=== PATIENT | male | born 1945 | race Hispanic/Latino ===

== ENCOUNTER 2018-04-26 16:09 | Emergency (ER) | payer MEDICARE ==
[~2018-04-26] VITALS: Ht 177.8 cm; Wt 90.3 kg
[~2018-04-26 16:09] MED LIST: LISINOPRIL5 MG PO; [UNRECOGNIZED DRUG - OTHER] PO; tresiba SQ
[2018-04-26] MEDS ORDERED: ASPIRIN 81 MG CHEW TAB PO ONE (17:45)
[2018-04-26 18:02] LABS: BASOPHILS # (AUTO) 0.1 (0.0-0.1); BASOPHILS % 0.8 % (0.0-1.0); EOSINOPHILS # (AUTO) 0.2 (0.0-0.4); EOSINOPHILS % 2.7 % (0.0-6.0); HEMATOCRIT 39.7 % (38.2-49.6); LYMPHOCYTES # (AUTO) 1.8 (1.0-3.2); LYMPHOCYTES % 29.4 % (18.0-39.1); MEAN CORPUSCULAR HEMOGLOBIN 31.4 pg (28-32); MEAN CORPUSCULAR HGB CONC 32.7 g/dL (31-35); MEAN CORPUSCULAR VOLUME 95.9 fL (81-99); MONOCYTES # (AUTO) 0.5 (0.2-0.8); MONOCYTES % 7.4 % (4.4-11.3); NEUTROPHILS # (AUTO) 3.7 (2.1-6.9); NEUTROPHILS % 59.4 % (38.7-80.0); PLATELET COUNT 241 x10e3/uL (140-360); RED BLOOD COUNT 4.14 x10e6/uL (4.3-5.7); RED CELL DISTRIBUTION WIDTH 15.4 % (11.7-14.4)
[2018-04-26 18:14] LABS: INR 1.06
[2018-04-26 18:15] LABS: PARTIAL THROMBOPLASTIN TIME 29.7 seconds (23.8-35.5)
[2018-04-26 18:28] LABS: ALBUMIN 3.8 g/dL (3.5-5.0); ALBUMIN/GLOBULIN RATIO 0.8 (0.8-2.0); ANION GAP 19.6 mmol/L (8-16); CALCIUM 9.2 mg/dL (8.4-10.2); CREATINE KINASE MB 1.5 ng/mL (0-5.0); CREATININE, SERUM 3.34 mg/dL (0.72-1.25); POTASSIUM 5.6 mmol/L (3.5-5.1)
--- NOTE | 2018-04-26 18:59 | Diagnostic Imaging Report ---
Examination: Single AP view of the chest. COMPARISON: AP chest 06/04/2017 INDICATION: Chest pain IMPRESSION: 1. Lines and Tubes: Stable left upper chest multilead cardiac device 2. Lungs are grossly clear. No consolidation or effusion. 3. Stable enlargement of the cardiac silhouette. Pulmonary vasculature is normal. 4. No acute bony abnormalities. Partially visualized fusion hardware in the lower cervical spine. Signed by: Dr. Srinivas Denney M.D. on 04/26/2018 6:55 PM
[2018-04-26 21:58] LABS: CLARITY,URINE CLEAR (CLEAR); COLOR,URINE YELLOW (YELLOW); LEUKOCYTE ESTERASE ,URINE NEGATIVE (NEGATIVE); NITRITE,URINE NEGATIVE (NEGATIVE); PROTEIN,URINE DIPSTICK 3+ (NEGATIVE)
[2018-04-26 21:59] LABS: BILIRUBIN,URINE NEGATIVE (NEGATIVE); KETONES,URINE TRACE (NEGATIVE); URINE UROBILINOGEN 1 mg/dL (0.2 - 1)
[2018-04-26 22:27] LABS: EPITHELIAL CELLS,URINE MODERATE /LPF; HYALINE CASTS >15 (0-1)
[2018-04-26 22:28] LABS: RBC,URINE 0-5 /HPF (0-5)
[2018-04-26 22:29] LABS: TRANSITIONAL EPI CELLS,URINE MODERATE
[2018-04-26] MEDS ORDERED: SOD POLYSTYRENE SULFONATE SUSP 15 GM/60 ML BTL PO ONE (23:00)
[2018-04-26] MEDS ORDERED: ONDANSETRON HCL INJ 2 MG/ML VIAL IV PRN (23:15)
[2018-04-26] MEDS ORDERED: DEXTROSE 50% SYRINGE 50 ML IV PRN (23:15)
[2018-04-26] MEDS ORDERED: MORPHINE SULFATE 2 MG/ML SYR IV PRN (23:15)
[2018-04-26] MEDS ORDERED: SODIUM CHLORIDE FLUSH 10 ML SYR INJ PRN (23:15)
[2018-04-26] MEDS ORDERED: LORAZEPAM1 MG PO (23:24)
[2018-04-26] MEDS ORDERED: FOSRENOL1000 MG PO (23:24)
[2018-04-26] MEDS ORDERED: SIMVASTATIN20 MG PO (23:24)
[2018-04-26] MEDS ORDERED: PRANDIN2 MG PO (23:24)
[2018-04-26] MEDS: FAMOTIDINE 20 MG/2 ML VIAL IV SCH (23:44)
[2018-04-27 01:24] LABS: CREATINE KINASE MB 1.4 ng/mL (0-5.0)
[2018-04-27 05:52] LABS: CHOL/HDL RATIO 4.6 (3.9-4.7)
[2018-04-27 06:16] LABS: CREATINE KINASE MB 1.3 ng/mL (0-5.0)
[2018-04-27] MEDS ORDERED: INSULIN REGULAR, HUMAN 100 UNIT/1 ML 3ML VIAL SQ SCH (07:30)
[2018-04-27 07:41] LABS: ANION GAP 18.1 mmol/L (8-16); CALCIUM 8.8 mg/dL (8.4-10.2); CREATININE, SERUM 3.62 mg/dL (0.72-1.25); POTASSIUM 5.1 mmol/L (3.5-5.1)
[2018-04-27] MEDS: FAMOTIDINE 20 MG/2 ML VIAL IV SCH (08:31)
[2018-04-27] MEDS ORDERED: ASPIRIN81 MG PO (08:32)
[2018-04-27] MEDS ORDERED: SIMVASTATIN40 MG PO (08:32)
[2018-04-27] MEDS ORDERED: PEPCID20 MG PO (08:32)
[2018-04-27] MEDS ORDERED: METOPROLOL TART25 MG PO (08:32)
--- NOTE | 2018-04-27 08:45 | Discharge Summary ---
PRINCIPAL DIAGNOSES 1. Atypical chest pain. 2. Diabetes mellitus, type 2. 3. History of coronary artery disease. 4. End-stage renal disease. 5. Hyperkalemia. SECONDARY DIAGNOSIS: End-stage renal disease, on hemodialysis. CHIEF COMPLAINT: Left-sided chest pain. HISTORY OF PRESENT ILLNESS: This is a 72-year-old man with left-sided chest pain. Refer to the H and P for further details. HOSPITAL COURSE: The patient was found to have left-sided chest pain. Symptoms quickly resolved. Cardiac enzymes were negative. He does have a history of coronary artery disease and diabetes. Will obtain hemoglobin A1c. LDL is not at goal. Will titrate his statin medication up. I have also added aspirin and beta jose. Continue his BOB inhibitor. The patient is to follow up with parts data writer over the next week for possible stress testing. In the meantime, will treat him medically. Optimize his medical treatment. DISCHARGE MEDICATIONS: Per electronic medical record. FOLLOWUP 1. Primary care doctor in 1 week. 2. Electrical Logging Operator in 3-5 days. 3. Nephrology as directed. CONDITION ON DISCHARGE: Stable and improving. DISCHARGE LOCATION: Home. SARINA DANIELS MD Job#: [id number] [place]
[2018-04-27] MEDS ORDERED: SIMVASTATIN 20 MG TAB PO SCH (09:00)
[2018-04-27] MEDS ORDERED: ASPIRIN 81 MG ENTERIC COATED PO SCH (09:00)
[2018-04-27] MEDS ORDERED: NON-FORMULARY MEDICATION (Lisinopril 10 MG) PO SCH (09:00)
--- NOTE | 2018-04-27 09:04 | History and Physical ---
PRIMARY CARE PHYSICIAN: Dr. Abhi Zhang PROFESSOR OF MUSIC: Dr. Webster CHIEF COMPLAINT: Left-sided chest pain. HISTORY OF PRESENT ILLNESS: [id number] man with a history of end-stage renal disease, who received dialysis yesterday. During dialysis, patient developed some chest discomfort on the left side, sent home after completing dialysis, about 3 kg of fluid removed. Now, patient came into hospital due to left-sided chest discomfort. Cardiac enzymes negative. Symptoms have resolved. He denies any shortness of breath or dizziness. PAST MEDICAL HISTORY: Left leg cellulitis; acute kidney injury; end-stage renal disease, started on dialysis; diabetes mellitus type 2, hemoglobin A1c 8.3 in June 2017; diabetic nephropathy; hypertension; hyponatremia; adjustment disorder with mixed mood; ESBL E. coli and streptococcal infection of the left foot wound; right bundle-branch block; anemia requiring blood transfusion; coronary artery disease; stroke; myocardial infarction, status post coronary artery bypass grafting in 2017; congestive heart failure; hyperlipidemia. PAST SURGICAL HISTORY: Coronary artery bypass grafting, left arm HD access. ALLERGIES: PER ELECTRONIC MEDICAL RECORD. FAMILY HISTORY: Hypertension. SOCIAL HISTORY: Patient is single. He has grown children. Previously drank about 3 beers a day. Remote history of smoking cigarette. MEDICATIONS: Per electronic medical record. REVIEW OF SYSTEMS: Denies any dizziness, chest pain, shortness of breath, fever, chills, sweats, nausea, vomiting, diarrhea. PHYSICAL EXAMINATION: VITAL SIGNS: Have been reviewed. GENERAL APPEARANCE: Tired-appearing man resting in bed. HEENT: Anicteric. Pupils respond to light. No oral lesions. CARDIOVASCULAR: Normal S1 and S2. LUNGS: Moderate breath sounds. ABDOMEN: Soft, nontender, nondistended. EXTREMITIES: He has left arm bruit. SKIN: Dry. PSYCHIATRIC: Normal affect. NEUROLOGICAL: Alert and oriented x3. Moving all extremities. MUSCULOSKELETAL: No chest wall tenderness. LABS: Reviewed. MEDICATIONS: Reviewed. ASSESSMENT: 1. Left-sided chest pain. 2. Diabetes mellitus type 2. 3. Coronary artery disease with history of bypass. 4. End-stage renal disease, on hemodialysis. 5. Normocytic anemia, mild. 6. Hyperkalemia. 7. Overweight state. PLAN: 1. Cardiac enzymes negative x3. 2. LDL is 111, triglyceride 211. 3. The patient's symptoms may have been related to anxiety issues. 4. The patient's symptoms may have been related to fluid removal during dialysis. 5. Patient will need to follow up with his manager agency outpatient. 6. Will continue his BOB inhibitor. Will add aspirin 81 mg daily. Will continue statin. Will add low-dose beta jose. 7. Will also discharge him with Pepcid. Job#: [id number]
[2018-04-27] MEDS ORDERED: REPAGLINIDE 1 MG TAB PO SCH (11:30)
[2018-04-27] MEDS ORDERED: REPAGLINIDE 2 MG PO SCH (11:30)
[2018-04-28] MEDS ORDERED: LISINOPRIL 10 MG TAB PO SCH (09:00)
[2018-04-28] MEDS ORDERED: SIMVASTATIN 20 MG TAB PO SCH (21:00)
== END 2018-04-27 09:33 | disposition home or self-care (01) ==
LOC: ER 16:09 → UNDOADMIN 23:14 → ERHOLD 23:14 → ER 04-27 09:33
DX: R07.89 Other chest pain (principal); E87.5 Hyperkalemia; I12.0 Hypertensive chronic kidney disease with stage 5 chronic kidney disease or end stage renal disease; E11.22 Type 2 diabetes mellitus with diabetic chronic kidney disease; N18.6 End stage renal disease; Z99.2 Dependence on renal dialysis; E78.00 Pure hypercholesterolemia, unspecified; Z95.1 Presence of aortocoronary bypass graft; Z95.810 Presence of automatic (implantable) cardiac defibrillator
CPT/HCPCS: 36415; 71045; 80048; 80053; 80061; 81001; 82550; 82553; 82948; 83880; 84484; 85025; 85610; 85730; 93005; 99284

== ENCOUNTER 2018-08-22 11:50 | Emergency (ER) | payer MEDICARE ==
[~2018-08-22] VITALS: Ht 177.8 cm; Wt 90.3 kg
[~2018-08-22 11:50] MED LIST changes: +ASPIRIN81 MG PO; +FOSRENOL1000 MG PO; +LORAZEPAM1 MG PO; +METOPROLOL TART25 MG PO; +PEPCID20 MG PO; +PRANDIN2 MG PO; +SIMVASTATIN20 MG PO; +SIMVASTATIN40 MG PO
--- OUTSIDE RECORDS SUMMARY | 2018-08-22 11:53 | XMS REPORT | Clinical Summary ---
Author Author MARIANNE [facility] Organization [facility] Address Unknown Phone Unavailable Care Team Providers Care Heavy Forging Machine Operator Name Role Phone Abhi Zhang MD PCP Allergies No Known Allergies Medications End Date Status Medication Sig Dispensed Refills Start Date Active lisinopril Take 1 tablet 30 tablet 0 (PRINIVIL,ZESTRIL) 10 MG (10 mg total) 6 tablet by mouth every evening. Active metoprolol (LOPRESSOR) Take 1 tablet 60 tablet 0 100 MG tablet (100 mg 6 total) by mouth 2 (two) times daily. Active repaglinide (PRANDIN) 2 Take 2 mg by 0 MG tablet mouth 3 (three) times daily before meals. Active simvastatin (ZOCOR) 20 MG Take 20 mg by 0 tablet mouth nightly. Active liraglutide 0.6 mg/0.1 mL Inject 40 mg 0 (18 mg/3 mL) PnIj subcutaneousl y. Active insulin degludec (TRESIBA Inject 50 0 FLEXTOUCH U-200) 200 Units unit/mL (3 mL) InPn subcutaneousl y. 07/18/2018 Discontinued bismuth subsalicylate Take 30 mLs 360 mL 0 (PEPTO BISMOL) 262 mg/15 by mouth 6 mL suspension every 4 (four) hours as needed for Indigestion. 07/18/2018 Discontinued aspirin 81 MG EC tablet Take 1 tablet 30 tablet 0 (81 mg total) 6 by mouth daily. 07/18/2018 Discontinued insulin detemir (LEVEMIR) Inject 20 20 mL 0 100 unit/mL injection Units 6 subcutaneousl y 2 (two) times daily. 07/18/2018 Discontinued pantoprazole (PROTONIX) Take 1 tablet 30 tablet 0 40 MG tablet (40 mg total) 6 by mouth daily. 07/18/2018 Discontinued senna-docusate (SENOKOT Take 1 tablet 60 tablet 1 S) 8.6-50 mg per tablet by mouth 2 6 (two) times daily. 07/18/2018 Discontinued atorvastatin (LIPITOR) 80 Take 1 tablet 30 tablet 0 MG tablet (80 mg total) 6 by mouth nightly. 07/18/2018 Discontinued hydrALAZINE (APRESOLINE) Take 1 tablet 90 tablet 0 25 MG tablet (25 mg total) 6 by mouth every 8 (eight) hours. Active Problems Problem Noted Date Benign hypertension with chronic kidney disease, stage III 05/10/2016 Acute kidney injury 05/10/2016 Chronic kidney disease, stage 3 05/10/2016 Diabetes mellitus type 2, uncontrolled, with complications 05/10/2016 Pacemaker 05/05/2016 Acute ischemic stroke 05/04/2016 S/P CABG x 3 12/01/2015 CAD (coronary artery disease) 11/30/2015 Encounters Care Team Description Date Type Specialty Cristy Mcintyre RN Coronary artery disease involving [place] coronary artery of [place] heart with other form of angina pectoris (HCC) (Primary Dx); Acute ischemic stroke (HCC); Benign hypertension with chronic kidney disease, stage III (HCC); Diabetes mellitus type 2, uncontrolled, with complications (HCC); Acute kidney injury (HCC); Chronic kidney disease, stage 3 (HCC); S/P CABG x 3; Pacemaker 07/20/2018 Orders Only Transplant [facility] Ny MD Yao, June, MD ESRD (end stage renal disease) (HCC) (Primary Dx) 07/18/[address] [facility] 04/23/[address] [facility] Appointment 04/18/[address] [facility] Appointment 04/18/[address] [facility] 04/18/[address] [facility] 04/17/2018 Abstract Transplant after 08/21/2017 Social History Date Tobacco Use Types Packs/Day Years Used Quit: 07/18/2008 Former Smoker Smokeless Tobacco: Former Quit: 11/29/1995 User Alcohol Use Drinks/Week oz/Week Comments Yes 21 Cans of 12.6 beer Alcohol Habits Answer Date Recorded How often do you have a drink containing alcohol? 2-4 times a month 07/18/2018 How many drinks containing alcohol do you have on 1 or 2 07/18/2018 a typical day when you are drinking? How often do you have six or more drinks on one Not asked occasion? Sex Assigned at Date Recorded Not on file Industry Job Start Date Occupation Not on file Not on file Not on file Travel End Travel History Travel Start No recent travel history available. Last Filed Vital Signs Time Taken Vital Sign Reading 07/18/2018 2:07 PM PUBLIC SAFETY DIRECTOR Blood Pressure 154/55 07/18/2018 2:07 PM PUBLIC SAFETY DIRECTOR Pulse 82 07/18/2018 2:07 PM PUBLIC SAFETY DIRECTOR Temperature 36.7 C (98 F) 07/18/2018 2:07 PM PUBLIC SAFETY DIRECTOR Respiratory Rate 20 - Oxygen Saturation - - Inhaled Oxygen - Concentration 07/18/2018 2:07 PM PUBLIC SAFETY DIRECTOR Weight 92.5 kg (203 lb 14.4 oz) 07/18/2018 2:07 PM PUBLIC SAFETY DIRECTOR Height 177.8 cm (5' 10") 07/18/2018 2:07 PM PUBLIC SAFETY DIRECTOR Body Mass Index 29.26 Plan of Treatment Not on file Results Not on fileafter 08/21/2017 Insurance Payer Benefit Subscriber ID Type Phone Address Plan / Group AETNA - MEDICARE MGD CARE AETNA xxxxxxxx [facility] [phone] [address] [place] [address] [facility] Advance Directives For more information, please contact: [facility] [address] [place] [address] Date Inactivated Comments Code Status Date Activated 05/19/2016 3:19 PM Full Code 05/11/2016 3:20 PM This code status was determined by: Patient 05/11/2016 3:20 PM Full Code 05/04/2016 7:10 PM This code status was determined by: Patient 12/11/2015 5:03 PM Full Code 12/01/2015 3:20 PM This code status was determined by: Patient 12/01/2015 3:20 PM Full Code 11/30/2015 4:43 PM This code status was determined by: Patient 11/30/2015 4:43 PM Full Code 11/30/2015 9:09 AM This code status was determined by: Patient
[2018-08-22 12:15] LABS: BASOPHILS # (AUTO) 0.1 (0.0-0.1); BASOPHILS % 0.9 % (0.0-1.0); EOSINOPHILS # (AUTO) 0.2 (0.0-0.4); EOSINOPHILS % 2.4 % (0.0-6.0); HEMATOCRIT 34.9 % (38.2-49.6); HEMOGLOBIN 11.3 g/dL (14.0-18.0); LYMPHOCYTES # (AUTO) 2.3 (1.0-3.2); LYMPHOCYTES % 29.3 % (18.0-39.1); MEAN CORPUSCULAR HEMOGLOBIN 31.1 pg (28-32); MEAN CORPUSCULAR HGB CONC 32.4 g/dL (31-35); MEAN CORPUSCULAR VOLUME 96.1 fL (81-99); MONOCYTES # (AUTO) 0.6 (0.2-0.8); MONOCYTES % 7.8 % (4.4-11.3); NEUTROPHILS # (AUTO) 4.6 (2.1-6.9); NEUTROPHILS % 59.2 % (38.7-80.0); PLATELET COUNT 190 x10e3/uL (140-360); RED BLOOD COUNT 3.63 x10e6/uL (4.3-5.7); RED CELL DISTRIBUTION WIDTH 14.2 % (11.7-14.4)
[2018-08-22 12:33] LABS: ALBUMIN 3.7 g/dL (3.5-5.0); ALBUMIN/GLOBULIN RATIO 0.8 (0.8-2.0); ANION GAP 19.1 mmol/L (8-16); CALCIUM 8.9 mg/dL (8.4-10.2); CREATININE, SERUM 5.16 mg/dL (0.72-1.25); MAGNESIUM 2.4 MG/DL (1.3-2.1); PHOSPHORUS 5.3 MG/DL (2.3-4.7); POTASSIUM 5.1 mmol/L (3.5-5.1)
--- NOTE | 2018-08-22 12:56 | Diagnostic Imaging Report ---
Frontal and lateral views of the chest. HISTORY: Shortness of breath COMPARISON: Chest radiograph April 26, 2018 DISCUSSION: Overlying monitoring leads and artifacts. Unchanged appearance of the dual-lead implanted cardiac device. Lungs: No evidence of a consolidative pneumonia or pulmonary alveolar edema. Pleura: No pleural effusion or pneumothorax. Heart and mediastinum: The cardiac silhouette appears unremarkable. Postsurgical changes. Bones: Multiple median sternotomy wires. IMPRESSION: 1. No acute radiographic abnormality. 2. No significant interval change. Signed by: Dr. Cheko Krishnamurthy D.O., M.M.M. on 08/22/2018 12:53 PM
--- NOTE | 2018-08-22 12:59 | Diagnostic Imaging Report ---
RADIOGRAPH(S) OF THE ABDOMEN AND PELVIS, 2 view(s) HISTORY: Shortness of breath COMPARISON: None available. FINDINGS: Overlying monitoring leads. Some of the osseous structures are partially obscured by stool and overlying bowel gas. Moderate fecal material in the region of the sacrum. No specific evidence of obstruction or ileus. No definite urinary tract calcification. Multilevel degenerative changes, most notably severe at L3-4. IMPRESSION: Nonobstructive bowel gas pattern. Signed by: Dr. Cheko Krishnamurthy D.O., M.M.M. on 08/22/2018 12:56 PM
[2018-08-22] MEDS ORDERED: ZOFRAN4 MG SL (13:17)
[2018-08-22] MEDS ORDERED: PEPCID20 MG PO (13:17)
== END 2018-08-22 14:07 | disposition home or self-care (01) ==
LOC: ER 11:50
DX: R06.00 Dyspnea, unspecified (principal); R11.2 Nausea with vomiting, unspecified; E11.65 Type 2 diabetes mellitus with hyperglycemia; N18.9 Chronic kidney disease, unspecified; E86.0 Dehydration
CPT/HCPCS: 36415; 71046; 74018; 80053; 83735; 83880; 84100; 84484; 85025; 93005; 99284

== ENCOUNTER 2020-01-29 12:16 | Emergency (ER) | payer MEDICARE ==
[~2020-01-29] VITALS: Ht 177.8 cm; Wt 99.8 kg
[~2020-01-29 12:16] MED LIST changes: +ZOFRAN4 MG SL
--- NOTE | 2020-01-29 13:15 | Emergency Department Note ---
History of Present Illnes History of Present Illness Chief Complaint: Abdominal Complaints History of Present Illness This is a 74 year old male with diarrhea x 2 months. Historian: Patient Arrival Mode: Car Arborist Required: No Onset (how long ago): month(s) (2) Quality: watery Severity: moderate Onset quality: gradual Duration (how long): month(s) (2) Timing of current episode: intermittent Progression: unchanged Chronicity: chronic Relieving factors: none, other (has not tried any meds for diarrhea) Exacerbating factors: none Treatments prior to arrival: none Past Medical/Family History Physician Review I have reviewed the patient's past medical and family history. Any updates have been documented here. Past Medical History Recent Fever: No Clinical Suspicion of Infectio: No New/Unexplained Change in Ment: No Past Medical History: Hypertension, Diabetes Other Medical History: HIGH CHOLESTEROL Past Surgical History: None Other Surgery: LEFT LOWER ARM DIALYSIS FISTULA Social History Smoking Cessation: Never Smoker Counseling Performed: No Alcohol Use: None Any Illegal Drug Use: No TB Exposure/Symptoms: No Physically hurt or threatened: No Family History Family history of heart diseas: No Other Last Tetanus: UTD Any Pre-Existing Lines (PICC,: No Review of Systems Review of Systems Constitutional: no symptoms EENTM: no symptoms Cardiovascular: no symptoms Respiratory: no symptoms Gastrointestinal: diarrhea (no blood, no melena) Genitourinary: no symptoms Musculoskeletal: no symptoms Neurological: no symptoms Psychological: no symptoms Endocrine: no symptoms Hematological/Lymphatic: no symptoms Review of other systems All other systems reviewed and negative. Physical Exam Related Data Allergies: Coded Allergies: No Known Allergies (Unverified , 06/04/17) Triage Vital Signs Vital Signs Date Time Temp Pulse Resp B/P (MAP) Pulse Ox O2 Delivery O2 Flow Rate FiO2 01/29/20 12:48 98.0 69 16 159/71 98 Physical Exam CONSTITUTIONAL Constitutional: well-developed, well-nourished HENT HENT: normocephalic, atraumatic, oropharynx clear/moist, nose normal HENT L/R: left ext ear normal, right ext ear normal EYES Eyes: PERRL, conjunctivae normal NECK Neck: ROM normal PULMONARY Pulmonary: effort normal, breath sounds normal CARDIOVASCULAR Cardiovascular: regular rhythm, heart sounds normal, capillary refill normal, normal rate GASTROINTESTINAL Abdominal: soft, nontender, bowel sounds normal GENITOURINARY Genitourinary: exam deferred SKIN Skin: warm, dry MUSCULOSKELETAL Musculoskeletal: ROM normal NEUROLOGICAL Neurological: alert, oriented x 3, no gross motor or sensory deficits PSYCHOLOGICAL Psychological: mood/affect normal, judgement normal Critical Care Time Subsequent provider I assumed direction of critical care for this patient from another provider of my specialty. Assessment & Plan Assessment & Plan Final Impression: (1) Diarrhea Assessment & Plan dc home f/u with pcp and GI Dr Corcoran otc Imodium Bentyl for cramps Depart Disposition: HOME, SELF-CARE Last Vital Signs Date Time Temp Pulse Resp B/P (MAP) Pulse Ox O2 Delivery O2 Flow Rate FiO2 01/29/20 12:48 98.0 69 16 159/71 98 Home Meds Active Scripts Famotidine (PEPCID) 20 Mg Tablet, 20 MG PO BID, #30 TAB Prov:JORY BRAND MD 08/22/18 Ondansetron Hcl* (ZOFRAN*) 4 Mg Tablet, 4 MG SL Q6H PRN for NAUSEA, #30 MG 0 Refills Prov:JORY BRAND MD 08/22/18 Metoprolol Tartrate (METOPROLOL TARTRATE) 25 Mg Tablet, 25 MG PO Q12H for 30 Days, TAB Prov:SARINA DANIELS MD 04/27/18 Simvastatin (SIMVASTATIN) 40 Mg Tablet, 40 MG PO 2100, #30 TAB Prov:SARINA DANIELS MD 04/27/18 Aspirin (ASPIRIN) 81 Mg Tab.chew, 81 MG PO DAILY for 30 Days Prov:SARINA DANIELS MD 04/27/18 Famotidine (PEPCID) 20 Mg Tablet, 20 MG PO BID, #60 TAB Prov:SARINA DANIELS MD 04/27/18 Reported Medications Lanthanum Carbonate (FOSRENOL) 1,000 Mg Tab.chew, 1000 MG PO AC for 0 Days 04/26/18 Lorazepam (LORAZEPAM) 1 Mg Tablet, 1 MG PO DAILY for ANXIETY, #30 04/26/18 Repaglinide (PRANDIN) 2 Mg Tablet, 2 MG PO AC, #90 04/26/18 [tresiba] No Conflict Check, 20 UNITS SQ BID 06/05/17 Lisinopril (LISINOPRIL) 5 Mg Tablet, 10 MG PO DAILY 06/05/17 DANN WASHINGTON MD January 29, 2020 13:15
--- OUTSIDE RECORDS SUMMARY | 2020-01-30 09:03 | XMS REPORT | Clinical Summary ---
Author Author MARIANNE [facility] Organization [facility] Address Unknown Phone Unavailable Care Team Providers Care Tourist Agent Name Role Phone Abhi Zhang MD PCP Allergies No Known Allergies Medications End Date Status Medication Sig Dispensed Refills Start Date Active lisinopril Take 1 tablet 30 tablet 0 (PRINIVIL,ZESTRIL) 10 MG (10 mg total) 6 tablet by mouth every evening. Active metoprolol (LOPRESSOR) Take 1 tablet 60 tablet 0 0 100 MG tablet (100 mg 6 [...] Units unit/mL (3 mL) InPn subcutaneousl y. Active Problems Problem Noted Date Benign hypertension with chronic kidney disease, stag e III 05/10/2016 Acute kidney injury 05/10/2016 Chronic kidney disease, stage 3 05/10/2016 Diabetes mellitus type 2, uncontrolled, with complica tions 05/10/2016 Pacemaker 05/05/2016 Acute ischemic stroke 05/04/2016 S/P CABG x 3 12/01/2015 CAD (coronary artery disease) 11/30/2015 Social History Date Tobacco Use Types Packs/Day Years Used Quit: 07/18/2008 Former Smoker Smokeless Tobacco: Former Quit: 11/29/1995 User Alcohol Use Drinks/Week oz/Week Comments Yes 21 Cans of 12.6 beer Alcohol Habits Answer Date Recorded How often do you have a drink containing alcohol? 2-4 time s a month 07/18/2018 How many drinks containing [...] travel history available. Last Filed Vital Signs Not on file Plan of Treatment Health Maintenance Due Date Last Done Comments HEMOGLOBIN A1C 08/04/2016 05/04/2016, 016 Results Not on fileafter 01/28/2019 Insurance Payer Benefit Subscriber ID Type Phone Address Plan / Group AETNA - MEDICARE MGD CARE AETNA xxxxxxxx [facility] [address] [place] [address] [place] [phone] Advance Directives For more information, please contact: [facility] [address] [place] [address] Date Inactivated Comments Code Status [...]
--- OUTSIDE RECORDS SUMMARY | 2020-01-30 09:04 | XMS REPORT ---
Author Author Fito Egan Organization [employer] Address Unknown Phone Unavailable Care Team Providers Care Drafter Electronic Name Role Phone Sidra Egan Unavailable Allergies, Adverse Reactions, Alerts Substance Reaction Event Type N.K.D.A. Info Not Available Non Drug Allergy Problems Problem Type Condition Code Onset Dates Condition Statu s Assessment Patient's noncompliance with other medic al treatment and regimen Z91.19 Active Assessment Patient's noncompliance with dietary regimen Z91.11 Active Assessment Diabetic peripheral neuropathy E11.42 Active Assessment Combined hyperlipidemia E78.2 Acti ve Problem Erectile dysfunction N52.9 Active Assessment Erectile dysfunction N52.9 Active Problem CAD (coronary artery disease) I25.10 Active Assessment Hypogonadism in male E29.1 Active Problem Hyperlipidemia E78.5 Active Problem Anemia in chronic kidney disease D63.1 Active Problem Generalized osteoarthritis M15.9 A ctive Problem Diabetic peripheral neuropathy E11.42 Active Problem Combined hyperlipidemia E78.2 Acti ve Assessment Chronic kidney disease, stage 3 (moderate) N18.3 Active Assessment Anemia in chronic kidney disease D63.1 Active Problem Patient's noncompliance with dietary regimen Z91.11 Active Assessment Generalized osteoarthritis M15.9 A ctive Problem Hypogonadism in male E29.1 Active Problem Chronic kidney disease, stage 3 (moderate) N18.3 Active Problem Kidney failure N19 Active Problem CVA (cerebral infarction) I63.9 Ac tive Assessment CVA (cerebral infarction) I63.9 Ac tive Assessment Kidney failure N19 Active Assessment Benign essential hypertension I10 Active Assessment CAD (coronary artery disease) I25.10 Active Problem Benign essential hypertension I10 Active Problem Diabetes mellitus out of control E11.65 Active Assessment Diabetes mellitus out of control E11.65 Active Medications Medication Code System Code Instructions Start Date End Date Status Dosage Tresiba 200 u/ml [facility] 57162746286 200 u/ml Subcutaneous QD February 09, 2019 Active 44 units Novolin R [facility] [id number] human recombinan t 100 units/mL subcutaneously 2 TIMES A DAY /a.c. Aug 13, 2018 Active 10-15 units repaglinide [facility] 82541563015 2 mg orally 3 times a day (before me als) Inactive 1 tab(s) BD Ultra-Fine Pen Needle Angie 67hn5yd NDC 0 - SQ 3 TIMES A DAY Active - Victoza [facility] 12696468950 18 mg/3 mL subcutaneously once a day Active 1.2 mg Vital Signs Date/Time: Aug 13, 2018 BMI 30.13 Index Weight 210 lbs Height 70 in Blood Pressure Diastolic 80 mm Hg Blood Pressure Systolic 130 mm Hg Results Name Result Date Reference Range Unit Abnormali ty Flag Finger stick glucose ----Blood Sugar BS [id number] Summary Purpose [employer] Submission
--- OUTSIDE RECORDS SUMMARY | 2020-01-30 09:04 | XMS REPORT ---
Author Author Fito Egan Organization [employer] Address Unknown Phone Unavailable Care Team Providers Care Valve Grinder Name Role Phone Sidra Egan Unavailable Allergies No Known Allergies Problems Problem Type Condition Code Onset Dates Condition Statu s Problem CAD (coronary artery disease) I25.10 Active Problem Generalized osteoarthritis M15.9 A ctive Problem Hyperlipidemia E78.5 Active Problem Diabetes mellitus out of control E11.65 Active Problem Erectile dysfunction N52.9 Active Problem Kidney failure N19 Active Problem CVA (cerebral infarction) I63.9 Ac tive Problem Combined hyperlipidemia E78.2 Acti ve Problem Chronic kidney disease, stage 3 (moderate) N18.3 Active Problem Anemia in chronic kidney disease D63.1 Active Problem Hypogonadism in male E29.1 Active Problem Benign essential hypertension I10 Active Medications No Known Medications Results No Known Results Summary Purpose [employer] Submission
--- OUTSIDE RECORDS SUMMARY | 2020-01-30 09:04 | XMS REPORT ---
Author Author Fito Egan Organization [employer] Address Unknown Phone Unavailable Care Team Providers Care Vmware Consultant Name Role Phone Sidra Egan Unavailable Allergies No Known Allergies Problems Problem Type Condition Code Onset Dates Condition Statu s Problem Anemia in chronic kidney disease D63.1 Active Problem Hyperlipidemia E78.5 Active Problem Chronic kidney disease, stage 3 (moderate) N18.3 Active Problem Kidney failure N19 Active Problem CVA (cerebral infarction) I63.9 Ac tive Problem Combined hyperlipidemia E78.2 Acti ve Problem CAD (coronary artery disease) I25.10 Active Problem Benign essential hypertension I10 Active Problem Hypogonadism in male E29.1 Active Problem Diabetes mellitus out of control E11.65 Active Assessment Diabetes mellitus out of control E11.65 Active Problem Erectile dysfunction N52.9 Active Problem Generalized osteoarthritis M15.9 A ctive Medications No Known Medications Results No Known Results Summary Purpose [employer] Submission
--- OUTSIDE RECORDS SUMMARY | 2020-01-30 09:04 | XMS REPORT ---
Author Author Fito Egan Organization [employer] Address Unknown Phone Unavailable Care Team Providers Care Aircraft Mechanic Armament Name Role Phone Sidra Egan Unavailable Allergies [...]
--- OUTSIDE RECORDS SUMMARY | 2020-01-30 09:04 | XMS REPORT ---
Author Author Fito Egan Organization eClinicalWorks Address Unknown Phone Unavailable Care Team Providers Care Elevator Repairer Name Role Phone Sidra Egan Unavailable Allergies, Adverse Reactions, Alerts Substance Reaction Event Type N.K.D.A. Info Not Available Non Drug Allergy Problems Problem Type Condition Code Onset Dates Condition Statu s Assessment Combined hyperlipidemia E78.2 Acti ve Assessment Erectile dysfunction N52.9 Active Assessment Hypogonadism in male E29.1 Active Assessment Generalized osteoarthritis M15.9 A ctive Assessment Anemia in chronic kidney disease D63.1 Active Problem Hyperlipidemia E78.5 Active Assessment CAD (coronary artery disease) I25.10 Active Problem Chronic kidney disease, stage 3 (moderate) N18.3 Active Assessment CVA (cerebral infarction) I63.9 Ac tive Problem Benign essential hypertension I10 Active Problem CVA (cerebral infarction) I63.9 Ac tive Problem Hypogonadism in male E29.1 Active Problem Type 2 diabetes mellitus with diabetic polyneuropathy E11.42 Active Problem Chronic kidney disease, stage 5 N18.5 Active Assessment Diabetes mellitus with peripheral vascular disease E11 .51 Active Assessment Benign essential hypertension I10 Active Problem Diabetes mellitus with peripheral vascular disease E11 .51 Active Assessment Chronic kidney disease, stage 5 N18.5 Active Problem Combined hyperlipidemia E78.2 Acti ve Problem Kidney failure N19 Active Problem Diabetic peripheral neuropathy E11.42 Active Problem Patient's noncompliance with dietary regimen Z91.11 Active Problem Anemia in chronic kidney disease D63.1 Active Assessment Type 2 diabetes mellitus with diabetic polyneuropathy E11.42 Active Assessment Diabetes mellitus out of control E11.65 Active Problem Erectile dysfunction N52.9 Active Problem CAD (coronary artery disease) I25.10 Active Problem Generalized osteoarthritis M15.9 A ctive Problem Diabetes mellitus out of control E11.65 Active Medications Medication Code System Code Instructions Start Date End Date Status Dosage Victoza NDC 26779375521 18 mg/3 mL subcutaneously once a day Active 1.8 mg Victoza NDC 82947331536 18 mg/3 mL subcutaneously once a day Active 1.2 mg repaglinide [facility] 76989371027 2 mg orally 3 times a day (before meals) Active 1 tab(s) BD Ultra-Fine Pen Needle Angie [id number] [facility] 0 - SQ 3 TIMES A DAY Active - Novolin R [facility] 80399647186 human recombinan t 100 units/mL subcutaneously 2 TIMES A DAY /a.c. Active 10-15 units Tresiba 200 u/ml [facility] 06242559452 200 u/ml Subcutaneous QD Active 50 units Vital Signs Date/Time: Jun 13, 2019 BMI 29.84 Index Weight 208 lbs Height 70 in Blood Pressure Diastolic 82 mm Hg Blood Pressure Systolic 172 mm Hg Results Name Result Date Reference Range Unit Abnormali ty Flag Finger stick glucose ----Blood Sugar BS 350 [id number] Summary Purpose eClinicalWorks Submission
--- OUTSIDE RECORDS SUMMARY | 2020-01-30 09:04 | XMS REPORT ---
Author Author Fito Egan Organization [employer] Address Unknown Phone Unavailable Care Team Providers Care Director Of Event Sales Name Role Phone Sidra Egan Unavailable Allergies No Known Allergies Problems Problem Type Condition Code Onset Dates Condition Statu s Problem Benign essential hypertension I10 Active Problem CVA (cerebral infarction) I63.9 Ac tive Problem Hypogonadism in male E29.1 Active Problem Type 2 diabetes mellitus with diabetic polyneuropathy E11.42 Active Problem Chronic kidney disease, stage 5 N18.5 Active Problem Diabetes mellitus with peripheral vascular disease E11 .51 Active Problem Combined hyperlipidemia E78.2 Acti ve Problem Kidney failure N19 Active Problem Diabetic peripheral neuropathy E11.42 Active Problem Patient's noncompliance with dietary regimen Z91.11 Active Problem Anemia in chronic kidney disease D63.1 Active Problem Erectile dysfunction N52.9 Active Problem CAD (coronary artery disease) I25.10 Active Problem Generalized osteoarthritis M15.9 A ctive Problem Hyperlipidemia E78.5 Active Problem Diabetes mellitus out of control E11.65 Active Problem Chronic kidney disease, stage 3 (moderate) N18.3 Active Medications Medication Code System Code Instructions Start Date End Date Status Dosage One Touch Verio Gold Test Strips NDC 0 - check blood sugars 2 TIMES A DAY Jul 19, 2019 January 15, 2020 Active as directed BD Insulin Syringe 0.3cc 31g 6mm NDC 0 31G 4mm subcutaneously 2 TIMES A DAY Jul 19, 2019 January 15, 2020 Active - Results No Known Results Summary Purpose eClinicalWorks Submission
--- OUTSIDE RECORDS SUMMARY | 2020-01-30 09:04 | XMS REPORT ---
Author Author Fito Thompson [facility] eClinicalWorks Address Unknown Phone Unavailable Care Team Providers Care Core Baker Name Role Phone Denise Thompson Unavailable Allergies, Adverse Reactions, Alerts Substance Reaction Event Type N.K.D.A. Info Not Available Non Drug Allergy Problems Problem Type Condition Code Onset Dates Condition Statu s Assessment Patient's noncompliance with other medic al treatment and regimen Z91.19 Active Assessment Patient's noncompliance with dietary regimen Z91.11 Active Assessment Diabetic peripheral neuropathy E11.42 Active Problem Erectile dysfunction N52.9 Active Assessment Combined hyperlipidemia E78.2 Acti ve Problem CAD (coronary artery disease) I25.10 Active Assessment Erectile dysfunction N52.9 Active Problem Hyperlipidemia E78.5 Active Problem Chronic kidney disease, stage 3 (moderate) N18.3 Active Problem Anemia in chronic kidney disease D63.1 Active Problem Diabetic peripheral neuropathy E11.42 Active Problem Combined hyperlipidemia E78.2 Acti ve Assessment Anemia in chronic kidney disease D63.1 Active Assessment Generalized osteoarthritis M15.9 A ctive Problem Patient's noncompliance with dietary regimen Z91.11 Active Assessment Hypogonadism in male E29.1 Active Problem Hypogonadism in male E29.1 Active Problem Benign essential hypertension I10 Active Problem Kidney failure N19 Active Problem CVA (cerebral infarction) I63.9 Ac tive Assessment CAD (coronary artery disease) I25.10 Active Assessment CVA (cerebral infarction) I63.9 Ac tive Assessment Chronic kidney disease, stage 3 (moderate) N18.3 Active Assessment Benign essential hypertension I10 Active Problem Generalized osteoarthritis M15.9 A ctive Problem Diabetes mellitus out of control E11.65 Active Assessment Kidney failure N19 Active Assessment Diabetes mellitus out of control E11.65 Active Medications Medication Code System Code Instructions Start Date End Date Status Dosage BD Ultra-Fine Pen Needle Angie [id number] NDC 0 - SQ 3 TIMES A DAY Active - Victoza NDC 77318755319 18 mg/3 mL subcutaneously on ce a day x 1week May 11, 2018 Jun 10, 2018 Active 0.60 mg Lantus Solostar Pen [facility] 42281779028 100 units/ml subcutan eously qd March 05, 2018 Inactive 44 units repaglinide [facility] 68590150372 2 mg orally 3 times a day (before meals) Active 1 tab(s) Trulicity Pen [facility] 44072091314 1.5 mg/0.5 mL subcutaneously onc e a week May 11, 2018 Inactive 1.5 mg Tresiba 200 u/ml [facility] 33186301982 200 u/ml Subcutaneous QD 2018 Active 40 units Bydureon BCise [facility] 00716621829 2 mg/0.85 mL subcutaneousl y once a week March 05, 2018 Jul 03, 2018 Inactive 2 mg Victoza [facility] 40904092278 18 mg/3 mL subcutaneously once a da y May 11, 2018 Nov 07, 2018 Active 1.2 mg Trulicity Pen [facility] 12601517019 0.75 mg/0.5 mL subcutaneously on ce a week May 11, 2018 Inactive 0.75 mg Vital Signs Date/Time: May 11, 2018 BMI 29.55 Index Weight 206 lbs Height 70 in Blood Pressure Diastolic 76 mm Hg Blood Pressure Systolic 142 mm Hg Results Name Result Date Reference Range Unit Abnormali ty Flag Finger stick glucose ----Blood Sugar BS 549 [id number] HgA1C ----Value 11.6% [id number] Summary Purpose eClinicalWorks Submission
--- OUTSIDE RECORDS SUMMARY | 2020-01-30 09:04 | XMS REPORT ---
Author Author Fito Egan Organization eClinicalWorks Address Unknown Phone Unavailable Care Team Providers Care Seo Manager Name Role Phone Sidra Egan Unavailable Allergies No Known Allergies Problems Problem Type Condition Code Onset Dates Condition Statu s Problem Hyperlipidemia E78.5 Active Problem Anemia in chronic kidney disease D63.1 Active Problem Generalized osteoarthritis M15.9 A ctive Problem Combined hyperlipidemia E78.2 Acti ve Problem Kidney failure N19 Active Problem Diabetic peripheral neuropathy E11.42 Active Problem Benign essential hypertension I10 Active Problem Chronic kidney disease, stage 3 (moderate) N18.3 Active Problem CVA (cerebral infarction) I63.9 Ac tive Problem Hypogonadism in male E29.1 Active Assessment Diabetes mellitus out of control E11.65 Active Problem Diabetes mellitus out of control E11.65 Active Problem Erectile dysfunction N52.9 Active Problem CAD (coronary artery disease) I25.10 Active Medications Medication Code System Code Instructions Start Date End Date Status Dosage Tresiba 200 u/ml [facility] 10809749657 200 u/ml Subcutaneous QD March 05, 2018 Inactive 44 units Lantus Solostar Pen [facility] 80190945761 100 units/ml subcutan eously qd March 05, 2018 Active 44 units Trulicity Pen [facility] 31146007112 1.5 mg/0.5 mL subcutaneousl y once a week February 28, 2018 March 05, 2018 Inactive 1.5 mg Bydureon BCise ND 78935551526 2 mg/0.85 mL subcutaneousl y once a week March 05, 2018 Jul 03, 2018 Active 2 mg Results No Known Results Summary Purpose eClinicalWorks Submission
--- OUTSIDE RECORDS SUMMARY | 2020-01-30 09:04 | XMS REPORT ---
Author Author Fito Egan Organization eClinicalWorks Address Unknown Phone Unavailable Care Team Providers Care Capacitor Tester Name Role Phone Sidra Egan Unavailable Allergies [...] Problem Benign essential hypertension I10 Active Medications Medication Code System Code Instructions Start Date End Date Status Dosage BD Ultra-Fine Pen Needle Angie 85bh0lr NDC 0 - SQ 3 TIMES A DAY Oct 11, 2017 Active - Results No Known Results Summary Purpose eClinicalWorks Submission
--- OUTSIDE RECORDS SUMMARY | 2020-01-30 09:04 | XMS REPORT ---
Author Author Fito Thompson [employer]Clinical[employer] Address Unknown Phone Unavailable Care Team Providers Care Nurse Reviewer Name Role Phone Denise Thompson Unavailable Allergies, [...] E29.1 Active Problem Hyperlipidemia E78.5 Active Problem Chronic [...] Instructions Start Date End Date Status Dosage Novolin R [facility] 15964194233 human recombinan t 100 units/mL subcutaneously 2 TIMES A DAY /a.c. Active 10-15 units Tresiba 200 u/ml ND 03983881296 200 u/ml Subcutaneous QD Jun 04, 2019 Active 44-50 units Tresiba 200 u/ml ND 10648389462 200 u/ml Active INJECT 44 UNITS SUB-Q ONCE A DAY Victoza [facility] 77844530649 18 mg/3 mL subcutaneously once a day December 06, 2018 Inactive 1.2 mg BD Ultra-Fine Pen Needle Angie [id number] NDC 0 - SQ 3 TIMES A DAY Active - Vital Signs Date/Time: December 06, 2018 BMI 30.13 Index Weight 210 lbs Height 70 in Blood Pressure Diastolic 78 mm Hg Blood Pressure Systolic 172 mm Hg Results No Known Results Summary Purpose eClinicalWorks Submission
--- OUTSIDE RECORDS SUMMARY | 2020-01-30 09:04 | XMS REPORT ---
Author Author Fito Egan Organization eClinicalWorks Address Unknown Phone Unavailable Care Team Providers Care Customer Service Engineer Name Role Phone Sidra Egan Unavailable Allergies [...]
--- OUTSIDE RECORDS SUMMARY | 2020-01-30 09:04 | XMS REPORT ---
Author Author Fito Egan Organization eClinicalWorks Address Unknown Phone Unavailable Care Team Providers Care Computer Network And Systems Engineer Name Role Phone Sidra Egan Unavailable Allergies, [...] Date End Date Status Dosage Novolin R [facility] 90726705198 human recombinant 100 units/mL subcuta neously bid Active 15 units One Touch Verio Gold Test Strips NDC 0 - check blood sugars 2 TIMES A DAY Jul 19, 2019 Apr 11, 2020 Active as directed sucralfate NDC 24626854303 1 g orally 4 henry es a day (before meals and at bedtime) Oct 14, 2019 Active 1 tab(s) Plavix NDC 05743973954 300 mg orally once Oct 14, 2019 Acti ve 1 tab(s) Tresiba 200 u/ml NDC 77584650838 200 u/ml Subcutaneous QD Active 50 units BD Ultra-Fine Pen Needle Angie 58jq5nh NDC 0 - SQ 3 TIMES A DAY Active - pantoprazole NDC 87927332228 40 mg orally once a day Oct 14, 2019 Active 1 tab(s) repaglinide NDC 78532155663 2 mg orally 3 times a day (before me als) Inactive 1 tab(s) Victoza NDC 65359485939 18 mg/3 mL subcutaneously once a day Active 1.2 mg glipiZIDE extended release NDC 87631607523 10 mg orally once a day Oct 14, 2019 Oct 14, 2019 Inactive 1 tab(s) carvedilol NDC 16776848374 12.5 mg orally 2 times a day Oct 14, 2019 Active 1 tab(s) Atorvastatin Calcium ND 40124836035 40 mg orally once a day F 2019Apr 11, 2020 Active 1 tab(s) BD Ultra-Fine Pen Needle Angie 37jo2ut NDC 0 - Active USE SUBCUTANEOUSLY 3 VECES [place] BD Insulin Syringe 0.3cc 31g 6mm NDC 0 31G 4mm subcutaneously 2 TIMES A DAY Jul 19, 2019 Apr 11, 2020 Active - Novolin R NDC 93442426837 human recombinan t 100 units/mL subcutaneously 2 TIMES A DAY Oct 14, 2019 Active 15 units Victoza NDC 18379261215 18 mg/3 mL subcutaneously once a day Oct 14, 2019 Inactive 1.8 mg sevelamer hydrochloride NDC 89686921627 800 mg orally 3 t imes a day Oct 14, 2019 December 13, 2019 Active 2 tab(s) Vital Signs Date/Time: Oct 14, 2019 BMI 31.13 Index Weight 217 lbs Height 70 in Blood Pressure Diastolic 67 mm Hg Blood Pressure Systolic 154 mm Hg Results No Known Results Summary Purpose eClinicalWorks Submission
--- OUTSIDE RECORDS SUMMARY | 2020-01-30 09:04 | XMS REPORT ---
Author Author Fito Egan Organization eClinicalWorks Address Unknown Phone Unavailable Care Team Providers Care Electrical Intern Name Role Phone Sidra Egan Unavailable Allergies No Known Allergies Problems Problem Type Condition Code Onset Dates Condition Statu s Problem CAD (coronary artery disease) I25.10 Active Problem Generalized osteoarthritis M15.9 A ctive Problem Hyperlipidemia E78.5 Active Problem Kidney failure N19 Active Problem CVA (cerebral infarction) I63.9 Ac tive Problem Combined hyperlipidemia E78.2 Acti ve Problem Chronic kidney disease, stage 3 (moderate) N18.3 Active Problem Anemia in chronic kidney disease D63.1 Active Problem Hypogonadism in male E29.1 Active Problem Benign essential hypertension I10 Active Assessment Diabetes mellitus out of control E11.65 Active Problem Diabetes mellitus out of control E11.65 Active Problem Erectile dysfunction N52.9 Active Medications Medication Code System Code Instructions Start Date End Date Status Dosage Tresiba 200 u/ml [facility] 61581440810 200 u/ml Subcutaneous QD May Active 44 units Humalog KwikPen [facility] 89251628932 200 units/mL subcutaneously bid Active 20 units Results No Known Results Summary Purpose eClinicalWorks Submission
--- OUTSIDE RECORDS SUMMARY | 2020-01-30 09:04 | XMS REPORT ---
Author Author Fito Egan Organization eClinicalWorks Address Unknown Phone Unavailable Care Team Providers Care Atmospheric Chemist Name Role Phone Sidra Egan Unavailable Allergies [...] in chronic kidney disease D63.1 Active Assessment Diabetes mellitus out of control E11.65 Active Problem Erectile dysfunction N52.9 Active Problem CAD (coronary artery disease) I25.10 Active Problem Generalized osteoarthritis M15.9 A ctive Problem Hyperlipidemia E78.5 Active Problem Diabetes mellitus out of control E11.65 Active Problem Chronic kidney disease, stage 3 (moderate) N18.3 Active Medications Medication Code System Code Instructions Start Date End Date Status Dosage Plavix ND 87242966211 300 mg orally once Oct 14, 2019 Acti ve 1 tab(s) One Touch Verio Gold Test Strips ND 0 - check blood sugars 2 TIMES A DAY Jul 19, 2019 Apr 11, 2020 Active as directed Novolin R ND 74918923825 human recombinan t 100 units/mL subcutaneously 2 TIMES A DAY December 12, 2019 Active 15 units sucralfate ND 97412730016 1 g orally 4 henry es a day (before meals and at bedtime) Oct 14, 2019 Active 1 tab(s) Victoza ND 36544205739 18 mg/3 mL subcutaneously once a day Active 1.2 mg sevelamer hydrochloride ND 84133364523 800 mg orally 3 t imes a day Oct 14, 2019 December 13, 2019 Active 2 tab(s) BD Insulin Syringe 0.3cc 31g 6mm NDC 0 31G 4mm subcutaneously 2 TIMES A DAY Jul 19, 2019 Apr 11, 2020 Active - Atorvastatin Calcium NDC 66315379730 40 mg orally once a day F 2019Apr 11, 2020 Active 1 tab(s) carvedilol NDC 21460891558 12.5 mg orally 2 times a day Oct 14, 2019 Active 1 tab(s) pantoprazole ND 95796140139 40 mg orally once a day Oct 14, 2019 Active 1 tab(s) Novolin R ND 48534125739 human recombinant 100 units/mL subcuta neously bid Active 15 units Tresiba 200 u/ml [facility] 71906845409 200 u/ml Subcutaneous QD Active 50 units BD Ultra-Fine Pen Needle Angie 34ti7yq NDC 0 - Active USE SUBCUTANEOUSLY 3 VECES AL [place] BD Ultra-Fine Pen Needle Angie 25px7lp NDC 0 - SQ 3 TIMES A DAY Active - Results No Known Results Summary Purpose eClinicalWorks Submission
--- OUTSIDE RECORDS SUMMARY | 2020-01-30 09:04 | XMS REPORT ---
Author Author Fito Egan Organization eClinicalWorks Address Unknown Phone Unavailable Care Team Providers Care Belt Weaver Name Role Phone Sidra Egan Unavailable Allergies [...] Problem Generalized osteoarthritis M15.9 A ctive Medications Medication Code System Code Instructions Start Date End Date Status Dosage Lantus [facility] 96902365410 100 units/mL subcutaneously daily QHS Active 20 units Basaglar KwikPen 3 ml [facility] 2451-3121-29 100U/ml 20 units QHS Apr 11, 2017 Inactive as directed Results No Known Results Summary Purpose eClinicalWorks Submission
--- OUTSIDE RECORDS SUMMARY | 2020-01-30 09:04 | XMS REPORT ---
Author Author Fito Egan Organization eClinicalWorks Address Unknown Phone Unavailable Care Team Providers Care Slitting And Shipping Supervisor Name Role Phone Sidra Egan Unavailable Allergies, Adverse Reactions, Alerts Substance Reaction Event Type N.K.D.A. Info Not Available Non Drug Allergy Problems Problem Type Condition Code Onset Dates Condition Statu s Problem Anemia in chronic kidney disease D63.1 Active Problem Hyperlipidemia E78.5 Active Problem Chronic kidney disease, stage 3 (moderate) N18.3 Active Problem Kidney failure N19 Active Assessment Hypogonadism in male E29.1 Active Problem CVA (cerebral infarction) I63.9 Ac tive Assessment Erectile dysfunction N52.9 Active Assessment Combined hyperlipidemia E78.2 Acti ve Problem Combined hyperlipidemia E78.2 Acti ve Problem CAD (coronary artery disease) I25.10 Active Problem Benign essential hypertension I10 Active Problem Hypogonadism in male E29.1 Active Problem Diabetes mellitus out of control E11.65 Active Assessment Chronic kidney disease, stage 3 (moderate) N18.3 Active Assessment Benign essential hypertension I10 Active Assessment Generalized osteoarthritis M15.9 A ctive Assessment Anemia in chronic kidney disease D63.1 Active Assessment Kidney failure N19 Active Assessment Diabetes mellitus out of control E11.65 Active Assessment CAD (coronary artery disease) I25.10 Active Problem Erectile dysfunction N52.9 Active Assessment CVA (cerebral infarction) I63.9 Ac tive Problem Generalized osteoarthritis M15.9 A ctive Medications Medication Code System Code Instructions Start Date End [place] D[place] [address] 25 mg orally 2 times a day Ac tive 1 tab(s) Victoza ND 692947 18 mg/3 mL subcutaneously once a day Active 1.2 mg Glimepiride-[place]oglitaz[place] Hydrochloride [place] 199699 4 mg-30 mg orally once a day Inactive 1 tab(s) Humalog KwikPen ND 858612 200 units/mL subcutaneously bid Active 20 [place] [address] 5 mg orally once a day Active 1 tab(s) Aspir 81 NDC 036175 81 mg orally once a day Active 1 tab(s) furosemide NDC 41733 40 mg orally once a day Activ e 1 tab(s) Atorvastatin Calcium NDC 765713 40 mg orally once a day (at bedtime ) Active 1 tab(s) Tresiba 200 u/ml NDC 0 200 u/ml Subcutaneous QD Active 44 units Vital Signs Date/Time: January 03, 2017 BMI 32.14 Index Weight 224 lbs Height 70 in Blood Pressure Diastolic 70 mm Hg Blood Pressure Systolic 120 mm Hg Results No Known Results Summary Purpose eClinicalWorks Submission
--- OUTSIDE RECORDS SUMMARY | 2020-01-30 09:04 | XMS REPORT ---
Author Author Fito Egan Organization eClinicalWorks Address Unknown Phone Unavailable Care Team Providers Care Palliative Senior Np Name Role Phone Sidra Egan Unavailable Allergies No Known Allergies Problems Problem Type Condition Code Onset Dates Condition Statu s Problem Hyperlipidemia E78.5 Active Problem Chronic kidney disease, stage 3 (moderate) N18.3 Active Problem Anemia in chronic kidney disease D63.1 Active Problem Diabetic peripheral neuropathy E11.42 Active Problem Combined hyperlipidemia E78.2 Acti ve Problem Patient's noncompliance with dietary regimen Z91.11 Active Problem Hypogonadism in male E29.1 Active Problem Benign essential hypertension I10 Active Problem Kidney failure N19 Active Problem CVA (cerebral infarction) I63.9 Ac tive Problem Generalized osteoarthritis M15.9 A ctive Problem Diabetes mellitus out of control E11.65 Active Problem Erectile dysfunction N52.9 Active Problem CAD (coronary artery disease) I25.10 Active Medications No Known Medications Results No Known Results Summary Purpose eClinicalWorks Submission
--- OUTSIDE RECORDS SUMMARY | 2020-01-30 09:04 | XMS REPORT ---
Author Author Fito Egan Organization eClinicalWorks Address Unknown Phone Unavailable Care Team Providers Care Optometrist Owner Name Role Phone Sidra Egan Unavailable Allergies [...] Status Dosage BD Ultra-Fine Pen Needle Angie [id number] NDC 0 - SQ 3 TIMES A DAY Oct 27, 2019 Active - Novolin R NDC 81309104600 human recombinan t 100 units/mL subcutaneously 2 TIMES A DAY /a.c. Active 10-15 units Results No Known Results Summary Purpose eClinicalWorks Submission
--- OUTSIDE RECORDS SUMMARY | 2020-01-30 09:04 | XMS REPORT ---
Author Author Fito Egan Organization eClinicalWorks Address Unknown Phone Unavailable Care Team Providers Care Guide Foreign Tour Name Role Phone Sidra Egan Unavailable Allergies [...] Instructions Start Date End Date Status Dosage Humalog KwikPen [facility] 42540548696 100 units/ml subcutaneous ly 2 TIMES A DAY AC February 01, 2018 Active 30 unit NovoLog [facility] 43411019560 100 units/ml subcutaneously 2 TIMES A DAY AC Inactive 30 unit Results No Known Results Summary Purpose eClinicalWorks Submission
--- OUTSIDE RECORDS SUMMARY | 2020-01-30 09:04 | XMS REPORT ---
Author Author Fito Egan Organization eClinicalWorks Address Unknown Phone Unavailable Care Team Providers Care Drafter Electronic Name Role Phone Sidra Egan Unavailable Allergies No Known Allergies Problems Problem Type Condition Code Onset Dates Condition Statu s Problem Anemia in chronic kidney disease D63.1 Active Problem Hyperlipidemia E78.5 Active Problem Chronic kidney disease, stage 3 (moderate) N18.3 Active Problem Erectile dysfunction N52.9 Active Problem Generalized osteoarthritis M15.9 A ctive Problem Kidney failure N19 Active Problem CVA (cerebral infarction) I63.9 Ac tive Problem Combined hyperlipidemia E78.2 Acti ve Problem CAD (coronary artery disease) I25.10 Active Problem Benign essential hypertension I10 Active Problem Hypogonadism in male E29.1 Active Problem Diabetes mellitus out of control E11.65 Active Medications Medication Code System Code Instructions Start Date End Date Status Dosage Lantus [facility] 72369180882 100 units/mL subcutaneously daily QHS May 12, 2017 Inactive 20 units Tresiba 200 u/ml [facility] 8276-5447-11 200 u/ml Subcutaneous QD May 12, 2017 Active 44 units Results No Known Results Summary Purpose eClinicalWorks Submission
--- OUTSIDE RECORDS SUMMARY | 2020-01-30 09:04 | XMS REPORT ---
Author Author Fito Egan Organization e[employer] Address Unknown Phone Unavailable Care Team Providers Care Regional Safety Manager Name Role Phone Sidra Egan Unavailable Allergies, Adverse Reactions, Alerts Substance Reaction Event Type N.K.D.A. Info Not Available Non Drug Allergy Problems Problem Type Condition Code Onset Dates Condition Statu s Problem Erectile dysfunction N52.9 Active Assessment Diabetic peripheral neuropathy E11.42 Active Problem CAD (coronary artery disease) I25.10 Active Assessment Combined hyperlipidemia E78.2 Acti ve Problem Hyperlipidemia E78.5 Active Problem Anemia in chronic kidney disease D63.1 Active Problem Generalized osteoarthritis M15.9 A ctive Problem Combined hyperlipidemia E78.2 Acti ve Problem Kidney failure N19 Active Assessment Generalized osteoarthritis M15.9 A ctive Assessment Hypogonadism in male E29.1 Active Problem Diabetic peripheral neuropathy E11.42 Active Assessment Erectile dysfunction N52.9 Active Problem Benign essential hypertension I10 Active Problem Chronic kidney disease, stage 3 (moderate) N18.3 Active Problem CVA (cerebral infarction) I63.9 Ac tive Problem Hypogonadism in male E29.1 Active Assessment Benign essential hypertension I10 Active Assessment CAD (coronary artery disease) I25.10 Active Assessment Anemia in chronic kidney disease D63.1 Active Assessment Chronic kidney disease, stage 3 (moderate) N18.3 Active Assessment Diabetes mellitus out of control E11.65 Active Problem Diabetes mellitus out of control E11.65 Active Assessment CVA (cerebral infarction) I63.9 Ac tive Assessment Kidney failure N19 Active Medications Medication Code System Code Instructions Start Date End Date Status Dosage Trulicity Pen [facility] 85784532848 0.75 mg/0.5 mL subcutaneous ly once a week February 28, 2018 Active 0.75 mg BD Ultra-Fine Pen Needle Angie [id number] NDC 0 - SQ 3 TIMES A DAY Oct 11, 2017 Active - Humalog KwikPen [facility] 65114081185 100 units/ml subcutaneous ly 2 TIMES A DAY AC February 01, 2018 Active 30 unit Trulicity Pen ND 83549326824 1.5 mg/0.5 mL subcutaneousl y once a week February 28, 2018 Jun 28, 2018 Active 1.5 mg repaglinide [facility] 03075503881 2 mg orally 3 times a day (b efore meals) February 13, 2018 Active 1 tab(s) Tresiba 200 u/ml [facility] 81036579826 200 u/ml Subcutaneous QD Active 44 units Vital Signs Date/Time: February 28, 2018 BMI 29.27 Index Weight 204 lbs Height 70 in Blood Pressure Diastolic 70 mm Hg Blood Pressure Systolic 140 mm Hg Results No Known Results Summary Purpose eClinicalWorks Submission
--- OUTSIDE RECORDS SUMMARY | 2020-01-30 09:04 | XMS REPORT ---
Author Author Fito Fox [facility] eClinicalWorks Address Unknown Phone Unavailable Care Team Providers Care Rubber Turner Name Role Phone Elizabeth Fox Unavailable Allergies No Known Allergies Problems Problem [...]
--- OUTSIDE RECORDS SUMMARY | 2020-01-30 09:04 | XMS REPORT ---
Author Author Fito Thompson [facility] eClinicalWorks Address Unknown Phone Unavailable Care Team Providers Care Rim Roller Operator Name Role Phone Denise Thompson Unavailable Allergies, Adverse Reactions, Alerts Substance Reaction Event Type N.K.D.A. Info Not Available Non Drug Allergy Problems Problem Type Condition Code Onset Dates Condition Statu s Problem CAD (coronary artery disease) I25.10 Active Problem Generalized osteoarthritis M15.9 A ctive Problem Hyperlipidemia E78.5 Active Problem Kidney failure N19 Active Assessment [...] Problem Benign essential hypertension I10 Active Assessment Chronic kidney disease, stage 3 (moderate) N18.3 Active Assessment Benign essential hypertension I10 Active Assessment Generalized osteoarthritis M15.9 A ctive Assessment Anemia in chronic kidney disease D63.1 Active Assessment Kidney failure N19 Active Assessment Diabetes mellitus out of control E11.65 Active Assessment CAD (coronary artery disease) I25.10 Active Problem Diabetes mellitus out of control E11.65 Active Assessment CVA (cerebral infarction) I63.9 Ac tive Problem Erectile dysfunction N52.9 Active Medications Medication Code System Code Instructions Start Date End Date Status Dosage carvedilol [facility] 33345389095 25 mg orally 2 times a day Inactive 1 tab(s) lisinopril [facility] 01090142638 5 mg orally once a day In active 1 tab(s) Atorvastatin Calcium ND 89792066949 40 mg orally once a day (at bedtime) Inactive 1 tab(s) Victoza ND 39976624220 18 mg/3 mL subcutaneously once a day Inactive 1.2 mg Tresiba 200 u/ml [facility] 15959388946 200 u/ml Subcutaneous QD May 0 2016 Active 44 units Humalog KwikPen [facility] 65705631487 200 units/mL subcutaneously bid Active 20 units Fish Oil [facility] 51875996951 1000 mg orally 3 times a day Inactive 1 cap(s) Aspir 81 [facility] 58255399736 81 mg orally once a day Dolly ctive 1 tab(s) furosemide [facility] 26107298795 40 mg orally once a day I nactive 1 tab(s) Vital Signs Date/Time: Sep 29, 2017 BMI 29.27 Index Weight 204 lbs Height 70 in Blood Pressure Diastolic 60 mm Hg Blood Pressure Systolic 110 mm Hg Results No Known Results Summary Purpose eClinicalWorks Submission
--- OUTSIDE RECORDS SUMMARY | 2020-01-30 09:04 | XMS REPORT ---
Author Author Fito Egan Organization [employer]ClinicalWorks Address Unknown Phone Unavailable Care Team Providers Care Traffic Engineering Technician Name Role Phone Sidra Egan Unavailable Allergies [...] Instructions Start Date End Date Status Dosage repaglinide [facility] 44685671353 2 mg orally 3 times a day (b efore meals) February 13, 2018 Active 1 tab(s) Results No Known Results Summary Purpose eClinicalWorks Submission
--- OUTSIDE RECORDS SUMMARY | 2020-01-30 09:04 | XMS REPORT ---
Author Author Fito Thompson [facility] eClinicalWorks Address Unknown Phone Unavailable Care Team Providers Care Cloth Feeder Name Role Phone Denise Thompson Unavailable Allergies, [...] Date End Date Status Dosage Humalog KwikPen [facility] 68941089789 200 units/mL subcutaneously bid Inactive 20 units NovoLog ND 78446436207 100 units/ml subcutaneously 2 TIMES A DAY AC Active 30 unit BD Ultra-Fine Pen Needle Angie [id number] ND 0 - SQ 3 TIMES A DAY Oct 11, 2017 Active - Tresiba 200 u/ml ND 86028017391 200 u/ml Subcutaneous QD Active 44 units Vital Signs Date/Time: November 29, 2017 BMI 29.27 Index Weight 204 lbs Height 70 in Blood Pressure Diastolic 80 mm Hg Blood Pressure Systolic 130 mm Hg Results No Known Results Summary Purpose eClinicalWorks Submission
--- OUTSIDE RECORDS SUMMARY | 2020-01-30 09:04 | XMS REPORT | Continuity of Care Document ---
Author Author [employer], DILLAN Bautista [employer] Address Unknown Phone Unavailable Care Team Providers Care Multilith Operator Name Role Phone [facility] [employer] Unavailable Un available Problems Problem Status Onset Date Classification Date Reported Comments Source Anemia in chronic kidney disease Active Problem 11/2019 eCW: Landry Egan Hyperlipidemia Active Problem 12/13/2019 eCW: Landry Egan Chronic kidney disease, stage 3 (moderate) Active Problem 12/13/2019 eCW: Landry Egan Kidney failure Active Problem 12/13/2019 eCW: Landry Egan CVA (cerebral infarction) Acti ve Problem 11/2019 eCW: Landry Egan Combined hyperlipidemia Active Problem 12/13/2019 eCW: Landry Egan CAD (coronary artery disease) Active Problem 11/2019 eCW: Landry Egan Benign essential hypertension Active Problem 11/2019 eCW: Landry Egan Hypogonadism in male Active Problem 12/13/2019 eCW: Landry Egan Diabetes mellitus out of control Active Diagnosis 0 12/13/2019 eCW: Landry Egan Erectile dysfunction Active Problem 12/13/2019 eCW: Landry Egan Generalized osteoarthritis Act richard Problem 11/2019 eCW: Landry Egan Diabetic peripheral neuropathy Active Problem 11/2019 eCW: Landry Egan Patient's noncompliance with other medic al treatment and regimen Active Diag nosis 01/15/2019 eCW: Landry Egan Patient's noncompliance with dietary regimen Active Problem 12/13/2019 eCW: Landry Egan Type 2 diabetes mellitus with diabetic polyneuropathy Active Problem 12/13/2019 eCW: Landry Egan Chronic kidney disease, stage 5 Active Problem 11/2019 eCW: Landry Egan Diabetes mellitus with peripheral vascular disease Active Problem 12/13/2019 eCW: Landry Egan Medications Medication Details Route Status Patient Instructions Ordering Provider Order Date Source Novolin R 15 units subcutaneously Active human recombinant 100 units/mL subcutaneously 2 TIMES A DAY 12/12/2019 eCW: Landry Egan BD Ultra-Fine Pen Needle Angie [id number] - SQ Active - SQ 3 TIMES A DAY 10/27/2019 eCW: Landry Egan sucralfate 1 tab(s) orally Active 1 g orally 4 times a da y (before meals and at bedtime) 10/14/2019 eCW: Landry Egan Plavix 1 tab(s) orally Active 300 mg orally once 10/14/2019 eCW: Landry Egan pantoprazole 1 tab(s) orally Active 40 mg orally once a day 10/14/2019 eCW: Landry Egan glipiZIDE extended release 1 t ab(s) orally Inactive 10 mg orally once a day 10/14/2019 eCW: Landry Egan carvedilol 1 tab(s) orally Active 12.5 mg orally 2 times a day 10/14/2019 eCW: Landry Egan Atorvastatin Calcium 1 tab(s) orally Active 40 mg orally once a day 10/14/2019 eCW: Landry Egan Novolin R 15 units subcutaneously Active human recombinant 100 units/mL subcutaneously 2 TIMES A DAY 10/14/2019 eCW: Landry Egan Victoza 1.8 mg subcutaneously Active 18 mg/3 mL subcutaneous ly once a day 10/14/2019 eCW: Landry Egan sevelamer hydrochloride 2 tab( s) orally Active 800 mg orally 3 times a day 10/14/2019 eCW: Landry Egan One Touch Verio Gold Test Strips as directed check blood sugars Active - check blood sugars 2 TIMES A DAY 07/19/2019 eCW: Landry Egan BD Insulin Syringe 0.3cc 31g 6mm - subcutaneously Active 31G 4mm subcutaneously 2 TIMES A DAY 07/19/2019 eCW: Landry Egan Tresiba 200 u/ml 50 units Subcutaneous Active 200 u/ml Subcutaneous QD Jignesh 07/19/2019 eCW: Landry Egan Tresiba 200 u/ml 44-50 units Subcutaneous Active 200 u/ml Subcutaneous QD [facility] 06/04/2019 eCW: Landry Egan Tresiba 200 u/ml 44 units Subcutaneous Active 200 u/ml Subcutaneous QD Jignesh 02/09/2019 eCW: Landry Egan Victoza 1.2 mg subcutaneously Active 18 mg/3 mL subcutaneous ly once a day 12/06/2018 eCW: Landry Egan Tresiba 200 u/ml 40 units Subcutaneous Active 200 u/ml Subcutaneous QD 11/07/2018 eCW: Landry Egan Novolin R 10-15 units subcutaneously Active human recombinant 100 units/mL subcutaneously 2 TIMES A DAY /a.c. 08/13/2018 eCW: Landry Egan Victoza 0.60 mg subcutaneously Active 18 mg/3 mL subcutaneous ly once a day x 1week 05/11/2018 eCW: Landry Egan Trulicity Pen 1.5 mg subcutaneously Active 1.5 mg/0.5 mL subcutaneously once a week 05/11/2018 eCW: Landry Egan Trulicity Pen 0.75 mg subcutaneously Active 0.75 mg/0.5 mL subcutaneously once a week 05/11/2018 eCW: Landry Egan Tresiba 200 u/ml 44 units Subcutaneous Active 200 u/ml Subcutaneous QD 03/05/2018 eCW: Landry Chaviratus Solostar Pen 44 units subcutaneously Active 100 units/ml subcutaneously qd 03/05/2018 eCW: Landry Clayton BCise 2 mg subcutaneously Active 2 mg/0.85 mL subcutaneously once a week 03/05/2018 eCW: Landry Egan Trulicity Pen 1.5 mg subcutaneously Active 1.5 mg/0.5 mL subcutaneously once a week 02/28/2018 eCW: Landry Egan Trulicity Pen 0.75 mg subcutaneously Active 0.75 mg/0.5 mL subcutaneously once a week Jignesh 02/28/2018 eCW: Landry Egan repaglinide 1 tab(s) orally Active 2 mg orally 3 times a d ay (before meals) 02/13/2018 eCW: Landry Egan Humalog KwikPen 30 unit subcutaneously Active 100 units/ml subcutaneously 2 TIMES A DAY AC Jignesh 02/01/2018 eCW: Landry Egan BD Ultra-Fine Pen Needle Angie [id number] - SQ Active - SQ 3 TIMES A DAY 10/11/2017 eCW: Landry Egan Lantus 20 units subcutaneously Active 100 units/mL subcutaneo usly daily QHS Jignesh 05/12/2017 eCW: Landry Egan Tresiba 200 u/ml 44 units Subcutaneous Active 200 u/ml Subcutaneous QD 05/12/2017 eCW: Landry Egan Tresiba 200 u/ml 44 units Subcutaneous Active 200 u/ml Subcutaneous QD [facility]05/12/2017 eCW: Landry Purcellaglar KwikPen 3 ml as direc shikha 20 units Active 100U/ml 20 units QHS Jignesh 04/11/2017 eCW: Landry Egan Fish Oil 1 cap(s) orally Active 1000 mg orally 3 times a day [facility]04/11/2017 eCW: Landry Purcellaglar KwikPen 3 ml as direc shikha 20 units Active 100U/ml 20 units QHS [facility]04/11/2017 eCW: Landry Egan Victoza 1.2 mg subcutaneously Active 18 mg/3 mL subcutaneous ly once a day 10/03/2016 eCW: Landry Egan Tresiba 200 u/ml as directed Subcutaneous Active 200 u/ml Subcutaneous QD 10/03/2016 eCW: Landry Egan Glimepiride-Pioglitazone Hydrochloride 1 tab(s) orally Active 4 mg-30 mg orally once a day 10/03/2016 eCW: Landry Egan Levemir FlexTouch 30 units subcutaneously Active 100 units/mL subcutaneously bid Dominique 08/24/2016 eCW: Landry Egan Toujeo 30 units Subcutaneous No Longer Active U300 Subcutan eous BID Dominique 08/22/2016 eCW: Landry Egan Atorvastatin Calcium 1 tab(s) orally Active 40 mg orally once a day (at bedtime) Dominique 08/22/2016 eCW: Landry Egan Humalog KwikPen 5 to 10 unitsz subcutaneously Active 2oo units per cc subcutaneously 2 times a day (before meals) Jignesh 07/25/2016 eCW: Landry Egan carvedilol 1 tab(s) orally Active 25 mg orally 2 times a day Jignesh eCW: Landry Egan Victoza 1.2 mg subcutaneously Active 18 mg/3 mL subcutaneous ly once a day Jignesh eCW: Landry Egan Glimepiride-Pioglitazone Hydrochloride 1 tab(s) orally Active 4 mg-30 mg orally once a day Jignesh eCW: Landry Egan Humalog KwikPen 20 units subcutaneously Active 200 units/mL subcutaneously bid Jignesh eCW: Landry Egan lisinopril 1 tab(s) orally Active 5 mg orally once a day Jignesh eC W: Landry Egan Aspir 81 1 tab(s) orally Active 81 mg orally once a day Jignesh eC W: Landry Egan furosemide 1 tab(s) orally Active 40 mg orally once a day Jignesh eC W: Landry Egan Atorvastatin Calcium 1 tab(s) orally Active 40 mg orally once a day (at bedtime) Jignesh eCW: Landry Egan Tresiba 200 u/ml 44 units Subcutaneous Active 200 u/ml Subcutaneous QD Jignesh eCW: Landry Egan Lantus 20 units subcutaneously Active 100 units/mL subcutaneo usly daily QHS Phongsy eCW: Landry Egan Humalog KwikPen 20 units subcutaneously Active 200 units/mL subcutaneously bid Phongsy eCW: Landry Egan carvedilol 1 tab(s) orally Active 25 mg orally 2 times a day Phongsy eCW : Landry Egan lisinopril 1 tab(s) orally Active 5 mg orally once a day Phongsy eCW : Landry Egan furosemide 1 tab(s) orally Active 40 mg orally once a day Phongsy eCW : Landry Egan Victoza 1.2 mg subcutaneously Active 18 mg/3 mL subcutaneous ly once a day Jignesh eCW: Landry Egan Tresiba 200 u/ml 50 units Subcutaneous Active 200 u/ml Subcutaneous QD Jignesh eCW: Landry Egan Atorvastatin Calcium 1 tab(s) orally Active 40 mg orally once a day (at bedtime) Phongsy eCW: Landry Egan Aspir 81 1 tab(s) orally Active 81 mg orally once a day Phongsy eCW : Landry Egan Fish Oil 1 cap(s) orally Active 1000 mg orally 3 times a day Phongsy eCW : Landry Egan NovoLog 30 unit subcutaneously Active 100 units/ml subcutaneo usly 2 TIMES A DAY AC Phongsy eCW: Landry Egan Lantus Solostar Pen 30 units subcutaneously No Longer Active 100 units/mL subcutaneously BID Dominique eCW: Landry Egan glipizide 1 tab(s) orally No Longer Active 10 mg orally bid Jignesh eC W: Landry Egan BD Ultra-Fine Pen Needle Angie [id number] USE SUBCUTANEOUSLY 3 VECES AL HADLEY NA Active - Jignesh eCW: Landry Egan repaglinide 1 tab(s) orally Active 2 mg orally 3 times a d ay (before meals) Jignesh eCW: Landry Egan Levemir FlexTouch 30 units subcutaneously No Longer Active 100 units/mL subcutaneously bid Jignesh eCW: Landry Egan Novolin R 10-15 units subcutaneously Active human recombinant 100 units/mL subcutaneously 2 TIMES A DAY /a.c. Jignesh eC W: Landry Egan Novolin R 15 units subcutaneously Active human recombinant 100 units/mL subcutaneously bid Jignesh eCW: Landry Egan Allergies, Adverse Reactions, Alerts Substance Category Reaction Severity Reaction type Status Date Reported Comments Source N.K.D.A. Adverse Reaction Info Not Available Adverse Reaction 10/14/2019 eCW: Landry ÁlvarezJignesh Immunizations No Data Provided for This Section Results No Data Provided for This Section Pathology Reports No Data Provided for This Section Diagnostic Reports No Data Provided for This Section Consultation Notes No Data Provided for This Section Discharge Summaries No Data Provided for This Section History and Physicals No Data Provided for This Section Vital Signs Vital Sign Value Date Comments Source Weight 217 10/14/2019 eCW: Landry Egan Height 70 0 10/14/2019 eCW: Landry Jignesh Diastolic (mm Hg) 67 10/14/2019 eCW: Landry ÁlvarezJignesh Systolic (mm Hg) 154 10/14/2019 eCW: Landry Egan Weight 208 06/13/2019 eCW: Landry Egan Height 70 1 eCW: Landry Egan Diastolic (mm Hg) 82 06/13/2019 eCW: Landry ÁlvarezJignesh Systolic (mm Hg) 172 06/13/2019 eCW: Landry Egan Weight 210 12/06/2018 eCW: Landry Egan Height 70 0 12/06/2018 eCW: Landry Jignesh Diastolic (mm Hg) 78 12/06/2018 eCW: Landry Egan Systolic (mm Hg) 172 12/06/2018 eCW: Landry ÁlvarezJignesh Weight 210 08/13/2018 eCW: Landry Abernathyta Height 70 1 10/14/2017 eCW: Landry ÁlvarezJignesh Diastolic (mm Hg) 80 08/13/2018 eCW: Landry ÁlvarezJignesh Systolic (mm Hg) 130 08/13/2018 eCW: Landry ÁlvarezJignesh Weight 206 05/11/2018 eCW: Landry Egan Height 70 0 05/11/2018 eCW: Landry Abernathyta Diastolic (mm Hg) 76 05/11/2018 eCW: Landry ÁlvarezJignesh Systolic (mm Hg) 142 05/11/2018 eCW: Landry ÁlvarezJignesh Weight 204 02/28/2018 eCW: Landry Egan Height 70 0 02/28/2018 eCW: Landry Jignesh Diastolic (mm Hg) 70 02/28/2018 eCW: Landry ÁlvarezJignesh Systolic (mm Hg) 140 02/28/2018 eCW: Landry Egan Weight 204 11/29/2017 eCW: Landry Egan Height 70 0 11/29/2017 eCW: Landry Jignesh Diastolic (mm Hg) 80 11/29/2017 eCW: Landry Jignesh Systolic (mm Hg) 130 11/29/2017 eCW: Landry Egan Weight 204 09/29/2017 eCW: Landry Egan Height 70 0 09/29/2017 eCW: Landry Abernathyta Diastolic (mm Hg) 60 09/29/2017 eCW: Landry ÁlvarezJignesh Systolic (mm Hg) 110 09/29/2017 eCW: Landry ÁlvarezJignesh Weight 219 04/11/2017 eCW: Landry Egan Height 70 0 04/11/2017 eCW: Landry ÁlvarezJignesh Diastolic (mm Hg) 80 04/11/2017 eCW: Landry ÁlvarezJignesh Systolic (mm Hg) 125 04/11/2017 eCW: Landry ÁlvarezJignesh Weight 224 01/03/2017 eCW: Landry Abernathyta Height 70 0 01/03/2017 eCW: Landry ÁlvarezJignesh Diastolic (mm Hg) 70 01/03/2017 eCW: Landry ÁlvarezJignesh Systolic (mm Hg) 120 01/03/2017 eCW: Landry ÁlvarezJignesh Weight 228 10/03/2016 eCW: Landry Egan Height 70 0 10/03/2016 eCW: Landry Egan Diastolic (mm Hg) 76 10/03/2016 eCW: Landry Jignesh Systolic (mm Hg) 126 10/03/2016 eCW: Landry Egan Weight 221 08/22/2016 eCW: Landry Egan Height 70 1 10/23/2015 eCW: Landry Jignesh Diastolic (mm Hg) 70 08/22/2016 eCW: Landry Jignesh Systolic (mm Hg) 124 08/22/2016 eCW: Landry Egan Weight 217 07/25/2016 eCW: Landry Egan Height 70 1 09/24/2015 eCW: Landry Jignesh Diastolic (mm Hg) 66 07/25/2016 eCW: Landry Jignesh Systolic (mm Hg) 150 07/25/2016 eCW: Landry Egan Encounters Location Location Details Encounter Type Encounter Number Reason For Visit Attending Provider ADM Date DC Date Status Source Landry Egan MD DM Cons [id number] 07/25/2016 07/25/2016 eCW: Landry Walker MD Cons [id number] 07/25/2016 07/25/2016 eCW: Landry Walker MD Cons [id number] 07/25/2016 07/25/2016 eCW: Landry Walker MD Cons [id number] 07/25/2016 07/25/2016 eCW: Landry Walker MD CGMs Disc [id number] 08/01/20 16 08/01/2016 eCW: Landry Walker MD CGMs Disc [id number] 08/01/20 16 08/01/2016 eCW: Landry Walker MD CGMs Disc [id number] 08/01/20 16 08/01/2016 eCW: Landry Walker MD [facility] Results [id number] 08/22/20 16 08/22/2016 eCW: Landry Walker MD [facility]MS Results [id number] 08/22/20 16 08/22/2016 eCW: Landry Walker MD x dm [id number] 10/03/2016 10/03/2016 eCW: Landry Egan Procedures No Data Provided for This Section Assessment and Plan No Data Provided for This Section Plan of Care No Data Provided for This Section Social History Social History Date Source Social History ElementQualifiersDate Rep orted Language: . Pashto Oct 03, 2016 Marital Status: single. Oct 03, 2016 Caffeine: yes. frequency:, 1 c/day Oct 03, 2016 Exercise: no. Oct 03, 2016 Smoking/Tobacco Use: no. Patient is a: Never Smoker Oct 03, 2016 Alcohol: socially. 6 beers per day Oct 03, 2016 Occupation: unemployed. Retired Oct 03, 2016 10/03/2016 eCW: Landry Egan Family History No Data Provided for This Section Advance Directives No Data Provided for This Section Functional Status No Data Provided for This Section
--- OUTSIDE RECORDS SUMMARY | 2020-01-30 09:04 | XMS REPORT ---
Author Author Fito Thompson [facility] [employer] Address Unknown Phone Unavailable Care Team Providers Care Sql Programmer Analyst Name Role Phone Denise Thompson Unavailable Allergies, [...] Date End Date Status Dosage Humalog KwikPen [facility] 56269813098 200 units/mL subcutaneously bid Active 20 units carvedilol [facility] 29739834581 25 mg orally 2 times a day Active 1 tab(s) Lantus [facility] 43170759489 100 units/mL subcutaneously daily QHS Active 20 units lisinopril [facility] 70992151557 5 mg orally once a day Ac tive 1 tab(s) furosemide [facility] 42867281731 40 mg orally once a day A ctive 1 tab(s) Fish Oil [facility] 81788763825 1000 mg orally 3 times a day Apr 11, 2017 Active 1 cap(s) Basaglar KwikPen 3 ml [facility] 92518375061 100U/ml 20 units QHS Apr Active as directed Victoza [facility] 62333185313 18 mg/3 mL subcutaneously once a day Active 1.2 mg Tresiba 200 u/ml [facility] 55360926078 200 u/ml Subcutaneous QD Active 44 units Atorvastatin Calcium [facility] 74547711743 40 mg orally once a day (at bedtime) Active 1 tab(s) Aspir 81 [facility] 18241454015 81 mg orally once a day Act richard 1 tab(s) Vital Signs Date/Time: Apr 11, 2017 BMI 31.42 Index Weight 219 lbs Height 70 in Blood Pressure Diastolic 80 mm Hg Blood Pressure Systolic 125 mm Hg Results No Known Results Summary Purpose e[employer]Works Submission
--- OUTSIDE RECORDS SUMMARY | 2020-01-30 09:04 | XMS REPORT ---
Author Author Fito Egan Organization [employer] Address Unknown Phone Unavailable Care Team Providers Care District Representative Name Role Phone Sidra Egan Unavailable Allergies [...] mellitus out of control E11.65 Active Assessment Hyperlipidemia E78.5 Active Assessment Diabetes mellitus out of control E11.65 Active Problem Erectile dysfunction N52.9 Active Problem Generalized osteoarthritis M15.9 A ctive Medications No Known Medications Results No Known Results Summary Purpose [employer] Submission
--- OUTSIDE RECORDS SUMMARY | 2020-01-30 09:04 | XMS REPORT ---
Author Author Fito Egan Organization [employer] Address Unknown Phone Unavailable Care Team Providers Care Channeling Machine Runner Name Role Phone Sidra Egan Unavailable Allergies [...]
--- OUTSIDE RECORDS SUMMARY | 2020-01-30 09:04 | XMS REPORT ---
Author Author Fito Egan Organization [employer] Address Unknown Phone Unavailable Care Team Providers Care Manufacturing Quality Inspector Name Role Phone Sidra Egan Unavailable Allergies [...]
--- OUTSIDE RECORDS SUMMARY | 2020-01-30 09:04 | XMS REPORT ---
Author Author Fito Egan Organization [employer] Address Unknown Phone Unavailable Care Team Providers Care Bessemer Converter Operator Name Role Phone Sidra Egan Unavailable Allergies [...]
--- OUTSIDE RECORDS SUMMARY | 2020-01-30 09:05 | XMS REPORT ---
Author Author Fito Egan Organization [employer] Address Unknown Phone Unavailable Care Team Providers Care Surveillance Specialist Name Role Phone Sidra Egan Unavailable Allergies No Known Allergies Problems Problem Type Condition Code Onset Dates Condition Statu s Problem Generalized osteoarthritis M15.9 A ctive Problem Chronic kidney disease, stage 3 (moderate) N18.3 Active Problem Anemia in chronic kidney disease D63.1 Active Problem Erectile dysfunction N52.9 Active Problem CVA (cerebral infarction) I63.9 Ac tive Problem Hypogonadism in male E29.1 Active Problem Kidney failure N19 Active Problem Benign essential hypertension I10 Active Problem Hyperlipidemia E78.5 Active Problem Diabetes mellitus out of control E11.65 Active Problem CAD (coronary artery disease) I25.10 Active Medications No Known Medications Results No Known Results Summary Purpose eClinicalWorks Submission
--- OUTSIDE RECORDS SUMMARY | 2020-01-30 09:05 | XMS REPORT ---
Author Author Fito Egan Organization [employer] Address Unknown Phone Unavailable Care Team Providers Care Java Swing Developer Name Role Phone Sidra Egan CP Unavailable Allergies, Adverse Reactions, Alerts Substance Reaction Event Type N.K.D.A. Info Not Available Non Drug Allergy Encounters Encounter Location Date x dm Landry Egan MD Oct 03, 2016 DM Cons Landry Egan MD Jul 25, 2016 CGMs Disc Landry Egan MD Aug 01, 2016 CG[facility] Results Landry Egan MD Aug 22, 2016 Problems Problem Type Condition ICD-9 Code Onset Dates Condition Statu s Problem Generalized osteoarthritis M15.9 A ctive Problem Chronic kidney disease, stage 3 (moderate) N18.3 Active Problem Anemia in chronic kidney disease D63.1 Active Problem CVA (cerebral infarction) I63.9 Ac tive Assessment Hypogonadism in male E29.1 Active Problem Hypogonadism in male E29.1 Active Assessment Erectile dysfunction N52.9 Active Problem Kidney failure N19 Active Problem Benign essential hypertension I10 Active Problem Hyperlipidemia E78.5 Active Problem Diabetes mellitus out of control E11.65 Active Problem CAD (coronary artery disease) I25.10 Active Assessment Chronic kidney disease, stage 3 (moderate) N18.3 Active Assessment Hyperlipidemia E78.5 Active Assessment Generalized osteoarthritis M15.9 A ctive Assessment Anemia in chronic kidney disease D63.1 Active Assessment CVA (cerebral infarction) I63.9 Ac tive Assessment Kidney failure N19 Active Assessment Benign essential hypertension I10 Active Assessment Diabetes mellitus out of control E11.65 Active Assessment CAD (coronary artery disease) I25.10 Active Problem Erectile dysfunction N52.9 Active Medications Medication Code System Code Instructions Start Date End Date Status Dosage Humalog KwikPen MULTUM 599544 200 units/mL subcutaneously TID QAC Active 10 units lisinopril MULTUM 50531 5 mg orally once a day Active 1 tab(s) furosemide MULTUM 92119 40 mg orally once a day Activ e 1 tab(s) carvedilol MULTUM 74691 25 mg orally 2 times a day Ac tive 1 tab(s) Victoza MULTUM 535658 18 mg/3 mL subcutaneously once a day Oct 03, 2016 Active 1.2 mg Tresiba 200 u/ml Unknown 0 200 u/ml Subcutaneous QD Oct 03, 2016 Active as directed Aspir 81 MULTUM 577061 81 mg orally once a day Active 1 tab(s) Glimepiride-Pioglitazone Hydrochloride MULTUM 644599 4 mg-30 mg orally once a day Oct 03, 2016 Active 1 tab(s) Atorvastatin Calcium MULTUM 503755 40 mg orally once a day (at b edtime) Active 1 tab(s) Levemir FlexTouch MULTUM 41261 100 units/mL subcutaneously bid Inactive 30 units Social History Social History Element Qualifiers Date Reported Language: . Nauruan Oct 03, 2016 Marital Status: single. Oct 03, 2016 Caffeine: yes. frequency:, 1 c/day Oct 03, 2016 Exercise: no. Oct 03, 2016 Smoking/Tobacco Use: no. Patient is a: Never Smoker Oct 03, 2016 Alcohol: socially. 6 beers per day Oct 03, 2016 Occupation: unemployed. Retired Oct 03, 2016 Vital Signs Date/Time: Oct 03, 2016 Weight 228 lbs Height 70 in Blood Pressure Diastolic 76 mm Hg Blood Pressure Systolic 126 mm Hg Results Finger stick glucose Summary Purpose eClinicalWorks Submission
--- OUTSIDE RECORDS SUMMARY | 2020-01-30 09:05 | XMS REPORT ---
Author Author Fito Egan Organization [employer] Address Unknown Phone Unavailable Care Team Providers Care Business Project Analyst Name Role Phone Sidra Egan CP Unavailable Encounters Encounter Location Date DM Cons Landry Egan MD Jul 25, 2016 CGMs Disc Landry Egan MD Aug 01, 2016 Problems Problem Type Condition ICD-9 Code Onset Dates Condition Statu s Problem Erectile dysfunction N52.9 Active Assessment Diabetes mellitus out of control E11.65 Active Problem CAD (coronary artery disease) I25.10 Active Problem Benign essential hypertension I10 Active Problem Diabetes mellitus out of control E11.65 Active Problem Anemia in chronic kidney disease D63.1 Active Problem Generalized osteoarthritis M15.9 A ctive Problem Hyperlipidemia E78.5 Active Problem Chronic kidney disease, stage 3 (moderate) N18.3 Active Social History Social History Element Qualifiers Date Reported Language: . Irish Jul 25, 2016 Marital Status: single. Jul 25, 2016 Caffeine: yes. frequency:, 1 c/day Jul 25, 2016 Exercise: no. Jul 25, 2016 Smoking/Tobacco Use: no. Patient is a: Never Smoker Jul 25, 2016 Alcohol: socially. 6 beers per day Jul 25, 2016 Occupation: unemployed. Retired Jul 25, 2016 Summary Purpose eClinicalWorks Submission
--- OUTSIDE RECORDS SUMMARY | 2020-01-30 09:05 | XMS REPORT ---
Author Author Fito Egan Organization [employer] Address Unknown Phone Unavailable Care Team Providers Care Drug Discovery Informatics Specialist Name Role Phone Sidra Egan CP Unavailable Allergies, Adverse Reactions, Alerts Substance Reaction Event Type N.K.D.A. Info Not Available Non Drug Allergy Encounters Encounter Location Date DM Cons Landry Egan MD Jul 25, 2016 Problems Problem Type Condition ICD-9 Code Onset Dates Condition Statu s Assessment CAD (coronary artery disease) I25.10 Active Problem Erectile dysfunction N52.9 Active Assessment Diabetes [...] disease, stage 3 (moderate) N18.3 Active Assessment Erectile dysfunction N52.9 Active Assessment Hyperlipidemia E78.5 Active Assessment Generalized osteoarthritis M15.9 A ctive Assessment Benign essential hypertension I10 Active Medications Medication Code System Code Instructions Start Date End Date Status Dosage furosemide MULTUM 24911 40 mg orally once a day Activ e 1 tab(s) Lantus Solostar Pen MULTUM 347234 100 units/mL subcutaneously daily Active 40 units carvedilol MULTUM 22667 25 mg orally 2 times a day Ac tive 1 tab(s) Aspir 81 MULTUM 417513 81 mg orally once a day Active 1 tab(s) Humalog KwikPen MULTUM 854367 2oo units per cc subcutaneously 2 times a day (before meals) Jul 25, 2016 Active 5 to 10 unitsz glipizide MULTUM 01291 10 mg orally bid Inactive 1 ta b(s) lisinopril MULTUM 06436 5 mg orally once a day Active 1 tab(s) Social History Social History Element Qualifiers Date Reported Language: . Bangladeshi Jul 25, 2016 Marital Status: single. Jul 25, 2016 Caffeine: yes. frequency:, 1 c/day Jul 25, 2016 Exercise: no. Jul 25, 2016 Smoking/Tobacco Use: no. Patient is a: Never Smoker Jul 25, 2016 Alcohol: socially. 6 beers per day Jul 25, 2016 Occupation: unemployed. Retired Jul 25, 2016 Vital Signs Date/Time: Jul 25, 2016 Weight 217 lbs Height 70 in Blood Pressure Diastolic 66 mm Hg Blood Pressure Systolic 150 mm Hg Results Finger stick glucose HgA1C Summary Purpose eClinicalWorks Submission
--- OUTSIDE RECORDS SUMMARY | 2020-01-30 09:05 | XMS REPORT ---
Author Author Fito Fox [facility] e[employer] Address Unknown Phone Unavailable Care Team Providers Care Mechanical Drawing Teacher Name Role Phone Elizabeth Fox CP Unavailable Allergies, Adverse Reactions, Alerts Substance Reaction Event Type N.K.D.A. Info Not Available Non Drug Allergy Encounters Encounter Location Date DM Cons Landry Egan MD Jul 25, 2016 CGMs Disc Landry Egan MD Aug 01, 2016 CGMS Results Landry Egan MD Aug 22, 2016 Problems Problem Type Condition ICD-9 Code Onset Dates Condition Statu s Assessment Diabetes mellitus out of control E11.65 Active Problem Generalized osteoarthritis M15.9 A ctive Problem Erectile dysfunction N52.9 Active Problem Diabetes mellitus out of control E11.65 Active Problem CAD (coronary artery disease) I25.10 Active Problem Hypogonadism in male E29.1 Active Problem Chronic kidney disease, stage 3 (moderate) N18.3 Active Problem Anemia in chronic kidney disease D63.1 Active Problem Benign essential hypertension I10 Active Problem Hyperlipidemia E78.5 Active Assessment Hypogonadism in male E29.1 Active Assessment Erectile dysfunction N52.9 Active Assessment Chronic kidney disease, stage 3 (moderate) N18.3 Active Assessment Hyperlipidemia E78.5 Active Assessment Generalized osteoarthritis M15.9 A ctive Assessment Benign essential hypertension I10 Active Assessment Anemia in chronic kidney disease D63.1 Active Assessment CAD (coronary artery disease) I25.10 Active Medications Medication Code System Code Instructions Start Date End Date Status Dosage carvedilol MULTUM 55248 25 mg orally 2 times a day Ac tive 1 tab(s) Toujeo Unknown 0 U300 Subcutaneous BID Aug 22, 2016 Inact richard 30 units Levemir FlexTouch MULTUM 24623 100 units/mL subcutaneously bid Aug 24, 2016 Active 30 units lisinopril MULTUM 56425 5 mg orally once a day Active 1 tab(s) furosemide MULTUM 98310 40 mg orally once a day Activ e 1 tab(s) Humalog KwikPen MULTUM 596572 200 units/mL subcutaneously TID QAC Active 20 units Lantus Solostar Pen MULTUM 005154 100 units/mL subcutaneously BID Inactive 30 units Aspir 81 MULTUM 393555 81 mg orally once a day Active 1 tab(s) Atorvastatin Calcium MULTUM 956166 40 mg orally once a day (at bedtime) Aug 22, 2016 Active 1 tab(s) Social History Social History Element Qualifiers Date Reported Language: . Australian Aug 22, 2016 Marital Status: single. Aug 22, 2016 Caffeine: yes. frequency:, 1 c/day Aug 22, 2016 Exercise: no. Aug 22, 2016 Smoking/Tobacco Use: no. Patient is a: Never Smoker Aug 22, 2016 Alcohol: socially. 6 beers per day Aug 22, 2016 Occupation: unemployed. Retired Aug 22, 2016 Vital Signs Date/Time: Aug 22, 2016 Weight 221 lbs Height 70 in Blood Pressure Diastolic 70 mm Hg Blood Pressure Systolic 124 mm Hg Summary Purpose eClinicalWorks Submission
--- OUTSIDE RECORDS SUMMARY | 2020-01-30 09:05 | XMS REPORT ---
Author Author Fito Egan Organization [employer] Address Unknown Phone Unavailable Care Team Providers Care Vacuum Cleaner Assembler Name Role Phone Sidra Egan Unavailable Allergies [...] End Date Status Dosage Tresiba 200 u/ml [facility] [id number] 200 u/ml Subcutaneous QD Jul 19, 2019 January 15, 2020 Active 50 units Results No Known Results Summary Purpose eClinicalWorks Submission
--- OUTSIDE RECORDS SUMMARY | 2020-01-30 09:06 | XMS REPORT ---
Author Author [facility] t Organization [facility] t Address [address] [place] [address] Phone Unavailable Care Team Providers Care Supervisor Cytogenetic Laboratory Name Role Phone MD Issac DUBON MD PCP Da BRAND Attphys Unavailable Bishnu WEAVER Attphys Unavailable BRIAN DANIELS Attkarishma Unavailable BRIAN DANIELS Admkarishma Unavailable Payers Payer Name Policy Type Policy Number Effective Date Expiration Date S shiela [employer]et[employer] Medicare Replacement [id number] 2015 00:00:00 [facility] Aetna Medicare Replacement [id number] 2015 00:00:00 [facility] Advance Directives Directive Decision Effective Date Termination Date Comments Sour ce Yes N/A [facility] Problems Condition Name Condition Details Condition Category Status Onset Date Resolution Date Last Treatment Date Treating Clinician Comments Source Chest pain Chest pain Problem Active C [facility] End-stage renal disease ESRD (end stage renal disease) Problem Active [facility] Hyperkalemia Hyperkalemia Problem Active [facility] Diarrhea Problem [facility] Anemia in chronic kidney disease Anemia in chronic kidney disease Active Problem 12/13/2019 eCW: Landry Egan Problem Active 2019-12-13 02:00:13 eCW: Landry Egan Hyperlipidemia Hype rlipidemia Active Problem 12/13/2019 eCW: Landry Egan Problem Active 2019-12-13 02:00:13 eCW: Landry Egan Chronic kidney disease, stage 3 (moderate) Chronic kidney disease, stage 3 (moderate) Active Problem 12/13/2019 eCW: Landry Egan Problem Active 2019-12-13 02:00:13 eCW: Landry Egan Kidney failure Kidn ey failure Active Problem 12/13/2019 eCW: Landry Egan Problem Active 2019-12-13 02:00:13 eCW: Landry Egan CVA (cerebral infarction) CVA (cerebral infarction) Active Problem 12/13/2019 eCW: Landry Egan Problem Active 2 02:00:13 eCW: Landry Egan Combined hyperlipidemia Comb ined hyperlipidemia Active Problem 12/13/2019 eCW: Landry Egan Problem Active 2019-12-13 02: 00:13 eCW: Landry Egan CAD (coronary artery disease) CAD (coronary artery disease) Active Problem 12/13/2019 eCW: Landry Egan Problem Active 2019-12-13 02:00:13 eCW: Landry Egan Benign essential hypertension Benign essential hypertension Active Problem 12/13/2019 eCW: Landry Egan Problem Active 2019-12-13 02:00:13 eCW: Landry Egan Hypogonadism in male Hypo gonadism in male Active Problem 12/13/2019 eCW: Landry Egan Problem Active 2019-12-13 02:00:13 eCW: Landry Egan Diabetes mellitus out of control Diabetes mellitus out of control Active Diagnosis 12/13/2019 eCW: Landry Egan Diagnosis Active 2019-12-13 02:00:13 eCW: Landry Egan Erectile dysfunction Erec tile dysfunction Active Problem 12/13/2019 eCW: Landry Egan Problem Active 2019-12-13 02:00:13 eCW: Landry Egan Generalized osteoarthritis Gen eralized osteoarthritis Active Problem 12/13/2019 eCW: Landry Egan Problem Active 2019-12-13 02:00:13 eCW: Landry Egan Diabetic peripheral neuropathy Diabetic peripheral neuropathy Active Problem 12/13/2019 eCW: Landry Egan Problem Active 2019-12-13 02:00:13 eCW: Landry Egan Patient's noncompliance with other medical treatment a nd regimen Patient's noncompliance with other medical treatment and regimen Active Diagnosis 01/15/2019 eCW: Landry Egan Diagnosis Active 2019-01-15 02:10:56 eCW: Landry Egan Patient's noncompliance with dietary regimen Patient's noncompliance with dietary regimen Active Problem 12/13/2019 eCW: Landry Egan Problem Active 2019-12-13 02:00:13 eCW: Landry Egan Chronic kidney disease, stage 5 Chronic kidney disease, stage 5 Active Problem 12/13/2019 eCW: Landry Egan Problem Active 2019-12-13 02:00:13 eCW: Landry Egan Diabetes mellitus with peripheral vascular disease Diabetes mellitus with peripheral vascular disease Active Problem 12/13/2019 eCW: Landry Egan Problem Active 2019-12-13 02:00:13 eCW: Landry Egan Allergies, Adverse Reactions, Alerts Allergy Name Allergy Type Status Severity Reaction(s) Onset Date Inacti ve Date Treating Clinician Comments Source N.K.Puneet.A. N.K.D.A. Active Info Not Available 2019-10-14 00:00:00 [facility] No Known Allergies DA Active U 2017-07-27 00:00:00 [facility] Social History Social Habit Start Date Stop Date Quantity Comments Source Language: 2016-10-03 00:00:00 2016-10-03 00:00:00 [facility] Sex Assigned At 1945 00:00:00 1945 00:00:00 Male [facility] Medications Ordered Medication Name Filled Medication Name Start Date Stop Da te Current Medication? Ordering Clinician Indication Dosage Frequency Signature (SIG) Comments Components Source Baltazar 2019-12-13 02:00:13 Yes Sidra Egan 1.2 mg eCW: Landry Egan Tresiba 200 u/ml 2019-12-13 02:00:13 Yes Sidra Egan 50 units eCW: Landry Egan BD Ultra-Fine Pen Needle Angie [id number] 2019-12-13 02:00:13 Yes Sidra Egan USE SUBCUTANEOUSLY 3 VECES AL HADLEY eCW: Landry Egan Novolin R 2019-12-13 02:00:13 Yes Sidra Egan 15 units eCW: Landry Egan Novolin R 2019-12-12 00:00:00 Yes Sidra Egan 15 units eCW: Landry ÁlvarezJignesh repaglinide 2019-11-19 02:03:58 Yes Sidra Egan 1 tab(s) eCW: Landry Egan BD Ultra-Fine Pen Needle Angie [id number] 2019-10-27 00:00:00 Yes Sidra Egan - eCW: Landry ÁlvarezJignesh sucralfate 2019-10-14 00:00:00 Yes Sidra Egan 1 tab(s) eCW: Landry ÁlvarezJignesh Plavix 2019-10-14 00:00:00 Yes Sidra Egan 1 tab(s) eCW: Landry ÁlvarezJignesh pantoprazole 2019-10-14 00:00:00 Yes Sidra Egan 1 tab(s) eCW: Landry ÁlvarezJignesh glipiZIDE extended release 2019-10-14 00:00:00 Yes Sidra Egan 1 tab(s) eCW: Landry Abernathy ta carvedilol 2019-10-14 00:00:00 Yes Sidra Egan 1 tab(s) eCW: Landry ÁlvarezJignesh Atorvastatin Calcium 2019-10-14 00:00:00 Yes Sidra Egan 1 tab(s) eCW: Landry ÁlvarezJignesh Novolin R 2019-10-14 00:00:00 Yes Sidra Egan 15 units eCW: Landry ÁlvarezJignesh Victoza 2019-10-14 00:00:00 Yes Sidra Egan 1.8 mg eCW: Landry Jignesh sevelamer hydrochloride 2019-10-14 00:00:00 Yes Sidra Whitehead 2 tab(s) eCW: Landry Egan Novolin R 2019-07-24 03:01:27 Yes Sidra Gilmorerobbie Egan 10-15 units eCW: Landry Egan One Touch Verio Gold Test Strips 2019-07-19 00:00:00 Yes Sidra Merrick Egan as directed eCW: Anam Egan BD Insulin Syringe 0.3cc 31g 6mm 2019-07-19 00:00:00 Yes Sidra Merrick Egan - eCW: Landry Egan Tresiba 200 u/ml 2019-07-19 00:00:00 Yes Sidra Merrick Egan 50 units eCW: Landry Egan Tresiba 200 u/ml 2019-06-04 00:00:00 Yes Denise Phongsy 44-50 units eCW: Landry Egan Tresiba 200 u/ml 2019-02-09 00:00:00 Yes Sidra Merrickrobbie Egan 44 units eCW: Landry Ledesma 2018-12-06 00:00:00 Yes Denise Phongsy 1. 2 mg eCW: Landry Egan Tresiba 200 u/ml 2018-11-07 00:00:00 Yes Denise Phongsy 40 units eCW: Landry Egan Famotidine (Pepcid) 20 Mg TABLET Famotidine (Pepcid) 20 Mg T ABLET 2018-08-22 12:17:00 Yes 20 [facility] Ondansetron Hcl (Zofran*) 4 Mg TABLET Ondansetron Hcl (Zofra n*) 4 Mg TABLET 2018-08-22 12:17:00 Yes 4 [facility] Novolin R 2018-08-13 00:00:00 Yes Sidra Merrick Egan 10-15 units eCW: Landry Egan Victoza 2018-05-11 00:00:00 Yes Denise Phongsy 0. 60 mg eCW: Landry Egan Trulicity Pen 2018-05-11 00:00:00 Yes Denise Phongsy 1.5 mg eCW: Landry Egan Trulicity Pen 2018-05-11 00:00:00 Yes Denise Phongsy 0.75 mg eCW: Landry Egan Aspirin Aspirin 2018-04-27 08:32:00 Yes 81 [facility] Famotidine (Pepcid) 20 Mg TABLET Famotidine (Pepcid) 20 Mg T ABLET 2018-04-27 08:32:00 Yes 20 [facility] Metoprolol Tartrate Metoprolol Tartrate 2018-04-27 08:32:00 Yes 25 [facility] Simvastatin Simvastatin 2018-04-27 08:32:00 Yes 40 [facility] Tresiba 200 u/ml 2018-03-05 00:00:00 Yes Sidra Egan 44 units eCW: Landry Chaviratus Solostar Pen 2018-03-05 00:00:00 Yes Dneise Phongsy 44 units eCW: Landry Jigneshgilma Martinoreon BCise 2018-03-05 00:00:00 Yes Denise Phongsy 2 mg eCW: Landry Egan Trulicity Pen 2018-02-28 00:00:00 Yes Sidra Egan 1.5 mg eCW: Landry Egan Trulicity Pen 2018-02-28 00:00:00 Yes Sidra Egan 0.75 mg eCW: Landry Egan Humalog KwikPen 2018-02-23 02:09:57 Yes Denise Phongsy 20 units eCW: Landry Egan NovoLog 2018-02-23 02:09:57 Yes Denise Phongsy 30 unit eCW: Landry Egan repaglinide 2018-02-13 00:00:00 Yes Sidra Egan 1 tab(s) eCW: Landry Egan Humalog KwikPen 2018-02-01 00:00:00 Yes Sidra Egan 30 unit eCW: Landry Egan carvedilol 2017-11-24 02:03:17 Yes Denise Phongsy 1 tab(s) eCW: Landry Egan lisinopril 2017-11-24 02:03:17 Yes Denise Phongsy 1 tab(s) eCW: Landry Egan furosemide 2017-11-24 02:03:17 Yes Denise Phongsy 1 tab(s) eCW: Landry Egan Atorvastatin Calcium 2017-11-24 02:03:17 Yes Denise Phongsy 1 tab(s) eCW: Landry Egan Aspir 81 2017-11-24 02:03:17 Yes Denise Phongsy 1 tab(s) eCW: Landry Egan Fish Oil 2017-11-24 02:03:17 Yes Denise Phongsy 1 cap(s) eCW: Landry ÁlvarezJignesh BD Ultra-Fine Pen Needle Angie [id number] 2017-10-11 00:00:00 Yes Sidra Egan - eCW: Landry ÁlvarezJignesh Lantus 2017-06-17 02:08:12 Yes Denise Phongsy 20 units eCW: Landry ÁlvarezJigneshgilma Chaviratus 2017-05-12 00:00:00 Yes Sidra Egan 20 units eCW: Landry ÁlvarezJignesh Tresiba 200 u/ml 2017-05-12 00:00:00 Yes Sidra Egan 44 units eCW: Landry ÁlvarezJignesh Tresiba 200 u/ml 2017-05-12 00:00:00 Yes Denise Phongsy 44 units eCW: Landry ÁlvarezJignesh Basaglar KwikPen 3 ml 2017-04-11 00:00:00 Yes Sidra Egan as directed eCW: Landry ÁlvarezJignesh Fish Oil 2017-04-11 00:00:00 Yes Denise Phongsy 1 cap(s) eCW: Landry Egan Basaglar KwikPen 3 ml 2017-04-11 00:00:00 Yes Denise Colten ngsy as directed eCW: Landry Egan carvedilol 2017-02-22 02:13:28 Yes Sidra Egan 1 tab(s) eCW: Landry Egan Victoza 2017-02-22 02:13:28 Yes Sidra Egan 1.2 mg eCW: Landry Egan Glimepiride-Pioglitazone Hydrochloride 2017-02-22 02:13:28 Yes Sidra Egan 1 tab(s) eCW: Landry Egan Humalog KwikPen 2017-02-22 02:13:28 Yes Sidra Egan 20 units eCW: Landry Egan lisinopril 2017-02-22 02:13:28 Yes Sidra Egan 1 tab(s) eCW: Landry Egan Aspir 81 2017-02-22 02:13:28 Yes Sidra Egan 1 tab(s) eCW: Landry Egan furosemide 2017-02-22 02:13:28 Yes Sidra Egan 1 tab(s) eCW: Landry Egan Atorvastatin Calcium 2017-02-22 02:13:28 Yes Sidra Egan 1 tab(s) eCW: Landry Egan Tresiba 200 u/ml 2017-02-22 02:13:28 Yes Sidra Egan 44 units eCW: Landry Egan Levemir FlexTouch 2016-10-22 03:29:51 No Sidra Boles a 30 units eCW: Landry Egan Victoza 2016-10-03 00:00:00 Yes Sidra Egan 1.2 mg eCW: Landry Egan Tresiba 200 u/ml 2016-10-03 00:00:00 Yes Sidra garcia as directed eCW: Landry Egan Glimepiride-Pioglitazone Hydrochloride 2016-10-03 00:00:00 Yes Sidra Egan 1 tab(s) eCW: Landry Egan Kassie Solostar Pen 2016-09-10 03:32:08 No Elizabeth Fox 30 units eCW: Landry Egan Levemir FlexTouch 2016-08-24 00:00:00 Yes Elizabeth Fox 30 units eCW: Landry Egan Toujeo 2016-08-22 00:00:00 No Elizabeth Fox 30 unit s eCW: Landry Egan Atorvastatin Calcium 2016-08-22 00:00:00 Yes Elizabeth Fox 1 tab(s) eCW: Landry Egan glipizide 2016-08-10 03:34:32 No Sidra Egan 1 tab(s) eCW: Landry Egan Bonnie KwikPen 2016-07-25 00:00:00 Yes Sidra Tierney eta 5 to 10 unitsz eCW: Landry Jignesh Lanthanum Carbonate (Fosrenol) 1,000 Mg TAB.CHEW Lanth mick Carbonate (Fosrenol) 1,000 Mg TAB.CHEW Yes 1000 [facility] Lisinopril Lisinopril Yes 10 [facility] Lorazepam Lorazepam Yes 1 [facility] Repaglinide (Prandin) 2 Mg TABLET Repaglinide (Prandin) 2 Mg TABLET Yes 2 [facility] Tresiba Tresiba Yes 20 [facility] Simvastatin Simvastatin 2018-04-27 00:00:00 No 20 [facility] Altozastatin Altozastatin 2018-04-26 00:00:00 No 40 [facility] Vital Signs Vital Name Observation Time Observation Value Comments Source Weight 2020-01-29 12:48:00 220 [lb_av] [facility] BMI (Body Mass Index) 2020-01-29 12:48:00 31.6 kg/m2 [facility] Weight 2019-10-14 15:30:00 eCW: Anam Abernathyta Height 2019-10-14 15:30:00 eCW: Anam Abernathyta Diastolic (mm Hg) 2019-10-14 15:30:00 eCW : Landry Egan Systolic (mm Hg) 2019-10-14 15:30:00 eCW: Landry Egan Weight 2019-06-13 16:30:00 eCW: Anam skinner Jignesh Height 2019-06-13 16:30:00 eCW: Anam Abernathyta Diastolic (mm Hg) 2019-06-13 16:30:00 eCW : Landry Abernathyta Systolic (mm Hg) 2019-06-13 16:30:00 eCW: Landry Egan Weight 2018-12-06 21:15:00 eCW: Anam Álvarezvaleta Height 2018-12-06 21:15:00 eCW: Anam Abernathyta Diastolic (mm Hg) 2018-12-06 21:15:00 eCW : Landry Egan Systolic (mm Hg) 2018-12-06 21:15:00 eCW: Landry Egan Weight 2018-08-13 16:15:00 eCW: Anam Abernathyta Height 2018-08-13 16:15:00 eCW: Anam Abernathyta Diastolic (mm Hg) 2018-08-13 16:15:00 eCW : Landry Egan Systolic (mm Hg) 2018-08-13 16:15:00 eCW: Landry Egan Weight 2018-05-11 18:00:00 eCW: Anambishnu Abernathyta Height 2018-05-11 18:00:00 eCW: Anam Abernathyta Diastolic (mm Hg) 2018-05-11 18:00:00 eCW : Landry Abernathyta Systolic (mm Hg) 2018-05-11 18:00:00 eCW: Landry Egan Weight 2018-02-28 15:30:00 eCW: Anam skinner Jignesh Height 2018-02-28 15:30:00 eCW: Anam Abernathyta Diastolic (mm Hg) 2018-02-28 15:30:00 eCW : Landry Egan Systolic (mm Hg) 2018-02-28 15:30:00 eCW: Landry Egan Weight 2017-11-29 15:30:00 eCW: Anambishnu Egan Height 2017-11-29 15:30:00 eCW: Anam Abernathyta Diastolic (mm Hg) 2017-11-29 15:30:00 eCW : Landry ÁlvarezJignesh Systolic (mm Hg) 2017-11-29 15:30:00 eCW: Landry Egan Weight 2017-09-29 14:30:00 eCW: Anam skinner Jignesh Height 2017-09-29 14:30:00 eCW: Anam Abernathyta Diastolic (mm Hg) 2017-09-29 14:30:00 eCW : Landry ÁlvarezJignesh Systolic (mm Hg) 2017-09-29 14:30:00 eCW: Landry Egan Weight 2017-04-11 16:30:00 eCW: Anam Álvarezvaleta Height 2017-04-11 16:30:00 eCW: Anam Álvarezvaleta Diastolic (mm Hg) 2017-04-11 16:30:00 eCW : Landry ÁlvarezJignesh Systolic (mm Hg) 2017-04-11 16:30:00 eCW: Landry Egan Weight 2017-01-03 16:15:00 eCW: Anam Egan Height 2017-01-03 16:15:00 eCW: Anam Abernathyta Diastolic (mm Hg) 2017-01-03 16:15:00 eCW : Landry Egan Systolic (mm Hg) 2017-01-03 16:15:00 eCW: Landry Egan Weight 2016-10-03 19:30:00 eCW: Anam Abernathyta Height 2016-10-03 19:30:00 eCW: Anam Abernathyta Diastolic (mm Hg) 2016-10-03 19:30:00 eCW : Landry Abernathyta Systolic (mm Hg) 2016-10-03 19:30:00 eCW: Landry Egan Weight 2016-08-22 19:00:00 eCW: Anam Egan Height 2016-08-22 19:00:00 eCW: Anam Abernathyta Diastolic (mm Hg) 2016-08-22 19:00:00 eCW : Landry Egan Systolic (mm Hg) 2016-08-22 19:00:00 eCW: Landry Egan Weight 2016-07-25 20:15:00 eCW: Anam Egan Height 2016-07-25 20:15:00 eCW: Anam Abernathyta Diastolic (mm Hg) 2016-07-25 20:15:00 eCW : Landry Egan Systolic (mm Hg) 2016-07-25 20:15:00 eCW: Landry Egan Procedures This patient has no known procedures. Plan of Care Planned Activity Planned Date Details Comments Source Goal Patient referral [code = 9254901 ] [facility] Goal Patient referral [code = 0941569 ] [facility] Encounters Start Date/Time End Date/Time Encounter Type Admission Type Attendi [facility] Facility Care Department Encounter ID Source 2020-01-29 12:16:00 2020-01-29 13:18:00 Departed Emergency Room [facility] [id number] [facility] 2019-12-12 14:22:00 2019-12-12 14:22:00 Outpatient Landry Egan M.D., P.A. [facility]ry [facility]gan [facility]. [id number] [facility] 2019-10-14 10:30:00 2019-10-14 10:30:00 Outpatient Landry gEan M.D., P.A. Landry [facility]gan [facility] [id number] [facility] 2019-07-19 15:57:00 2019-07-19 15:57:00 Outpatient Landry Egan M.D., P.A. Landry Egan M.[facility]. [id number] [facility] 2019-07-19 10:47:00 2019-07-19 10:47:00 Outpatient Landry Egan M.D., P.A. Landry Egan M.D[facility]. [id number] [facility] 2019-06-13 10:30:00 2019-06-13 10:30:00 Outpatient Landry Egan M.D., P.A. Landry Egan M.D[facility] P.A. [id number] [facility] 2019-04-30 14:24:00 2019-04-30 14:24:00 Outpatient Landry Egan M.D., P.A. Landry Egan M.D., P.A. [id number] [facility] 2018-12-06 16:15:00 2018-12-06 16:15:00 Outpatient Landry Egan M.D., P.A. Landry Egan M.D[facility].A. [id number] [facility] 2018-09-14 15:41:00 2018-09-14 15:41:00 Outpatient Landry Egan M.D., P.A. Landry Egan M.D., P.A. [id number] [facility] 2018-08-22 11:50:00 2018-08-22 14:07:00 Departed Emergency Room 1 JORY BRAND [facility] [id number] [facility] 2018-08-13 10:15:00 2018-08-13 10:15:00 Outpatient Landry Egan M.D., P.A. Landry Egan M.D., P.A. [id number] [facility] 2018-05-11 13:00:00 2018-05-11 13:00:00 Outpatient Landry Egan M.D., P.A. Landry Egan M.D., P.A. [id number] [facility] 2018-05-09 11:04:00 2018-05-09 11:04:00 Outpatient Landry Egan M.D., P.A. Landry Egan M.D., P.A. [id number] [facility] 2018-04-26 16:09:00 2018-04-27 09:33:00 Departed Emergency Room 1 [facility] [id number] [facility] 2018-03-05 14:41:00 2018-03-05 14:41:00 Outpatient Landry Egan M.D., P.A. Landry Egan M.D., P.A. [id number] [facility] 2018-02-28 10:30:00 2018-02-28 10:30:00 Outpatient Landry Egan M.D., P.A. Landry Egan M.D., P.A. [id number] [facility] 2018-02-13 17:00:00 2018-02-13 17:00:00 Outpatient Landry Egan M.D., P.A. Landry Egan M.D., P.A. [id number] [facility] 2018-02-08 10:08:00 2018-02-08 10:08:00 Outpatient Landry Egan M.D., P.A. Landry Egan M.D[facility] P.A. [id number] [facility] 2018-02-01 10:36:00 2018-02-01 10:36:00 Outpatient Landry Egan M.D., P.A. Landry Egan M.D., P.A. [id number] [facility] 2017-12-29 09:58:00 2017-12-29 09:58:00 Outpatient Landry Egan M.D., P.A. Landry Egan M.D., P.A. [id number] [facility] 2017-11-29 10:30:00 2017-11-29 10:30:00 Outpatient Landry Egan M.D., P.A. Landry Egan M.D., P.A. [id number] [facility] 2017-11-22 11:06:00 2017-11-22 11:06:00 Outpatient Landry Egan M.D., P.A. Landry Egan M.D., P.A. [id number] [facility] 2017-10-26 16:57:00 2017-10-26 16:57:00 Outpatient Landry Egan M.D., P.A. Landry Egan M.D., P.A. [id number] [facility] 2017-10-11 14:44:00 2017-10-11 14:44:00 Outpatient Landry Egan M.D., P.A. Landry Egan M.D., P.A. [id number] [facility] 2017-09-30 07:34:00 2017-09-30 07:34:00 Outpatient Landry Egan M.D., P.A. Landry Egan M.D., P.A. [id number] [facility] 2017-09-29 11:37:00 2017-09-29 11:37:00 Outpatient Landry Egan M.D., P.A. Landry Egan M.D., P.A. [id number] [facility] 2017-09-29 09:30:00 2017-09-29 09:30:00 Outpatient Landry Egan M.D., P.A. Landry Egan M.D., P.A. [id number] [facility] 2017-05-12 09:43:00 2017-05-12 09:43:00 Outpatient Landry Egan M.D., P.A. Landry Egan M.D., P.A. [id number] [facility] 2017-05-11 10:56:00 2017-05-11 10:56:00 Outpatient Landry Egan M.D., P.A. Landry Egan M.D., P.A. [id number] [facility] 2017-04-11 11:30:00 2017-04-11 11:30:00 Outpatient Landry Egan M.D., P.A. Landry Egan M.D., P.A. [id number] [facility] 2017-04-04 14:21:00 2017-04-04 14:21:00 Outpatient Landry Egan M.D., P.A. Landry Egan M.D., P.A. [id number] [facility] 2017-02-20 11:17:00 2017-02-20 11:17:00 Outpatient Landry Egan M.D., P.A. Landry Egan M.D., P.A. [id number] [facility] 2017-02-17 11:30:00 2017-02-17 11:30:00 Outpatient Landry Egan M.D., P.A. Landry Egan M.D., P.A. [id number] [facility] 2017-01-03 11:15:00 2017-01-03 11:15:00 Outpatient Landry Egan M.D., P.A. Landry Egan M.D., P.A. [id number] [facility] 2016-11-23 12:56:00 2016-11-23 12:56:00 Outpatient Landry Egan M.D., P.A. Landry Egan M.D., P.A. [id number] [facility] 2016-10-03 19:30:00 2016-10-03 19:30:00 x dm Landry Eldridge MD [id number] eCW: Landry Egan 2016-10-03 13:30:00 2016-10-03 13:30:00 Outpatient Landry Egan MD, Jose MD [id number] [facility] 2016-08-22 19:00:00 2016-08-22 19:00:00 CGMS Results Landry Eldridge MD [id number] eCW: Landry shin 2016-08-22 19:00:00 2016-08-22 19:00:00 CGMS Results Landry Eldridge MD [id number] eCW: Landry shin 2016-08-22 13:00:00 2016-08-22 13:00:00 Outpatient Landry Egan MD, Jose MD [id number] [facility] 2016-08-01 21:00:00 2016-08-01 21:00:00 CGMs Disc Landry Whittington MD [id number] eCW: Landry Egan 2016-08-01 21:00:00 2016-08-01 21:00:00 CGMs Disc Landry Whittington MD [id number] eCW: Landry Egan 2016-08-01 21:00:00 2016-08-01 21:00:00 CGMs Disc Landry Whittington MD [id number] eCW: Landry Egan 2016-08-01 15:00:00 2016-08-01 15:00:00 Outpatient Landry Egan MD, Jose MD [id number] [facility] 2016-07-25 20:15:00 2016-07-25 20:15:00 DM Cons MARIELA ÁlvarezLandry dillard MD [id number] eCW: Landry Egan 2016-07-25 20:15:00 2016-07-25 20:15:00 DM Cons MARIELA Landry Egan MD [id number] eCW: Landry Egan 2016-07-25 20:15:00 2016-07-25 20:15:00 DM Cons MARIELA Landry Egan MD [id number] eCW: Landry Egan 2016-07-25 20:15:00 2016-07-25 20:15:00 DM Cons MARIELA Landry Egan MD [id number] eCW: Landry Egan 2016-07-25 14:15:00 2016-07-25 14:15:00 Outpatient Landry Egan MD, Jose MD [id number] [facility] Results Test Description Test Time Test Comments Results Result Comments Source GLUBED 2020-01-10 11:57:00 Test Item GLUBED (test code = GLUBED) 338 mg/dL 74-106 H Performed by certified telephone plant power operator at [facility] [id number] 07:53:00* Test Item Value Reference Range Interpretation Comments GLUBED (test code = GLUBED) 219 mg/dL 74-106 H Performed by certified telephone plant power operator at [facility] BASIC METABOLIC [id number] 05:41:00* Test Item Value Reference Range Interpretation Comments SODIUM (test code = NA) 135 mmol/L 136-145 L POTASSIUM (test code = K) 4.1 mmol/L 3.5-5.1 N CHLORIDE (test code = CL) 96.0 mmol/L 98-107 L CARBON DIOXIDE (test code = CO2) 30.0 mmol/L 21-32 N ANION GAP (test code = GAP) 13.1 10-20 N GLUCOSE (test code = GLU) 331 mg/dL 74-106 H BLOOD UREA NITROGEN (test code = BUN) 42 mg/dL 7-18 H GLOMERULAR FILTRATION RATE (test code = GFR) 17 mL/min >=60 Estimated GFR by using Modified MDRD formula.Chronic kidney disease is defined as either kidney damageor GFR <60 mL/min/1.73 m2 for >3 months. CREATININE (test code = CREAT) 3.60 mg/dL 0.7-1.3 H BUN/CREATININE RATIO (test code = BUN/CREA) 11.7 10-20 N CALCIUM (test code = CA) 8.4 mg/dL 8.5-10.1 L BASIC METABOLIC [id number] 05:37:00* Test Item Value Reference Range Interpretation Comments SODIUM (test code = NA) 135 mmol/L 136-145 L POTASSIUM (test code = K) 4.1 mmol/L 3.5-5.1 N CHLORIDE (test code = CL) 96.0 mmol/L 98-107 L CARBON DIOXIDE (test code = CO2) mmol/L 21-32 ANION GAP (test code = GAP) 10-20 GLUCOSE (test code = GLU) mg/dL 74-106 BLOOD UREA NITROGEN (test code = BUN) mg/dL 7-18 GLOMERULAR FILTRATION RATE (test code = GFR) mL/min >=60 CREATININE (test code = CREAT) mg/dL 0.7-1.3 BUN/CREATININE RATIO (test code = BUN/CREA) 10-20 CALCIUM (test code = CA) mg/dL 8.5-10.1 CBC W/AUTO [id number] 05:29:00* Test Item Value Reference Range Interpretation Comments WHITE BLOOD CELL (test code = WBC) 6.6 K/mm3 4.5-12.5 N RED BLOOD CELL (test code = RBC) 3.90 mill/mm3 4.0-5.8 L HEMOGLOBIN (test code = HGB) 11.6 gram/dL 13.0-17.5 L HEMATOCRIT (test code = HCT) 35.5 % 42.0-52.0 L MEAN CELL VOLUME (test code = MCV) 91.0 fL 80-98 N MEAN CELL HGB (test code = MCH) 29.7 picogram 27.0-33.0 N MEAN CELL HGB CONCETRATION (test code = MCHC) 32.7 gram/dL 33.0-36. 0 L RED CELL DISTRIBUTION WIDTH (test code = RDW) 15.3 % 11.6-16. 2 N RED CELL DISTRIBUTION WIDTH SD (test code = RDW-SD) 51.1 fL 37 .0-51.0 H PLATELET COUNT (test code = PLT) 153 K/mm3 150-450 N MEAN PLATELET VOLUME (test code = MPV) 11.8 fL 6.7-11.0 H NEUTROPHIL % (test code = NT%) 58.2 % 39.0-69.0 N IMMATURE GRANULOCYTE % (test code = IG%) 0.3 % 0.0-5.0 N LYMPHOCYTE % (test code = LY%) 28.5 % 25.0-55.0 N MONOCYTE % (test code = MO%) 9.1 % 0.0-10.0 N EOSINOPHIL % (test code = EO%) 3.3 % 0.0-5.0 N BASOPHIL % (test code = BA%) 0.6 % 0.0-1.0 N NUCLEATED RBC % (test code = NRBC%) 0.0 % 0-0 N NEUTROPHIL # (test code = NT#) 3.84 K/mm3 1.8-7.7 N IMMATURE GRANULOCYTE # (test code = IG#) 0.02 x10 3/uL 0-0.03 N LYMPHOCYTE # (test code = LY#) 1.88 K/mm3 1.0-5.0 N MONOCYTE # (test code = MO#) 0.60 K/mm3 0-0.8 N EOSINOPHIL # (test code = EO#) 0.22 K/mm3 0.0-0.5 N BASOPHIL # (test code = BA#) 0.04 K/mm3 0.0-0.2 N NUCLEATED RBC # (test code = NRBC#) 0.00 K/mm3 0.0-0.1 N MANUAL DIFF REQUIRED (test code = MDIFF) NO [id number] 00:39:00* Test Item Value Reference Range Interpretation Comments GLUBED (test code = GLUBED) 287 mg/dL 74-106 H Performed by certified telephone plant power operator at [facility] AG HEPAT B [id number] 18:22:00* Test Item Value Reference Range Interpretation Comments AG HEPAT B SURF (test code = HBSAG) Nonreactive Index Nonreactive BASIC METABOLIC [id number] 15:43:00* Test Item Value Reference Range Interpretation Comments SODIUM (test code = NA) 136 mmol/L 136-145 N POTASSIUM (test code = K) 4.7 mmol/L 3.5-5.1 N CHLORIDE (test code = CL) 97.0 mmol/L 98-107 L CARBON DIOXIDE (test code = CO2) 32.0 mmol/L 21-32 N ANION GAP (test code = GAP) 11.7 10-20 N GLUCOSE (test code = GLU) 119 mg/dL 74-106 H BLOOD UREA NITROGEN (test code = BUN) 21 mg/dL 7-18 H GLOMERULAR FILTRATION RATE (test code = GFR) 27 mL/min >=60 Estimated GFR by using Modified MDRD formula.Chronic kidney disease is defined as either kidney damageor GFR <60 mL/min/1.73 m2 for >3 months. CREATININE (test code = CREAT) 2.40 mg/dL 0.7-1.3 H BUN/CREATININE RATIO (test code = BUN/CREA) 8.8 10-20 L CALCIUM (test code = CA) 8.5 mg/dL 8.5-10.1 N HEPATIC FUNCTION [id number] 15:43:00* Test Item Value Reference Range Interpretation Comments TOTAL PROTEIN (test code = PROT) 8.2 gram/dL 6.4-8.2 N ALBUMIN (test code = ALB) 3.4 g/dL 3.4-5.0 N GLOBULIN (test code = GLOB) 4.8 gram/dL 2.7-4.2 H ALBUMIN/GLOBULIN RATIO (test code = A/G) 0.7 0.75-1.50 L BILIRUBIN TOTAL (test code = BILT) 0.40 mg/dL 0.0-1.0 N BILIRUBIN DIRECT (test code = BILD) 0.09 mg/dL 0.0-0.20 N SGOT/AST (test code = AST) 23 IUnit/L 15-37 N SGPT/ALT (test code = ALT) 27 IUnit/L 12-78 N ALKALINE PHOSPHATASE TOTAL (test code = ALKP) 96 IUnit/L 45-117 N Note change in reference range due to change in reagent. BASIC METABOLIC [id number] 15:36:00* Test Item Value Reference Range Interpretation Comments SODIUM (test code = NA) 136 mmol/L 136-145 N POTASSIUM (test code = K) 4.7 mmol/L 3.5-5.1 N CHLORIDE (test code = CL) 97.0 mmol/L 98-107 L CARBON DIOXIDE (test code = CO2) mmol/L 21-32 ANION GAP (test code = GAP) 10-20 GLUCOSE (test code = GLU) mg/dL 74-106 BLOOD UREA NITROGEN (test code = BUN) mg/dL 7-18 GLOMERULAR FILTRATION RATE (test code = GFR) mL/min >=60 CREATININE (test code = CREAT) mg/dL 0.7-1.3 BUN/CREATININE RATIO (test code = BUN/CREA) 10-20 CALCIUM (test code = CA) mg/dL 8.5-10.1 HEPATIC FUNCTION [id number] 15:36:00* Test Item Value Reference Range Interpretation Comments TOTAL PROTEIN (test code = PROT) gram/dL 6.4-8.2 ALBUMIN (test code = ALB) g/dL 3.4-5.0 GLOBULIN (test code = GLOB) gram/dL 2.7-4.2 ALBUMIN/GLOBULIN RATIO (test code = A/G) 0.75-1.50 BILIRUBIN TOTAL (test code = BILT) mg/dL 0.0-1.0 BILIRUBIN DIRECT (test code = BILD) mg/dL 0.0-0.20 SGOT/AST (test code = AST) IUnit/L 15-37 SGPT/ALT (test code = ALT) IUnit/L 12-78 ALKALINE PHOSPHATASE TOTAL (test code = ALKP) IUnit/L 45-117 CBC W/O [id number] 15:32:00* Test Item Value Reference Range Interpretation Comments WHITE BLOOD CELL (test code = WBC) 5.6 K/mm3 4.5-12.5 N RED BLOOD CELL (test code = RBC) 4.12 mill/mm3 4.0-5.8 N HEMOGLOBIN (test code = HGB) 12.1 gram/dL 13.0-17.5 L HEMATOCRIT (test code = HCT) 37.4 % 42.0-52.0 L MEAN CELL VOLUME (test code = MCV) 90.8 fL 80-98 N MEAN CELL HGB (test code = MCH) 29.4 picogram 27.0-33.0 N MEAN CELL HGB CONCETRATION (test code = MCHC) 32.4 gram/dL 33.0-36. 0 L RED CELL DISTRIBUTION WIDTH (test code = RDW) 15.1 % 11.6-16. 2 N PLATELET COUNT (test code = PLT) 161 K/mm3 150-450 N MEAN PLATELET VOLUME (test code = MPV) 11.4 fL 6.7-11.0 H - CT ABD PELVIS [id number] 14:43:00 Name: DILLAN LITTLE [facility] : 1945 Age/S: 74 / M [address] [facility] Unit #: [id number] Loc: [place] [address] Phys: Tiera Wilder MD Acct: [id number] Dis Date: Status: REG ER PHONE #: [phone] Exam Date: 01/09/2020 1407 FAX #: [phone] Reason: abd pain, diarrhea EXAMS: CPT CODE: [id number] CT ABD PELVIS W/CONT [id number] REASON FOR EXAM: abd pain, diarrhea EXAM ORDER DATE: 01/09/2020 1:39 PM Ordering M.D.: Tiera Wilder MD PROCEDURE: - CT ABD PELVIS W/CONT contrast-enhanced axial CT images were acquired through the abdomen/pelvis at 5 mm intervals. Sagittal and coronal reformatted images were generated. Automated exposure control was utilized for this reduction. Phases of contrast: venous and delayed COMPARISON: Abdominal ultrasound November 22, 2015 FINDINGS: Visualized thorax: There is dependent subsegmental atelectasis in the right lower lobe. Lungs are otherwise clear. Extensive coronary atherosclerosis is present. 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 Remainder of the GI tract is gr ossly within normal limits Abdominal vascular structures: Severe a therosclerotic calcifications are present in the abdominal aorta and iliac arteries. Additional atherosclerotic calcifications are scattered through out the mesenteric arteries Peritoneum and retroperitoneum: No free fluid or free air. No omental or mesenteric masses. No abnormal lymph nodes. PAGE 1 Signed Report (CONTINUED) Name: DILLAN LITTLE [facility] : 1945 Age/S: 74 / M [address] [facility] Unit #: [id number] Loc: [place] [address] Phys: Tiera Wilder MD Acct: [id number] Dis Date: Status: REG ER PHONE #: [phone] Exam Date: 01/09/2020 1402 FAX #: [phone] Reason: abd pain, diarrhea EXAMS: CPT CODE: [id number] ABD PELVIS W/CONT 90126 <Continued > Musculoskeletal structures and abdominal wall: Degenerative changes are present throughout the spine and are also seen in the bilateral hips . Postsurgical changes of sternotomy IMPRESSION: No acut e intra-abdominal process. Colonic diverticulosis without diverticulitis . Cholelithiasis without CT findings to suggest cholecystitis. Location: [facility] Electronically Signed by Shon Jo MD on at 1443 Reported and signed by: Shon Jo MD CC: Tiera Wilder MD; Darrel Dubon MD Technologist:Claudia DavisRT(R),CT CTDI: DLP: Trnscb Date/Time: 01/09/2020 (1443) t.[email or web address] Orig Print D/T: S: 01/09/2020 (7216) PAGE 2 Signed Report AB HEPATITIS B [id number] 10:25:00* Test Item Value Reference Range Interpretation Comments AB HEPATITIS B SURFACE (test code = HBSAB) QUANT NOT SUFFICIENT () Quantity was not sufficient for analysis. Non Reactive: Inconsistent with immunity, less than 10 mIU/mL Reactive: Consistent with immunity, greater than 9.9 mIU/mLNotified [place]. 09/27/2019-BaylessPerformed At: [facility] [address] [id number] Ayala MD Ph:[phone] REDRAW PER [facility] NOT ENOUGHV.LAB.ASS 09/27/19 [id number] 16:01:00 RUN DATE: 10/02/19 [facility] PAGE 1 RUN TIME: 1601 Specimen Inqui ry RUN USER: INTERFACE PATIENT: ANABELDILLAN ACCT #: [id number] LOC: GenetMALINI U #: [id number] AGE/SX: 74/M ROOM: [facility] RE09/24/19REG DR: Brian Daniels MD : [birth year] BED: A DIS: 10/01/19 STATUS: DIS IN TLOC: SPEC #: [id number] RECD: 10/01/19 STATUS: SOUT REQ #: [id number] NAYAN: 09/30/19- SUBM DR: Huey Corcoran MD ENTERED: 10/01/19 SP TYPE: STOMACH OTHR DR: Darrel Dubon MD, David S MD Khan, Salman A MDORDERED: GROSS COPIES TO: Darrel Dubon MD [address] [place] [address] Huey Corcoran MD [address], [address] [place] [address] Bao Kumar MD [address] [place] [address] Des Cornell MD [address] [facility], [address] [place] [address] PROCEDURES: GROSS (10/02/19-102 5) TISSUES: 1. ANTRAL BIOPSY - H-PYLORI 2. 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 NEGATIVE FOR HELICOBACTER PYLORI BY GIEMSA STAIN NEGATIVE FOR MALIGNANCY CONTINUED ON NEXT PAGE RUN DATE: 10/02/19 [place] [facility] PAGE 2 RUN TIME: 1601 Specimen Inqui ry RUN USER: INTERFACE SPEC #: [id number] PATIENT: VIVEK LITTLE #[id number] (Continued) FINAL DIAGNOSIS (Continued) Esophagus, biopsy: MILD CHRONIC INFLAMMATION AND FOCAL INTESTINAL METAPLASIA, MIXED SQUAMOUS ESOPHAGEAL AND GASTRIC TYPE MUCOSA NEGATIVE FOR DYSPLASIA AND MALIGNANCY [facility]/ D 28 7308, [address] MACROSCOPIC Specimen (1) is received in formalin, la beled with the patient's name, identified as "antrum", and consists of light t an biopsy tissue measuring 0.3 cm in aggregate, submitted as (1). Speci men (2) is received in formalin, labeled with the patient's name, identified a s "esophagus", and consists of castillo biopsy tissue measuring 0.25 cm in aggrega te, submitted as (2). GROSS PERFORMED AT [facility] [address] [facility] [address] ( [phone] MICROSCOPIC All of the stains, including any control s performed, stain appropriately. MICROSCOPIC PERFORMED AT [facility] [address] [facility], [place] [address] [phone] PERFORMING SITE Diagnosis performed at: [facility] [address] [place] [address] CONTINUED ON NEXT PAGE RUN DATE: [facility] RUN TIME: 1601 Specimen Inquiry RUN U SER: INTERFACE ------- -----SPEC #: [id number] PATIENT: DILLAN LITTLE #[id number] (Continued) Signed SIGNATURE ON FILE Gabriella Perez MD 10/02/19 1601 END OF REPORT HEPATITIS B CORE ANTIBODY,[id number] 05:09:00* Test Item Value Reference Range Interpretation Comments HEPATITIS B CORE ANTIBODY,TOT (test code = HBCAB) Negative Nega tive Performed At: [address] [id number] Narinder Ayala MD Ph:[phone] PATIENT NOT IN ROOMAB HEPATITIS B [id number] 05:09:00* Test Item Value Reference Range Interpretation Comments AB HEPATITIS B SURFACE (test code = HBSAB) Reactive () Non Reactive: Inconsistent with immunity, less than 10 mIU/mL Reactive: Consistent with immunity, greater than 9.9 mIU/mLPerformed At: [facility] [address] [place], [place] [id number] Kyle L MD Ph:[phone] PATIENT NOT IN [id number] 17:05:00* Test Item Value Reference Range Interpretation Comments GLUBED (test code = GLUBED) 220 mg/dL 74-106 H Performed by certified telephone plant power operator at [facility] CBC W/AUTO [id number] 07:55:00* Test Item Value Reference Range Interpretation Comments WHITE BLOOD CELL (test code = WBC) 7.1 K/mm3 4.5-12.5 N RED BLOOD CELL (test code = RBC) 3.04 mill/mm3 4.0-5.8 L HEMOGLOBIN (test code = HGB) 9.4 gram/dL 13.0-17.5 L HEMATOCRIT (test code = HCT) 28.7 % 42.0-52.0 L MEAN CELL VOLUME (test code = MCV) 94.4 fL 80-98 N MEAN CELL HGB (test code = MCH) 30.9 picogram 27.0-33.0 N MEAN CELL HGB CONCETRATION (test code = MCHC) 32.8 gram/dL 33.0-36. 0 L RED CELL DISTRIBUTION WIDTH (test code = RDW) 15.9 % 11.6-16. 2 N RED CELL DISTRIBUTION WIDTH SD (test code = RDW-SD) 54.2 fL 37 .0-51.0 H PLATELET COUNT (test code = PLT) 217 K/mm3 150-450 N MEAN PLATELET VOLUME (test code = MPV) 10.9 fL 6.7-11.0 N NEUTROPHIL % (test code = NT%) 63.8 % 39.0-69.0 N IMMATURE GRANULOCYTE % (test code = IG%) 0.4 % 0.0-5.0 N LYMPHOCYTE % (test code = LY%) 25.9 % 25.0-55.0 N MONOCYTE % (test code = MO%) 6.5 % 0.0-10.0 N EOSINOPHIL % (test code = EO%) 2.4 % 0.0-5.0 N BASOPHIL % (test code = BA%) 1.0 % 0.0-1.0 N NUCLEATED RBC % (test code = NRBC%) 0.0 % 0-0 N NEUTROPHIL # (test code = NT#) 4.50 K/mm3 1.8-7.7 N IMMATURE GRANULOCYTE # (test code = IG#) 0.03 x10 3/uL 0-0.03 N LYMPHOCYTE # (test code = LY#) 1.83 K/mm3 1.0-5.0 N MONOCYTE # (test code = MO#) 0.46 K/mm3 0-0.8 N EOSINOPHIL # (test code = EO#) 0.17 K/mm3 0.0-0.5 N BASOPHIL # (test code = BA#) 0.07 K/mm3 0.0-0.2 N NUCLEATED RBC # (test code = NRBC#) 0.00 K/mm3 0.0-0.1 N MANUAL DIFF REQUIRED (test code = MDIFF) NO BASIC METABOLIC [id number] 07:52:00* Test Item Value Reference Range Interpretation Comments SODIUM (test code = NA) 137 mmol/L 136-145 N POTASSIUM (test code = K) 4.9 mmol/L 3.5-5.1 N CHLORIDE (test code = CL) 103.0 mmol/L 98-107 N CARBON DIOXIDE (test code = CO2) 26.0 mmol/L 21-32 N ANION GAP (test code = GAP) 12.9 10-20 N GLUCOSE (test code = GLU) 269 mg/dL 74-106 H BLOOD UREA NITROGEN (test code = BUN) 66 mg/dL 7-18 H GLOMERULAR FILTRATION RATE (test code = GFR) 12 mL/min >=60 Estimated GFR by using Modified MDRD formula.Chronic kidney disease is defined as either kidney damageor GFR <60 mL/min/1.73 m2 for >3 months. CREATININE (test code = CREAT) 4.80 mg/dL 0.7-1.3 H BUN/CREATININE RATIO (test code = BUN/CREA) 13.8 10-20 N CALCIUM (test code = CA) 8.1 mg/dL 8.5-10.1 L BASIC METABOLIC [id number] 07:48:00* Test Item Value Reference Range Interpretation Comments SODIUM (test code = NA) 137 mmol/L 136-145 N POTASSIUM (test code = K) 4.9 mmol/L 3.5-5.1 N CHLORIDE (test code = CL) 103.0 mmol/L 98-107 N CARBON DIOXIDE (test code = CO2) mmol/L 21-32 ANION GAP (test code = GAP) 10-20 GLUCOSE (test code = GLU) mg/dL 74-106 BLOOD UREA NITROGEN (test code = BUN) mg/dL 7-18 GLOMERULAR FILTRATION RATE (test code = GFR) mL/min >=60 CREATININE (test code = CREAT) mg/dL 0.7-1.3 BUN/CREATININE RATIO (test code = BUN/CREA) 10-20 CALCIUM (test code = CA) mg/dL 8.5-10.1 [id number] 20:34:00* Test Item Value Reference Range Interpretation Comments GLUBED (test code = GLUBED) 215 mg/dL 74-106 H Performed by certified telephone plant power operator at [facility] [id number] 13:00:00* Test Item Value Reference Range Interpretation Comments GLUBED (test code = GLUBED) 180 mg/dL 74-106 H Performed by certified telephone plant power operator at [facility] PROTHROMBIN [id number] 08:06:00* Test Item Value Reference Range Interpretation Comments PROTHROMBIN TIME PATIENT (test code = PTP) 12.6 seconds 9.0-14.0 N INTERNATIONAL NORMAL RATIO (test code = INR) 1.1 0.8-1.2 N The therapeutic range for oral anticoagulant therapy formost indications is an international normalized ratio (INR)of between 2.0 and 3.0. The recommended therapeutic INRrange for various clinical situations is listed below: Clinical Situation INR range Pulmonary e mbolism treatment (2.0-3.0)Venous thrombosis treatmentVenous thrombosis prophylaxis (high risk surgery)Prevention of systemic embolism from: Acute myocardial infarction Valvular heart disease Atrial fibrillation Mechanical prosthetic heart valves (2.5-3.5) IS PATIENT ON ANTICOAGULANTS? NBASIC METABOLIC [id number] 07:33:00* Test Item Value Reference Range Interpretation Comments SODIUM (test code = NA) 135 mmol/L 136-145 L POTASSIUM (test code = K) 4.4 mmol/L 3.5-5.1 N CHLORIDE (test code = CL) 100.0 mmol/L 98-107 N CARBON DIOXIDE (test code = CO2) 26.0 mmol/L 21-32 N ANION GAP (test code = GAP) 13.4 10-20 N GLUCOSE (test code = GLU) 302 mg/dL 74-106 H BLOOD UREA NITROGEN (test code = BUN) 50 mg/dL 7-18 H GLOMERULAR FILTRATION RATE (test code = GFR) 13 mL/min >=60 Estimated GFR by using Modified MDRD formula.Chronic kidney disease is defined as either kidney damageor GFR <60 mL/min/1.73 m2 for >3 months. CREATININE (test code = CREAT) 4.40 mg/dL 0.7-1.3 H BUN/CREATININE RATIO (test code = BUN/CREA) 11.4 10-20 N CALCIUM (test code = CA) 8.0 mg/dL 8.5-10.1 L BASIC METABOLIC [id number] 07:09:00* Test Item Value Reference Range Interpretation Comments SODIUM (test code = NA) 135 mmol/L 136-145 L POTASSIUM (test code = K) 4.4 mmol/L 3.5-5.1 N CHLORIDE (test code = CL) 100.0 mmol/L 98-107 N CARBON DIOXIDE (test code = CO2) mmol/L 21-32 ANION GAP (test code = GAP) 10-20 GLUCOSE (test code = GLU) mg/dL 74-106 BLOOD UREA NITROGEN (test code = BUN) mg/dL 7-18 GLOMERULAR FILTRATION RATE (test code = GFR) mL/min >=60 CREATININE (test code = CREAT) mg/dL 0.7-1.3 BUN/CREATININE RATIO (test code = BUN/CREA) 10-20 CALCIUM (test code = CA) mg/dL 8.5-10.1 CBC W/AUTO [id number] 06:50:00* Test Item Value Reference Range Interpretation Comments WHITE BLOOD CELL (test code = WBC) 6.8 K/mm3 4.5-12.5 N RED BLOOD CELL (test code = RBC) 3.27 mill/mm3 4.0-5.8 L HEMOGLOBIN (test code = HGB) 9.8 gram/dL 13.0-17.5 L HEMATOCRIT (test code = HCT) 30.6 % 42.0-52.0 L MEAN CELL VOLUME (test code = MCV) 93.6 fL 80-98 N MEAN CELL HGB (test code = MCH) 30.0 picogram 27.0-33.0 N MEAN CELL HGB CONCETRATION (test code = MCHC) 32.0 gram/dL 33.0-36. 0 L RED CELL DISTRIBUTION WIDTH (test code = RDW) 16.2 % 11.6-16. 2 N RED CELL DISTRIBUTION WIDTH SD (test code = RDW-SD) 53.9 fL 37 .0-51.0 H PLATELET COUNT (test code = PLT) 221 K/mm3 150-450 N MEAN PLATELET VOLUME (test code = MPV) 10.6 fL 6.7-11.0 N NEUTROPHIL % (test code = NT%) 58.7 % 39.0-69.0 N IMMATURE GRANULOCYTE % (test code = IG%) 0.4 % 0.0-5.0 N LYMPHOCYTE % (test code = LY%) 27.9 % 25.0-55.0 N MONOCYTE % (test code = MO%) 7.9 % 0.0-10.0 N EOSINOPHIL % (test code = EO%) 4.1 % 0.0-5.0 N BASOPHIL % (test code = BA%) 1.0 % 0.0-1.0 N NUCLEATED RBC % (test code = NRBC%) 0.0 % 0-0 N NEUTROPHIL # (test code = NT#) 3.98 K/mm3 1.8-7.7 N IMMATURE GRANULOCYTE # (test code = IG#) 0.03 x10 3/uL 0-0.03 N LYMPHOCYTE # (test code = LY#) 1.90 K/mm3 1.0-5.0 N MONOCYTE # (test code = MO#) 0.54 K/mm3 0-0.8 N EOSINOPHIL # (test code = EO#) 0.28 K/mm3 0.0-0.5 N BASOPHIL # (test code = BA#) 0.07 K/mm3 0.0-0.2 N NUCLEATED RBC # (test code = NRBC#) 0.00 K/mm3 0.0-0.1 N MANUAL DIFF REQUIRED (test code = MDIFF) NO [id number] 05:44:00* Test Item Value Reference Range Interpretation Comments GLUBED (test code = GLUBED) 305 mg/dL 74-106 H Performed by certified telephone plant power operator at [facility] [id number] 21:45:00* Test Item Value Reference Range Interpretation Comments GLUBED (test code = GLUBED) 307 mg/dL 74-106 H Performed by certified telephone plant power operator at [facility] [id number] 17:42:00* Test Item Value Reference Range Interpretation Comments GLUBED (test code = GLUBED) 200 mg/dL 74-106 H Performed by certified telephone plant power operator at [facility] [id number] 12:15:00* Test Item Value Reference Range Interpretation Comments GLUBED (test code = GLUBED) 314 mg/dL 74-106 H Performed by certified telephone plant power operator at [facility] [id number] 09:55:00* Test Item Value Reference Range Interpretation Comments GLUBED (test code = GLUBED) 396 mg/dL 74-106 H Performed by certified telephone plant power operator at [facility] [id number] 06:14:00* Test Item Value Reference Range Interpretation Comments GLUBED (test code = GLUBED) 184 mg/dL 74-106 H Performed by certified telephone plant power operator at [facility] BASIC METABOLIC [id number] 21:53:00* Test Item Value Reference Range Interpretation Comments SODIUM (test code = NA) 135 mmol/L 136-145 L POTASSIUM (test code = K) 4.1 mmol/L 3.5-5.1 N CHLORIDE (test code = CL) 100.0 mmol/L 98-107 N CARBON DIOXIDE (test code = CO2) 28.0 mmol/L 21-32 N ANION GAP (test code = GAP) 11.1 10-20 N GLUCOSE (test code = GLU) 353 mg/dL 74-106 H BLOOD UREA NITROGEN (test code = BUN) 28 mg/dL 7-18 H GLOMERULAR FILTRATION RATE (test code = GFR) 20 mL/min >=60 Estimated GFR by using Modified MDRD formula.Chronic kidney disease is defined as either kidney damageor GFR <60 mL/min/1.73 m2 for >3 months. CREATININE (test code = CREAT) 3.10 mg/dL 0.7-1.3 H BUN/CREATININE RATIO (test code = BUN/CREA) 9.0 10-20 L CALCIUM (test code = CA) 7.9 mg/dL 8.5-10.1 L BASIC METABOLIC [id number] 21:44:00* Test Item Value Reference Range Interpretation Comments SODIUM (test code = NA) 135 mmol/L 136-145 L POTASSIUM (test code = K) 4.1 mmol/L 3.5-5.1 N CHLORIDE (test code = CL) 100.0 mmol/L 98-107 N CARBON DIOXIDE (test code = CO2) mmol/L 21-32 ANION GAP (test code = GAP) 10-20 GLUCOSE (test code = GLU) mg/dL 74-106 BLOOD UREA NITROGEN (test code = BUN) mg/dL 7-18 GLOMERULAR FILTRATION RATE (test code = GFR) mL/min >=60 CREATININE (test code = CREAT) mg/dL 0.7-1.3 BUN/CREATININE RATIO (test code = BUN/CREA) 10-20 CALCIUM (test code = CA) 7.9 mg/dL 8.5-10.1 L [id number] 21:07:00* Test Item Value Reference Range Interpretation Comments GLUBED (test code = GLUBED) 354 mg/dL 74-106 H Performed by certified telephone plant power operator at [facility] [id number] 16:44:00* Test Item Value Reference Range Interpretation Comments GLUBED (test code = GLUBED) 279 mg/dL 74-106 H Performed by certified telephone plant power operator at [facility] BASIC METABOLIC [id number] 11:48:00* Test Item Value Reference Range Interpretation Comments SODIUM (test code = NA) 135 mmol/L 136-145 L POTASSIUM (test code = K) 4.2 mmol/L 3.5-5.1 N CHLORIDE (test code = CL) 102.0 mmol/L 98-107 N CARBON DIOXIDE (test code = CO2) 24.0 mmol/L 21-32 N ANION GAP (test code = GAP) 13.2 10-20 N GLUCOSE (test code = GLU) 260 mg/dL 74-106 H BLOOD UREA NITROGEN (test code = BUN) 53 mg/dL 7-18 H GLOMERULAR FILTRATION RATE (test code = GFR) 13 mL/min >=60 Estimated GFR by using Modified MDRD formula.Chronic kidney disease is defined as either kidney damageor GFR <60 mL/min/1.73 m2 for >3 months. CREATININE (test code = CREAT) 4.60 mg/dL 0.7-1.3 H BUN/CREATININE RATIO (test code = BUN/CREA) 11.5 10-20 N CALCIUM (test code = CA) 8.1 mg/dL 8.5-10.1 L BASIC METABOLIC [id number] 11:41:00* Test Item Value Reference Range Interpretation Comments SODIUM (test code = NA) 135 mmol/L 136-145 L POTASSIUM (test code = K) 4.2 mmol/L 3.5-5.1 N CHLORIDE (test code = CL) 102.0 mmol/L 98-107 N CARBON DIOXIDE (test code = CO2) mmol/L 21-32 ANION GAP (test code = GAP) 10-20 GLUCOSE (test code = GLU) mg/dL 74-106 BLOOD UREA NITROGEN (test code = BUN) mg/dL 7-18 GLOMERULAR FILTRATION RATE (test code = GFR) mL/min >=60 CREATININE (test code = CREAT) mg/dL 0.7-1.3 BUN/CREATININE RATIO (test code = BUN/CREA) 10-20 CALCIUM (test code = CA) mg/dL 8.5-10.1 CBC W/O [id number] 11:28:00* Test Item Value Reference Range Interpretation Comments WHITE BLOOD CELL (test code = WBC) 6.4 K/mm3 4.5-12.5 N RED BLOOD CELL (test code = RBC) 3.02 mill/mm3 4.0-5.8 L HEMOGLOBIN (test code = HGB) 9.1 gram/dL 13.0-17.5 L HEMATOCRIT (test code = HCT) 28.9 % 42.0-52.0 L MEAN CELL VOLUME (test code = MCV) 95.7 fL 80-98 N MEAN CELL HGB (test code = MCH) 30.1 picogram 27.0-33.0 N MEAN CELL HGB CONCETRATION (test code = MCHC) 31.5 gram/dL 33.0-36. 0 L RED CELL DISTRIBUTION WIDTH (test code = RDW) 16.2 % 11.6-16. 2 N PLATELET COUNT (test code = PLT) 207 K/mm3 150-450 N MEAN PLATELET VOLUME (test code = MPV) 10.8 fL 6.7-11.0 N [id number] 06:02:00* Test Item Value Reference Range Interpretation Comments GLUBED (test code = GLUBED) 221 mg/dL 74-106 H Performed by certified telephone plant power operator at [facility] [id number] 20:38:00* Test Item Value Reference Range Interpretation Comments GLUBED (test code = GLUBED) 289 mg/dL 74-106 H Performed by certified telephone plant power operator at [facility] [id number] 19:20:00* Test Item Value Reference Range Interpretation Comments GLUBED (test code = GLUBED) 301 mg/dL 74-106 H Performed by certified telephone plant power operator at [facility] [id number] 19:20:00* Test Item Value Reference Range Interpretation Comments GLUBED (test code = GLUBED) 300 mg/dL 74-106 H Performed by certified telephone plant power operator at [facility] BASIC METABOLIC [id number] 08:39:00* Test Item Value Reference Range Interpretation Comments SODIUM (test code = NA) 138 mmol/L 136-145 N POTASSIUM (test code = K) 4.0 mmol/L 3.5-5.1 N CHLORIDE (test code = CL) 103.0 mmol/L 98-107 N CARBON DIOXIDE (test code = CO2) 28.0 mmol/L 21-32 N ANION GAP (test code = GAP) 11.0 10-20 N GLUCOSE (test code = GLU) 206 mg/dL 74-106 H BLOOD UREA NITROGEN (test code = BUN) 36 mg/dL 7-18 H GLOMERULAR FILTRATION RATE (test code = GFR) 18 mL/min >=60 Estimated GFR by using Modified MDRD formula.Chronic kidney disease is defined as either kidney damageor GFR <60 mL/min/1.73 m2 for >3 months. CREATININE (test code = CREAT) 3.40 mg/dL 0.7-1.3 H BUN/CREATININE RATIO (test code = BUN/CREA) 10.6 10-20 N CALCIUM (test code = CA) 7.9 mg/dL 8.5-10.1 L CBC W/AUTO [id number] 08:08:00* Test Item Value Reference Range Interpretation Comments WHITE BLOOD CELL (test code = WBC) 6.1 K/mm3 4.5-12.5 N RED BLOOD CELL (test code = RBC) 3.24 mill/mm3 4.0-5.8 L HEMOGLOBIN (test code = HGB) 9.9 gram/dL 13.0-17.5 L RESULT VERIFIED BY REPEAT ANALYSIS HEMATOCRIT (test code = HCT) 29.7 % 42.0-52.0 L MEAN CELL VOLUME (test code = MCV) 91.7 fL 80-98 N MEAN CELL HGB (test code = MCH) 30.6 picogram 27.0-33.0 N MEAN CELL HGB CONCETRATION (test code = MCHC) 33.3 gram/dL 33.0-36. 0 N RED CELL DISTRIBUTION WIDTH (test code = RDW) 16.6 % 11.6-16. 2 H RED CELL DISTRIBUTION WIDTH SD (test code = RDW-SD) 54.4 fL 37 .0-51.0 H PLATELET COUNT (test code = PLT) 200 K/mm3 150-450 N MEAN PLATELET VOLUME (test code = MPV) 10.5 fL 6.7-11.0 N NEUTROPHIL % (test code = NT%) 56.6 % 39.0-69.0 N IMMATURE GRANULOCYTE % (test code = IG%) 0.8 % 0.0-5.0 N LYMPHOCYTE % (test code = LY%) 28.8 % 25.0-55.0 N MONOCYTE % (test code = MO%) 10.1 % 0.0-10.0 H EOSINOPHIL % (test code = EO%) 2.6 % 0.0-5.0 N BASOPHIL % (test code = BA%) 1.1 % 0.0-1.0 H NUCLEATED RBC % (test code = NRBC%) 0.0 % 0-0 N NEUTROPHIL # (test code = NT#) 3.45 K/mm3 1.8-7.7 N IMMATURE GRANULOCYTE # (test code = IG#) 0.05 x10 3/uL 0-0.03 H LYMPHOCYTE # (test code = LY#) 1.76 K/mm3 1.0-5.0 N MONOCYTE # (test code = MO#) 0.62 K/mm3 0-0.8 N EOSINOPHIL # (test code = EO#) 0.16 K/mm3 0.0-0.5 N BASOPHIL # (test code = BA#) 0.07 K/mm3 0.0-0.2 N NUCLEATED RBC # (test code = NRBC#) 0.00 K/mm3 0.0-0.1 N MANUAL DIFF REQUIRED (test code = MDIFF) NO [id number] 06:24:00* Test Item Value Reference Range Interpretation Comments GLUBED (test code = GLUBED) 201 mg/dL 74-106 H Performed by certified telephone plant power operator at [facility] [id number] 21:43:00* Test Item Value Reference Range Interpretation Comments GLUBED (test code = GLUBED) 344 mg/dL 74-106 H Performed by certified telephone plant power operator at [facility] [id number] 17:41:00* Test Item Value Reference Range Interpretation Comments GLUBED (test code = GLUBED) 215 mg/dL 74-106 H Performed by certified telephone plant power operator at [facility] AG HEPAT B [id number] 12:02:00* Test Item Value Reference Range Interpretation Comments AG HEPAT B SURF (test code = HBSAG) Nonreactive Index Nonreactive [id number] 06:35:00* Test Item Value Reference Range Interpretation Comments GLUBED (test code = GLUBED) 174 mg/dL 74-106 H Performed by certified telephone plant power operator at [facility] COMPREHENSIVE METABOLIC [id number] 05:10:00* Test Item Value Reference Range Interpretation Comments SODIUM (test code = NA) 138 mmol/L 136-145 N POTASSIUM (test code = K) 4.0 mmol/L 3.5-5.1 N CHLORIDE (test code = CL) 103.0 mmol/L 98-107 N CARBON DIOXIDE (test code = CO2) 28.0 mmol/L 21-32 N ANION GAP (test code = GAP) 11.0 10-20 N GLUCOSE (test code = GLU) 194 mg/dL 74-106 H BLOOD UREA NITROGEN (test code = BUN) 48 mg/dL 7-18 H GLOMERULAR FILTRATION RATE (test code = GFR) 15 mL/min >=60 Estimated GFR by using Modified MDRD formula.Chronic kidney disease is defined as either kidney damageor GFR <60 mL/min/1.73 m2 for >3 months. CREATININE (test code = CREAT) 3.90 mg/dL 0.7-1.3 H BUN/CREATININE RATIO (test code = BUN/CREA) 12.3 10-20 N TOTAL PROTEIN (test code = PROT) 6.6 gram/dL 6.4-8.2 N ALBUMIN (test code = ALB) 2.8 g/dL 3.4-5.0 L GLOBULIN (test code = GLOB) 3.8 gram/dL 2.7-4.2 N ALBUMIN/GLOBULIN RATIO (test code = A/G) 0.7 0.75-1.50 L CALCIUM (test code = CA) 8.0 mg/dL 8.5-10.1 L BILIRUBIN TOTAL (test code = BILT) 0.30 mg/dL 0.0-1.0 N SGOT/AST (test code = AST) 24 IUnit/L 15-37 N SGPT/ALT (test code = ALT) 18 IUnit/L 12-78 N ALKALINE PHOSPHATASE TOTAL (test code = ALKP) 58 IUnit/L 45-117 N Note change in reference range due to change in reagent. COMPREHENSIVE METABOLIC [id number] 05:03:00* Test Item Value Reference Range Interpretation Comments SODIUM (test code = NA) 138 mmol/L 136-145 N POTASSIUM (test code = K) 4.0 mmol/L 3.5-5.1 N CHLORIDE (test code = CL) 103.0 mmol/L 98-107 N CARBON DIOXIDE (test code = CO2) mmol/L 21-32 ANION GAP (test code = GAP) 10-20 GLUCOSE (test code = GLU) mg/dL 74-106 BLOOD UREA NITROGEN (test code = BUN) mg/dL 7-18 GLOMERULAR FILTRATION RATE (test code = GFR) mL/min >=60 CREATININE (test code = CREAT) mg/dL 0.7-1.3 BUN/CREATININE RATIO (test code = BUN/CREA) 10-20 TOTAL PROTEIN (test code = PROT) gram/dL 6.4-8.2 ALBUMIN (test code = ALB) g/dL 3.4-5.0 GLOBULIN (test code = GLOB) gram/dL 2.7-4.2 ALBUMIN/GLOBULIN RATIO (test code = A/G) 0.75-1.50 CALCIUM (test code = CA) mg/dL 8.5-10.1 BILIRUBIN TOTAL (test code = BILT) mg/dL 0.0-1.0 SGOT/AST (test code = AST) IUnit/L 15-37 SGPT/ALT (test code = ALT) IUnit/L 12-78 ALKALINE PHOSPHATASE TOTAL (test code = ALKP) IUnit/L 45-117 CBC W/AUTO [id number] 04:15:00* Test Item Value Reference Range Interpretation Comments WHITE BLOOD CELL (test code = WBC) 6.9 K/mm3 4.5-12.5 N RED BLOOD CELL (test code = RBC) 2.53 mill/mm3 4.0-5.8 L HEMOGLOBIN (test code = HGB) 7.6 gram/dL 13.0-17.5 L HEMATOCRIT (test code = HCT) 24.4 % 42.0-52.0 L MEAN CELL VOLUME (test code = MCV) 96.4 fL 80-98 N MEAN CELL HGB (test code = MCH) 30.0 picogram 27.0-33.0 N MEAN CELL HGB CONCETRATION (test code = MCHC) 31.1 gram/dL 33.0-36. 0 L RED CELL DISTRIBUTION WIDTH (test code = RDW) 16.2 % 11.6-16. 2 N RED CELL DISTRIBUTION WIDTH SD (test code = RDW-SD) 56.5 fL 37 .0-51.0 H PLATELET COUNT (test code = PLT) 178 K/mm3 150-450 N MEAN PLATELET VOLUME (test code = MPV) 10.7 fL 6.7-11.0 N NEUTROPHIL % (test code = NT%) 54.3 % 39.0-69.0 N IMMATURE GRANULOCYTE % (test code = IG%) 1.0 % 0.0-5.0 N LYMPHOCYTE % (test code = LY%) 32.9 % 25.0-55.0 N MONOCYTE % (test code = MO%) 8.0 % 0.0-10.0 N EOSINOPHIL % (test code = EO%) 2.9 % 0.0-5.0 N BASOPHIL % (test code = BA%) 0.9 % 0.0-1.0 N NUCLEATED RBC % (test code = NRBC%) 0.0 % 0-0 N NEUTROPHIL # (test code = NT#) 3.72 K/mm3 1.8-7.7 N IMMATURE GRANULOCYTE # (test code = IG#) 0.07 x10 3/uL 0-0.03 H LYMPHOCYTE # (test code = LY#) 2.26 K/mm3 1.0-5.0 N MONOCYTE # (test code = MO#) 0.55 K/mm3 0-0.8 N EOSINOPHIL # (test code = EO#) 0.20 K/mm3 0.0-0.5 N BASOPHIL # (test code = BA#) 0.06 K/mm3 0.0-0.2 N NUCLEATED RBC # (test code = NRBC#) 0.00 K/mm3 0.0-0.1 N [id number] 21:14:00* Test Item Value Reference Range Interpretation Comments GLUBED (test code = GLUBED) 391 mg/dL 74-106 H Performed by certified telephone plant power operator at [facility] [id number] 16:23:00* Test Item Value Reference Range Interpretation Comments GLUBED (test code = GLUBED) 248 mg/dL 74-106 H Performed by certified telephone plant power operator at [facility] [id number] 16:23:00* Test Item Value Reference Range Interpretation Comments GLUBED (test code = GLUBED) 184 mg/dL 74-106 H Performed by certified telephone plant power operator at [facility] [id number] 06:36:00* Test Item Value Reference Range Interpretation Comments GLUBED (test code = GLUBED) 128 mg/dL 74-106 H Performed by certified telephone plant power operator at [facility] HGB [id number] 06:26:00* Test Item Value Reference Range Interpretation Comments HEMOGLOBIN (test code = HGB) 8.5 gram/dL 13.0-17.5 L HEMATOCRIT (test code = HCT) 25.8 % 42.0-52.0 L [id number] 02:22:00* Test Item Value Reference Range Interpretation Comments TROPONIN-I (test code = TROPI) 18.400 ng/mL 0-0.045 HH COMMENTS TO PAINTER PLATE: COLLECT 3 HOURS AFTER PREVIOUS SAMPLEHGB [id number] 01:36:00* Test Item Value Reference Range Interpretation Comments HEMOGLOBIN (test code = HGB) 8.0 gram/dL 13.0-17.5 L HEMATOCRIT (test code = HCT) 24.3 % 42.0-52.0 L [id number] 23:11:00* Test Item Value Reference Range Interpretation Comments TROPONIN-I (test code = TROPI) 19.200 ng/mL 0-0.045 HH 09/24/19 1856COMMENTS TO PAINTER PLATE: COLLECT 3 HOURS AFTER PREVIOUS [id number] 21:30:00* Test Item Value Reference Range Interpretation Comments GLUBED (test code = GLUBED) 132 mg/dL 74-106 H Performed by certified telephone plant power operator at [facility] [id number] 16:38:00* Test Item Value Reference Range Interpretation Comments GLYCOSYLATED HEMOGLOBIN (HA1C) (test code = GLYHGB) 7.5 % HbA1 SUGGESTED DIAGNOSIS: HbA1C (%) Diabetic >6.4Prediabetes 5.7 - 6.4Normal <5.7 ESTIMATED AVERAGE GLUCOSE (test code = EAG) 169 MG/DL LIPID PROFILE (CORONARY RISK)2019-09-24 16:38:00* Test Item Value Reference Range Interpretation Comments TRIGLYCERIDES (test code = TRIG) 250 mg/dL 20-150 H CHOLESTEROL (test code = CHOL) 156 mg/dL 0-200 N CHOLESTEROL/HDL RATIO (test code = CHOLHDL) 4.0 RATIO 0-4.9 N RISK ASSOCIATED WITH CHOL/HDL RATIOS: Risk Male Female1/2 AVERAGE 3.43 3.27AVERAGE 4.97 4.442X AVERAGE 9.55 7.053X AVERAGE 23.39 11.04 REFERENCE VALUE IS RELATED TO RISK LEVELS ASRECOMMENDED BY THE ZAHEER. HEART, LUNG, AND BLOOD INST. HDL CHOLESTEROL (test code = HDL) 36 mg/dL 40-60 L LIPOPROTEIN LDL (test code = LDL) 73 mg/dL 100-129 L Reference Interval: mg/dL mmol/L Optimal <100 <2.6Near/above optimal 100-129 2.6- 3.3Borderline High 130-159 3.4-4.1High 160-189 4.1-4.9Very High >=190 >=4.9========= This LDL result is a direct measurement.========= B-TYPE NATRIURETIC [id number] 14:17:00* Test Item Value Reference Range Interpretation Comments B-TYPE NATRIURETIC PEPTIDE (test code = BNP) 432.64 pgram/mL 0-100 H [id number] 13:30:00* Test Item Value Reference Range Interpretation Comments GLUBED (test code = GLUBED) 167 mg/dL 74-106 H Performed by certified telephone plant power operator at [facility] BASIC METABOLIC [id number] 13:15:00* Test Item Value Reference Range Interpretation Comments SODIUM (test code = NA) 133 mmol/L 136-145 L POTASSIUM (test code = K) 3.7 mmol/L 3.5-5.1 N CHLORIDE (test code = CL) 99.0 mmol/L 98-107 N CARBON DIOXIDE (test code = CO2) 24.0 mmol/L 21-32 N ANION GAP (test code = GAP) 13.7 10-20 N GLUCOSE (test code = GLU) 170 mg/dL 74-106 H BLOOD UREA NITROGEN (test code = BUN) 30 mg/dL 7-18 H GLOMERULAR FILTRATION RATE (test code = GFR) 30 mL/min >=60 Estimated GFR by using Modified MDRD formula.Chronic kidney disease is defined as either kidney damageor GFR <60 mL/min/1.73 m2 for >3 months. CREATININE (test code = CREAT) 2.20 mg/dL 0.7-1.3 H BUN/CREATININE RATIO (test code = BUN/CREA) 13.6 10-20 N CALCIUM (test code = CA) 8.6 mg/dL 8.5-10.1 N [id number] 13:15:00* Test Item Value Reference Range Interpretation Comments TROPONIN-I (test code = TROPI) 14.600 ng/mL 0-0.045 HH Results called to DR LOPEZ by [email or web address] 09/24/19 1315Critical results verified and read back by Nurse? Y BASIC METABOLIC [id number] 12:52:00* Test Item Value Reference Range Interpretation Comments SODIUM (test code = NA) 133 mmol/L 136-145 L POTASSIUM (test code = K) 3.7 mmol/L 3.5-5.1 N CHLORIDE (test code = CL) 99.0 mmol/L 98-107 N CARBON DIOXIDE (test code = CO2) mmol/L 21-32 ANION GAP (test code = GAP) 10-20 GLUCOSE (test code = GLU) mg/dL 74-106 BLOOD UREA NITROGEN (test code = BUN) mg/dL 7-18 GLOMERULAR FILTRATION RATE (test code = GFR) mL/min >=60 CREATININE (test code = CREAT) mg/dL 0.7-1.3 BUN/CREATININE RATIO (test code = BUN/CREA) 10-20 CALCIUM (test code = CA) mg/dL 8.5-10.1 [id number] 12:52:00* Test Item Value Reference Range Interpretation Comments TROPONIN-I (test code = TROPI) ng/mL 0-0.045 PROTHROMBIN [id number] 12:28:00* Test Item Value Reference Range Interpretation Comments PROTHROMBIN TIME PATIENT (test code = PTP) 11.7 seconds 9.0-14.0 N INTERNATIONAL NORMAL RATIO (test code = INR) 1.0 0.8-1.2 N The therapeutic range for oral anticoagulant therapy formost indications is an international normalized ratio (INR)of between 2.0 and 3.0. The recommended therapeutic INRrange for various clinical situations is listed below: Clinical Situation INR range Pulmonary e mbolism treatment (2.0-3.0)Venous thrombosis treatmentVenous thrombosis prophylaxis (high risk surgery)Prevention of systemic embolism from: Acute myocardial infarction Valvular heart disease Atrial fibrillation Mechanical prosthetic heart valves (2.5-3.5) IS PATIENT ON ANTICOAGULANTS? NTHROMBOPLASTIN TIME [id number] 12:28:00* Test Item Value Reference Range Interpretation Comments THROMBOPLASTIN TIME PARTIAL (test code = PTT) 30.6 seconds 25.0-36. 5 N IS PATIENT ON ANTICOAGULANTS? NCBC W/O [id number] 12:18:00* Test Item Value Reference Range Interpretation Comments WHITE BLOOD CELL (test code = WBC) 7.4 K/mm3 4.5-12.5 N RED BLOOD CELL (test code = RBC) 2.25 mill/mm3 4.0-5.8 L HEMOGLOBIN (test code = HGB) 6.9 gram/dL 13.0-17.5 L HEMATOCRIT (test code = HCT) 21.5 % 42.0-52.0 LL Results called to by FLORENTINO 09/24/19 1218Critical results verified and read back by Nurse? Y MEAN CELL VOLUME (test code = MCV) 95.6 fL 80-98 N MEAN CELL HGB (test code = MCH) 30.7 picogram 27.0-33.0 N MEAN CELL HGB CONCETRATION (test code = MCHC) 32.1 gram/dL 33.0-36. 0 L RED CELL DISTRIBUTION WIDTH (test code = RDW) 15.9 % 11.6-16. 2 N PLATELET COUNT (test code = PLT) 200 K/mm3 150-450 N MEAN PLATELET VOLUME (test code = MPV) 10.8 fL 6.7-11.0 N [id number] 12:16:00* Test Item Value Reference Range Interpretation Comments MAGNESIUM (test code = MAG) 2.0 mg/dL 1.8-2.4 N - XR CHEST 1 [id number] 12:12:00 FAX: Darrel Richardson MD [phone] Lucas: B St: REG FAX: Errol Lopez MD Name: DILLAN LITTLE [facility] : 1945 Age/S: 74/M [address] [facility] Unit #: [id number] Loc: [place] [address] Phys: Errol Lopez MD Acct: [id number] Dis Date: Status: REG ER PHONE #: [phone] Exam Date: 09/24/2019 1155 FAX #: [phone] Reason: CHEST PAIN EXAMS: CPT CODE: [id number] XR CHEST 1 V 28070 HISTORY: Chest pain. COMPARISON: November 24, 2015. Location: [facility]. No acute infiltrates, effusion or congestion is noted. Right costophrenic angle is not included slightly limiting evaluation. Left ICD is unchanged. Cardiomegaly. IMPRESSION: No acute infiltrates, effusion or congestion. at 1212 Reported and signed by: Ugo Jorge M.D. CC: Darrel Dubon MD; Errol Lopez MD Technologist: Hawa Becerril(R); Vania Hinkle RT(R) Trnscrd Date/Time/By: 09/24/2019 (1212) : By: [email or web address] Orig Print D/T: S: 09/24/2019 (6964) PAGE 1 Signed Report GLUBED 2019-09-17 15:01:00* Test Item Value Reference Range Interpretation Comments GLUBED (test code = GLUBED) 137 mg/dL 74-106 H Performed by certified telephone plant power operator at [facility] AG HEPAT B [id number] 08:59:00* Test Item Value Reference Range Interpretation Comments AG HEPAT B SURF (test code = HBSAG) Nonreactive Index Nonreactive BASIC METABOLIC [id number] 08:35:00* Test Item Value Reference Range Interpretation Comments SODIUM (test code = NA) 135 mmol/L 136-145 L POTASSIUM (test code = K) 5.2 mmol/L 3.5-5.1 H CHLORIDE (test code = CL) 102.0 mmol/L 98-107 N CARBON DIOXIDE (test code = CO2) 23.0 mmol/L 21-32 N ANION GAP (test code = GAP) 15.2 10-20 N GLUCOSE (test code = GLU) 145 mg/dL 74-106 H BLOOD UREA NITROGEN (test code = BUN) 63 mg/dL 7-18 H GLOMERULAR FILTRATION RATE (test code = GFR) 11 mL/min >=60 Estimated GFR by using Modified MDRD formula.Chronic kidney disease is defined as either kidney damageor GFR <60 mL/min/1.73 m2 for >3 months. CREATININE (test code = CREAT) 5.10 mg/dL 0.7-1.3 H BUN/CREATININE RATIO (test code = BUN/CREA) 12.4 10-20 N CALCIUM (test code = CA) 8.2 mg/dL 8.5-10.1 L BASIC METABOLIC [id number] 08:33:00* Test Item Value Reference Range Interpretation Comments SODIUM (test code = NA) 135 mmol/L 136-145 L POTASSIUM (test code = K) 5.2 mmol/L 3.5-5.1 H CHLORIDE (test code = CL) 102.0 mmol/L 98-107 N CARBON DIOXIDE (test code = CO2) mmol/L 21-32 ANION GAP (test code = GAP) 10-20 GLUCOSE (test code = GLU) mg/dL 74-106 BLOOD UREA NITROGEN (test code = BUN) mg/dL 7-18 GLOMERULAR FILTRATION RATE (test code = GFR) mL/min >=60 CREATININE (test code = CREAT) mg/dL 0.7-1.3 BUN/CREATININE RATIO (test code = BUN/CREA) 10-20 CALCIUM (test code = CA) mg/dL 8.5-10.1 CBC W/AUTO [id number] 08:23:00* Test Item Value Reference Range Interpretation Comments WHITE BLOOD CELL (test code = WBC) 8.8 K/mm3 4.5-12.5 N RED BLOOD CELL (test code = RBC) 3.47 mill/mm3 4.0-5.8 L HEMOGLOBIN (test code = HGB) 10.7 gram/dL 13.0-17.5 L HEMATOCRIT (test code = HCT) 34.2 % 42.0-52.0 L MEAN CELL VOLUME (test code = MCV) 98.6 fL 80-98 H MEAN CELL HGB (test code = MCH) 30.8 picogram 27.0-33.0 N MEAN CELL HGB CONCETRATION (test code = MCHC) 31.3 gram/dL 33.0-36. 0 L RED CELL DISTRIBUTION WIDTH (test code = RDW) 16.3 % 11.6-16. 2 H RED CELL DISTRIBUTION WIDTH SD (test code = RDW-SD) 56.2 fL 37 .0-51.0 H PLATELET COUNT (test code = PLT) 210 K/mm3 150-450 N MEAN PLATELET VOLUME (test code = MPV) 10.6 fL 6.7-11.0 N NEUTROPHIL % (test code = NT%) 68.5 % 39.0-69.0 N IMMATURE GRANULOCYTE % (test code = IG%) 0.5 % 0.0-5.0 N LYMPHOCYTE % (test code = LY%) 21.5 % 25.0-55.0 L MONOCYTE % (test code = MO%) 6.7 % 0.0-10.0 N EOSINOPHIL % (test code = EO%) 2.2 % 0.0-5.0 N BASOPHIL % (test code = BA%) 0.6 % 0.0-1.0 N NUCLEATED RBC % (test code = NRBC%) 0.0 % 0-0 N NEUTROPHIL # (test code = NT#) 6.03 K/mm3 1.8-7.7 N IMMATURE GRANULOCYTE # (test code = IG#) 0.04 x10 3/uL 0-0.03 H LYMPHOCYTE # (test code = LY#) 1.89 K/mm3 1.0-5.0 N MONOCYTE # (test code = MO#) 0.59 K/mm3 0-0.8 N EOSINOPHIL # (test code = EO#) 0.19 K/mm3 0.0-0.5 N BASOPHIL # (test code = BA#) 0.05 K/mm3 0.0-0.2 N NUCLEATED RBC # (test code = NRBC#) 0.00 K/mm3 0.0-0.1 N MANUAL DIFF REQUIRED (test code = MDIFF) NO [id number] 05:57:00* Test Item Value Reference Range Interpretation Comments GLUBED (test code = GLUBED) 161 mg/dL 74-106 H Performed by certified telephone plant power operator at [facility] [id number] 20:40:00* Test Item Value Reference Range Interpretation Comments GLUBED (test code = GLUBED) 100 mg/dL 74-106 N Performed by certified telephone plant power operator at [facility] [id number] 16:25:00* Test Item Value Reference Range Interpretation Comments GLUBED (test code = GLUBED) 196 mg/dL 74-106 H Performed by certified telephone plant power operator at [facility] [id number] 07:05:00* Test Item Value Reference Range Interpretation Comments GLUBED (test code = GLUBED) 125 mg/dL 74-106 H Performed by certified telephone plant power operator at [facility] BASIC METABOLIC [id number] 13:05:00* Test Item Value Reference Range Interpretation Comments SODIUM (test code = NA) 137 mmol/L 136-145 N POTASSIUM (test code = K) 4.4 mmol/L 3.5-5.1 N CHLORIDE (test code = CL) 101.0 mmol/L 98-107 N CARBON DIOXIDE (test code = CO2) 27.0 mmol/L 21-32 N ANION GAP (test code = GAP) 13.4 10-20 N GLUCOSE (test code = GLU) 301 mg/dL 74-106 H BLOOD UREA NITROGEN (test code = BUN) 31 mg/dL 7-18 H GLOMERULAR FILTRATION RATE (test code = GFR) 16 mL/min >=60 Estimated GFR by using Modified MDRD formula.Chronic kidney disease is defined as either kidney damageor GFR <60 mL/min/1.73 m2 for >3 months. CREATININE (test code = CREAT) 3.80 mg/dL 0.7-1.3 H BUN/CREATININE RATIO (test code = BUN/CREA) 8.2 10-20 L CALCIUM (test code = CA) 8.0 mg/dL 8.5-10.1 L LIPID PROFILE (CORONARY RISK)2019-09-13 13:05:00* Test Item Value Reference Range Interpretation Comments TRIGLYCERIDES (test code = TRIG) 310 mg/dL 20-150 H CHOLESTEROL (test code = CHOL) 139 mg/dL 0-200 N CHOLESTEROL/HDL RATIO (test code = CHOLHDL) 2.0 RATIO 0-4.9 N RISK ASSOCIATED WITH CHOL/HDL RATIOS: Risk Male Female1/2 AVERAGE 3.43 3.27AVERAGE 4.97 4.442X AVERAGE 9.55 7.053X AVERAGE 23.39 11.04 REFERENCE VALUE IS RELATED TO RISK LEVELS ASRECOMMENDED BY THE ZAHEER. HEART, LUNG, AND BLOOD INST. HDL CHOLESTEROL (test code = HDL) 47 mg/dL 40-60 N LIPOPROTEIN LDL (test code = LDL) 72 mg/dL 100-129 L Reference Interval: mg/dL mmol/L Optimal <100 <2.6Near/above optimal 100-129 2.6- 3.3Borderline High 130-159 3.4-4.1High 160-189 4.1-4.9Very High >=190 >=4.9========= This LDL result is a direct measurement.========= BASIC METABOLIC [id number] 12:59:00* Test Item Value Reference Range Interpretation Comments SODIUM (test code = NA) 137 mmol/L 136-145 N POTASSIUM (test code = K) 4.4 mmol/L 3.5-5.1 N CHLORIDE (test code = CL) 101.0 mmol/L 98-107 N CARBON DIOXIDE (test code = CO2) mmol/L 21-32 ANION GAP (test code = GAP) 10-20 GLUCOSE (test code = GLU) mg/dL 74-106 BLOOD UREA NITROGEN (test code = BUN) mg/dL 7-18 GLOMERULAR FILTRATION RATE (test code = GFR) mL/min >=60 CREATININE (test code = CREAT) mg/dL 0.7-1.3 BUN/CREATININE RATIO (test code = BUN/CREA) 10-20 CALCIUM (test code = CA) mg/dL 8.5-10.1 LIPID PROFILE (CORONARY RISK)2019-09-13 12:59:00* Test Item Value Reference Range Interpretation Comments TRIGLYCERIDES (test code = TRIG) mg/dL 20-150 CHOLESTEROL (test code = CHOL) mg/dL 0-200 CHOLESTEROL/HDL RATIO (test code = CHOLHDL) RATIO 0-4.9 HDL CHOLESTEROL (test code = HDL) mg/dL 40-60 LIPOPROTEIN LDL (test code = LDL) mg/dL 100-129 PROTHROMBIN [id number] 12:45:00* Test Item Value Reference Range Interpretation Comments PROTHROMBIN TIME PATIENT (test code = PTP) 12.1 seconds 9.0-14.0 N INTERNATIONAL NORMAL RATIO (test code = INR) 1.0 0.8-1.2 N The therapeutic range for oral anticoagulant therapy formost indications is an international normalized ratio (INR)of between 2.0 and 3.0. The recommended therapeutic INRrange for various clinical situations is listed below: Clinical Situation INR range Pulmonary e mbolism treatment (2.0-3.0)Venous thrombosis treatmentVenous thrombosis prophylaxis (high risk surgery)Prevention of systemic embolism from: Acute myocardial infarction Valvular heart disease Atrial fibrillation Mechanical prosthetic heart valves (2.5-3.5) THROMBOPLASTIN TIME [id number] 12:45:00* Test Item Value Reference Range Interpretation Comments THROMBOPLASTIN TIME PARTIAL (test code = PTT) 30.9 seconds 25.0-36. 5 N CBC W/AUTO [id number] 12:32:00* Test Item Value Reference Range Interpretation Comments WHITE BLOOD CELL (test code = WBC) 6.4 K/mm3 4.5-12.5 N RED BLOOD CELL (test code = RBC) 3.42 mill/mm3 4.0-5.8 L HEMOGLOBIN (test code = HGB) 10.6 gram/dL 13.0-17.5 L HEMATOCRIT (test code = HCT) 33.0 % 42.0-52.0 L MEAN CELL VOLUME (test code = MCV) 96.5 fL 80-98 N MEAN CELL HGB (test code = MCH) 31.0 picogram 27.0-33.0 N MEAN CELL HGB CONCETRATION (test code = MCHC) 32.1 gram/dL 33.0-36. 0 L RED CELL DISTRIBUTION WIDTH (test code = RDW) 15.5 % 11.6-16. 2 N RED CELL DISTRIBUTION WIDTH SD (test code = RDW-SD) 54.1 fL 37 .0-51.0 H PLATELET COUNT (test code = PLT) 214 K/mm3 150-450 N MEAN PLATELET VOLUME (test code = MPV) 11.3 fL 6.7-11.0 H NEUTROPHIL % (test code = NT%) 59.9 % 39.0-69.0 N IMMATURE GRANULOCYTE % (test code = IG%) 0.3 % 0.0-5.0 N LYMPHOCYTE % (test code = LY%) 28.3 % 25.0-55.0 N MONOCYTE % (test code = MO%) 8.4 % 0.0-10.0 N EOSINOPHIL % (test code = EO%) 2.3 % 0.0-5.0 N BASOPHIL % (test code = BA%) 0.8 % 0.0-1.0 N NUCLEATED RBC % (test code = NRBC%) 0.0 % 0-0 N NEUTROPHIL # (test code = NT#) 3.83 K/mm3 1.8-7.7 N IMMATURE GRANULOCYTE # (test code = IG#) 0.02 x10 3/uL 0-0.03 N LYMPHOCYTE # (test code = LY#) 1.81 K/mm3 1.0-5.0 N MONOCYTE # (test code = MO#) 0.54 K/mm3 0-0.8 N EOSINOPHIL # (test code = EO#) 0.15 K/mm3 0.0-0.5 N BASOPHIL # (test code = BA#) 0.05 K/mm3 0.0-0.2 N NUCLEATED RBC # (test code = NRBC#) 0.00 K/mm3 0.0-0.1 N MANUAL DIFF REQUIRED (test code = MDIFF) NO ABDOMEN-1VIEW (KUB)2018-08-22 12:53:00 [place] [address] Patient Name: DILLAN LITTLE MR #: [id number] : 1945 Age/Sex: 72/M Req #: [id number] Adm Physician: Ordered by: OJRY BRAND MD Report #: [id number] Location: ER Room/Bed: Procedure: [id number] DX/ABDOMEN-1VIEW (KUB) Exam Date: 08/22/18 Exam Time : 1220 REPORT STATUS: Signed RAD IOGRAPH(S) OF THE ABDOMEN AND PELVIS, 2 view(s) HISTORY: Shortness of breath COMPARISON: None available. FINDINGS: Overlying monitoring l amalia. Some of the osseous structures are partially obscured by stool and overl matt bowel gas. Moderate fecal material in the region of the sacrum. No specific evidence of obstruction or ileus. No definite urinary tract calcif ication. Multilevel degenerative changes, most notably severe at L3-4. IMPRESSION: Nonobstructive bowel gas pattern. Signed by: Liban BellOLuis, M.M.M. on 08/22/2018 12:56 PM Dictated By: CHEKO PEREZ DO Elect ronically Signed By: CHEKO PEREZ DO on 08/22/18 1253 Transcribed By: MEAGHAN on 08/22/18 1256 COPY TO: JORY BRAND MD CHEST 2 VIEWS 2018-08-22 12:47:00 [place] [address] Patient Name: DILLAN LITTLE MR #: [id number] : 1945 Age/Sex: 72/M Req #: [id number] Adm Physician: Ordered by: JORY BRAND MD Report #: [id number] Location: ER Room/Bed: Procedure: [id number] DX/CHEST 2 VIEWS Exam Date: 08/22/18 Exam Time: 1220 REPORT STATUS: Signed Frontal a nd lateral views of the chest. HISTORY: Shortness of breath COMPARISON: Chest radiograph April 26, 2018 DISCUSSION: Overlying monitoring l amalia and artifacts. 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 Lungs: No evidence of a consolidative pneumonia or pulmonary alve olar edema. Pleura: No pleural effusion or pneumothorax. Heart and mediastinum: The cardiac silhouette appears unremarkable. Postsurgical ch anges. Bones: Multiple median sternotomy wires. IMPRESSION: 1. No acute radiographic abnormality. 2. No significant interval change. Signed by: Dr. Cheko Perez D.O., M.M.M. on 08/22/2018 12:53 PM Dicta shikha By: CHEKO PEREZ DO 125 3 Transcribed By: MEAGHAN on 08/22/18 1253 COPY TO: JORY BRAND CHEST SINGLE (NOT PORTABLE)2018-04-26 18:55:00 [place] [address] Patient Name: DILLAN LITTLE MR #: [id number] : 1945 Age/Sex: 72/M Req #: [id number] Adm Physician: Ordered by: CARMINA WEAVER MD Report #: [id number] Location: ER Room/Bed: Procedure: [id number] DX/CHEST SINGLE (NOT PORTABLE ) Exam Date: Exam Time: REPORT STATUS: Maylin d Examination: Single AP view of the chest. COMPARISON: AP chest 06/04/20 INDICATION: Chest pain IMPRESSION: 1. Lines and Tubes: S table left upper chest multilead cardiac device 2. Lungs are grossly clear. No consolidation or effusion. 3. Stable enlargement of the cardiac silhouette . Pulmonary vasculature is normal. 4. No acute bony abnormalities. Partia lly visualized fusion hardware in the lower cervical spine. Signed by: Dr Luis Fitzpatrick M.D. 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 H eart rate, rhythm and oxygen saturation were monitored and real-time [facility] nurse under my direct supervision. Blood press ure was monitored in 5 minute increments. 1% lidocaine was used for local ane sthesia. Total sedation time: 30 minutes Radiation Dose:60.6 cGycm2 (Dose A albaro Product) Fluoroscopy time:0.4 minutes Estimate blood loss: 10 mL Bloo d administered: None Complications: None Implants/Grafts: 16 Greenlandic 23 cm cu ffed tunneled dialysis catheter Specimen: None Procedure: Informed c onsent was obtained and the patient positioned supine in the fluoroscopy suite . A timeout was performed, followed by preliminary ultrasound of the right int ernal jugular vein (see findings below). The right neck and chest were prepped and draped in standard fashion. Using real-time ultrasound guidance a 21 gauge vascular needle was used to access the right internal jugular vein. An image was stored in the electronic medical record. A wire was advanced across the right atrium under fluoroscopy and the needle exchanged for a peel-away sh eath. A skin incision was made inferior to the clavicle and the catheter tu nneled to the access site. The catheter was then deployed through the peel-pravin y sheath and positioned with the tip at the atriocaval junction/right atrium. At the end of the procedure the catheter was flushed, packed with heparin solution, secured to the skin and a sterile dressing applied. The patient rodger erated the procedure well and without immediate complication. Findings: P atent right internal jugular vein as demonstrated by normal ultrasound ziggy sibility. Impression: Successful placement of a tunneled right internal j ugular vein dialysis catheter using ultrasound and fluoroscopic guidance under moderate sedation. This report was generated with voice-recognition technology. Errors in director part can occur. Please interpret accordingly an d contact a radiologist if there are any questions regarding the report. Signed by: Dr. Jania Barton M.D. on 06/22/2017 7:03 AM Dictated By: MARIANNA BARTON MD 1124 T ranscribed By: MEAGHAN on 06/27/174 COPY TO: BRIAN DANIELS MD IR CONSULT [place] [address] Patient Name: DILLAN LITTLE MR #: [id number] : 1945 Age/Sex: 71/M Req #: [id number] Adm Physician: BRIAN DANIELS MD Ordered by: ANTWAN MENSAH, DES MENSAH Report #: [id number] Location: [facility] Room/Bed: [facility] Procedure: [id number] DX/I R CONSULT Exam Date: Exam Time: REPORT STATU S: Signed Tunneled Dialysis Catheter Placement June 20, 2017 Pre-Proc edure Diagnosis: End-Stage Renal Disease Post-procedure Diagnosis:End-Stage Re nal Disease Safety And Skill Based Pay Manager: Beverly Barton Talent Program Manager: None Sedation: Moderate sedation was provided with intravenous fentanyl and Versed. Heart rate, rhyth m and oxygen saturation were monitored and real-time by a dedicated interventi onal radiology nurse under my direct supervision. Blood pressure was monitore d in 5 minute increments. 1% lidocaine was used for local anesthesia. Total s edation time: 30 minutes Radiation Dose:60.6 cGycm2 (Dose Area Product) F luoroscopy time:0.4 minutes Estimate blood loss: 10 mL Blood administered: None Complications: None Implants/Grafts: 16 Greenlandic 23 cm cuffed tunneled di alysis catheter Specimen: None Procedure: Informed consent was obtai linden and the patient positioned supine in the fluoroscopy suite. A timeout was performed, followed by preliminary ultrasound of the right internal jugular ve in (see findings below). The right neck and chest were prepped and draped in s tandard fashion. Using real-time ultrasound guidance a 21 gauge vascular n eedle was used to access the right internal jugular vein. An image was stored in the electronic medical record. A wire was advanced across the right atrium under fluoroscopy and the needle exchanged for a peel-away sheath. A skin incision was made inferior to the clavicle and the catheter tunneled to the access site. The catheter was then deployed through the peel-away sheath and p ositioned with the tip at the atriocaval junction/right atrium. At the end of the procedure the catheter was flushed, packed with heparin solution, secur ed to the skin and a sterile dressing applied. The patient tolerated the proce dure well and without immediate complication. Findings: Patent right inte rnal jugular vein as demonstrated by normal ultrasound compressibility. I mpression: Successful placement of a tunneled right internal jugular vein dial ysis catheter using ultrasound and fluoroscopic guidance under moderate sedati on. This report was generated with voice-recognition technology. Erro rs in director part can occur. Please interpret accordingly and contact a radi ologist if there are any questions regarding the report. Signed by: Dr. Sidra Barton M.D. on 06/22/2017 7:03 AM Dictated By: JANIA BARTON MD 112 Transcribed By: Issac CANALES on 06/27/171123 COPY TO: DES CORNELL CT FOOT LEFT WO [place] [address] Patient Name: DILLAN LITTLE MR #: [id number] : 1 10/28/1944 Age/Sex: 71/M Req #: [id number] Adm Physician: BRIAN DANIELS MD Ordered by: EMMIE MONREAL LIZZY Report #: [id number] Locatio n: MED/SURG3 Room/Bed: 298 Procedure: [id number] CT/ CT FOOT LEFT WO Exam Date: 06/20/17 Exam Time: 1140 REPORT STATUS: Signed CT scan of the LEFT FOOT, WITHOUT injected contr ast. TECHNIQUE: Standard departmental protocols were used. Sagittal a nd coronal reformatted images were obtained. DLP: 125.84 mgy-cm HISTO RY: Pain COMPARISON: None. FINDINGS: No evidence of acute fracture or dislocation. Erosive changes of the head of the fourth metatarsal (series 5 00, image 35), and possibly head of the fifth metatarsal. No overt signs of pe riosteal reaction. Soft tissue defect is seen in the lateral aspect of the zina ntar forefoot. Significant soft tissue edema of the left foot, especially the forefoot area. IMPRESSION: Findings, suspicious for osteomyelitis of the head of the fourth and fifth metatarsals. If clinically indicated, MRI can be obtained for more accurate evaluation/confirmation. Signed by: Dr. Amilcar Joshi MD on 06/20/2017 12:58 PM Dictated By: AMILCAR JOSHI MD E lectronically Signed By: AMILCAR JOSHI MD on 06/20/17 1258 Transcribed By: JENNIFER MAY on 06/20/17 1258 COPY TO: EMMIE MONREAL DPM IR CONSULT [place] [address] Patient Name: DILLAN LITTLE MR #: [id number] : 1 10/28/1944 Age/Sex: 71/M Req #: [id number] Adm Physician: BRIAN DANIELS MD Ordered by: ANTWAN MENSAH, DES MENSAH Report #: [id number] Location : MED/SURG3 Room/Bed: [facility] Procedure: [id number] DX/I R CONSULT Exam Date: Exam Time: REPORT STATU S: Signed PROCEDURE: NON-TUNNELLED CVC CATH PLACMNT COMPARISON: Chest r adiograph 06/04/2017. INDICATIONS: End-stage renal disease Safety And Skill Based Pay Manager: Luis Felipe Duarte M.D. Total fluoroscopy time: 0.7 minutes Air Kerma: 19.2 mGy Cont rast used: Zero Blood products administered: None Specimens: None Implants /grafts: 13 Greenlandic 15 cm triple-lumen high flow central venous catheter COM PLICATIONS: No immediate MEDICATIONS: Lidocaine 1% for local anesthesia Aiyana tion: None BLOOD LOSS: Minimal Condition at completion of procedure: Stable Disposition: Return to [facility] PROCEDURE: Informed consent was obtained and documented in the medical record after discussion of risks and benefits. The patient was placed in the supine position on the fluoroscopi c table. Limited sonographic evaluation confirmed patency of the right int ernal jugular vein, evidenced by compressibility. The right neck was then pre pped and draped in the standard sterile fashion. 1% lidocaine was infiltrated into the skin and subcutaneous tissues for local anesthesia. Then, under con tinuous sonographic guidance, an 18 gauge singlewall needle was advanced into the right internal jugular vein. A permanent sonographic image was stored in the medical record. A 0.035 inch J-wire was then advanced centrally into the inferior vena cava under fluoroscopic guidance. The needle was removed ov er the wire and the tract was dilated. Then, a 15 cm, 13 Greenlandic triple lumen central venous catheter was advanced over the wire to full depth. The wire was removed and the catheter tip was positioned at the low superior vena cav a. Each lumen was tested and showed adequate bidirectional flow. The ca theter was flushed with sterile saline and secured to the skin with monofilam ent nylon suture. A sterile dressing was applied. CONCLUSION: Suc cessful placement of a 13 Greenlandic, 15 cm triple-lumen high flow central venous catheter (Trialysis catheter) by a right internal jugular approach under son ographic and fluoroscopic guidance. Dictated by: Bao Duarte M.D. on 017 at 13:31 Electronically approved by: Bao Duarte M.D. on 06/14/2017 at 13:31 Dictated By: BAO DUARTE MD 30 Transcribed By: IVETT on 06/14/171330 COPY TO: DES CORNLEL NON-TUNNELLED CVC CATH PLACMNT [place] [address] Patient Name: DILLAN LITTLE MR #: [id number] : 1945 Age/Sex: 71/M Req #: [id number] Adm Physician: BRIAN DANIELS MD Ordered by: ANTWAN MENSAH, DES MENSAH Report #: [id number] Location : MED/SURG3 Room/Bed: [facility] Procedure: [id number] IR/N ON-TUNNELLED CVC CATH PLACMNT Exam Date: 06/14/17 Ex am Time: 1245 REPORT STATUS: Signed PROCEDURE: NON-TUNNELLED CVC CATH PLACMNT COMPARISON: Chest radiograph 06/04/2017. INDICATIONS: End-stage re nal disease Safety And Skill Based Pay Manager: Bao Duarte M.D. Total fluoroscopy time: 0.7 pablo yas Air Kerma: 19.2 mGy Contrast used: Zero Blood products administered: N one Specimens: None Implants/grafts: 13 Greenlandic 15 cm triple-lumen high flow central venous catheter COMPLICATIONS: No immediate MEDICATIONS: Lidocain e 1% for local anesthesia Sedation: None BLOOD LOSS: Minimal Condition at completion of procedure: Stable Disposition: Return to [facility] PROC EDURE: Informed consent was obtained and documented in the medical record after discussion of risks and benefits. The patient was placed in the cruz pine position on the fluoroscopic table. Limited sonographic evaluation confi rmed patency of the right internal jugular vein, evidenced by compressibility . The right neck was then prepped and draped in the standard sterile fashion. 1% lidocaine was infiltrated into the skin and subcutaneous tissues for local anesthesia. Then, under continuous sonographic guidance, an 18 gauge sin glewall needle was advanced into the right internal jugular vein. A permanent sonographic image was stored in the medical record. A 0.035 inch J-wire w as then advanced centrally into the inferior vena cava under fluoroscopic audie dance. The needle was removed over the wire and the tract was dilated. Then, a 15 cm, 13 Greenlandic triple lumen central venous catheter was advanced over the wire to full depth. The wire was removed and the catheter tip was positioned at the low superior vena cava. Each lumen was tested and showed adequa te bidirectional flow. The catheter was flushed with sterile saline and secur ed to the skin with monofilament nylon suture. A sterile dressing was applied . CONCLUSION: Successful placement of a 13 Greenlandic, 15 cm triple-l umen high flow central venous catheter (Trialysis catheter) by a right epidemiology internship al jugular approach under sonographic and fluoroscopic guidance. Dictated by: Bao Duarte M.D. on 06/14/2017 at 13:31 Electronically approved by: Bao Duarte M.D. on 06/14/2017 at 13:31 Dictated By: BAO GRAF MD 1331 Transcribed By: IVETT on 06/14/17 1331 COPY TO: DES CORNELL FLUORO GUIDANCE [address]/REM [place] [address] Patient Name: DILLAN LITTLE MR #: [id number] : 1945 Age/Sex: 71/M Req #: [id number] Adm Physician: BRIAN DANIELS MD Ordered by: DES CORNELL MD, MD Report #: [id number] Location: MED/SURG3 Room/Bed: [facility] Procedure: [id number] DX/F LUORO GUIDANCE MI[address] PL/REM Exam Date: 06/14/17 Ex am Time: 1245 REPORT STATUS: Signed PROCEDURE: NON-TUNNELLED CVC CATH PLACMNT COMPARISON: Chest radiograph 06/04/2017. INDICATIONS: End-stage re nal disease Safety And Skill Based Pay Manager: Bao Duarte M.D. Total fluoroscopy time: 0.7 pablo yas Air Kerma: 19.2 mGy Contrast used: Zero Blood products administered: N one Specimens: None Implants/grafts: 13 Greenlandic 15 cm triple-lumen high flow central venous catheter COMPLICATIONS: No immediate MEDICATIONS: Lidocain e 1% for local anesthesia Sedation: None BLOOD LOSS: Minimal Condition at completion of procedure: Stable Disposition: Return to [facility] PROC EDURE: Informed consent was obtained and documented in the medical record after discussion of risks and benefits. The patient was placed in the cruz pine position on the fluoroscopic table. Limited sonographic evaluation confi rmed patency of the right internal jugular vein, evidenced by compressibility . The right neck was then prepped and draped in the standard sterile fashion. 1% lidocaine was infiltrated into the skin and subcutaneous tissues for local anesthesia. Then, under continuous sonographic guidance, an 18 gauge sin glewall needle was advanced into the right internal jugular vein. A permanent sonographic image was stored in the medical record. A 0.035 inch J-wire w as then advanced centrally into the inferior vena cava under fluoroscopic audie dance. The needle was removed over the wire and the tract was dilated. Then, a 15 cm, 13 Greenlandic triple lumen central venous catheter was advanced over the wire to full depth. The wire was removed and the catheter tip was positioned at the low superior vena cava. Each lumen was tested and showed adequa te bidirectional flow. The catheter was flushed with sterile saline and secur ed to the skin with monofilament nylon suture. A sterile dressing was applied . CONCLUSION: Successful placement of a 13 Greenlandic, 15 cm triple-l umen high flow central venous catheter (Trialysis catheter) by a right epidemiology internship al jugular approach under sonographic and fluoroscopic guidance. Dictated by: Bao Duarte M.D. on 06/14/2017 at 13:31 Electronically approved by: Bao Duarte M.D. on 06/14/2017 at 13:31 Dictated By: BAO GRAF MD 1331 Transcribed By: IVETT on 06/14/17 1331 COPY TO: DES CORNELL GUIDANCE FOR VASCULAR ACCES [place] [address] Patient Name: DILLAN LITTLE MR #: [id number] : 1945 Age/Sex: 71/M Req #: [id number] Adm Physician: BRIAN DANIELS MD Ordered by: ANTWAN MENSAH, DES MENSAH Report #: [id number] Location: MED/SURG3 Room/Bed: [facility] Procedure: [id number] US/U S GUIDANCE FOR VASCULAR ACCES Exam Date: 06/14/17 Ex am Time: 1200 REPORT STATUS: Signed PROCEDURE: ULTRASOUND GUIDANCE FO R VASCULAR ACCESS COMPARISON: None. INDICATIONS: Trialysis Yodit ter Placement FINDINGS: Right internal jugular vein is noted to be paten t. Ultrasound guidance was utilized for access for temporary hemodialysis line placement. CONCLUSION: Patent right internal jugular vein. Succes sful ultrasound guidance for temporary hemodialysis line placement. Di ctated by: Bao Duarte M.D. on 06/14/2017 at 13:31 Electronically approv ed by: Bao Duarte M.D. on 06/14/2017 at 13:31 Dictated By: LUIS FELIPE DUARTE MD 1331 Trans cribed By: IVETT on 06/14/17 1331 COPY TO: DES CORNELL US RENAL RETROPERITONEAL COMP [place] [address] Patient Name: DILLAN LITTLE MR #: [id number] : 1945 Age/Sex: 71/M Req #: [id number] Adm Physician: BRIAN DANIELS MD Ordered by: BRIAN DANIELS MD Report #: [id number] Location: [facility] Room/Bed: [facility] Procedure: [id number] US/US R ENAL RETROPERITONEAL COMP Exam Date: Exam Time: REPORT STATUS: Signed PROCEDURE: US RETROPERITONEAL ( KIDNEY ). NAHEED RISON: None. INDICATIONS: CELLULITIS LEFT LEG TECHNIQUE: Amin-scale and color sonographic images of the bilateral kidneys and bladder where obtained in transverse and longitudinal planes. FINDINGS: RIGHT KIDNEY: 10.9 cm, cortex 1.4 cm Cysts: None Solid masses: None Stones: None Hydr onephrosis: None Echogenicity: Increased LEFT KIDNEY: 13.7 cm, cortex 1. 4 cm Cysts: None Solid masses: None Stones: None Hydronephrosis: None Echogenicity: Increased Bladder: Unremarkable Prostate: Mildly enlarged, measuring 5.4 x 2.6 x 3.9 cm. CONCLUSION: 1. Increased renal parench ymal echogenicity, suggesting renal parenchymal dysfunction. 2. Mild pr ostatomegaly. 3. No hydronephrosis, stones, or solid renal mass. Di ctated by: Nito López M.D. on 06/05/2017 at 16:45 Electronically sha roved by: Nito López M.D. on 06/05/2017 at 16:45 Dictated By: NITO LÓPEZ MD 44 COPY TO: BRIAN DANIELS MD CHEST SINGLE (PORTABLE) [place] [address] Patient Name: DILLAN LITTLE MR #: [id number] : 1945 Age/Sex: 71/M Req #: [id number] Adm Physician: Ordered by: RUTHY LOGAN MD Report #: [id number] Location: ER Room/Bed: Procedure: [id number] DX/CHEST SINGLE (PORTABLE) E xam Date: 06/04/17 Exam Time: 0 REPORT STATU S: Signed Examination: Single AP view of the chest. COMPARISON: None. INDICATION: Leg swelling and pain, shortness of breath IMPRESSION: 1. Lines and Tubes: None 2. Lungs are well-inflated No consolidation or effusion. 3. Enlarged cardiac silhouette Central pulmonary venous congestio n, and minimal perihilar interstitial edema, likely reflecting mildly compensa shikha CHF. 4. No acute bony abnormalities. Signed by: Dr. Srinivas goetz M.D. on 06/04/2017 6:43 PM Dictated By: SRINIVAS FITZPATRICK MD Electronical ly Signed By: SRINIVAS FITZPATRICK MD on 06/04/171842 Transcribed By: MEAGHAN on 1842 COPY TO: RUTHY LOGAN MD
== END 2020-01-29 13:18 | disposition home or self-care (01) ==
LOC: ER 12:16
DX: R19.7 Diarrhea, unspecified (principal); I10 Essential (primary) hypertension; E11.9 Type 2 diabetes mellitus without complications
CPT/HCPCS: 99282

== ENCOUNTER 2020-06-06 18:07 | Inpatient (IN) | payer MEDICARE ==
[~2020-06-06] VITALS: Ht 177.8 cm; Wt 96.6 kg
[2020-06-06] MEDS ORDERED: MORPHINE SULFATE INJ 4 MG/ML INJ 1ML IV STA (18:15)
[2020-06-06] MEDS ORDERED: SODIUM CHLORIDE 0.9% 1000ML 1,000 ML IV STA (18:15)
[2020-06-06] MEDS ORDERED: ONDANSETRON HCL INJ 2MG/ML 2ML 2 MG/ML VIAL IV STA (18:15)
[2020-06-06] MEDS ORDERED: ASPIRIN 81 MG CHEW TAB PO ONE ×2 (18:15→19:45)
--- NOTE | 2020-06-06 18:21 | Emergency Department Note ---
History of Present Illnes History of Present Illness Chief Complaint: Chest Pain History of Present Illness This is a 74 year old male with onset of substernal CP radiates to the L neck prior to arrival. Prior h/o of MS. patient poor historian. Seen at bedside in mild distress Arrival Mode: Car Onset (how long ago): day(s) Location: substernal Quality: sharp Radiation: Reports neck Severity: moderate Onset quality: gradual Duration (how long): day(s) Timing of current episode: constant Progression: worsening Chronicity: new Context: Reports recent illness Relieving factors: none Exacerbating factors: none Associated symptoms: Reports denies other symptoms Treatments prior to arrival: none Past Medical/Family History Physician Review I have reviewed the patient's past medical and family history. Any updates have been documented here. Past Medical History Recent Fever: No Clinical Suspicion of Infectio: No New/Unexplained Change in Ment: No Past Medical History: Hypertension, Diabetes, MS Other Medical History: HIGH CHOLESTEROL Past Surgical History: None Other Surgery: LEFT LOWER ARM DIALYSIS FISTULA Social History Smoking Cessation: Never Smoker Alcohol Use: None Any Illegal Drug Use: No Other Last Tetanus: UTD Review of Systems Review of Systems Constitutional: Reports no symptoms EENTM: Reports no symptoms Cardiovascular: Reports chest pain Respiratory: Reports no symptoms Gastrointestinal: Reports no symptoms Genitourinary: Reports no symptoms Musculoskeletal: Reports no symptoms Integumentary: Reports no symptoms Neurological: Reports no symptoms Psychological: Reports no symptoms Endocrine: Reports no symptoms Hematological/Lymphatic: Reports no symptoms Physical Exam Related Data Allergies: Coded Allergies: No Known Allergies (Unverified , 06/04/17) Triage Vital Signs Vital Signs Date Time Temp Pulse Resp B/P (MAP) Pulse Ox O2 Delivery O2 Flow Rate FiO2 06/06/20 18:18 99.3 88 18 100 Room Air Vital signs reviewed: Yes Physical Exam CONSTITUTIONAL Constitutional: Present obese HENT HENT: Present normocephalic, Present atraumatic, Present oropharynx clear/moist, Present nose normal HENT L/R: Present left ext ear normal, Present right ext ear normal EYES Eyes: Reports PERRL, Reports conjunctivae normal NECK Neck: Present ROM normal PULMONARY Pulmonary: Present effort normal, Present breath sounds normal CARDIOVASCULAR Cardiovascular: Present regular rhythm, Present heart sounds normal, Present capillary refill normal, Present normal rate GASTROINTESTINAL Abdominal: Present soft, Present nontender, Present bowel sounds normal GENITOURINARY Genitourinary: Present exam deferred SKIN Skin: Present warm, Present dry MUSCULOSKELETAL Musculoskeletal: Present ROM normal NEUROLOGICAL Neurological: Present alert, Present oriented x 3, Present no gross motor or sensory deficits PSYCHOLOGICAL Psychological: Present mood/affect normal, Present judgement normal Results Laboratory Lab results reviewed: Yes Laboratory comments Laboratory Tests Test 06/06/20 21:15 06/06/20 18:41 White Blood Count 6.93 x10e3/uL (4.8-10.8) Red Blood Count 2.88 x10e6/uL (4.3-5.7) Hemoglobin 9.4 g/dL (14.0-18.0) Hematocrit 29.5 % (38.2-49.6) Mean Corpuscular Volume 102.4 fL (81-99) Mean Corpuscular Hemoglobin 32.6 pg (28-32) Mean Corpuscular Hemoglobin Concent 31.9 g/dL (31-35) Red Cell Distribution Width 14.9 % (11.7-14.4) Platelet Count 184 x10e3/uL (140-360) Neutrophils (%) (Auto) 83.8 % (38.7-80.0) Lymphocytes (%) (Auto) 11.3 % (18.0-39.1) Monocytes (%) (Auto) 3.8 % (4.4-11.3) Eosinophils (%) (Auto) 0.0 % (0.0-6.0) Basophils (%) (Auto) 0.7 % (0.0-1.0) Neutrophils # (Auto) 5.8 (2.1-6.9) Lymphocytes # (Auto) 0.8 (1.0-3.2) Monocytes # (Auto) 0.3 (0.2-0.8) Eosinophils # (Auto) 0.0 (0.0-0.4) Basophils # (Auto) 0.1 (0.0-0.1) Absolute Immature Granulocyte (auto 0.03 x10e3/uL (0-0.1) Sodium Level 136 mmol/L (136-145) Potassium Level 4.0 mmol/L (3.5-5.1) Chloride Level 93 mmol/L (98-107) Carbon Dioxide Level 30 mmol/L (22-29) Anion Gap 17.0 mmol/L (8-16) Blood Urea Nitrogen 20 mg/dL (7-26) Creatinine 3.56 mg/dL (0.72-1.25) Estimat Glomerular Filtration Rate 17 ML/MIN (60-) BUN/Creatinine Ratio 6 (6-25) Glucose Level 216 mg/dL (74-118) Calcium Level 8.8 mg/dL (8.4-10.2) Total Bilirubin 0.4 mg/dL (0.2-1.2) Aspartate Amino Transf (AST/SGOT) 17 IU/L (5-34) Alanine Aminotransferase (ALT/SGPT) 18 IU/L (0-55) Alkaline Phosphatase 75 IU/L (40-150) Creatine Kinase 69 IU/L (30-200) Creatine Kinase MB 1.00 ng/mL (0-5.0) Troponin I 0.201 ng/mL (0-0.300) Total Protein 8.0 g/dL (6.5-8.1) Albumin 4.2 g/dL (3.5-5.0) Globulin 3.8 g/dL (2.3-3.5) Albumin/Globulin Ratio 1.1 (0.8-2.0) Lipase 31 U/L (8-78) Imaging Imaging results reviewed: Yes Impressions [place] [id number] Patient Name: DILLAN LITTLE MR #: [id number] : 1945 Age/Sex: 74/M Req #: [id number] Adm Physician: Ordered by: DANNA ANDERS DO Report #: [id number] Location: ER Room/Bed: Procedure: [id number] DX/CHEST SINGLE (PORTABLE) Exam Date: 06/06/20 Exam Time: 182 REPORT STATUS: Signed EXAMINATION: CHEST SINGLE (PORTABLE) INDICATION: Chest pain. COMPARISON: Chest radiograph 08-22-2018. FINDINGS: TUBES and LINES: Left sided pacemaker with leads in unchanged position. LUNGS: Lungs are well inflated. Mild patchy left basilar opacity, likely atelectasis. There is no evidence of lobar pneumonia or pulmonary edema. PLEURA: No pleural effusion or pneumothorax. HEART AND MEDIASTINUM: The cardiomediastinal silhouette is mildly enlarged. There are atherosclerotic calcifications within the aorta. Status post CABG. BONES AND SOFT TISSUES: No acute osseous abnormality. Partially seen cervical spine fixation hardware. Status post median sternotomy. UPPER ABDOMEN: No free air under the diaphragm. IMPRESSION: No acute thoracic abnormality. Signed by: Dr. Orin Keenan MD on 06/06/2020 6:47 PM Dictated By: ORIN KEENAN MD 48 Transcribed By: MEAGHAN on 06/06/201846 COPY TO: DANNA ANDERS DO~ Procedures 12 Lead ECG Interpretation ECG Interpretation : ECG: ECG 1 Laboratory Administrative Director: Interpreted by ED physician Date: Jun 06, 2020 Time: 18:18 Prior ECG tracings: reviewed Rhythm: sinus rhythm Conduction: 1st degree ST segments normal: No ST segment flattening: V1-V6 T wave inversion: V1-V6 Clinical Impression: abnormal ECG Clinical Decision Tools HEART Score HEART Score: HEART Score Response (Comments) Value History Highly suspicious 2 EKG Normal 0 Age > or equal to 65 2 Risk factors 1 or 2 risk factors 1 Troponin < or = to normal limit Total 5 Assessment & Plan Medical Decision Making MDM diff dx : acs, pna, ptx, PE, aortic dissection Assessment & Plan Final Impression: (1) Chest pain (2) ESRD (end stage renal disease) Depart Disposition: ADMITTED Home Meds Active Scripts Famotidine (PEPCID) 20 Mg Tablet, 20 MG PO BID, #30 TAB Prov:JORY BRAND MD 08/22/18 Ondansetron Hcl* (ZOFRAN*) 4 Mg Tablet, 4 MG SL Q6H PRN for NAUSEA, #30 MG 0 Refills Prov:JORY BRAND MD 08/22/18 Metoprolol Tartrate (METOPROLOL TARTRATE) 25 Mg Tablet, 25 MG PO Q12H for 30 Days, TAB Prov:SARINA DANIELS MD 04/27/18 Simvastatin (SIMVASTATIN) 40 Mg Tablet, 40 MG PO 2100, #30 TAB Prov:SARINA DANIELS MD 04/27/18 Aspirin (ASPIRIN) 81 Mg Tab.chew, 81 MG PO DAILY for 30 Days Prov:SARINA DANIELS MD 04/27/18 Famotidine (PEPCID) 20 Mg Tablet, 20 MG PO BID, #60 TAB Prov:SARINA DANIELS MD 04/27/18 Reported Medications Trazodone Hcl (TRAZODONE HCL) 100 Mg Tablet, 100 MG PO DAILY 06/06/20 Insulin Regular, Human (NOVOLIN R) 100 Unit/1 Ml Vial 06/06/20 Carvedilol (CARVEDILOL) 12.5 Mg Tablet, 12.5 MG PO BID, #60 TAB 06/06/20 Sevelamer Hcl (RENAGEL) 800 Mg Tablet, 800 MG PO TID, TAB 06/06/20 Atorvastatin Calcium (ATORVASTATIN CALCIUM) 20 Mg Tablet, 40 MG PO HS, #30 TAB 06/06/20 Lanthanum Carbonate (FOSRENOL) 1,000 Mg Tab.chew, 1000 MG PO AC for 0 Days 04/26/18 Lorazepam (LORAZEPAM) 1 Mg Tablet, 1 MG PO DAILY for ANXIETY, #30 04/26/18 Repaglinide (PRANDIN) 2 Mg Tablet, 2 MG PO AC, #90 04/26/18 [tresiba] No Conflict Check, 20 UNITS SQ BID 06/05/17 Lisinopril (LISINOPRIL) 5 Mg Tablet, 20 MG PO DAILY 06/05/17 DANNA ANDERS DO Jun 06, 2020 18:21
[2020-06-06] MEDS ORDERED: NOVOLIN R100 UNIT/1 (18:24)
[2020-06-06] MEDS ORDERED: RENAGEL800 MG PO (18:24)
[2020-06-06] MEDS ORDERED: ATORVASTATIN CA20 MG PO (18:24)
[2020-06-06] MEDS ORDERED: CARVEDILOL12.5 MG PO (18:24)
[2020-06-06 18:51] LABS: BASOPHILS # (AUTO) 0.1 (0.0-0.1); BASOPHILS % 0.7 % (0.0-1.0); HEMATOCRIT 29.5 % (38.2-49.6); HEMOGLOBIN 9.4 g/dL (14.0-18.0); LYMPHOCYTES # (AUTO) 0.8 (1.0-3.2); LYMPHOCYTES % 11.3 % (18.0-39.1); MEAN CORPUSCULAR HEMOGLOBIN 32.6 pg (28-32); MEAN CORPUSCULAR HGB CONC 31.9 g/dL (31-35); MEAN CORPUSCULAR VOLUME 102.4 fL (81-99); MONOCYTES # (AUTO) 0.3 (0.2-0.8); MONOCYTES % 3.8 % (4.4-11.3); NEUTROPHILS # (AUTO) 5.8 (2.1-6.9); NEUTROPHILS % 83.8 % (38.7-80.0); PLATELET COUNT 184 x10e3/uL (140-360); RED BLOOD COUNT 2.88 x10e6/uL (4.3-5.7); RED CELL DISTRIBUTION WIDTH 14.9 % (11.7-14.4)
--- NOTE | 2020-06-06 18:51 | Diagnostic Imaging Report ---
EXAMINATION: CHEST SINGLE (PORTABLE) INDICATION: Chest pain. COMPARISON: Chest radiograph 08-22-2018. FINDINGS: TUBES and LINES: Left sided pacemaker with leads in unchanged position. LUNGS: Lungs are well inflated. Mild patchy left basilar opacity, likely atelectasis. There is no evidence of lobar pneumonia or pulmonary edema. PLEURA: No pleural effusion or pneumothorax. HEART AND MEDIASTINUM: The cardiomediastinal silhouette is mildly enlarged. There are atherosclerotic calcifications within the aorta. Status post CABG. BONES AND SOFT TISSUES: No acute osseous abnormality. Partially seen cervical spine fixation hardware. Status post median sternotomy. UPPER ABDOMEN: No free air under the diaphragm. IMPRESSION: No acute thoracic abnormality. Signed by: Dr. Kris Tidwell MD on 06/06/2020 6:47 PM
[2020-06-06 19:06] LABS: ALBUMIN 4.2 g/dL (3.5-5.0); ALBUMIN/GLOBULIN RATIO 1.1 (0.8-2.0); CALCIUM 8.8 mg/dL (8.4-10.2); CREATININE, SERUM 3.56 mg/dL (0.72-1.25)
[2020-06-06] MEDS ORDERED: ONDANSETRON HCL INJ 2MG/ML 2ML 2 MG/ML VIAL IV PRN (19:45)
[2020-06-06] MEDS ORDERED: MORPHINE SULFATE 2 MG/ML SYR 1ML IV PRN (19:45)
[2020-06-06] MEDS ORDERED: TRAZODONE HCL100 MG PO (21:50)
--- NOTE | 2020-06-06 21:55 | NUR ---
Patient seen and evaluated H&P DICTATED
[2020-06-06] MEDS ORDERED: ACETAMINOPHEN 325 MG TAB PO STA (22:21)
[2020-06-06] MEDS ORDERED: ACETAMINOPHEN 325 MG TAB ONE (22:30)
--- NOTE | 2020-06-06 23:31 | History and Physical ---
CHIEF COMPLAINT: Chest pain. HISTORY OF PRESENT ILLNESS: Mr. Fito Melchor is a pleasant 74-year-old gentleman, who is presently in the emergency room department and presented to the hospital complaining of chest pain. The patient is not a good historian while he was in the emergency department. He denied to give a very accurate history, other than I got it from the ER, which was that of chest pain, but clearly told me that he is not short of breath. Has had some chills. No fever. No nausea, no abdominal pain. No vomiting. No diarrhea. The patient is known to have a history of multiple medical problems including hypertension, diabetes mellitus, and end-stage renal disease. At the time of arrival to the hospital, vital signs disclosed blood pressure 134/56, respirations 23, pulse 87, and temperature 99.2. Chest x-ray was done with no evidence of acute thoracic abnormalities. I spoke with Dr. Morel, the emergency room physician, who apprised me about the patient's condition. REVIEW OF SYSTEMS: CONSTITUTIONAL: Reports no symptoms. CARDIOVASCULAR: Reports chest pain. RESPIRATORY: No cough, hemoptysis, or shortness of breath. GI: No nausea, no vomiting, no diarrhea, no hematemesis, no melena. GENITOURINARY: No dysuria, hematuria, or frequency. MUSCULOSKELETAL: Reports no symptoms. NEURO: No focal weakness. ENDOCRINE SYSTEM: No symptoms. HEMATOLOGIC/LYMPHATIC: No bleeding. PAST SURGICAL HISTORY: Left lower . PAST MEDICAL HISTORY: As mentioned, hypertension, diabetes mellitus, and hyperlipidemia. PHYSICAL EXAMINATION: GENERAL: As mentioned, the patient is alert and oriented to person, time, and place. The patient did not appear to be in distress. VITAL SIGNS: As noted above. HEENT: Head is normocephalic and atraumatic. NECK: Supple. No JVD. Thyroid was not enlarged. LUNGS: Clear to auscultation. HEART: Regular rate and rhythm. No murmurs or gallops. ABDOMEN: Soft and nontender. EXTREMITIES: No edema. NEURO: Nonfocal. LABORATORY DATA: CBC disclosed, hemoglobin 9.4, white blood cell count 6.93, and platelet count 184,000. Chem profile revealed; sodium 136, potassium 4.0, chloride 93, CO2 of 30, BUN 20, creatinine 3.56. Lipase 31. EKG, sinus rhythm, first-degree AV block. No ST-segment abnormalities. ASSESSMENT: 1. Chest pain, etiology undetermined, rule out acute coronary syndrome. 2. Hypertension, controlled. 3. Diabetes mellitus type 2. 4. History of hyperlipidemia. 5. Previous pacemaker insertion. PLAN OF CARE: The patient is being admitted to the hospital. Reconcile medications, list of medications noted. According to the records, the patient has been on the following medications. Famotidine, aspirin, atorvastatin, carvedilol 12.5 mg p.o. b.i.d. on insulin, Fosrenol, lisinopril, lorazepam, metoprolol tartrate, and Renagel. We will consult patient's sql dba. We will consult Cardiology for further evaluation. MD TALA Trejo/CLEVE /[id number]
[2020-06-06 23:59] VITALS: BP 113/48
[2020-06-07] VITALS (10 sets, daily range): BP systolic 96–145; BP diastolic 47–61
[2020-06-07] MEDS ORDERED: SODIUM CHLORIDE 0.9% 50ML 50 ML ONE (00:10)
[2020-06-07] MEDS: PIPER-TAZ 3.375 GM 50 ML IV SCH ×2 (00:11)
[2020-06-07] MEDS ORDERED: SODIUM CHLORIDE 0.9% 500ML 500 ML IV STA (00:36)
[2020-06-07] MEDS ORDERED: GENTAMICIN 120MG/NS 100ML 100 ML IV STA (00:36)
[2020-06-07] MEDS ORDERED: VANCOMYCIN 1GM/NS 250 ML 250 ML IV ONE (00:45)
--- NOTE | 2020-06-07 01:20 | NUR ---
patient arrived to the floor at 0030 from ER, pt unable to self transfer, aox3, lethargic, assisted one to bed, syriac is primary language, using vest busheler able to get medical hx, patient febrile 103.1, tylenol given in ER prior to transport, remains febrile, pt hypotensive, MD BOUDREAUX CONTACTED VIA TELEPHONE, ORDER CONSULT WITH MD SEGUNDO, MD SEGUNDO CONTACTED BY MD BOUDREAUX PLACED ON THREE-WAY CALL, BOTH DOCTOR UPDATED ON PATIENT STATUS, BLOOD CULTURES ORDERD x2, LACTIC ACID, BMP, CARDIAC ENZYMES GENTAMYCIN ORDER BY MD SEGUNDO, NS500 BOLUS FOR HYPOTENSION, ALL ORDERS CARRIED OUT, PATIENT TOLERATED ALL ACTIVITY AND LAB WORK WELL, RESULTS PENDING
--- NOTE | 2020-06-07 01:39 | NUR ---
MD SEGUNDO CONSULTED ON PATIENT AT BEDSIDE, NEW VERBAL ORDERS GIVEN
--- NOTE | 2020-06-07 01:56 | NUR ---
PULMONARY / CRITICAL CARE CONSULT Fever 103.7, hypotension 70's/ Sepsis protocol. BP is already better No obvious source on exam/labs. Follow COVID assay. Follow cultures. Consider flu assay if negative. CXR with NO pneumonia. Abx given/escalated. Abx may need to be redosed after next HD. D/w nursing. Patient is not wet, so can take more fluid if needed. Follow clinically Thank you Dr Zhang and Dr Rothman.\ Ill follow today, Dr Kumar likely to follow tomorrow
[2020-06-07 02:00] LABS: ANION GAP 14.8 mmol/L (8-16); CALCIUM 8.6 mg/dL (8.4-10.2); CREATININE, SERUM 4.16 mg/dL (0.72-1.25); POTASSIUM 3.8 mmol/L (3.5-5.1)
[2020-06-07] MEDS ORDERED: ONDANSETRON HCL INJ 2MG/ML 2ML 2 MG/ML VIAL IV PRN (02:00)
[2020-06-07 02:06] LABS: CREATINE KINASE MB 3.2 ng/mL (0-5.0)
--- NOTE | 2020-06-07 02:37 | Consultation ---
DATE OF CONSULTATION: 06/07/2020 Pulmonary Critical Care Medicine Consult REASON FOR REFERRAL: Sepsis. PRIMARY CARE DOCTOR: Abhi Zhang MD HOSPITAL DOCTOR: Landry Redmond MD HISTORY OF PRESENT ILLNESS: Mr. Melchor is a pleasant 74-year-old gentleman with sepsis. The patient presented to emergency room on June 06, 2020. At that time, he had substernal chest pain radiating to the left neck. The patient had onset for a few days. Instead nonspecific headaches and possible other referred oral/neck/chest discomfort, but no abdominal discomfort. No constipation, no diarrhea. The patient has been having dialysis without difficulty recently. When he came to the emergency room, he was seen with 100% oxygen saturation on room air. White blood count is 6.9. The patient, otherwise, with unremarkable labs including LFTs. Albumin was 4.2 and lipase was 31. Chest x-ray with clear lungs. He is admitted. The patient, at this time, monitoring while in the hospital. The patient had temperature in the first hospital day up to 103.7. The patient's blood pressure did fall, hypotensive, I believe to 70s, although, I do not see any documentation yet. I am consulted at this time. PAST MEDICAL HISTORY: Hypertension, diabetes, hyperlipidemia, and end-stage renal disease. MEDICATIONS: Medication list reviewed per the chart record. ALLERGIES: NO KNOWN DRUG ALLERGIES. SOCIAL HISTORY: The patient formally drank 24 per day, but quit when he was about 42 years old. The patient used to smoke from age 22 to 42, one-half pack per day, but since quit. No drugs. The patient lives alone and is independent. FAMILY HISTORY: Noncontributory. REVIEW OF SYSTEMS: GENERAL: No weight change. OPHTHALMOLOGIC: No double vision. ENT: He denies any significant worsening in pain to any of his teeth. ENDOCRINE: No thyroid disease. PULMONARY: No asthma. CARDIAC: No heart attack. GI: No blood in stool. : No blood in urine. DERMATOLOGIC: No rash. NEUROLOGIC: No seizures. PSYCHIATRIC: No depression. LABORATORY DATA: 20 BUN, 3.6 creatinine. 30 bicarbonate. 6.9 white count, 30 hematocrit, and 184 platelets. IMPRESSION AND PLAN: 1. Sepsis. 2. Hypotension, rule out shock. 3. End-stage renal disease. 4. Hypertension. 5. Hyperlipidemia. 6. Diabetes. 7. Mild anemia. 8. History of left arm AV fistula. 9. Mildly decreased dentition including one broken tooth, although probably not focal. Antibiotics have been augmented. Fluid ordered. We will consider more fluid as he was recently dry on x-ray and can handle more fluid if needed. DVT prophylaxis. We will follow very closely. Serial exams and blood cultures. We will follow up closely. Urine culture if he is able to produce. Dr. Kumar will follow on June 08, 2020. Thank you very much, Dr. Rothman and Dr. Zhang. Please call for questions. MD SHANNAN Babcock/CLEVE /[id number]
--- NOTE | 2020-06-07 02:52 | NUR ---
LACTIC ACID 2.4
[2020-06-07] MEDS ORDERED: GENTAMICIN SULFATE 40 MG/ML 2 ML VIAL ONE (03:02)
[2020-06-07] MEDS ORDERED: GENTAMICIN 80MG/NS 100 ML 100 ML IV ONE (03:03)
[2020-06-07 07:12] LABS: BASOPHILS % 0.2 % (0.0-1.0); HEMATOCRIT 29.4 % (38.2-49.6); HEMOGLOBIN 9.1 g/dL (14.0-18.0); LYMPHOCYTES # (AUTO) 0.8 (1.0-3.2); LYMPHOCYTES % 9.3 % (18.0-39.1); MEAN CORPUSCULAR HEMOGLOBIN 31.7 pg (28-32); MEAN CORPUSCULAR VOLUME 102.4 fL (81-99); MONOCYTES # (AUTO) 0.4 (0.2-0.8); NEUTROPHILS # (AUTO) 7.3 (2.1-6.9); NEUTROPHILS % 85.1 % (38.7-80.0); PLATELET COUNT 186 x10e3/uL (140-360); RED BLOOD COUNT 2.87 x10e6/uL (4.3-5.7); RED CELL DISTRIBUTION WIDTH 15.2 % (11.7-14.4)
[2020-06-07 07:34] LABS: CREATINE KINASE MB 5.3 ng/mL (0-5.0)
[2020-06-07 07:52] LABS: ALBUMIN 4.2 g/dL (3.5-5.0); ALBUMIN/GLOBULIN RATIO 1.2 (0.8-2.0); ANION GAP 19.1 mmol/L (8-16); CALCIUM 8.9 mg/dL (8.4-10.2); CREATININE, SERUM 4.78 mg/dL (0.72-1.25); POTASSIUM 4.1 mmol/L (3.5-5.1)
[2020-06-07] MEDS ORDERED: CLOPIDOGREL BISULFATE 75 MG TAB PO ONE (08:00)
[2020-06-07] MEDS: PIPERACILLIN/TAZO 2.25 GM 50 ML IV SCH ×2 (08:20→20:40)
[2020-06-07] MEDS: ASPIRIN 81 MG CHEW TAB PO SCH (08:20)
[2020-06-07] MEDS: HEPARIN SOD (PORCINE) 5,000 UNIT/ML VIAL SC SCH ×2 (08:22→20:41)
[2020-06-07] MEDS: ACETAMINOPHEN 325 MG TAB PO PRN ×2 (08:24→16:55)
[2020-06-07 15:53] LABS: CREATINE KINASE MB 4.1 ng/mL (0-5.0)
--- NOTE | 2020-06-07 16:33 | NUR ---
DR Cari Melendez called @ 7072 Troponin 2.92
--- OUTSIDE RECORDS SUMMARY | 2020-06-07 16:44 | XMS REPORT | Clinical Summary ---
Author Author MARIANNE [facility] Organization [facility] Address Unknown Phone Unavailable Care Team Providers Care Account Contact Associate Name Role Phone Abhi Zhang MD PCP [...] Health Maintenance Due Date Last Done Comments COLON CANCER SCREENING 1945 ANNUAL FOBT DIABETIC EYE EXAM 1957 DIABETIC FOOT EXAM 1957 URINE MICROALBUMIN 1957 PNEUMOCOCCAL 65+ 2012 HIGH/HIGHEST RISK (1 of 2 - PCV13) MEDICARE ANNUAL WELLNESS 09/12/2016 (YEAR 2 or FIRST YEAR if no IPPE) HEMOGLOBIN A1C 11/04/2016 05/04/2016, 016 INFLUENZA VACCINE (#1) 2020 Results Not on fileafter 06/06/2019 Insurance Payer Benefit Subscriber ID Type Phone Address Plan / Group [employer] - MEDICARE MGD CARE AETNA xxxxxxxx [facility] [address] [place] [id number] [phone] Advance Directives For more information, please contact: [facility] [address] [place] [address] Date Inactivated Comments Code Status [...]
--- OUTSIDE RECORDS SUMMARY | 2020-06-07 16:44 | XMS REPORT | Continuity of Care Document ---
Author Author [facility] t Organization [facility] Address [address] [place] [address] Phone Unavailable Care Team Providers Care Air Bag Buffer Name Role Phone MD Issac DUBON MD PCP DANNA ANDERS Attphys Unavailable CATHIE, Da JORY Attphys Unavailable OWENBessie GREEN Attphys Unavailable BRIAN DANIELS Attphys Unavailable BRIAN DANIELS Admphys Unavailable Payers Payer Name Policy Type Policy Number Effective Date Expiration Date S shiela [employer] Medicare Replacement NA 2015 00:00:00 [facility] Problems Condition Name Condition Details Condition Category Status Onset Date Resolution Date Last Treatment Date Treating Clinician Comments Source Benign hypertension with chronic kidney disease, stage III Benign hypertension with chronic kidney disease, stage III Disease Active 2016-05-10 00:00:00 [facility] Acute kidney injury Acute kidney injury Disease Active 2016-05-10 00:00 :00 [facility] r Chronic kidney disease, stage 3 Chronic kidney disease, stage 3 Dis ease Active 2016-05-10 00:00:00 [facility] Diabetes mellitus type 2, uncontrolled, with complicat ions Diabetes mellitus type 2, uncontrolled, with complications Disease Active 2016-05-10 00:00: 00 [facility] r Pacemaker Pacemaker Disease Active 2016-05-05 00:00:00 [facility] Acute ischemic stroke Acute ischemic stroke Disease Active 201 02-17-24 00:00:00 [facility] S/P CABG x 3 S/P CABG x 3 Disease Active 2015-12-01 00:00:00 [facility] CAD (coronary artery disease) CAD (coronary artery disease) Disease Active 2015-11-30 00:00:00 [facility] Chest pain Chest pain Problem Active [facility] End-stage renal disease ESRD (end stage renal disease) Problem Active [facility] Hyperkalemia Hyperkalemia Problem Active [facility] Diarrhea Problem Active [facility] Anemia in chronic kidney disease Anemia in chronic kidney disease Active Problem 06/03/2020 eCW: Landry Egan Problem Active 2020-06-03 02:00:58 [facility] Hyperlipidemia Hype rlipidemia Active Problem 12/13/2019 eCW: Landry Egan Problem Active 2019-12-13 02:00:13 [facility] Chronic kidney disease, stage 3 (moderate) Chronic kidney disease, stage 3 (moderate) Active Problem 06/03/2020 eCW: Landry Egan Problem Active 2020-06-03 02:00:58 [facility] Kidney failure Kidn ey failure Active Problem 12/13/2019 eCW: Landry Egan Problem Active 2019-12-13 02:00:13 Bella Melendez CVA (cerebral infarction) CVA (cerebral infarction) Active Diagnosis 06/03/2020 eCW: Landry Egan Diagnosis Active 2020-06-03 02:00:58 [facility] Al Combined hyperlipidemia Comb ined hyperlipidemia Active Diagnosis 06/03/2020 eCW: Landry Egan Diagnosis Active 2020-06-03 02:00:58 Bella Melendez CAD (coronary artery disease) CAD (coronary artery disease) Active Problem 06/03/2020 eCW: Landry Egan Problem Active 2020-06-03 02:00:58 [facility] Al Benign essential hypertension Benign essential hypertension Active Problem 06/03/2020 eCW: Landry Egan Problem Active 2020-06-03 02:00:58 Bella Melendez Hypogonadism in male Hypo gonadism in male Active Diagnosis 06/03/2020 eCW: Landry Egan Diagnosis Active 2020-06-03 0 2:00:58 [facility] Al Diabetes mellitus out of control Diabetes mellitus out of control Active Problem 06/03/2020 eCW: Landry Egan Problem Active 2020-06-03 02:00:58 Bella Melendez Erectile dysfunction Erec tile dysfunction Active Diagnosis 06/03/2020 eCW: Landry Egan Diagnosis Active 2020-06-03 0 2:00:58 Bella Melendez Generalized osteoarthritis Gen eralized osteoarthritis Active Diagnosis 06/03/2020 eCW: Landry Egan Diagnosis Active 2020-06-03 02:00:58 Bella Melendez Patient's noncompliance with other medical treatment a nd regimen Patient's noncompliance with other medical treatment and regimen Active Diagnosis 01/15/2019 eCW: Landry Egan Diagnosis Active 2019-01-15 02:10:56 Bella Melendez Patient's noncompliance with dietary regimen Patient's noncompliance with dietary regimen Active Problem 06/03/2020 eCW: Landry Egan Problem Active 2020-06-03 02:00:58 Bella Melendez Type 2 diabetes mellitus with diabetic polyneuropathy Type 2 diabetes mellitus with diabetic polyneuropathy Active Problem 06/03/2020 eCW: Landry Egan Problem Active 2020-06-03 02:00:58 Bella Melendez Chronic kidney disease, stage 5 Chronic kidney disease, stage 5 Active Problem 06/03/2020 eCW: Landry Egan Problem Active 2020-06-03 02:00:58 Bella Melendez Diabetes mellitus with peripheral vascular disease Diabetes mellitus with peripheral vascular disease Active Problem 06/03/2020 eCW: Landry Egan Problem Active 2020-06-03 02:00:58 Bella Melendez Allergies, Adverse Reactions, Alerts Allergy Name Allergy Type Status Severity Reaction(s) Onset Date Inacti ve Date Treating Clinician Comments Source N.K.D.A. N.K.D.A. Active Info Not Available 2020-04-13 00:00:00 [facility] No Known Allergies DA Active U 2017-07-27 00:00:00 [facility] Social History Social Habit Start Date Stop Date Quantity Comments Source History SDOH Alcohol Binge [facility] Sex Assigned At [facility] History SDOH Alcohol Frequency 2018-07-18 00:00:00 2018-07-18 00:00:0 0 3 [facility] History SDOH Alcohol Std Drinks 2018-07-18 00:00:00 2018-07-18 00:00: 00 1 [facility] Language: 2016-10-03 00:00:00 2016-10-03 00:00:00 [facility] History of tobacco use 2008-07-18 00:00:00 Current smoker [facility] Smoking Status Start Date Stop Date Source Former smoker 2018-09-26 00:00:00 2018-09-26 00:00:00 [facility] Medications Ordered Medication Name Filled Medication Name Start Date Stop Da te Current Medication? Ordering Clinician Indication Dosage Frequency Signature (SIG) Comments Components Source Victoza 2020-06-03 02:00:58 Yes Sidra Egan 1.2 mg [facility] Tresiba 200 u/ml 2020-06-03 02:00:58 Yes Sidra Egan 50 units [facility] BD Ultra-Fine Pen Needle Angie [id number] 2020-06-03 02:00:58 Yes Sidra Egan USE SUBCUTANEOUSLY 3 VECES AL [place] [facility] Novolin R 2020-06-03 02:00:58 Yes Sidra Egan 15 units [facility] Novolin R 2020-06-03 02:00:58 Yes Sidra Egan 25 units [facility] BD Insulin Syringe 0.3cc 31g 6mm 2020-06-03 02:00:58 Yes Sidra Egan - [facility] Plavix 2020-06-03 02:00:58 Yes Sidra Egan 1 tab(s) [facility] carvedilol 2020-06-03 02:00:58 Yes Sidra Egan 1 tab(s) [facility] One Touch Verio Gold Test Strips 2020-06-03 02:00:58 Yes Sidra Egan as directed [facility] One Touch Delica Plus Lancet 2020-06-03 02:00:58 Yes Sidra Egan - [facility] Atorvastatin Calcium 2020-06-03 02:00:58 Yes Sidra Egan 1 tab(s) [facility] Novolin R 2020-02-12 02:07:45 Yes Sidra Egan 15 units [facility] One Touch Delica Plus Lancet 2020-01-13 00:00:00 Yes Sidra Egan - [facility] Novolin R 2019-12-12 00:00:00 Yes Sidra Egan 15 units [facility] repaglinide 2019-11-19 02:03:58 Yes Sidra Egan 1 tab(s) [facility] BD Ultra-Fine Pen Needle Angie [id number] 2019-10-27 00:00:00 Yes Sidra Egan [facility] sucralfate 2019-10-14 00:00:00 Yes Sidra Egan 1 tab(s) [facility] Plavix 2019-10-14 00:00:00 Yes Sidra Egan 1 tab(s) [facility] pantoprazole 2019-10-14 00:00:00 Yes Sidra Egan 1 tab(s) [facility] glipiZIDE extended release 2019-10-14 00:00:00 Yes Sidra Egan 1 tab(s) [facility] carvedilol 2019-10-14 00:00:00 Yes Sidra Egan 1 tab(s) [facility] Atorvastatin Calcium 2019-10-14 00:00:00 Yes Sidra Egan 1 tab(s) [facility] Novolin R 2019-10-14 00:00:00 Yes Sidra Egan 15 units [facility] Victoza 2019-10-14 00:00:00 Yes Sidra Egan 1.8 mg [facility] sevelamer hydrochloride 2019-10-14 00:00:00 Yes Sidra Whitehead 2 tab(s) [facility] One Touch Verio Gold Test Strips 2019-07-19 00:00:00 Yes Sidra Egan as directed [facility] BD Insulin Syringe 0.3cc 31g 6mm 2019-07-19 00:00:00 Yes Sidra Egan [facility] Tresiba 200 u/ml 2019-07-19 00:00:00 Yes Sidra Egan 50 units [facility] Tresiba 200 u/ml 2019-06-04 00:00:00 Yes Denise Phongsy 44-50 units [facility] Tresiba 200 u/ml 2019-02-09 00:00:00 Yes Sidra Egan 44 units [facility] Victoza 2018-12-06 00:00:00 Yes Denise Phongsy 1. [address] [facility] Tresiba 200 u/ml 2018-11-07 00:00:00 Yes Denise Phongsy [address] [facility] Famotidine (Pepcid) 20 Mg TABLET Famotidine (Pepcid) 20 Mg T ABLET 2018-08-22 12:17:00 Yes 20 Twice A Day [facility] Ondansetron Hcl (Zofran*) 4 Mg TABLET Ondansetron Hcl (Zofra n*) 4 Mg TABLET 2018-08-22 12:17:00 Yes 4 Every 6 Hours as n eeded for Nausea [facility] Novolin R 2018-08-13 00:00:00 Yes Sidra Egan 10-[address] [facility] repaglinide (PRANDIN) 2 MG tablet 2018-07-18 14:22:58 Yes 2mg Take 2 mg by mouth 3 (three) times daily before meals. [facility] simvastatin (ZOCOR) 20 MG tablet 2018-07-18 14:22:58 Yes 20mg QD Take 20 mg by mouth nightly. [facility] liraglutide 0.6 mg/0.1 mL (18 mg/3 mL) PnIj 2018-07-18 14:22:58 Yes 40mg Inject 40 mg subcutaneously. [facility] insulin degludec (TRESIBA FLEXTOUCH U-200) 200 unit/mL (3 mL ) InPn 2018-07-18 14:22:58 Yes 50U Inject 50 Units subcutaneousl y. [facility] Victoza 2018-05-11 00:00:00 Yes Denise Phongsy 0. [address] [facility] Trulicity Pen 2018-05-11 00:00:00 Yes Denise Phongsy 1.[address] [facility] Trulicity Pen 2018-05-11 00:00:00 Yes Denise Phongsy 0.[address] [facility] Aspirin Aspirin 2018-04-27 08:32:00 Yes 81 Daily [facility] Famotidine (Pepcid) 20 Mg TABLET Famotidine (Pepcid) 20 Mg T ABLET 2018-04-27 08:32:00 Yes 20 Twice A Day [facility] Metoprolol Tartrate Metoprolol Tartrate 2018-04-27 08:32:00 Yes 25 Every 12 Hours [facility] Simvastatin Simvastatin 2018-04-27 08:32:00 Yes 40 T grady At 9:00PM [facility] Tresiba 200 u/ml 2018-03-05 00:00:00 Yes Sidra Abernathyta 44 units [facility] [place] Lantus Solostar Pen 2018-03-05 00:00:00 Yes Denise Phongsy 44 units [facility] Bydureon BCise 2018-03-05 00:00:00 Yes Denise Phongsy 2 mg [facility] Trulicity Pen 2018-02-28 00:00:00 Yes Sidra Álvarezvaleta 1.5 mg [facility] Trulicity Pen 2018-02-28 00:00:00 Yes Sidra Álvarezvaleta 0.75 mg [facility] Humalog KwikPen 2018-02-23 02:09:57 Yes Denise Phongsy 20 units [facility] NovoLog 2018-02-23 02:09:57 Yes Denise Phongsy 30 unit [facility] [place] repaglinide 2018-02-13 00:00:00 Yes Sidra Merrick Abernathyta 1 tab(s) [facility] [place] Humalog KwikPen 2018-02-01 00:00:00 Yes Sidra Abernathyta 30 unit [facility] carvedilol 2017-11-24 02:03:17 Yes Denise Phongsy 1 tab(s) [facility] lisinopril 2017-11-24 02:03:17 Yes Denise Phongsy 1 tab(s) [facility] furosemide 2017-11-24 02:03:17 Yes Denise Phongsy 1 tab(s) [facility] Atorvastatin Calcium 2017-11-24 02:03:17 Yes Denise Phongsy 1 tab(s) [facility] Aspir 81 2017-11-24 02:03:17 Yes Denise Phongsy 1 tab(s) [facility] Fish Oil 2017-11-24 02:03:17 Yes Denise Phongsy 1 cap(s) [facility] BD Ultra-Fine Pen Needle Angie [id number] 2017-10-11 00:00:00 Yes Sidra Egan [facility] Lantus 2017-06-17 02:08:12 Yes Denise Phongsy 20 units [facility] Lantus 2017-05-12 00:00:00 Yes Sidra Egan 20 units [facility] Tresiba 200 u/ml 2017-05-12 00:00:00 Yes Sidra Egan 44 units [facility] Tresiba 200 u/ml 2017-05-12 00:00:00 Yes Denise Phongsy 44 units [facility] Basaglar KwikPen 3 ml 2017-04-11 00:00:00 Yes Sidra Egan as directed [facility] Fish Oil 2017-04-11 00:00:00 Yes Denise Phongsy 1 cap(s) [facility] Basaglar KwikPen 3 ml 2017-04-11 00:00:00 Yes Densie Colten ngsy as directed [facility] carvedilol 2017-02-22 02:13:28 Yes Sidra Egan 1 tab(s) [facility] Victoza 2017-02-22 02:13:28 Yes Sidra Egan 1.2 mg [facility] Glimepiride-Pioglitazone Hydrochloride 2017-02-22 02:13:28 Yes Sidra Egan 1 tab(s) [facility] Humalog KwikPen 2017-02-22 02:13:28 Yes Sidra Egan 20 units [facility] lisinopril 2017-02-22 02:13:28 Yes Sidra Egan 1 tab(s) [facility] Aspir 81 2017-02-22 02:13:28 Yes Sidra Egan 1 tab(s) [facility] furosemide 2017-02-22 02:13:28 Yes Sidra Egan 1 tab(s) [facility] Atorvastatin Calcium 2017-02-22 02:13:28 Yes Sidra Egan 1 tab(s) [facility] Tresiba 200 u/ml 2017-02-22 02:13:28 Yes Sidra Egan 44 units [facility] Levemir FlexTouch 2016-10-22 03:29:51 No Sidra Boles a 30 units [facility] Victoza 2016-10-03 00:00:00 Yes Sidra Egan 1.2 mg [facility] Tresiba 200 u/ml 2016-10-03 00:00:00 Yes Sidra cra as directed [facility] Glimepiride-Pioglitazone Hydrochloride 2016-10-03 00:00:00 Yes Sidra Egan 1 tab(s) [facility] Lantus Solostar Pen 2016-09-10 03:32:08 No Elizabeth Dominique 30 units [facility] Levemir FlexTouch 2016-08-24 00:00:00 Yes Elizabeth Odminique 30 units [facility] Toujeo 2016-08-22 00:00:00 No Elizabeth Fox 30 unit s [facility] Atorvastatin Calcium 2016-08-22 00:00:00 Yes Elizabeth Fox 1 tab(s) [facility] glipizide 2016-08-10 03:34:32 No Sidra Egan 1 tab(s) [facility] Humalog KwikPen 2016-07-25 00:00:00 Yes Sidra Tierney eta [address] [facility] lisinopril (PRINIVIL,ZESTRIL) 10 MG tablet 2016-05-18 00:00:00 Yes 10mg QD Take 1 tablet (10 mg total) by mouth every evening. [facility] metoprolol (LOPRESSOR) 100 MG tablet 2016-05-18 00:00:00 Ye s 100mg Q.5D Take 1 tablet (100 mg total) by mouth 2 (two) times daily. [facility] Lanthanum Carbonate (Fosrenol) 1,000 Mg TAB.CHEW Lanth mick Carbonate (Fosrenol) 1,000 Mg TAB.CHEW Yes 1000 Before Meals [facility] Lisinopril Lisinopril Yes 10 Daily [facility] Lorazepam Lorazepam Yes 1 Daily for Anxiety [facility] Repaglinide (Prandin) 2 Mg TABLET Repaglinide (Prandin) 2 Mg TABLET Yes 2 Before Meals [facility] Tresiba Tresiba Yes 20 Twice A Day [facility] Simvastatin Simvastatin 2018-04-27 00:00:00 No 20 D aily [facility] Altozastatin Altozastatin 2018-04-26 00:00:00 No 40 Daily [facility] Vital Signs Vital Name Observation Time Observation Value Comments Source Weight 2020-04-13 16:15:00 [facility] Height 2020-04-13 16:15:00 [facility] 2020-01-29 12:48:00 220 [lb_av] [facility] BMI (Body Mass Index) 2020-01-29 12:48:00 31.6 kg/m2 [facility] Weight 2020-01-13 16:00:00 [facility] [place] Height 2020-01-13 16:00:00 [facility] [place] Weight 2019-10-14 15:30:00 [facility] [place] Height 2019-10-14 15:30:00 [facility] Diastolic (mm Hg) 2019-10-14 15:30:00 [facility] Systolic (mm Hg) 2019-10-14 15:30:00 Raji rial Al Weight 2019-06-13 16:30:00 [facility] Height 2019-06-13 16:30:00 [facility] Diastolic (mm Hg) 2019-06-13 16:30:00 [facility] [place] Systolic (mm Hg) 2019-06-13 16:30:00 [facility] [place] Weight 2018-12-06 21:15:00 [facility] Height 2018-12-06 21:15:00 [facility] Diastolic (mm Hg) 2018-12-06 21:15:00 [facility] Systolic (mm Hg) 2018-12-06 21:15:00 Raij rial Al Weight 2018-08-13 16:15:00 [facility] Height 2018-08-13 16:15:00 [facility] [place] Diastolic (mm Hg) 2018-08-13 16:15:00 [facility] [place] Systolic (mm Hg) 2018-08-13 16:15:00 Raji rial Al Weight 2018-05-11 18:00:00 [facility] Height 2018-05-11 18:00:00 [facility] Diastolic (mm Hg) 2018-05-11 18:00:00 [facility] Systolic (mm Hg) 2018-05-11 18:00:00 Raji rial Al Weight 2018-02-28 15:30:00 [facility] Height 2018-02-28 15:30:00 [facility] Diastolic (mm Hg) 2018-02-28 15:30:00 [facility] [place] Systolic (mm Hg) 2018-02-28 15:30:00 Raji rial Al Weight 2017-11-29 15:30:00 [facility] Height 2017-11-29 15:30:00 [facility] Diastolic (mm Hg) 2017-11-29 15:30:00 [facility] [place] Systolic (mm Hg) 2017-11-29 15:30:00 Raji rial Al Weight 2017-09-29 14:30:00 [facility] Height 2017-09-29 14:30:00 [facility] Diastolic (mm Hg) 2017-09-29 14:30:00 [facility] Systolic (mm Hg) 2017-09-29 14:30:00 [facility] [place] Weight 2017-04-11 16:30:00 [facility] Height 2017-04-11 16:30:00 [facility] Diastolic (mm Hg) 2017-04-11 16:30:00 [facility] Systolic (mm Hg) 2017-04-11 16:30:00 [facility] [place] Weight 2017-01-03 16:15:00 [facility] Height 2017-01-03 16:15:00 [facility] Diastolic (mm Hg) 2017-01-03 16:15:00 [facility] [place] Systolic (mm Hg) 2017-01-03 16:15:00 Raji rial Al Weight 2016-10-03 19:30:00 [facility] Height 2016-10-03 19:30:00 [facility] Diastolic (mm Hg) 2016-10-03 19:30:00 [facility] Systolic (mm Hg) 2016-10-03 19:30:00 [facility] [place] Weight 2016-08-22 19:00:00 [facility] Height 2016-08-22 19:00:00 [facility] Diastolic (mm Hg) 2016-08-22 19:00:00 [facility] Systolic (mm Hg) 2016-08-22 19:00:00 Raji rial Al Weight 2016-07-25 20:15:00 [facility] Height 2016-07-25 20:15:00 [facility] Diastolic (mm Hg) 2016-07-25 20:15:00 [facility] [place] Systolic (mm Hg) 2016-07-25 20:15:00 [facility] [place] Procedures This patient has no known procedures. Plan of Care Planned Activity Planned Date Details Comments Source Future Scheduled Test 2020-05-12 00:00:00 INFLUENZA VACCINE (#1) [code = INFLUENZA VACCINE (#1)] [facility] Future Scheduled Test 2016-11-04 00:00:00 Hemoglobin A1c jordan surement (procedure) [code = 70004296] [facility] Future Scheduled Test 2016-09-12 00:00:00 MEDICARE ANNUAL WE LLNESS (YEAR 2 or FIRST YEAR if no IPPE) [code = MEDICARE ANNUAL WELLNESS (YEAR 2 or FIRST YEAR if no IPPE)] [facility] Future Scheduled Test 2012 00:00:00 PNEUMOCOCCAL 65+ H IGH/HIGHEST RISK (1 of 2 - PCV13) [code = PNEUMOCOCCAL 65+ HIGH/HIGHEST RISK (1 of 2 - PCV13)] [facility] Future Scheduled Test 1957 00:00:00 DIABETIC EYE EXAM [code = DIABETIC EYE EXAM] [facility] Future Scheduled Test 1957 00:00:00 Diabetic foot exam ination (regime/therapy) [code = 163746166] [facility] Future Scheduled Test 1957 00:00:00 Urine screening fo r protein (procedure) [code = 850691335] [facility] Future Scheduled Test 1947 00:00:00 Screening for iban gnant neoplasm of colon (procedure) [code = 934830206] [facility] Medication 2020-07-11 00:00:00 BD Ultra-Fine Pen Ne edle Angie 15tv5ty [code = UNK] [facility] Medication 2020-07-11 00:00:00 One Touch Verio Gold Test Strips [ code = UNK] [facility] Medication 2020-07-11 00:00:00 Atorvastatin Calcium [code = 50195 785172] [facility] Encounters Start Date/Time End Date/Time Encounter Type Admission Type [facility] Care Department Encounter ID Source 2020-04-13 11:15:00 2020-04-13 11:15:00 Outpatient [facility]ry Egan [facility]. [facility] [id number] [employer] [employer] 2020-01-29 12:16:00 2020-01-29 13:18:00 Departed Emergency Room [facility] [id number] [facility] 2020-01-13 11:00:00 2020-01-13 11:00:00 Outpatient Landry Egan M.D., P.A. Landry Egan M.D[facility] P.[facility]. [id number] [employer] [employer] 2019-12-12 14:22:00 2019-12-12 14:22:00 Outpatient Landry Egan M.D., P.A. Landry Egan M.D[facility] P.[facility]. [id number] [employer] [employer] 2019-10-14 10:30:00 2019-10-14 10:30:00 Outpatient Landry Egan M.D., P.A. Landry Egan M.D., P.A. [id number] [employer] [employer] 2019-07-19 15:57:00 2019-07-19 15:57:00 Outpatient Landry Egan M.D., P.A. Landry Egan M.D[facility] P.A. [id number] [employer] 2019-07-19 10:47:00 2019-07-19 10:47:00 Outpatient Landry Egan M.D., P.A. Landry Egan M.D[facility] P.A. [id number] [employer] 2019-06-13 10:30:00 2019-06-13 10:30:00 Outpatient Landry Egan M.D., P.A. Landry Egan M.D[facility] P.A. [id number] [employer] 2019-04-30 14:24:00 2019-04-30 14:24:00 Outpatient Landry Egan M.D., P.A. Landry Egan M.D., P.A. [id number] [employer] 2018-12-06 16:15:00 2018-12-06 16:15:00 Outpatient Landry Egan M.D., P.A. Landry Egan M.D., P.A. [id number] [employer] 2018-09-14 15:41:00 2018-09-14 15:41:00 Outpatient Landry Egan M.D., P.A. Landry Egan M.D., P.A. [id number] [employer] [employer] 2018-08-22 11:50:00 2018-08-22 14:07:00 Departed Emergency Room 1 [facility] [id number] [facility] 2018-08-13 10:15:00 2018-08-13 10:15:00 Outpatient Landry Egan M.D., P.A. [facility] M.D[facility]. [id number] [facility] [employer] 2018-05-11 13:00:00 2018-05-11 13:00:00 Outpatient Landry Egan M.D., P.A. Landry Egan M.D., P.A. [id number] [employer] 2018-05-09 11:04:00 2018-05-09 11:04:00 Outpatient Landry Egan M.D., P.A. Landry Egan M.D., P.A. [id number] [facility]in [employer] 2018-04-26 16:09:00 2018-04-27 09:33:00 Departed Emergency Room 1 [facility] [id number] [facility] 2018-03-05 14:41:00 2018-03-05 14:41:00 Outpatient Landry Egan M.D., P.A. Landry Egan M.D., P.A. [id number] [employer] [employer] 2018-02-28 10:30:00 2018-02-28 10:30:00 Outpatient Landry Egan M.D., P.A. Landry Egan M.D., P.A. [id number] [employer] 2018-02-13 17:00:00 2018-02-13 17:00:00 Outpatient Landry Egan M.D., P.A. Landry Egan M.D., P.A. [id number] [employer] 2018-02-08 10:08:00 2018-02-08 10:08:00 Outpatient Landry Egan M.D., P.A. Landry Egan M.D., P.A. [id number] [employer] 2018-02-01 10:36:00 2018-02-01 10:36:00 Outpatient Landry Egan M.D., P.A. Landry Egan M.D., P.A. [id number] [employer] 2017-12-29 09:58:00 2017-12-29 09:58:00 Outpatient Landry Egan M.D., P.A. Landry Egan M.D., P.A. [id number] [employer] 2017-11-29 10:30:00 2017-11-29 10:30:00 Outpatient Landry Egan M.D., P.A. Landry Egan M.D., P.A. [id number] [employer] 2017-11-22 11:06:00 2017-11-22 11:06:00 Outpatient Landry Egan M.D., P.A. Landry Egan M.D., P.A. [id number] [employer] 2017-10-26 16:57:00 2017-10-26 16:57:00 Outpatient Landry Egan M.D., P.A. Landry Egan M.D., P.A. [id number] [employer] 2017-10-11 14:44:00 2017-10-11 14:44:00 Outpatient Landry Egan M.D., P.A. Landry Egan M.D., P.A. [id number] [employer] 2017-09-30 07:34:00 2017-09-30 07:34:00 Outpatient Landry Egan M.D., P.A. Landry Egan M.D., P.A. [id number] [employer] 2017-09-29 11:37:00 2017-09-29 11:37:00 Outpatient Landry Egan M.D., P.A. Landry Egan M.D., P.A. [id number] [employer] 2017-09-29 09:30:00 2017-09-29 09:30:00 Outpatient Landry Egan M.D., P.A. Landry Egan M.D., P.A. [id number] [employer] 2017-05-12 09:43:00 2017-05-12 09:43:00 Outpatient Landry Egan M.D., P.A. Landry Egan M.D., P.A. [id number] [employer] 2017-05-11 10:56:00 2017-05-11 10:56:00 Outpatient Landry Egan M.D., P.A. Landry Egan M.D., P.A. [id number] [employer] [employer] 2017-04-11 11:30:00 2017-04-11 11:30:00 Outpatient Landry Egan M.D., P.A. Landry Egan M.D., P.A. [id number] [facility] 2017-04-04 14:21:00 2017-04-04 14:21:00 Outpatient Landry Egan M.D., P.A. Landry Egan M.D., P.A. [id number] [facility] 2017-02-20 11:17:00 2017-02-20 11:17:00 Outpatient Landry Egan M.D., P.A. Landry Egan M.D., P.A. [id number] [facility] 2017-02-17 11:30:00 2017-02-17 11:30:00 Outpatient Landry Egan M.D., P.A. Landry Egan M.D., P.A. [id number] [facility] 2017-01-03 11:15:00 2017-01-03 11:15:00 Outpatient Landry Egan M.D., P.A. Landry Egan M.D., P.A. [id number] [facility] 2016-11-23 12:56:00 2016-11-23 12:56:00 Outpatient Landry Egan M.D., P.A. Landry Egan M.D., P.A. [id number] [facility] 2016-10-03 13:30:00 2016-10-03 13:30:00 Outpatient Landry Egan MD, Jose MD [id number] [employer] 2016-08-22 13:00:00 2016-08-22 13:00:00 Outpatient Landry Egan MD, Jose MD [id number] [facility] 2016-08-01 15:00:00 2016-08-01 15:00:00 Outpatient Landry Egan MD, Jose MD [id number] [facility] 2016-07-25 14:15:00 2016-07-25 14:15:00 Outpatient JigneshLandry dillard MD, Jose MD [id number] [facility]Works Results Test Description Test Time Test Comments Results Result Comments Source CHEST SINGLE (PORTABLE) 2020-06-06 18:45:00 [place] [address] Patient Name: DILLAN MELCHOR MR #: [id number] : 1945 Age/Sex: 74/M Req #: [id number] Adm Physician: Ordered by: DANNA ANDERS DO Report #: [id number] Location: ER Room/Bed: Procedure: [id number] DX/CHEST SINGLE (PORTABLE) Exam Date: 06/06/20 Exam Time: 1824 REPORT STATUS: Signed EXAMINATION: CHEST SINGLE (PORTABLE) INDICATION: Chest pain. COMPARISON: Chest radiograph 08-22-2018. FINDINGS: TUBES and LINES: Left sided pacemaker with leads in unchanged position. LUNGS: Lungs are well inflated. Mild patchy left basilar opacity, likely atelectasis. There is no evidence of lobar pneumonia or pulmonary edema. PLEURA: No pleural effusion or pneumothorax. HEART AND MEDIASTINUM: The cardiomediastinal silhouette is mildly enlarged. There are atherosclerotic calcifications within the aorta. Status post CABG. BONES AND SOFT TISSUES: No acute osseous abnormality. Partially seen cervical spine fixation hardware. Status post median sternotomy. UPPER ABDOMEN: No free air under the diaphragm. IMPRESSION: No acute thoracic abnormality. Signed by: Dr. Orin Keenan MD on 06/06/2020 6:47 PM Dictated By: ORIN KEENAN MD 46 Transcribed By: MEAGHAN on 06/06/201846 COPY TO: DANNA ANDERS DO GLUBED 2020-01-10 11:57:00 Test Item GLUBED (test code = GLUBED) 338 mg/dL 74-106 H Performed by certified molding line operator at [facility] [id number] 07:53:00* Test Item Value Reference Range Interpretation Comments GLUBED (test code = GLUBED) 219 mg/dL 74-106 H Performed by certified molding line operator at [facility] BASIC METABOLIC [id number] 05:41:00* Test Item Value Reference Range Interpretation [...] CA) 8.4 mg/dL 8.5-10.1 L BASIC METABOLIC [id number] 05:37:00* Test Item Value Reference Range Interpretation [...] code = CA) mg/dL 8.5-10.1 CBC W/AUTO [id number] 05:29:00* Test Item Value Reference Range Interpretation [...] DIFF REQUIRED (test code = MDIFF) NO [id number] 00:39:00* Test Item Value Reference Range Interpretation Comments GLUBED (test code = GLUBED) 287 mg/dL 74-106 H Performed by certified molding line operator at [facility] AG HEPAT B [id number] 18:22:00* Test Item Value Reference Range Interpretation Comments AG HEPAT B SURF (test code = HBSAG) Nonreactive Index Nonreactive BASIC METABOLIC [id number] 15:43:00* Test Item Value Reference Range Interpretation [...] CA) 8.5 mg/dL 8.5-10.1 N HEPATIC FUNCTION [id number] 15:43:00* Test Item Value Reference Range Interpretation [...] due to change in reagent. BASIC METABOLIC [id number] 15:36:00* Test Item Value Reference Range Interpretation [...] code = CA) mg/dL 8.5-10.1 HEPATIC FUNCTION [id number] 15:36:00* Test Item Value Reference Range Interpretation [...] code = ALKP) IUnit/L 45-117 CBC W/O [id number] 15:32:00* Test Item Value Reference Range Interpretation [...] fL 6.7-11.0 H - CT ABD PELVIS [id number] 14:43:00 Name: DILLAN MELCHOR [facility] : 1945 Age/S: 74 / M [address] [facility] Unit #: [id number] Loc: [place] [address] Phys: Tiera Wilder MD Acct: [id number] Dis Date: Status: REG ER PHONE #: [phone] Exam Date: 01/09/2020 5604 FAX #: [phone] Reason: abd pain, diarrhea EXAMS: CPT CODE: [id number] CT ABD PELVIS W/CONT 74818 REASON FOR EXAM: abd pain, diarrhea EXAM ORDER DATE: 01/09/2020 1:39 PM Ordering MChucky: Tiera Wilder MD PROCEDURE: - CT ABD [...] PAGE 1 Signed Report (CONTINUED) Name: DILLAN MELCHOR [facility] : 1945 Age/S: 74 / M [address] [facility] Unit #: [id number] Loc: [place] [address] Phys: Tiera Wilder MD Acct: [id number] Dis Date: Status: REG ER PHONE #: [phone] Exam Date: 01/09/2020 1402 FAX #: [phone] Reason: abd pain, diarrhea EXAMS: CPT CODE: [id number] ABD PELVIS W/CONT 58212 <Continued > Musculoskeletal structures and abdominal wall: Degenerative changes are present throughout the spine and are also seen in the bilateral hips . Postsurgical changes of sternotomy IMPRESSION: No acut e intra-abdominal process. Colonic diverticulosis without diverticulitis . Cholelithiasis without CT findings to suggest cholecystitis. Location: [facility] Electronically Signed by Shon Jo MD on at 1443 Reported and signed by: Shon Jo MD CC: Tiera Wilder MD; Abhi Dubon MD Technologist:Claudia Davis,RT(R),CT CTDI: DLP: Trnscb Date/Time: 01/09/2020 (1443) t.SDR.RR31 Orig Print D/T: S: 01/09/2020 1444) PAGE 2 Signed Report AB HEPATITIS B [id number] 10:25:00* Test Item Value Reference Range Interpretation Comments AB HEPATITIS B SURFACE (test code = HBSAB) QUANT NOT SUFFICIENT () Quantity was not sufficient for analysis. Non Reactive: Inconsistent with immunity, less than 10 mIU/mL Reactive: Consistent with immunity, greater than 9.9 mIU/mLNotified Devora Ragsdale. 09/27/2019-BaylessPerformed At: [facility] [address] [id number] Narinder Ayala MD Ph:[phone] REDRAW PER [facility] NOT [facility].LAB.ASS 09/27/19 [id number] 16:01:00 RUN DATE: 10/02/19 [facility] PAGE 1 RUN TIME: 1601 Specimen Inqui ry RUN USER: INTERFACE PATIENT: DILLAN MELCHOR ACCT #: [id number] LOC: [place] U #: [id number] AGE/SX: 74/M ROOM: 2040 RE09/24/19REG DR: Brian Daniels MD : [birth year] BED: A DIS: 10/01/19 STATUS: DIS IN TLOC: SPEC #: [id number] RECD: 10/01/19 STATUS: JENNIFER WHITMAN #: [id number] NAYAN: 09/30/19- SUBM DR: Huey Corcoran MD ENTERED: 10/01/19 SP TYPE: STOMACH OTHR DR: Abhi Dubon MD, David S MD Khan, Salman A MDORDERED: GROSS COPIES TO: Abhi Dubon MD [address] [facility] [address] [place] [address] Huey Corcoran MD [address], [address] [place] [address] Bao Kumar MD [address] [place], [place] [address] Des Cornell MD [address] [facility], [address] [place] [address] PROCEDURES: GROSS (10/02/19-102 5) TISSUES: 1. ANTRAL BIOPSY - H-PYLORI 2. 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 GROSS PERFORMED AT [facility] [address] [place] [id number] ( [phone] MICROSCOPIC All of the stains, including any control s performed, stain appropriately. MICROSCOPIC PERFORMED AT [facility] [address] [facility], [place] [address] ([phone] PERFORMING SITE Diagnosis performed at: [facility] [address] [place] [address] CONTINUED ON NEXT PAGE RUN DATE: 10/02 [place] - Lab PAGE 3 RUN TIME: 160 Specimen Inquiry RUN U SER: INTERFACE ------- -----SPEC #: [id number] PATIENT: DILLAN MELCHOR #[id number] (Continued) Signed SIGNATURE ON FILE Gabriella Perez MD 10/02/19 160 END OF REPORT HEPATITIS B CORE ANTIBODY,[id number] 05:09:00* Test Item Value Reference Range Interpretation Comments HEPATITIS B CORE ANTIBODY,TOT (test code = HBCAB) Negative Nega tive Performed At: [facility] [address] [id number] Ayala MD Ph:[phone] PATIENT NOT IN ROOMAB HEPATITIS B [id number] 05:09:00* Test Item Value Reference Range Interpretation Comments AB HEPATITIS B SURFACE (test code = HBSAB) Reactive () Non Reactive: Inconsistent with immunity, less than 10 mIU/mL Reactive: Consistent with immunity, greater than 9.9 mIU/mLPerformed At: [facility] [address] [id number] Ayala MD Ph:[phone] PATIENT NOT IN [id number] 17:05:00* Test Item Value Reference Range Interpretation Comments GLUBED (test code = GLUBED) 220 mg/dL 74-106 H Performed by certified molding line operator at [facility] CBC W/AUTO [id number] 07:55:00* Test Item Value Reference Range Interpretation [...] (test code = MDIFF) NO BASIC METABOLIC [id number] 07:52:00* Test Item Value Reference Range Interpretation [...] CA) 8.1 mg/dL 8.5-10.1 L BASIC METABOLIC [id number] 07:48:00* Test Item Value Reference Range Interpretation [...] CALCIUM (test code = CA) mg/dL 8.5-10.1 [id number] 20:34:00* Test Item Value Reference Range Interpretation Comments GLUBED (test code = GLUBED) 215 mg/dL 74-106 H Performed by certified molding line operator at [facility] [id number] 13:00:00* Test Item Value Reference Range Interpretation Comments GLUBED (test code = GLUBED) 180 mg/dL 74-106 H Performed by certified molding line operator at [facility] PROTHROMBIN [id number] 08:06:00* Test Item Value Reference Range Interpretation [...] (2.5-3.5) IS PATIENT ON ANTICOAGULANTS? NBASIC METABOLIC [id number] 07:33:00* Test Item Value Reference Range Interpretation [...] CA) 8.0 mg/dL 8.5-10.1 L BASIC METABOLIC [id number] 07:09:00* Test Item Value Reference Range Interpretation [...] code = CA) mg/dL 8.5-10.1 CBC W/AUTO [id number] 06:50:00* Test Item Value Reference Range Interpretation [...] DIFF REQUIRED (test code = MDIFF) NO [id number] 05:44:00* Test Item Value Reference Range Interpretation Comments GLUBED (test code = GLUBED) 305 mg/dL 74-106 H Performed by certified molding line operator at [facility] [id number] 21:45:00* Test Item Value Reference Range Interpretation Comments GLUBED (test code = GLUBED) 307 mg/dL 74-106 H Performed by certified molding line operator at [facility] [id number] 17:42:00* Test Item Value Reference Range Interpretation Comments GLUBED (test code = GLUBED) 200 mg/dL 74-106 H Performed by certified molding line operator at [facility] [id number] 12:15:00* Test Item Value Reference Range Interpretation Comments GLUBED (test code = GLUBED) 314 mg/dL 74-106 H Performed by certified molding line operator at [facility] [id number] 09:55:00* Test Item Value Reference Range Interpretation Comments GLUBED (test code = GLUBED) 396 mg/dL 74-106 H Performed by certified molding line operator at [facility] [id number] 06:14:00* Test Item Value Reference Range Interpretation Comments GLUBED (test code = GLUBED) 184 mg/dL 74-106 H Performed by certified molding line operator at [facility] BASIC METABOLIC [id number] 21:53:00* Test Item Value Reference Range Interpretation [...] CA) 7.9 mg/dL 8.5-10.1 L BASIC METABOLIC [id number] 21:44:00* Test Item Value Reference Range Interpretation [...] code = CA) 7.9 mg/dL 8.5-10.1 L [id number] 21:07:00* Test Item Value Reference Range Interpretation Comments GLUBED (test code = GLUBED) 354 mg/dL 74-106 H Performed by certified molding line operator at [facility] [id number] 16:44:00* Test Item Value Reference Range Interpretation Comments GLUBED (test code = GLUBED) 279 mg/dL 74-106 H Performed by certified molding line operator at [facility] BASIC METABOLIC [id number] 11:48:00* Test Item Value Reference Range Interpretation [...] CA) 8.1 mg/dL 8.5-10.1 L BASIC METABOLIC [id number] 11:41:00* Test Item Value Reference Range Interpretation [...] code = CA) mg/dL 8.5-10.1 CBC W/O [id number] 11:28:00* Test Item Value Reference Range Interpretation [...] code = MPV) 10.8 fL 6.7-11.0 N [id number] 06:02:00* Test Item Value Reference Range Interpretation Comments GLUBED (test code = GLUBED) 221 mg/dL 74-106 H Performed by certified molding line operator at [facility] [id number] 20:38:00* Test Item Value Reference Range Interpretation Comments GLUBED (test code = GLUBED) 289 mg/dL 74-106 H Performed by certified molding line operator at [facility] [id number] 19:20:00* Test Item Value Reference Range Interpretation Comments GLUBED (test code = GLUBED) 301 mg/dL 74-106 H Performed by certified molding line operator at [facility] [id number] 19:20:00* Test Item Value Reference Range Interpretation Comments GLUBED (test code = GLUBED) 300 mg/dL 74-106 H Performed by certified molding line operator at [facility] BASIC METABOLIC [id number] 08:39:00* Test Item Value Reference Range Interpretation [...] CA) 7.9 mg/dL 8.5-10.1 L CBC W/AUTO [id number] 08:08:00* Test Item Value Reference Range Interpretation [...] DIFF REQUIRED (test code = MDIFF) NO [id number] 06:24:00* Test Item Value Reference Range Interpretation Comments GLUBED (test code = GLUBED) 201 mg/dL 74-106 H Performed by certified molding line operator at [facility] [id number] 21:43:00* Test Item Value Reference Range Interpretation Comments GLUBED (test code = GLUBED) 344 mg/dL 74-106 H Performed by certified molding line operator at [facility] [id number] 17:41:00* Test Item Value Reference Range Interpretation Comments GLUBED (test code = GLUBED) 215 mg/dL 74-106 H Performed by certified molding line operator at [facility] AG HEPAT B [id number] 12:02:00* Test Item Value Reference Range Interpretation Comments AG HEPAT B SURF (test code = HBSAG) Nonreactive Index Nonreactive [id number] 06:35:00* Test Item Value Reference Range Interpretation Comments GLUBED (test code = GLUBED) 174 mg/dL 74-106 H Performed by certified molding line operator at [facility] COMPREHENSIVE METABOLIC [id number] 05:10:00* Test Item Value Reference Range Interpretation [...] due to change in reagent. COMPREHENSIVE METABOLIC [id number] 05:03:00* Test Item Value Reference Range Interpretation [...] code = ALKP) IUnit/L 45-117 CBC W/AUTO [id number] 04:15:00* Test Item Value Reference Range Interpretation [...] code = NRBC#) 0.00 K/mm3 0.0-0.1 N [id number] 21:14:00* Test Item Value Reference Range Interpretation Comments GLUBED (test code = GLUBED) 391 mg/dL 74-106 H Performed by certified molding line operator at [facility] [id number] 16:23:00* Test Item Value Reference Range Interpretation Comments GLUBED (test code = GLUBED) 248 mg/dL 74-106 H Performed by certified molding line operator at [facility] [id number] 16:23:00* Test Item Value Reference Range Interpretation Comments GLUBED (test code = GLUBED) 184 mg/dL 74-106 H Performed by certified molding line operator at [facility] [id number] 06:36:00* Test Item Value Reference Range Interpretation Comments GLUBED (test code = GLUBED) 128 mg/dL 74-106 H Performed by certified molding line operator at [facility] HGB [id number] 06:26:00* Test Item Value Reference Range Interpretation Comments HEMOGLOBIN (test code = HGB) 8.5 gram/dL 13.0-17.5 L HEMATOCRIT (test code = HCT) 25.8 % 42.0-52.0 L [id number] 02:22:00* Test Item Value Reference Range Interpretation Comments TROPONIN-I (test code = TROPI) 18.400 ng/mL 0-0.045 COMMENTS TO SECURITY INSTALLATION SALES TECHNICIAN: COLLECT 3 HOURS AFTER PREVIOUS SAMPLEHGB [id number] 01:36:00* Test Item Value Reference Range Interpretation Comments HEMOGLOBIN (test code = HGB) 8.0 gram/dL 13.0-17.5 L HEMATOCRIT (test code = HCT) 24.3 % 42.0-52.0 L [id number] 23:11:00* Test Item Value Reference Range Interpretation Comments TROPONIN-I (test code = TROPI) 19.200 ng/mL 0-0.045 09/24/19 1856COMMENTS TO SECURITY INSTALLATION SALES TECHNICIAN: COLLECT 3 HOURS AFTER PREVIOUS [id number] 21:30:00* Test Item Value Reference Range Interpretation Comments GLUBED (test code = GLUBED) 132 mg/dL 74-106 H Performed by certified molding line operator at [facility] [id number] 16:38:00* Test Item Value Reference Range Interpretation [...] result is a direct measurement.========= B-TYPE NATRIURETIC [id number] 14:17:00* Test Item Value Reference Range Interpretation Comments B-TYPE NATRIURETIC PEPTIDE (test code = BNP) 432.64 pgram/mL 0-100 H [id number] 13:30:00* Test Item Value Reference Range Interpretation Comments GLUBED (test code = GLUBED) 167 mg/dL 74-106 H Performed by certified molding line operator at [facility] BASIC METABOLIC [id number] 13:15:00* Test Item Value Reference Range Interpretation [...] code = CA) 8.6 mg/dL 8.5-10.1 N [id number] 13:15:00* Test Item Value Reference Range Interpretation Comments TROPONIN-I (test code = TROPI) 14.600 ng/mL 0-0.[address] LOPEZ by [facility]. 09/24/19 1315Critical results verified and read back by Nurse? Y BASIC METABOLIC [id number] 12:52:00* Test Item Value Reference Range Interpretation [...] CALCIUM (test code = CA) mg/dL 8.5-10.1 [id number] 12:52:00* Test Item Value Reference Range Interpretation Comments TROPONIN-I (test code = TROPI) ng/mL 0-0.045 PROTHROMBIN [id number] 12:28:00* Test Item Value Reference Range Interpretation [...] (2.5-3.5) IS PATIENT ON ANTICOAGULANTS? NTHROMBOPLASTIN TIME [id number] 12:28:00* Test Item Value Reference Range Interpretation Comments THROMBOPLASTIN TIME PARTIAL (test code = PTT) 30.6 seconds 25.0-36. 5 N IS PATIENT ON ANTICOAGULANTS? NCBC W/O [id number] 12:18:00* Test Item Value Reference Range Interpretation Comments WHITE BLOOD CELL (test code = WBC) 7.4 K/mm3 4.5-12.5 N RED BLOOD CELL (test code = RBC) 2.25 mill/mm3 4.0-5.8 L HEMOGLOBIN (test code = HGB) 6.9 gram/dL 13.0-17.5 L HEMATOCRIT (test code = HCT) 21.5 % 42.0-52.0 Results called to by FLORENTINO 09/24/19 1218Critical [...] code = MPV) 10.8 fL 6.7-11.0 N [id number] 12:16:00* Test Item Value Reference Range Interpretation Comments MAGNESIUM (test code = MAG) 2.0 mg/dL 1.8-2.4 N - XR CHEST 1 [id number] 12:12:00 FAX: Abhi Richardson MD [phone] [place]: St: [facility] FAX: Errol Lopez MD Name: DILLAN MELCHOR [facility] : 1945 Age/S: 74/M [address] [facility] Unit #: [id number] Loc: [place] [address] Phys: Errol Lopez MD Acct: [id number] Dis Date: Status: REG ER PHONE #: [phone] Exam Date: 09/24/2019 1155 FAX #: [phone] Reason: CHEST PAIN EXAMS: CPT CODE: [id number] XR CHEST 1 V 92489 HISTORY: Chest pain. COMPARISON: November 24, 2015. Location: [facility]. No acute infiltrates, effusion or congestion is noted. Right costophrenic angle is not included slightly limiting evaluation. Left ICD is unchanged. Cardiomegaly. IMPRESSION: No acute infiltrates, effusion or congestion. at 1212 Reported and signed by: Ugo Jorge M.D. CC: Abhi Dubon MD; Errol Lopez MD Technologist: Hawa Becerril(R); Vania Griffines RT(R) Trnscrd Date/Time/By: 09/24/2019 (9501) : By: [email or web address] Orig Print D/T: S: 09/24/2019 (4999) PAGE 1 Signed Report GLUBED 2019-09-17 15:01:00* Test Item Value Reference Range Interpretation Comments GLUBED (test code = GLUBED) 137 mg/dL 74-106 H Performed by certified molding line operator at [facility] AG HEPAT B [id number] 08:59:00* Test Item Value Reference Range Interpretation Comments AG HEPAT B SURF (test code = HBSAG) Nonreactive Index Nonreactive BASIC METABOLIC [id number] 08:35:00* Test Item Value Reference Range Interpretation [...] CA) 8.2 mg/dL 8.5-10.1 L BASIC METABOLIC [id number] 08:33:00* Test Item Value Reference Range Interpretation [...] code = CA) mg/dL 8.5-10.1 CBC W/AUTO [id number] 08:23:00* Test Item Value Reference Range Interpretation [...] DIFF REQUIRED (test code = MDIFF) NO [id number] 05:57:00* Test Item Value Reference Range Interpretation Comments GLUBED (test code = GLUBED) 161 mg/dL 74-106 H Performed by certified molding line operator at [facility] [id number] 20:40:00* Test Item Value Reference Range Interpretation Comments GLUBED (test code = GLUBED) 100 mg/dL 74-106 N Performed by certified molding line operator at [facility] [id number] 16:25:00* Test Item Value Reference Range Interpretation Comments GLUBED (test code = GLUBED) 196 mg/dL 74-106 H Performed by certified molding line operator at [facility] [id number] 07:05:00* Test Item Value Reference Range Interpretation Comments GLUBED (test code = GLUBED) 125 mg/dL 74-106 H Performed by certified molding line operator at [facility] BASIC METABOLIC [id number] 13:05:00* Test Item Value Reference Range Interpretation [...] result is a direct measurement.========= BASIC METABOLIC [id number] 12:59:00* Test Item Value Reference Range Interpretation [...] (test code = LDL) mg/dL 100-129 PROTHROMBIN [id number] 12:45:00* Test Item Value Reference Range Interpretation [...] Mechanical prosthetic heart valves (2.5-3.5) THROMBOPLASTIN TIME [id number] 12:45:00* Test Item Value Reference Range Interpretation Comments THROMBOPLASTIN TIME PARTIAL (test code = PTT) 30.9 seconds 25.0-36. 5 N CBC W/AUTO [id number] 12:32:00* Test Item Value Reference Range Interpretation [...] DIFF REQUIRED (test code = MDIFF) NO B-Type Natriuretic [id number] 12:54:00* Test Item Value Reference Range Interpretation Comments B-Type Natriuretic Peptide (test code = 36556-2) 73.1 0-100 [facility]-1VIEW (KUB)2018-08-22 12:53:00 [place] [address] Patient Name: DILLAN MELCHOR MR #: [id number] : 1945 Age/Sex: 72/M Req #: [id number] Adm Physician: Ordered by: JORY BRAND MD Report #: [id number] Location: ER Room/Bed: Procedure: [id number] DX/ABDOMEN-1VIEW (KUB) Exam Date: 08/22/18 Exam Time [...] IMPRESSION: Nonobstructive bowel gas pattern. Signed by: Dr. Cheko goetz D.O., M.M.M. on 08/22/2018 12:56 PM Dictated By: CHEKO PEREZ DO [facility] Signed By: CHEKO PEREZ DO on 08/22/18 125 Transcribed By: MEAGHAN on 08/22/181255 COPY TO: JORY BRAND MD Troponin [id number] 12:49:00* Test Item Value Reference Range Interpretation Comments Troponin I (test code = LWF1362) 0.015 0-0.300 [facility] 2 JYOZN0205-47-95 12:47:00 [facility] [address] [place] [address] Patient Name: DILLAN MELCHOR MR #: [id number] : 1945 Age/Sex: 72/M Req #: [id number] Adm Physician: Ordered by: JORY BRAND MD Report #: [id number] Location: ER Room/Bed: Procedure: [id number] DX/CHEST 2 VIEWS Exam Date: 08/22/18 Exam [...] on 08/22/18 1253 COPY TO: JORY BRAND Sodium Gnxkp9557-79-38 12:39:00* Test Item Value Reference Range Interpretation Comments Sodium Level (test code = 2951-2) 133 136-145 L [facility] Rtrkv5002-87-36 12:39:00* Test Item Value Reference Range Interpretation Comments Potassium Level (test code = 2823-3) 5.1 3.5-5.1 [facility] HospitalChloride Kfbxz8683-00-59 12:39:00* Test Item Value Reference Range Interpretation Comments Chloride Level (test code = 2075-0) 93 98-107 L [facility] HospitalCarbon Dioxide Fpnus4103-41-14 12:39:00* Test Item Value Reference Range Interpretation Comments Carbon Dioxide Level (test code = 2028-9) 26 22-29 [facility] HospitalAnion Trb9551-18-27 12:39:00* Test Item Value Reference Range Interpretation Comments Anion Gap (test code = 79738-7) 19.1 8-16 H [facility] HospitalBlood Urea Afyeuuug0642-27-61 12:39:00* Test Item Value Reference Range Interpretation Comments Blood Urea Nitrogen (test code = 3094-0) 48 7-26 H [facility] HospitalCreatinine2018-12-12 12:39:00* Test Item Value Reference Range Interpretation Comments Creatinine (test code = 2160-0) 5.16 0.72-1.25 H [facility] HospitalBUN/Creatinine Ayefa3450-71-40 12:39:00* Test Item Value Reference Range Interpretation Comments BUN/Creatinine Ratio (test code = 3097-3) 9 6-25 [facility] HospitalEstimat Glomerular Filtration Rate 2018-08-22 12:39:00* Test Item Value Reference Range Interpretation Comments Estimat Glomerular Filtration Rate (test code = 350174538) 11 >60 L Ranges were taken from the National Kidney Disease Education Program and the [facility] Kidney Foundation literature.Reference ranges:60 or greater: Sbnsap82-70 ( for 3 consecutive months): Chronic kidney disease 15 or less: Kidney failureNortheast Baptist HospitalGlucose Mesog3087-11-67 12:39:00* Test Item Value Reference Range Interpretation Comments Glucose Level (test code = IND6311) 261 74-118 H [facility] HospitalCalcium Ddont4800-31-64 12:39:00* Test Item Value Reference Range Interpretation Comments Calcium Level (test code = 40865-8) 8.9 8.4-10.2 [facility] HospitalPhosphorus Wxgfh7466-26-39 12:39:00* Test Item Value Reference Range Interpretation Comments Phosphorus Level (test code = IJN2358) 5.3 2.3-4.7 H [facility] HospitalMagnesium Ygwds6379-88-17 12:39:00* Test Item Value Reference Range Interpretation Comments Magnesium Level (test code = 52022-4) 2.4 1.3-2.1 H [facility] HospitalTotal Mtuhakzjs4410-70-94 12:39:00* Test Item Value Reference Range Interpretation Comments Total Bilirubin (test code = 1975-2) 0.4 0.2-1.2 [facility] HospitalAspartate Amino Transf (AST/SGOT) 2018-08-22 12:39:00* Test Item Value Reference Range Interpretation Comments Aspartate Amino Transf (AST/SGOT) (test code = Aspartate Amino Transf (AST/SGOT)) 34 5-34 [facility] HospitalAlanine Aminotransferase (ALT/SGPT) 2018-08-22 12:39:00* Test Item Value Reference Range Interpretation Comments Alanine Aminotransferase (ALT/SGPT) (test code = 1742-6) 41 0-55 [facility] HospitalTotal Qjrzgjd9926-02-92 12:39:00* Test Item Value Reference Range Interpretation Comments Total Protein (test code = 2885-2) 8.3 6.5-8.1 H [facility] HospitalAlbumin2018-12-12 12:39:00* Test Item Value Reference Range Interpretation Comments Albumin (test code = 1751-7) 3.7 3.5-5.0 [facility] HospitalGlobulin2018-12-12 12:39:00* Test Item Value Reference Range Interpretation Comments Globulin (test code = 84024-6) 4.6 2.3-3.5 H [facility] HospitalAlbumin/Globulin Lvhlo0201-84-43 12:39:00 * Test Item Value Reference Range Interpretation Comments Albumin/Globulin Ratio (test code = 1759-0) 0.8 0.8-2.0 [facility] HospitalAlkaline Ftxzwwdjfrc1657-57-58 12:39:00* Test Item Value Reference Range Interpretation Comments Alkaline Phosphatase (test code = 6768-6) 110 40-150 [facility] HospitalWhite Blood Exxbv7327-50-24 12:17:00* Test Item Value Reference Range Interpretation Comments White Blood Count (test code = 6690-2) 7.84 4.8-10.8 [facility] HospitalRed Blood Wlhit6435-58-16 12:17:00* Test Item Value Reference Range Interpretation Comments Red Blood Count (test code = 789-8) 3.63 4.3-5.7 L [facility] HospitalHemoglobin2018-12-12 12:17:00* Test Item Value Reference Range Interpretation Comments Hemoglobin (test code = 81627-6) 11.3 14.0-18.0 L [facility] HospitalHematocrit2018-12-12 12:17:00* Test Item Value Reference Range Interpretation Comments Hematocrit (test code = 4544-3) 34.9 38.2-49.6 L [facility] HospitalMean Corpuscular Xnqeva4751-99-97 12:17:00* Test Item Value Reference Range Interpretation Comments Mean Corpuscular Volume (test code = 787-2) 96.1 81-99 [facility] HospitalMean Corpuscular Fbcugwgcrv1462-21-71 12:17:00* Test Item Value Reference Range Interpretation Comments Mean Corpuscular Hemoglobin (test code = 785-6) 31.1 28-32 [facility] HospitalMean Corpuscular Hemoglobin Concent 2018-08-22 12:17:00* Test Item Value Reference Range Interpretation Comments Mean Corpuscular Hemoglobin Concent (test code = 786-4) 32.4 31-35 [facility] HospitalRed Cell Distribution Jwiif0113-59-74 12:17:00* Test Item Value Reference Range Interpretation Comments Red Cell Distribution Width (test code = 61859-8) 14.2 11.7 -14.4 [facility] HospitalPlatelet Vryjh3362-35-36 12:17:00* Test Item Value Reference Range Interpretation Comments Platelet Count (test code = 777-3) 190 140-360 [facility] HospitalNeutrophils (%) (Auto)2018-08-22 12:17:00 * Test Item Value Reference Range Interpretation Comments Neutrophils (%) (Auto) (test code = 54518-5) 59.2 38.7-80.0 [facility] HospitalLymphocytes (%) (Auto)2018-08-22 12:17:00 * Test Item Value Reference Range Interpretation Comments Lymphocytes (%) (Auto) (test code = 736-9) 29.3 18.0-39.1 [facility] HospitalMonocytes (%) (Auto)2018-08-22 12:17:00* Test Item Value Reference Range Interpretation Comments Monocytes (%) (Auto) (test code = 5905-5) 7.8 4.4-11.3 [facility] HospitalEosinophils (%) (Auto)2018-08-22 12:17:00 * Test Item Value Reference Range Interpretation Comments Eosinophils (%) (Auto) (test code = 713-8) 2.4 0.0-6.0 [facility] HospitalBasophils (%) (Auto)2018-08-22 12:17:00* Test Item Value Reference Range Interpretation Comments Basophils (%) (Auto) (test code = 706-2) 0.9 0.0-1.0 [facility] HospitalIM GRANULOCYTES %2018-08-22 12:17:00* Test Item Value Reference Range Interpretation Comments IM GRANULOCYTES % (test code = IM GRANULOCYTES %) 0.4 0.0- 1.0 [facility] HospitalNeutrophils # (Auto)2018-08-22 12:17:00* Test Item Value Reference Range Interpretation Comments Neutrophils # (Auto) (test code = 751-8) 4.6 2.1-6.9 [facility] HospitalLymphocytes # (Auto)2018-08-22 12:17:00* Test Item Value Reference Range Interpretation Comments Lymphocytes # (Auto) (test code = 73575-6) 2.3 1.0-3.2 [facility] HospitalMonocytes # (Auto)2018-08-22 12:17:00* Test Item Value Reference Range Interpretation Comments Monocytes # (Auto) (test code = 742-7) 0.6 0.2-0.8 [facility] HospitalEosinophils # (Auto)2018-08-22 12:17:00* Test Item Value Reference Range Interpretation Comments Eosinophils # (Auto) (test code = 711-2) 0.2 0.0-0.4 [facility] HospitalBasophils # (Auto)2018-08-22 12:17:00* Test Item Value Reference Range Interpretation Comments Basophils # (Auto) (test code = 704-7) 0.1 0.0-0.1 [facility] HospitalAbsolute Immature Granulocyte (auto 2018-08-22 12:17:00* Test Item Value Reference Range Interpretation Comments Absolute Immature Granulocyte (auto (yas t code = Absolute Immature Granulocyte (auto) 0.03 0-0.1 [facility] Fcnog0637-47-34 07:42:00* Test Item Value Reference Range Interpretation Comments Sodium Level (test code = 2951-2) 136 136-145 [facility] HospitalPotassium Ettvu8102-73-14 07:42:00* Test Item Value Reference Range Interpretation Comments Potassium Level (test code = 2823-3) 5.1 3.5-5.1 [facility] HospitalChloride Vczzt8298-78-32 07:42:00* Test Item Value Reference Range Interpretation Comments Chloride Level (test code = 2075-0) 99 98-107 [facility] HospitalCarbon Dioxide Mepop7699-35-26 07:42:00* Test Item Value Reference Range Interpretation Comments Carbon Dioxide Level (test code = 2028-9) 24 22-29 [facility] HospitalAnion Vod1995-26-74 07:42:00* Test Item Value Reference Range Interpretation Comments Anion Gap (test code = 64494-2) 18.1 8-16 H [facility] HospitalBlood Urea Uwzforhc3564-41-88 07:42:00* Test Item Value Reference Range Interpretation Comments Blood Urea Nitrogen (test code = 3094-0) 38 7-26 H [facility] HospitalCreatinine2018-08-17 07:42:00* Test Item Value Reference Range Interpretation Comments Creatinine (test code = 2160-0) 3.62 0.72-1.25 H [facility] HospitalBUN/Creatinine Slrsu2561-88-33 07:42:00* Test Item Value Reference Range Interpretation Comments BUN/Creatinine Ratio (test code = 3097-3) 10 6-25 [facility] HospitalEstimat Glomerular Filtration Rate 2018-04-27 07:42:00* Test Item Value Reference Range Interpretation Comments Estimat Glomerular Filtration Rate (test code = 78448-8) 17 >60 L Ranges were taken from the National Kidney Disease Education Program and the [facility] Kid[facility] Foundation literature.Reference ranges:60 or greater: Doqjol31-65 ( for 3 consecutive months): Chronic kidney disease 15 or less: Kidney failureNortheast Baptist HospitalGlucose Hvghy5180-00-23 07:42:00* Test Item Value Reference Range Interpretation Comments Glucose Level (test code = RDI9623) 160 74-118 H [facility] HospitalCalcium Oolww9019-81-05 07:42:00* Test Item Value Reference Range Interpretation Comments Calcium Level (test code = 55312-3) 8.8 8.4-10.2 [facility] HospitalCreatine Kinase EN4392-29-89 06:18:00* Test Item Value Reference Range Interpretation Comments Creatine Kinase MB (test code = 19176-1) 1.30 0-5.0 [facility] HospitalTroponin H5080-22-59 06:18:00* Test Item Value Reference Range Interpretation Comments Troponin I (test code = KCQ6723) 0.024 0-0.300 [facility] HospitalCreatine Kinase YP5828-72-11 06:18:00* Test Item Value Reference Range Interpretation Comments Creatine Kinase MB (test code = 50114-4) 1.30 0-5.0 [facility] HospitalCreatine Qhvsgo3266-54-38 06:10:00* Test Item Value Reference Range Interpretation Comments Creatine Kinase (test code = 2157-6) 54 30-200 [facility] HospitalCreatine Ynkgcz4120-03-63 06:10:00* Test Item Value Reference Range Interpretation Comments Creatine Kinase (test code = 2157-6) 54 30-200 [facility] HospitalTriglycerides Tywlv1524-80-06 05:54:00* Test Item Value Reference Range Interpretation Comments Triglycerides Level (test code = 2571-8) 211 0-149 H [facility] HospitalCholesterol Ajivk4072-48-38 05:54:00* Test Item Value Reference Range Interpretation Comments Cholesterol Level (test code = 2093-3) 196 0-199 Less than 200 mg/dL Low Hnts396 - 239 mg/dL Borderline Kvbf802 m g/dl and greater High Risk [facility] HospitalLDL Busjiurbvxf8106-82-52 05:54:00* Test Item Value Reference Range Interpretation Comments LDL Cholesterol (test code = 2089-1) 111 60-130 [facility] HospitalHDL Nnvdewdwofh8473-76-37 05:54:00* Test Item Value Reference Range Interpretation Comments HDL Cholesterol (test code = 2085-9) 43 40-60 [facility] HospitalCholesterol/HDL Zycgu1010-97-42 05:54:00 * Test Item Value Reference Range Interpretation Comments Cholesterol/HDL Ratio (test code = 9830-1) 4.6 3.9-4.7 [facility] HospitalTriglycerides Ekcqc1600-98-88 05:54:00* Test Item Value Reference Range Interpretation Comments Triglycerides Level (test code = 2571-8) 211 0-149 H [facility] HospitalCholesterol Zyrac4630-84-60 05:54:00* Test Item Value Reference Range Interpretation Comments Cholesterol Level (test code = 2093-3) 196 0-199 Less than 200 mg/dL Low Ysje498 - 239 mg/dL Borderline Jrxb381 m g/dl and greater High Risk [facility] HospitalLDL Wbtphxjvqbx6779-95-69 05:54:00* Test Item Value Reference Range Interpretation Comments LDL Cholesterol (test code = 2089-1) 111 60-130 [facility] Lpmhopfixfl2267-19-99 05:54:00* Test Item Value Reference Range Interpretation Comments HDL Cholesterol (test code = 2085-9) 43 40-60 [facility] HospitalCholesterol/HDL Vgnfz1856-29-24 05:54:00 * Test Item Value Reference Range Interpretation Comments Cholesterol/HDL Ratio (test code = 9830-1) 4.6 3.9-4.7 [facility] HospitalUrine DVJ7405-09-52 22:29:00* Test Item Value Reference Range Interpretation Comments Urine WBC (test code = 5821-4) 6-10 0-5 H [facility] HospitalUrine MYA3459-74-58 22:29:00* Test Item Value Reference Range Interpretation Comments Urine RBC (test code = 65277-2) 0-5 0-5 [facility] HospitalUrine Kfnyuyxt4691-98-98 22:29:00* Test Item Value Reference Range Interpretation Comments Urine Bacteria (test code = 99441-5) NONE NONE [facility] HospitalUrine Epithelial Mbpew0732-53-91 22:29:00 * Test Item Value Reference Range Interpretation Comments Urine Epithelial Cells (test code = 79559-4) MODERATE NONE [facility] HospitalUrine Transitional Epithelial Cells 2018-04-26 22:29:00* Test Item Value Reference Range Interpretation Comments Urine Transitional Epithelial Cells (test code = 8249-5) MODERATE NONE [facility] Hyaline Wiptv4172-92-61 22:29:00* Test Item Value Reference Range Interpretation Comments Urine Hyaline Casts (test code = 03218-4) 15- 0-1 H [facility] CUB2461-61-79 22:29:00* Test Item Value Reference Range Interpretation Comments Urine WBC (test code = 5821-4) 6-10 0-5 H [facility] LKA2390-42-83 22:29:00* Test Item Value Reference Range Interpretation Comments Urine RBC (test code = 44754-0) 0-5 0-5 [facility] Ocwmzzma0872-19-00 22:29:00* Test Item Value Reference Range Interpretation Comments Urine Bacteria (test code = 67437-5) NONE NONE [facility] HospitalUrine Epithelial Mouwi6303-58-92 22:29:00 * Test Item Value Reference Range Interpretation Comments Urine Epithelial Cells (test code = 19986-9) MODERATE NONE [facility] Transitional Epithelial Cells 2018-04-26 22:29:00* Test Item Value Reference Range Interpretation Comments Urine Transitional Epithelial Cells (test code = 8249-5) MODERATE NONE [facility] Hyaline Kfdtj6064-56-63 22:29:00* Test Item Value Reference Range Interpretation Comments Urine Hyaline Casts (test code = 53932-0) >15 0-1 H [facility] Rntpg4807-47-23 21:59:00* Test Item Value Reference Range Interpretation Comments Urine Color (test code = 5778-6) YELLOW YELLOW [facility] Lcxhauq1556-79-96 21:59:00* Test Item Value Reference Range Interpretation Comments Urine Clarity (test code = 42889-6) CLEAR CLEAR [facility] HospitalUrine Specific Cubsuyu3432-61-20 21:59:00 * Test Item Value Reference Range Interpretation Comments Urine Specific [place] (test code = 5811-5) 1.030 1.010-1.02 5 H [facility] HospitalUrine aE2006-11-71 21:59:00* Test Item Value Reference Range Interpretation Comments Urine pH (test code = 15364-0) 6 5-7 [facility] HospitalU[facility] Leukocyte Krtlzyao5869-18-43 21:59:00* Test Item Value Reference Range Interpretation Comments Urine Leukocyte Esterase (test code = 5799-2) NEGATIVE NEGATIVE [facility] HospitalUrine Gyunwgn3301-29-53 21:59:00* Test Item Value Reference Range Interpretation Comments Urine Nitrite (test code = 24703-4) NEGATIVE NEGATIVE [facility] HospitalUrine Udmyaeu9053-36-33 21:59:00* Test Item Value Reference Range Interpretation Comments Urine Protein (test code = 5804-0) 3+ NEGATIVE H [facility] HospitalUrine Glucose (UA)2018-04-26 21:59:00* Test Item Value Reference Range Interpretation Comments Urine Glucose (UA) (test code = 2349-9) 2+ NEGATIVE H [facility] HospitalUrine Tbjncoa8651-02-51 21:59:00* Test Item Value Reference Range Interpretation Comments Urine Ketones (test code = 49356-3) TRACE NEGATIVE H [facility] HospitalUrine Gowolimmqkho1977-11-00 21:59:00* Test Item Value Reference Range Interpretation Comments Urine Urobilinogen (test code = 88819-1) 1 0.2-1 [facility] HospitalUrine Rspikspml8743-22-39 21:59:00* Test Item Value Reference Range Interpretation Comments Urine Bilirubin (test code = 1978-6) NEGATIVE NEGATIVE [facility] HospitalUrine Zlapd4328-40-79 21:59:00* Test Item Value Reference Range Interpretation Comments Urine Blood (test code = 91818-5) NEGATIVE NEGATIVE [facility] HospitalUrine Heywl8181-69-31 21:59:00* Test Item Value Reference Range Interpretation Comments Urine Color (test code = 5778-6) YELLOW YELLOW [facility] HospitalUrine Amsoqoi0817-07-66 21:59:00* Test Item Value Reference Range Interpretation Comments Urine Clarity (test code = 92703-9) CLEAR CLEAR [facility] Specific Vfrkpaj1784-26-76 21:59:00 * Test Item Value Reference Range Interpretation Comments Urine Specific [place] (test code = 5811-5) 1.030 1.010-1.02 5 H [facility] HospitalUrine lX4565-10-51 21:59:00* Test Item Value Reference Range Interpretation Comments Urine pH (test code = 85745-9) 6 5-7 [facility] HospitalU[facility] Leukocyte Feultuuq7652-64-76 21:59:00* Test Item Value Reference Range Interpretation Comments Urine Leukocyte Esterase (test code = 5799-2) NEGATIVE NEGATIVE [facility] HospitalUrine Xwmlruz0194-86-90 21:59:00* Test Item Value Reference Range Interpretation Comments Urine Nitrite (test code = 03968-4) NEGATIVE NEGATIVE [facility] HospitalUrine Eslhgcx1630-49-62 21:59:00* Test Item Value Reference Range Interpretation Comments Urine Protein (test code = 5804-0) 3+ NEGATIVE H [facility] Glucose (UA)2018-04-26 21:59:00* Test Item Value Reference Range Interpretation Comments Urine Glucose (UA) (test code = 2349-9) 2+ NEGATIVE H [facility] HospitalUrine Vjdoamt6884-20-17 21:59:00* Test Item Value Reference Range Interpretation Comments Urine Ketones (test code = 98644-4) TRACE NEGATIVE H [facility] HospitalUrine Ixmituwewdlz1544-57-33 21:59:00* Test Item Value Reference Range Interpretation Comments Urine Urobilinogen (test code = 11127-5) 1 0.2-1 [facility] HospitalUrine Racyzqvgb1642-17-67 21:59:00* Test Item Value Reference Range Interpretation Comments Urine Bilirubin (test code = 1978-6) NEGATIVE NEGATIVE [facility] HospitalUrine Qqvvj6006-26-62 21:59:00* Test Item Value Reference Range Interpretation Comments Urine Blood (test code = 04490-1) NEGATIVE NEGATIVE [facility] Vcenmam0114-84-25 21:30:00* Test Item Value Reference Range Interpretation Comments Bedside Glucose (test code = 71536-6) 265 70-120 H Meter ID: [id number] [facility] Glucose 2018-04-26 21:30:00* Test Item Value Reference Range Interpretation Comments Bedside Glucose (test code = 20307-9) 265 70-120 H Meter ID: [id number] [facility]NOT [facility])2018-04-26 18:55:00 [facility] [address] [place] [address] Patient Name: DILLAN MELCHOR MR #: [id number] : 1945 Age/Sex: 72/M Req #: [id number] Adm Physician: Ordered by: CARMINA WEAVER MD Report #: [id number] Location: ER Room/Bed: Procedure: [id number] DX/CHEST SINGLE (NOT PORTABLE ) Exam Date: [...] normal. 4. No acute bony abnormalities. Partia christiano visualized fusion hardware in the lower cervical spine. Signed by: Dr Luis Fitzpatrick M.D. on 04/26/2018 6:55 PM Dictated By: SRINIVAS Goetz MD 56 Transcribed By: MEAGHAN on 04/26/181854 COPY TO: CARMINA WEAVER MD Total Soutcfhpa3563-38-68 18:33:00* Test Item Value Reference Range Interpretation Comments Total Bilirubin (test code = 1975-2) 0.4 0.2-1.2 [facility] HospitalAspartate Amino Transf (AST/SGOT) 2018-04-26 18:33:00* Test Item Value Reference Range Interpretation Comments Aspartate Amino Transf (AST/SGOT) (test code = Aspartate Amino Transf (AST/SGOT)) 13 5-34 [facility] HospitalAlanine Aminotransferase (ALT/SGPT) 2018-04-26 18:33:00* Test Item Value Reference Range Interpretation Comments Alanine Aminotransferase (ALT/SGPT) (test code = 1742-6) 18 0-55 [facility] HospitalTotal Zmbbkfj6108-66-10 18:33:00* Test Item Value Reference Range Interpretation Comments Total Protein (test code = 2885-2) 8.7 6.5-8.1 H [facility] HospitalAlbumin2018-08-16 18:33:00* Test Item Value Reference Range Interpretation Comments Albumin (test code = 1751-7) 3.8 3.5-5.0 [facility] HospitalGlobulin2018-08-16 18:33:00* Test Item Value Reference Range Interpretation Comments Globulin (test code = 04729-6) 4.9 2.3-3.5 H [facility] HospitalAlbumin/Globulin Ojfvb4356-28-90 18:33:00 * Test Item Value Reference Range Interpretation Comments Albumin/Globulin Ratio (test code = 1759-0) 0.8 0.8-2.0 [facility] HospitalAlkaline Sztbyeyhvxh2011-11-21 18:33:00* Test Item Value Reference Range Interpretation Comments Alkaline Phosphatase (test code = 6768-6) 93 40-150 [facility] HospitalB-Type Natriuretic Sbkqloc9292-87-29 18:33:00* Test Item Value Reference Range Interpretation Comments B-Type Natriuretic Peptide (test code = 31407-1) 54.8 0-100 [facility] HospitalProthrombin Ccwf5137-03-13 18:17:00* Test Item Value Reference Range Interpretation Comments Prothrombin Time (test code = 5902-2) 13.0 11.9-14.5 [facility] HospitalProthromb Time International Ratio 2018-04-26 18:17:00* Test Item Value Reference Range Interpretation Comments Prothromb Time International Ratio (test code = 6301-6) 1.06 Oral Anticoagulant Therapy INR Values:1. Low Intensity Therapy 1.5 - 2.02 . Moderate Intensity Therapy 2.0 - 3.03. High Intensity Therapy(1) 2.5 - 3. 54. High Intensity Therapy(2) 3.0 - 4.05. Panic Value INR > 5.0 [facility] HospitalActivated Partial Thromboplast Time 2018-04-26 18:17:00* Test Item Value Reference Range Interpretation Comments Activated Partial Thromboplast Time (test code = 55349-5) 29.7 23.8-35.5 [facility] HospitalProthrombin Xnck8049-23-81 18:17:00* Test Item Value Reference Range Interpretation Comments Prothrombin Time (test code = 5902-2) 13.0 11.9-14.5 [facility] HospitalProthromb Time International Ratio 2018-04-26 18:17:00* Test Item Value Reference Range Interpretation Comments Prothromb Time International Ratio (test code = 6301-6) 1.06 Oral Anticoagulant Therapy INR Values:1. Low Intensity Therapy 1.5 - 2.02 . Moderate Intensity Therapy 2.0 - 3.03. High Intensity Therapy(1) 2.5 - 3. 54. High Intensity Therapy(2) 3.0 - 4.05. Panic Value INR > 5.0 [facility] HospitalActivated Partial Thromboplast Time 2018-04-26 18:17:00* Test Item Value Reference Range Interpretation Comments Activated Partial Thromboplast Time (test code = 70827-8) 29.7 23.8-35.5 [facility] HospitalWhite Blood Zcvbp1069-55-31 18:07:00* Test Item Value Reference Range Interpretation Comments White Blood Count (test code = 6690-2) 6.23 4.8-10.8 [facility] HospitalRed Blood Qgqxi3163-70-61 18:07:00* Test Item Value Reference Range Interpretation Comments Red Blood Count (test code = 789-8) 4.14 4.3-5.7 L [facility] HospitalHemoglobin2018-08-16 18:07:00* Test Item Value Reference Range Interpretation Comments Hemoglobin (test code = 95103-4) 13.0 14.0-18.0 L [facility]2018-[facility] 18:07:00* Test Item Value Reference Range Interpretation Comments Hematocrit (test code = 4544-3) 39.7 38.2-49.6 [facility] Corpuscular [id number] 18:07:00* Test Item Value Reference Range Interpretation Comments Mean Corpuscular Volume (test code = 787-2) 95.9 81-99 [facility] Corp[facility] Etirrucsqz5338-45-97 18:07:00* Test Item Value Reference Range Interpretation Comments Mean Corpuscular Hemoglobin (test code = 785-6) 31.4 28-32 [facility] Hemoglobin Concent 2018-04-26 18:07:00* Test Item Value Reference Range Interpretation Comments Mean Corpuscular Hemoglobin Concent (test code = 786-4) 32.7 31-35 [facility] Distribution [id number] 18:07:00* Test Item Value Reference Range Interpretation Comments Red Cell Distribution Width (test code = 56273-7) 15.4 11.7 -14.4 H [facility] HospitalPlatelet [id number] 18:07:00* Test Item Value Reference Range Interpretation Comments Platelet Count (test code = 777-3) 241 140-360 [facility]utrophils (%) (Auto)2018-04-26 18:07:00 * Test Item Value Reference Range Interpretation Comments Neutrophils (%) (Auto) (test code = 79884-5) 59.4 38.7-80.0 [facility]Lymphocytes (%) (Auto)2018-04-26 18:07:00 * Test Item Value Reference Range Interpretation Comments Lymphocytes (%) (Auto) (test code = 736-9) 29.4 18.0-39.1 [facility]ocytes (%) (Auto)2018-04-26 18:07:00* Test Item Value Reference Range Interpretation Comments Monocytes (%) (Auto) (test code = 5905-5) 7.4 4.4-11.3 [facility]Eosinophils (%) (Auto)2018-04-26 18:07:00 * Test Item Value Reference Range Interpretation Comments Eosinophils (%) (Auto) (test code = 713-8) 2.7 0.0-6.0 [facility]ophils (%) (Auto)2018-04-26 18:07:00* Test Item Value Reference Range Interpretation Comments Basophils (%) (Auto) (test code = 706-2) 0.8 0.0-1.0 [facility]IM [facility]ULOC[facility]TES %2018-04-26 18:07:00* Test Item Value Reference Range Interpretation Comments IM GRANULOCYTES % (test code = IM GRANULOCYTES %) 0.3 0.0- 1.0 [facility]Neutrophils # (Auto)2018-04-26 18:07:00* Test Item Value Reference Range Interpretation Comments Neutrophils # (Auto) (test code = 751-8) 3.7 2.1-6.9 [facility] HospitalLymphocytes # (Auto)2018-04-26 18:07:00* Test Item Value Reference Range Interpretation Comments Lymphocytes # (Auto) (test code = 90374-1) 1.8 1.0-3.2 [facility]Monocytes # (Auto)2018-04-26 18:07:00* Test Item Value Reference Range Interpretation Comments Monocytes # (Auto) (test code = 742-7) 0.5 0.2-0.8 [facility]Eosinophils # (Auto)2018-04-26 18:07:00* Test Item Value Reference Range Interpretation Comments Eosinophils # (Auto) (test code = 711-2) 0.2 0.0-0.4 [facility]Basophils # (Auto)2018-04-26 18:07:00* Test Item Value Reference Range Interpretation Comments Basophils # (Auto) (test code = 704-7) 0.1 0.0-0.1 [facility] HospitalAbsolute Immature Granulocyte (auto 2018-04-26 18:07:00* Test Item Value Reference Range Interpretation Comments Absolute Immature Granulocyte (auto (yas t code = Absolute Immature Granulocyte (auto) 0.02 0-0.1 [facility] [place] [address] Patient Name: DILLAN MELCHOR MR #: [id number] : 1 10/28/1944 Age/Sex: 71/M Req #: [id number] [facility] Physician: BRIAN DANIELS MD Ordered by: BRIAN DANIELS MD Report #: [id number] Location: ED/SURG3 Room/Bed: [facility] Procedure: [id number] IR/SPEC IAL PROCEDURE IN MEDICAL DIR Exam Date: Exam Time: REPORT STATUS: Signed Tunneled Dialysis Catheter Placement June 20 Pre-Procedure Diagnosis: End-Stage Renal Disease Post-procedure Diagno sis:End-Stage Renal Disease Supervisor Picking Crew: Beverly Matos Manager Transportation Planning: None Sed ation: Moderate sedation was provided with intravenous fentanyl and Versed. H eart rate, rhythm and oxygen saturation were monitored and real-time by a [facility] joiner interventional radiology nurse under my direct supervision. Blood press ure was monitored in 5 minute increments. 1% lidocaine was used for local ane sthesia. Total sedation time: 30 minutes Radiation Dose:60.6 cGycm2 (Dose A albaro Product) Fluoroscopy time:0.4 minutes Estimate blood loss: 10 mL Bloo d administered: None Complications: None Implants/Grafts: 16 Luxembourger 23 cm cu ffed tunneled dialysis catheter [...] was generated with voice-recognition technology. Errors in ems coordinator can occur. Please interpret accordingly an d contact a radiologist if there are any questions regarding the report. Signed by: Dr. Jania Matos M.D. on 06/22/2017 7:03 AM Dictated By: MARIANNA MATOS MD 1124 T ranscribed By: MEAGHAN on 06/27/17 9511 COPY TO: BRIAN DANIELS MD IR CONSULT [address], [place] [address] Patient Name: DILLAN MELCHOR MR #: [id number] : 1945 Age/Sex: 71/M [id number] Req #: [id number] [facility] Physician: BRIAN DANIELS MD Ordered by: DES CORNELL MD, MD Report #: [id number] Location: [facility] Room/Bed: [facility] Procedure: [id number] DX/I R CONSULT Exam Date: Exam Time: REPORT STATU S: Signed Tunneled Dialysis Catheter Placement June 20, 2017 Pre-Proc edure Diagnosis: End-Stage Renal Disease Post-procedure Diagnosis:End-Stage Re nal Disease Supervisor Picking Crew: Beverly Matos Manager Transportation Planning: None Sedation: Moderate sedation was provided with [...] Blood administered: None Complications: None Implants/Grafts: 16 Luxembourger 23 cm cuffed tunneled di alysis catheter [...] generated with voice-recognition technology. Erro rs in ems coordinator can occur. Please interpret accordingly and contact a radi ologist if there are any questions regarding the report. Signed by: Dr. Sidra Matos M.D. on 06/22/2017 7:03 AM Dictated By: JANIA MATOS MD 1124 Transcribed By: Issac CANALES on 06/27/17 1124 COPY TO: DES CORNELL CT FOOT LEFT WO [place] [address] Patient Name: DILLAN MELCHOR MR #: [id number] : 1 10/28/1944 Age/Sex: 71/M Req #: [id number] Adm Physician: BRIAN DANIELS MD Ordered by: EMMIE MONREAL DPLeoncio Report #: [id number] Locatio n: MED/SURG3 Room/Bed: [facility] Procedure: [id number] CT/ CT FOOT LEFT WO Exam Date: [...] COPY TO: EMMIE MONREAL DPM IR CONSULT [place] [address] Patient Name: DILLAN MELCHOR MR #: [id number] : 1 10/28/1944 Age/Sex: 71/M Req #: [id number] Adm Physician: BRIAN DANIELS MD Ordered by: ANTWAN MENSAH, DES MENSAH Report #: [id number] Location : MED/SURG3 Room/Bed: [facility] Procedure: [id number] DX/I R CONSULT Exam Date: Exam Time: REPORT STATU S: Signed PROCEDURE: NON-TUNNELLED CVC CATH PLACMNT COMPARISON: Chest r adiograph 06/04/2017. INDICATIONS: End-stage renal disease Supervisor Picking Crew: Luis Felipe Duarte M.D. Total fluoroscopy time: 0.7 minutes Air Kerma: 19.2 mGy Cont rast used: Zero Blood products administered: None Specimens: None Implants /grafts: 13 Luxembourger 15 cm triple-lumen high flow central venous [...] was dilated. Then, a 15 cm, 13 Luxembourger triple lumen central venous catheter was advanced [...] CONCLUSION: Suc cessful placement of a 13 Luxembourger, 15 cm triple-lumen high flow central venous catheter (Trialysis catheter) by a right internal jugular approach under son ographic and fluoroscopic guidance. Dictated by: aBo Duarte M.D. on 017 at 13:31 Electronically approved by: Bao Duarte M.D. on 06/14/2017 at 13:31 Dictated By: BAO DUARTE MD 1331 Transcribed By: IVETT on 06/14/17 1331 COPY TO: DES CORNELL NON-TUNNELLED CVC CATH PLACMNT [place] [address] Patient Name: DILLAN MELCHOR MR #: [id number] : 1945 Age/Sex: 71/M Req #: [id number] Adm Physician: BRIAN DANIELS MD Ordered by: ANTWAN MENSAH, DES MENSAH Report #: [id number] Location : MED/SURG3 Room/Bed: [facility] Procedure: [id number] IR/N ON-TUNNELLED CVC CATH PLACMNT Exam Date: 06/14/17 Ex am Time: 1245 REPORT STATUS: Signed PROCEDURE: NON-TUNNELLED CVC CATH PLACMNT COMPARISON: Chest radiograph 06/04/2017. INDICATIONS: End-stage re nal disease Supervisor Picking Crew: Bao Duarte M.D. Total fluoroscopy time: 0.7 pablo yas Air Kerma: 19.2 mGy Contrast used: Zero Blood products administered: N one Specimens: None Implants/grafts: 13 Luxembourger 15 cm triple-lumen high flow central venous [...] was dilated. Then, a 15 cm, 13 Luxembourger triple lumen central venous catheter was advanced [...] . CONCLUSION: Successful placement of a 13 Luxembourger, 15 cm triple-l umen high flow central venous catheter (Trialysis catheter) by a right legal summer intern al jugular approach under sonographic and fluoroscopic guidance. Dictated by: Bao Duarte M.D. on 06/14/2017 at 13:31 Electronically approved by: Bao Duarte M.D. on 06/14/2017 at 13:31 Dictated By: BAO GRAF MD 1331 Transcribed By: IVETT on 06/14/17 1331 COPY TO: DES CORNELL FLUORO GUIDANCE [address]/REM [place] [address] Patient Name: DILLAN MELCHOR MR #: [id number] : 1945 Age/Sex: 71/M Req #: [id number] Adm Physician: BRIAN DANIELS MD Ordered by: DES CORNELL MD, MD Report #: [id number] Location: MED/SURG3 Room/Bed: [facility] Procedure: [id number] DX/F LUORO GUIDANCE [address]/REM Exam Date: 06/14/17 Ex am Time: 1245 REPORT STATUS: Signed PROCEDURE: NON-TUNNELLED CVC CATH PLACMNT COMPARISON: Chest radiograph 06/04/2017. INDICATIONS: End-stage re nal disease Supervisor Picking Crew: Bao Duarte M.D. Total fluoroscopy time: 0.7 pablo yas Air Kerma: 19.2 mGy Contrast used: Zero Blood products administered: N one Specimens: None Implants/grafts: 13 Luxembourger 15 cm triple-lumen high flow central venous [...] was dilated. Then, a 15 cm, 13 Luxembourger triple lumen central venous catheter was advanced [...] . CONCLUSION: Successful placement of a 13 Luxembourger, 15 cm triple-l en high flow central venous catheter (Trialysis catheter) by a right legal summer intern al jugular approach under sonographic and fluoroscopic guidance. Dictated by: Bao Duarte M.D. on 06/14/2017 at 13:31 Electronically approved by: Bao Duarte M.D. on 06/14/2017 at 13:31 Dictated By: BAO GRAF MD 1331 Transcribed By: IVETT on 06/14/171330 COPY TO: DES CORNELL GUIDANCE FOR VASCULAR ACCES [place] [address] Patient Name: DILLAN MELCHOR MR #: [id number] : 1945 Age/Sex: 71/M Req #: [id number] Adm Physician: BRIAN DANIELS MD Ordered by: DES CORNELL MD, MD Report #: [id number] Location: MED/SURG3 Room/Bed: [facility] Procedure: [id number] US/U S GUIDANCE FOR VASCULAR ACCES Exam [...] 13:31 Dictated By: LUIS FELIPE DUARTE MD 30 Trans cribed By: IVETT on 06/14/171330 COPY TO: DES CORNELL RENAL RETROPERITONEAL COMP [place] [address] Patient Name: DILLAN MELCHOR MR #: [id number] : 1945 Age/Sex: 71/M Req #: [id number] [facility] Physician: BRIAN DANIELS MD Ordered by: BRIAN DANIELS MD Report #: [id number] Location: MED/SURG3 Room/Bed: [facility] Procedure: [id number] US/US R ENAL RETROPERITONEAL COMP Exam Date: [...] 44 COPY TO: BRIAN DANIELS MD CHEST [facility] (PORTABLE) [place] [address] Patient Name: DILLAN MELCHOR MR #: [id number] : 1945 Age/Sex: 71/M Req #: [id number] [facility] Physician: Ordered by: RUTHY LOGAN MD Report #: [id number] Location: ER Room/Bed: Procedure: [id number] DX/CHEST SINGLE (PORTABLE) E xam Date: 06/04/17 Exam Time: 1819 REPORT STATU S: Signed Examination: Single AP [...]
--- OUTSIDE RECORDS SUMMARY | 2020-06-07 16:44 | XMS REPORT | Continuity of Care Document ---
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 Role Phone [employer] Unavailable Un available Problems Problem Status Onset Date Classification Date Reported Comments Source Anemia in chronic kidney disease Active Problem eCW: Landry Egan Hyperlipidemia Active Problem 12/13/2019 eCW: Landry Egan Chronic kidney disease, stage 3 (moderate) Active Problem 06/03/2020 eCW: Landry Egan Kidney failure Active Problem 12/13/2019 eCW: Landry Egan CVA (cerebral infarction) Acti ve Diagnosis 0 06/03/2020 eCW: Landry Egan Combined hyperlipidemia Active Diagnosis 06/03/2020 eCW: Landry Egan CAD (coronary artery disease) Active Problem eCW: Landry Egan Benign essential hypertension Active Problem eCW: Landry Egan Hypogonadism in male Active Diagnosis 06/03/2020 eCW: Landry Egna Diabetes mellitus out of control Active Problem eCW: Landry Egan Erectile dysfunction Active Diagnosis 06/03/2020 eCW: Landry Egan Generalized osteoarthritis Act richard Diagnosis 0 06/03/2020 eCW: Landry Egan Diabetic peripheral neuropathy Active Problem 11/2019 eCW: Landry Egan Patient's noncompliance with other medic al treatment and regimen Active Diag nosis 01/15/2019 eCW: Landry Egan Patient's noncompliance with dietary regimen Active Problem 06/03/2020 eCW: Landry Egan Type 2 diabetes mellitus with diabetic polyneuropathy Active Problem 06/03/2020 eCW: Landry Egan Chronic kidney disease, stage 5 Active Problem eCW: Landry Egan Diabetes mellitus with peripheral vascular disease Active Problem 06/03/2020 eCW: Landry Egan Medications Medication Details Route Status Patient Instructions Ordering Provider Order Date Source BD Ultra-Fine Pen Needle Angie [id number] - SQ Active - SQ 3 TIMES A DAY 07/11/2020 eCW: Landry Johnston Touch Verio Gold Test Strips as directed check blood sugars Active - check blood sugars 2 TIMES A DAY 07/11/2020 eCW: Landry Egan Atorvastatin Calcium 1 tab(s) orally Active 40 mg orally once a day 07/11/2020 eCW: Landry Johnston Touch Delica Plus Lancet - as directed Active - as directed 2 TIMES A DAY 01/13/2020 eCW: Landry Egan Novolin R 15 units subcutaneously Active human recombinant 100 units/mL subcutaneously 2 TIMES A DAY 12/12/2019 eCW: Landry Egan BD Ultra-Fine Pen Needle Angie [id number] - SQ Active - SQ 3 TIMES [...] 3 times a day 10/14/2019 eCW: Landry Johnston Touch Verio Gold Test Strips as directed check blood sugars Active - check blood sugars 2 TIMES A DAY 07/19/2019 eCW: Landry Egan BD Insulin Syringe 0.3cc 31g 6mm - subcutaneously Active 31G 4mm subcutaneously 2 TIMES A DAY 07/19/2019 eCW: Landry Egan Tresiba 200 u/ml 50 units Subcutaneous Active 200 u/ml Subcutaneous QD 07/19/2019 eCW: Landry Egan Tresiba 200 u/ml 44-50 units Subcutaneous Active 200 u/ml Subcutaneous QD 06/04/2019 eCW: Landry Egan Tresiba 200 u/ml 44 units Subcutaneous Active 200 u/ml Subcutaneous QD 02/09/2019 eCW: Landry Egan Victoza 1.2 mg [...] subcutaneously once a week 05/11/2018 eCW: Landry Jamesity Pen 0.75 mg subcutaneously Active 0.75 mg/0.5 mL subcutaneously once a week 05/11/2018 eCW: Landry Egan Tresiba 200 u/ml 44 units Subcutaneous Active 200 u/ml Subcutaneous QD 03/05/2018 eCW: Landry Orantesus Solostar Pen 44 units subcutaneously Active 100 units/ml subcutaneously qd 03/05/2018 eCW: Landry Owenson BCise 2 mg subcutaneously Active 2 mg/0.85 mL subcutaneously once a week 03/05/2018 eCW: Landry Egan Trulicity Pen 1.5 mg subcutaneously Active 1.5 mg/0.5 mL subcutaneously once a week Jignesh 02/28/2018 eCW: Landry Egan Trulicity Pen 0.75 mg subcutaneously Active 0.75 mg/0.5 mL subcutaneously once a week 02/28/2018 eCW: aLndry Egan repaglinide 1 tab(s) orally Active 2 mg orally 3 times a d ay (before meals) 02/13/2018 eCW: Landry Egan Humalog KwikPen 30 unit subcutaneously Active 100 units/ml subcutaneously 2 TIMES A DAY AC Jignesh 02/01/2018 eCW: Landry Egan BD Ultra-Fine Pen Needle Angie [id number] - SQ Active - SQ 3 TIMES A DAY 10/11/2017 eCW: Landry Egan Lantus 20 units subcutaneously Active 100 units/mL subcutaneo usly daily QHS Jignesh 05/12/2017 eCW: Landry Egan Tresiba 200 u/ml 44 units Subcutaneous Active 200 u/ml Subcutaneous QD Jignesh 05/12/2017 eCW: Landry Egan Tresiba 200 u/ml 44 units Subcutaneous Active 200 u/ml Subcutaneous QD [facility]05/12/2017 eCW: Landry Egan Basaglar KwikPen 3 ml as direc shkiha 20 units Active 100U/ml 20 units QHS Jignesh 04/11/2017 eCW: Landry Egan Fish Oil 1 cap(s) orally Active 1000 mg orally 3 times a day [facility]04/11/2017 eCW: Landry Egan Basaglar KwikPen 3 ml as direc shikha 20 units Active 100U/ml 20 units QHS [facility]04/11/2017 eCW: Landry Egan Victoza 1.2 mg subcutaneously Active 18 mg/3 mL subcutaneous ly once a day 10/03/2016 eCW: Landry gEan Tresiba 200 u/ml as directed Subcutaneous Active [...] Landry Egan BD Ultra-Fine Pen Needle Angie [id number] USE SUBCUTANEOUSLY 3 VECES AL HADLEY NA Active - Jignesh eCW: Landry Egan repaglinide 1 tab(s) orally Active 2 mg orally 3 times a d ay (before meals) Jignesh eCW: Landry Egan Levemir FlexTouch 30 units subcutaneously No Longer Active 100 units/mL subcutaneously bid Jignesh eCW: Landry Egan Novolin R 15 units subcutaneously Active human recombinant 100 units/mL subcutaneously 2 TIMES A DAY Jignesh eCW: Landry Egan Novolin R 25 units subcutaneously Active human recombinant 100 units/mL subcutaneously bid Jignesh eCW: Landry Egan BD Insulin Syringe 0.3cc 31g 6mm - subcutaneously Active 31G 4mm subcutaneously 2 TIMES A DAY Jignesh eCW: Landry Egan Plavix 1 tab(s) orally Active 300 mg orally once Jignesh eC W: Landry Egan carvedilol 1 tab(s) orally Active 12.5 mg orally 2 times a day Jignesh eCW: Landry Egan Novolin R 15 units subcutaneously Active human recombinant 100 units/mL subcutaneously bid Jignesh eCW: Landry Egan One Touch Verio Gold Test Strips as directed check blood sugars Active - check blood sugars 2 TIMES A DAY Jignesh eCW: Landry Egan One Touch Delica Plus Lancet - as directed Active - as directed 2 TIMES A DAY Jignesh eCW: Landry Egan Atorvastatin Calcium 1 tab(s) orally Active 40 mg orally once a day Jignesh eCW: Landry Egan Allergies, Adverse Reactions, Alerts Substance Category Reaction Severity Reaction type Status Date Reported Comments Source N.K.D.A. Adverse Reaction Info Not Available Adverse Reaction 04/13/2020 eCW: Landry Egan Immunizations No Data Provided for This Section [...] Vital Sign Value Date Comments Source Weight 210 04/13/2020 eCW: Landry Egan Height 70 0 04/13/2020 eCW: Landry Egan Weight 210 01/13/2020 eCW: Landry Egan Height 70 0 01/13/2020 eCW: Landry Egan Weight 217 10/14/2019 eCW: Landry Egan Height 70 0 10/14/2019 eCW: Landry Egan Diastolic (mm Hg) 67 10/14/2019 eCW: Landry Egan Systolic (mm Hg) 154 10/14/2019 eCW: Landry Egan Weight 208 06/13/2019 eCW: Landry Egan Height 70 1 eCW: Landry Egan Diastolic (mm Hg) 82 06/13/2019 eCW: Landry Egan Systolic (mm Hg) 172 06/13/2019 eCW: Landry Egan Weight 210 12/06/2018 eCW: Landry Egan Height 70 0 12/06/2018 eCW: Landry Egan Diastolic (mm Hg) 78 12/06/2018 eCW: Landry Egan Systolic (mm Hg) 172 12/06/2018 eCW: Landry Egan Weight 210 08/13/2018 eCW: Landry Egan Height 70 1 10/14/2017 eCW: Landry Egan Diastolic (mm Hg) 80 08/13/2018 eCW: Landry Egan Systolic (mm Hg) 130 08/13/2018 eCW: Landry Egan Weight 206 05/11/2018 eCW: Landry Egan Height 70 0 05/11/2018 eCW: Landry ÁlvarezJignesh Diastolic (mm Hg) 76 05/11/2018 eCW: Landry ÁlvarezJignesh Systolic (mm Hg) 142 05/11/2018 eCW: Landry ÁlvarezJignesh Weight 204 02/28/2018 eCW: Landry Abernathyta Height 70 0 02/28/2018 eCW: Landry ÁlvarezJignesh Diastolic (mm Hg) 70 02/28/2018 eCW: Landry ÁlvarezJignesh Systolic (mm Hg) 140 02/28/2018 eCW: Landry ÁlvarezJignesh Weight 204 11/29/2017 eCW: Landry Abernathyta Height 70 0 11/29/2017 eCW: Landry Abernathyta Diastolic (mm Hg) 80 11/29/2017 eCW: Landry ÁlvarezJignesh Systolic (mm Hg) 130 11/29/2017 eCW: Landry ÁlvarezJignesh Weight 204 09/29/2017 eCW: Landry Egan Height 70 0 09/29/2017 eCW: Landry Jignesh Diastolic (mm Hg) 60 09/29/2017 eCW: Landry ÁlvarezJignesh Systolic (mm Hg) 110 09/29/2017 eCW: Landry ÁlvarezJignesh Weight 219 04/11/2017 eCW: Landry Egan Height 70 0 04/11/2017 eCW: Landry ÁlvarezJignesh Diastolic (mm Hg) 80 04/11/2017 eCW: Landry ÁlvarezJignesh Systolic (mm Hg) 125 04/11/2017 eCW: Landry ÁlvarezJignesh Weight 224 01/03/2017 eCW: Landry Egan Height 70 0 01/03/2017 eCW: Landry ÁlvarezJignesh Diastolic (mm Hg) 70 01/03/2017 eCW: Landry ÁlvarezJignesh Systolic (mm Hg) 120 01/03/2017 eCW: Landry ÁlvarezJignesh Weight 228 10/03/2016 eCW: Landry Abernathyta Height 70 0 10/03/2016 eCW: Landry Jignesh Diastolic (mm Hg) 76 10/03/2016 eCW: Landry ÁlvarezJignesh Systolic (mm Hg) 126 10/03/2016 eCW: Landry ÁlvarezJignesh Weight 221 08/22/2016 eCW: Landry Abernathyta Height 70 1 10/23/2015 eCW: Landry ÁlvarezJignesh Diastolic (mm Hg) 70 08/22/2016 eCW: Landry Jignesh Systolic (mm Hg) 124 08/22/2016 eCW: Landry Jignesh Weight 217 07/25/2016 eCW: Landry Egan Height 70 1 09/24/2015 eCW: Landry Egan Diastolic (mm Hg) 66 07/25/2016 eCW: Landry Egan Systolic (mm Hg) 150 07/25/2016 eCW: Landry Egan Encounters Location Location Details Encounter Type Encounter Number Reason For Visit Attending Provider ADM Date DC Date Status Source Landry Egan MD DM Cons [id number] 07/25/2016 07/25/2016 eCW: Landry Walker MD Cons [id number] 07/25/2016 07/25/2016 eCW: Landry Walker MD DM Cons [id number] 07/25/2016 07/25/2016 eCW: Landry Walker MD DM Cons [id number] 07/25/2016 07/25/2016 eCW: Landry Walker MD CGMs Disc [id number] 08/01/20 16 08/01/2016 eCW: Landry Walker MD CGMs Disc [id number] 08/01/20 16 08/01/2016 eCW: Landry Walker MD CGMs Disc [id number] 08/01/20 16 08/01/2016 eCW: Landry Walker MD CGMS Results [id number] 08/22/20 16 08/22/2016 eCW: Landry Walker MD CGMS Results [id number] 08/22/20 16 08/22/2016 eCW: Landry Walker MD x dm [id number] 10/03/2016 10/03/2016 eCW: Landry Egan Procedures No Data Provided for This Section Assessment and Plan No Data Provided for This Section Plan of Care No Data Provided for This Section Social History Social History Date Source Social History ElementQualifiersDate Rep orted Language: . Lithuanian Oct 03, 2016 Marital Status: single. Oct [...]
--- OUTSIDE RECORDS SUMMARY | 2020-06-07 16:46 | XMS REPORT | Clinical Summary ---
Author Author MARIANNE [facility] Organization [facility] Address Unknown Phone Unavailable Care Team Providers Care Bead Trimmer Name Role Phone Abhi Zhang MD PCP [...] AETNA - MEDICARE MGD CARE AETNA xxxxxxxx [facility] [phone] [address] [place] [address] [address] [place] [address]- [phone] Advance Directives For more information, please contact: [facility] [address] [place] [address] Date Inactivated Comments Code Status [...]
--- OUTSIDE RECORDS SUMMARY | 2020-06-07 16:46 | XMS REPORT | Continuity of Care Document ---
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 [employer] Name Role Phone [employer] Information [employer] Unavailable Un available Problems Problem [...] male Active Diagnosis 06/03/2020 eCW: Landry Egan Diabetes mellitus out of control Active Problem [...] Date Source BD Ultra-Fine Pen Needle Angie [id number] - SQ Active - SQ 3 TIMES [...] Landry Egan BD Ultra-Fine Pen Needle Angie [id number] - SQ Active - SQ 3 TIMES [...] ly once a day 10/14/2019 eCW: Landry Eagn sevelamer hydrochloride 2 tab( s) orally Active [...] once a week 02/28/2018 eCW: Landry Egan repaglinide 1 tab(s) orally Active 2 mg orally 3 times a d ay (before meals) 02/13/2018 eCW: Landry Egan Humalog KwikPen 30 unit subcutaneously Active 100 units/ml subcutaneously 2 TIMES A DAY AC Jignesh 02/01/2018 eCW: Landry Egan BD Ultra-Fine Pen Needle Angie 29hk9hl - SQ Active - SQ 3 TIMES A DAY 10/11/2017 eCW: Landry Egan Lantus 20 units subcutaneously Active 100 units/mL subcutaneo usly daily QHS Jignesh 05/12/2017 eCW: Landry Egan Tresiba 200 u/ml 44 units Subcutaneous Active 200 u/ml Subcutaneous QD Jignesh 05/12/2017 eCW: Landry Egan Tresiba 200 u/ml 44 units Subcutaneous Active 200 u/ml Subcutaneous QD [facility]05/12/2017 eCW: Landry Egan Basaglar KwikPen 3 ml as direc shikha 20 units Active 100U/ml 20 units QHS Jignesh 04/11/2017 eCW: Landry Egan Fish Oil 1 cap(s) orally Active 1000 mg orally 3 times a day [facility]04/11/2017 eCW: Landry Egan Basaglar KwikPen 3 ml as direc shikha 20 units Active 100U/ml 20 units QHS [facility]04/11/2017 eCW: Landry Egan Victoza 1.2 mg [...] Landry Egan BD Ultra-Fine Pen Needle Angie 75ux4wa USE SUBCUTANEOUSLY 3 VECES AL HADLEY NA [...] ÁlvarezJignesh Systolic (mm Hg) 120 01/03/2017 eCW: Ladnry ÁlvarezJignesh Weight 228 10/03/2016 eCW: Landry Abernathyta [...] Status Source Landry Egan MD DM Cons [id number] 07/25/2016 07/25/2016 eCW: Landry Walker MD Cons [id number] 07/25/2016 07/25/2016 eCW: Landry Walker MD DM Cons [id number] 07/25/2016 07/25/2016 eCW: Landry Walker MD DM Cons [id number] 07/25/2016 07/25/2016 eCW: Landry Walker MD CGMs Disc [id number] 08/01/20 16 08/01/2016 eCW: Landry Walker MD CGMs Disc [id number] 08/01/20 16 08/01/2016 eCW: Landry Walker MD CGMs Disc [id number] 08/01/20 16 08/01/2016 eCW: Landry Walker MD CGMS Results [id number] 08/22/20 16 08/22/2016 eCW: Landry Walker MD CGMS Results [id number] 08/22/20 16 08/22/2016 eCW: Landry Walker MD x dm [id number] 10/03/2016 10/03/2016 eCW: Landry Egan Procedures No Data Provided for This Section Assessment and Plan No Data Provided for This Section Plan of Care No Data Provided for This Section Social History Social History Date Source Social History ElementQualifiersDate Rep orted Language: . Faroese Oct 03, 2016 Marital Status: single. Oct 03, 2016 Caffeine: yes. frequency:, 1 c/day Oct 03, 2016 Exercise: no. Oct 03, 2016 Smoking/Tobacco Use: no. Patient is a: Never Smoker Oct 03, 2016 Alcohol: socially. 6 beers per day Oct 03, 2016 Occupation: unemployed. Retired Oct 03, 2016 10/03/2016 eCW: Landry Eagn Family History No Data Provided for This Section Advance Directives No Data Provided for This Section Functional Status No Data Provided for This Section
--- OUTSIDE RECORDS SUMMARY | 2020-06-07 16:47 | XMS REPORT | Continuity of Care Document ---
Author Author [facility] t Organization [facility] Address [address] [place] [address] Phone Unavailable Care Team Providers Care Loom Repairer Name Role Phone MD Issac DUBON MD PCP DANNA ANDERS Attphys Unavailable CATHIE, Da JORY Attphys Unavailable OWENBessie GREEN Attphys Unavailable BRIAN DANIELS Attphys Unavailable BRIAN DANIELS Admphys Unavailable Payers Payer Name Policy Type Policy Number Effective Date Expiration Date S shiela [employer] Medicare Replacement NA 2015 [facility] Condition Name Condition Details Condition Category Status Onset Date Resolution Date Last Treatment Date Treating Clinician Comments Source Benign hypertension with chronic kidney disease, 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 r Chronic kidney disease, stage 3 Chronic kidney disease, stage 3 Dis ease Active 2016-05-10 00:00:00 [facility] Diabetes mellitus type 2, uncontrolled, with complicat ions Diabetes mellitus type 2, uncontrolled, with complications Disease Active 2016-05-10 00:00: 00 [facility] r Pacemaker Pacemaker Disease Active 2016-05-05 00:00:00 [facility] Acute ischemic stroke Acute ischemic stroke Disease Active 201 02-17-24 00:00:00 [facility] S/P CABG x 3 S/P CABG x 3 Disease Active 2015-12-01 00:00:00 [facility] CAD (coronary artery disease) CAD (coronary artery disease) Disease Active 2015-11-30 00:00:00 [facility] Chest pain Chest pain Problem Active [facility] End-stage renal disease ESRD (end stage renal disease) [facility] Hyperkalemia Hyperkalemia Problem [facility] Diarrhea Problem [facility] Anemia in chronic kidney disease Anemia in chronic kidney disease Active Problem 06/03/2020 eCW: Landry Egan Problem Active 2020-06-03 02:00:58 [facility] Hyperlipidemia Hype rlipidemia Active Problem 12/13/2019 eCW: Landry Egan Problem Active 2019-12-13 02:00:13 [facility] Chronic kidney disease, stage 3 (moderate) Chronic kidney disease, stage 3 (moderate) Active Problem 06/03/2020 eCW: Landry Egan Problem Active 2020-06-03 02:00:58 [facility] Kidney failure Kidn ey failure Active Problem 12/13/2019 eCW: Landry Egan Problem Active 2019-12-13 02:00:13 Bella Melendez CVA (cerebral infarction) CVA (cerebral infarction) Active Diagnosis 06/03/2020 eCW: Landry Egan Diagnosis Active 2020-06-03 02:00:58 [facility] Combined hyperlipidemia Comb ined hyperlipidemia Active Diagnosis 06/03/2020 eCW: Landry Egan Diagnosis Active 2020-06-03 02:00:58 Bella Melendez CAD (coronary artery disease) CAD (coronary artery disease) Active Problem 06/03/2020 eCW: Landry Egan Problem Active 2020-06-03 02:00:58 [facility] Benign essential hypertension Benign essential hypertension Active Problem 06/03/2020 eCW: Landry Egan Problem Active 2020-06-03 02:00:58 Bella Melendez Hypogonadism in male Hypo gonadism in male Active Diagnosis 06/03/2020 eCW: Landry Egan Diagnosis Active 2020-06-03 0 2:00:58 [facility] Diabetes mellitus out of control Diabetes [...] N.K.D.A. Active Info Not Available 2020-04-13 00:00:00 [facility] No Known Allergies DA Active U 2017-07-27 00:00:00 [facility] Social History Social Habit Start Date Stop Date Quantity Comments Source History SDOH Alcohol Binge [facility] Sex Assigned At [facility] History SDOH Alcohol Frequency 2018-07-18 00:00:00 2018-07-18 00:00:0 0 3 [facility] History SDOH Alcohol Std Drinks 2018-07-18 00:00:00 2018-07-18 00:00: 00 1 [facility] Language: 2016-10-03 00:00:00 2016-10-03 00:00:00 [facility] History of tobacco use 2008-07-18 00:00:00 Current smoker [facility] Smoking Status Start Date Stop Date Source Former smoker 2018-09-26 00:00:00 2018-09-26 00:00:00 [facility] Medications Ordered Medication Name Filled Medication Name Start Date Stop Da te Current Medication? Ordering Clinician Indication Dosage Frequency Signature (SIG) Comments Components Source Victoza 2020-06-03 02:00:58 Yes Sidra Egan 1.2 mg [facility] Tresiba 200 u/ml 2020-06-03 02:00:58 Yes Sidra Egan 50 units [facility] BD Ultra-Fine Pen Needle Angie [id number] 2020-06-03 02:00:58 Yes Sidra Egan USE SUBCUTANEOUSLY 3 VECES AL [place] [facility] Novolin R 2020-06-03 02:00:58 Yes Sidra Egan 15 units [facility] Novolin R 2020-06-03 02:00:58 Yes Sidra Egan 25 units [facility] BD Insulin Syringe 0.3cc 31g 6mm 2020-06-03 02:00:58 Yes Sidra Egan - [facility] Plavix 2020-06-03 02:00:58 Yes Sidra Egan 1 tab(s) [facility] carvedilol 2020-06-03 02:00:58 Yes Sidra Egan 1 tab(s) [facility] One Touch Verio Gold Test Strips 2020-06-03 02:00:58 Yes Sidra Egan as directed [facility] One Touch Delica Plus Lancet 2020-06-03 02:00:58 Yes Sidra Egan - [facility] Atorvastatin Calcium 2020-06-03 02:00:58 Yes Sidra Egan 1 tab(s) [facility] Novolin R 2020-02-12 02:07:45 Yes Sidra Egan 15 units [facility] One Touch Delica Plus Lancet 2020-01-13 00:00:00 Yes Sidra Egan - [facility] Novolin R 2019-12-12 00:00:00 Yes Sidra Egan 15 units [facility] repaglinide 2019-11-19 02:03:58 Yes Sidra Egan 1 tab(s) [facility] BD Ultra-Fine Pen Needle Angie [id number] 2019-10-27 00:00:00 Yes Sidra Egan [facility] sucralfate 2019-10-14 00:00:00 Yes Sidra Egan 1 tab(s) [facility] Plavix 2019-10-14 00:00:00 Yes Sidra Egan 1 tab(s) [facility] pantoprazole 2019-10-14 00:00:00 Yes Sidra Egan 1 tab(s) [facility] glipiZIDE extended release 2019-10-14 00:00:00 Yes Sidra Egan 1 tab(s) [facility] carvedilol 2019-10-14 00:00:00 Yes Sidra Egan 1 tab(s) [facility] Atorvastatin Calcium 2019-10-14 00:00:00 Yes Sidra Egan 1 tab(s) [facility] Novolin R 2019-10-14 00:00:00 Yes Sidra Egan 15 units [facility] Victoza 2019-10-14 00:00:00 Yes Sidra Egan 1.8 mg [facility] sevelamer hydrochloride 2019-10-14 00:00:00 Yes Sidra Whitehead 2 tab(s) [facility] One Touch Verio Gold Test Strips 2019-07-19 00:00:00 Yes Sidra Egan as directed [facility] BD Insulin Syringe 0.3cc 31g 6mm 2019-07-19 00:00:00 Yes Sidra Egan [facility] Tresiba 200 u/ml 2019-07-19 00:00:00 Yes Sidra Egan 50 units [facility] Tresiba 200 u/ml 2019-06-04 00:00:00 Yes Denise Phongsy 44-50 units [facility] Tresiba 200 u/ml 2019-02-09 00:00:00 Yes Sidra Egan 44 units [facility] Victoza 2018-12-06 00:00:00 Yes Denise Phongsy 1. 2 mg [facility] Tresiba 200 u/ml 2018-11-07 00:00:00 Yes Denise Phongsy 40 units [facility] Famotidine (Pepcid) 20 Mg TABLET Famotidine (Pepcid) 20 Mg T ABLET 2018-08-22 12:17:00 Yes 20 [facility] Ondansetron Hcl (Zofran*) 4 Mg TABLET Ondansetron Hcl (Zofra n*) 4 Mg TABLET 2018-08-22 12:17:00 Yes 4 Every 6 Hours as n eeded for Nausea [facility] Novolin R 2018-08-13 00:00:00 Yes Sidra Egan 10-15 units [facility] repaglinide (PRANDIN) 2 MG tablet 2018-07-18 14:22:58 Yes 2mg Take 2 mg by mouth 3 (three) times daily before meals. [facility] simvastatin (ZOCOR) 20 MG tablet 2018-07-18 14:22:58 Yes 20mg QD Take 20 mg by mouth nightly. [facility] liraglutide 0.6 mg/0.1 mL (18 mg/3 mL) PnIj 2018-07-18 14:22:58 Yes 40mg Inject 40 mg subcutaneously. [facility] insulin degludec (TRESIBA FLEXTOUCH U-200) 200 unit/mL (3 mL ) InPn 2018-07-18 14:22:58 Yes 50U Inject 50 Units subcutaneousl y. [facility] Victoza 2018-05-11 00:00:00 Yes Denise Phongsy 0. 60 mg [facility] Trulicity Pen 2018-05-11 00:00:00 Yes Denise Phongsy 1.5 mg [facility] Trulicity Pen 2018-05-11 00:00:00 Yes Denise Phongsy 0.75 mg [facility] Aspirin Aspirin 2018-04-27 08:32:00 Yes 81 Daily [facility] Famotidine (Pepcid) 20 Mg TABLET Famotidine (Pepcid) 20 Mg T ABLET 2018-04-27 08:32:00 Yes 20 [facility] Metoprolol Tartrate Metoprolol Tartrate 2018-04-27 08:32:00 Yes 25 Every 12 Hours [facility] Simvastatin Simvastatin 2018-04-27 08:32:00 Yes 40 T grady At 9:00PM [facility] Tresiba 200 u/ml 2018-03-05 00:00:00 Yes Sidra Abernathyta 44 units [facility] [place] Lantus Solostar Pen 2018-03-05 00:00:00 Yes Denise Phongsy 44 units [facility] Bydureon BCise 2018-03-05 00:00:00 Yes Denise Phongsy 2 mg [facility] Trulicity Pen 2018-02-28 00:00:00 Yes Sidra Álvarezvaleta 1.5 mg [facility] Trulicity Pen 2018-02-28 00:00:00 Yes Sidra Álvarezvaleta 0.75 mg [facility] Humalog KwikPen 2018-02-23 02:09:57 Yes Denise Phongsy 20 units [facility] NovoLog 2018-02-23 02:09:57 Yes Denise Phongsy 30 unit [facility] [place] repaglinide 2018-02-13 00:00:00 Yes Sidra Merrick Abernathyta 1 tab(s) [facility] [place] Humalog KwikPen 2018-02-01 00:00:00 Yes Sidra Abernathyta 30 unit [facility] carvedilol 2017-11-24 02:03:17 Yes Denise Phongsy 1 tab(s) [facility] lisinopril 2017-11-24 02:03:17 Yes Denise Phongsy 1 tab(s) [facility] furosemide 2017-11-24 02:03:17 Yes Denise Phongsy 1 tab(s) [facility] Atorvastatin Calcium 2017-11-24 02:03:17 Yes Denise Phongsy 1 tab(s) [facility] Aspir 81 2017-11-24 02:03:17 Yes Denise Phongsy 1 tab(s) [facility] Fish Oil 2017-11-24 02:03:17 Yes Denise Phongsy 1 cap(s) [facility] BD Ultra-Fine Pen Needle Angie [id number] 2017-10-11 00:00:00 Yes Sidra Egan [facility] Lantus 2017-06-17 02:08:12 Yes Denise Phongsy 20 units [facility] Lantus 2017-05-12 00:00:00 Yes Sidra Egan 20 units [facility] Tresiba 200 u/ml 2017-05-12 00:00:00 Yes Sidra Egan 44 units [facility] Tresiba 200 u/ml 2017-05-12 00:00:00 Yes Denise Phongsy 44 units [facility] Basaglar KwikPen 3 ml 2017-04-11 00:00:00 Yes Sidra Egan as directed [facility] Fish Oil 2017-04-11 00:00:00 Yes Denise Phongsy 1 cap(s) [facility] Basaglar KwikPen 3 ml 2017-04-11 00:00:00 Yes Denise Colten ngsy as directed [facility] carvedilol 2017-02-22 02:13:28 Yes Sidra Egan 1 tab(s) [facility] Victoza 2017-02-22 02:13:28 Yes Sidra Egan 1.2 mg [facility] Glimepiride-Pioglitazone Hydrochloride 2017-02-22 02:13:28 Yes Sidra Egan 1 tab(s) [facility] Humalog KwikPen 2017-02-22 02:13:28 Yes Sidra Egan 20 units [facility] lisinopril 2017-02-22 02:13:28 Yes Sidra Egan 1 tab(s) [facility] Aspir 81 2017-02-22 02:13:28 Yes Sidra Egan 1 tab(s) [facility] furosemide 2017-02-22 02:13:28 Yes Sidra Egan 1 tab(s) [facility] Atorvastatin Calcium 2017-02-22 02:13:28 Yes Sidra Egan 1 tab(s) [facility] Tresiba 200 u/ml 2017-02-22 02:13:28 Yes Sidra Egan 44 units [facility] Levemir FlexTouch 2016-10-22 03:29:51 No Sidra Boles a 30 units [facility] Victoza 2016-10-03 00:00:00 Yes Sidra Egan 1.2 mg [facility] Tresiba 200 u/ml 2016-10-03 00:00:00 Yes Sidra cra as directed [facility] Glimepiride-Pioglitazone Hydrochloride 2016-10-03 00:00:00 Yes Sidra Egan 1 tab(s) [facility] Lantus Solostar Pen 2016-09-10 03:32:08 No Elizabeth Dominique 30 units [facility] Levemir FlexTouch 2016-08-24 00:00:00 Yes Elizabeth Dominique 30 units [facility] Toujeo 2016-08-22 00:00:00 No Elizabeth Fox 30 unit s [facility] Atorvastatin Calcium 2016-08-22 00:00:00 Yes Elizabeth Fox 1 tab(s) [facility] glipizide 2016-08-10 03:34:32 No Sidra Egan 1 tab(s) [facility] Humalog KwikPen 2016-07-25 00:00:00 Yes Sidra Tierney eta 5 to 10 unitsz [facility] lisinopril (PRINIVIL,ZESTRIL) 10 MG tablet 2016-05-18 00:00:00 Yes 10mg QD Take 1 tablet (10 mg total) by mouth every evening. [facility] metoprolol (LOPRESSOR) 100 MG tablet 2016-05-18 00:00:00 Ye s 100mg Q.5D Take 1 tablet (100 mg total) by mouth 2 (two) times daily. [facility] Lanthanum Carbonate (Fosrenol) 1,000 Mg TAB.CHEW Lanth mick Carbonate (Fosrenol) 1,000 Mg TAB.CHEW Yes 1000 Before [facility] Lisinopril Lisinopril Yes 10 Daily [facility] Lorazepam Lorazepam Yes 1 Daily for Anxiety [facility] Repaglinide (Prandin) 2 Mg TABLET Repaglinide (Prandin) 2 Mg TABLET Yes 2 Before [facility] Tresiba Tresiba Yes 20 Twice A Day [facility] Simvastatin Simvastatin 2018-04-27 00:00:00 No 20 D aily [facility] Altozastatin Altozastatin 2018-04-26 00:00:00 No 40 Daily [facility] Vital Signs Vital Name Observation Time Observation Value Comments Source Weight 2020-04-13 16:15:00 [facility] Height 2020-04-13 16:15:00 [facility] 2020-01-29 12:48:00 220 [lb_av] [facility] BMI (Body Mass Index) 2020-01-29 12:48:00 31.6 kg/m2 [facility] Weight 2020-01-13 16:00:00 [facility] [place] Height 2020-01-13 16:00:00 [facility] [place] Weight 2019-10-14 15:30:00 [facility] [place] Height 2019-10-14 15:30:00 [facility] Diastolic (mm Hg) 2019-10-14 15:30:00 [facility] Systolic (mm Hg) 2019-10-14 15:30:00 [facility] Weight 2019-06-13 16:30:00 [facility] Height 2019-06-13 16:30:00 [facility] Diastolic (mm Hg) 2019-06-13 16:30:00 [facility] [place] Systolic (mm Hg) 2019-06-13 16:30:00 [facility] [place] Weight 2018-12-06 21:15:00 [facility] Height 2018-12-06 21:15:00 [facility] Diastolic (mm Hg) 2018-12-06 21:15:00 [facility] Systolic (mm Hg) 2018-12-06 21:15:00 Raji rial Al Weight 2018-08-13 16:15:00 [facility] Height 2018-08-13 16:15:00 [facility] Diastolic (mm Hg) 2018-08-13 16:15:00 [facility] [place] Systolic (mm Hg) 2018-08-13 16:15:00 Raji [facility] Al Weight 2018-05-11 18:00:00 [facility] Height 2018-05-11 18:00:00 [facility] Diastolic (mm Hg) 2018-05-11 18:00:00 [facility] Systolic (mm Hg) 2018-05-11 18:00:00 Raji [facility] Al Weight 2018-02-28 15:30:00 [facility] Height 2018-02-28 15:30:00 [facility] Diastolic (mm Hg) 2018-02-28 15:30:00 [facility] [place] Systolic (mm Hg) 2018-02-28 15:30:00 Raji rial Al Weight 2017-11-29 15:30:00 [facility] Height 2017-11-29 15:30:00 [facility] Diastolic (mm Hg) 2017-11-29 15:30:00 [facility] [place] Systolic (mm Hg) 2017-11-29 15:30:00 Raji rial Al Weight 2017-09-29 14:30:00 [facility] Height 2017-09-29 14:30:00 [facility] Diastolic (mm Hg) 2017-09-29 14:30:00 Mem [facility] Systolic (mm Hg) 2017-09-29 14:30:00 [facility] [place] Weight 2017-04-11 16:30:00 [facility] Height 2017-04-11 16:30:00 [facility] Diastolic (mm Hg) 2017-04-11 16:30:00 [facility] Al Systolic (mm Hg) 2017-04-11 16:30:00 [facility] [place] Weight 2017-01-03 16:15:00 [facility] Height 2017-01-03 16:15:00 [facility] Diastolic (mm Hg) 2017-01-03 16:15:00 [facility] [place] Systolic (mm Hg) 2017-01-03 16:15:00 Raji rial Al Weight 2016-10-03 19:30:00 [facility] Height 2016-10-03 19:30:00 [facility] Diastolic (mm Hg) 2016-10-03 19:30:00 [facility] Systolic (mm Hg) 2016-10-03 19:30:00 [facility] [place] Weight 2016-08-22 19:00:00 [facility] Height 2016-08-22 19:00:00 [facility] Diastolic (mm Hg) 2016-08-22 19:00:00 Mem [facility] Al Systolic (mm Hg) 2016-08-22 19:00:00 Raji rial Al Weight 2016-07-25 20:15:00 [facility] Height 2016-07-25 20:15:00 [facility] Diastolic (mm Hg) 2016-07-25 20:15:00 [facility] [place] Systolic (mm Hg) 2016-07-25 20:15:00 [facility] [place] Procedures This patient has no known procedures. Plan of Care Planned Activity Planned Date Details Comments Source Future Scheduled Test 2020-05-12 00:00:00 INFLUENZA VACCINE (#1) [code = INFLUENZA VACCINE (#1)] [facility] Future Scheduled Test 2016-11-04 00:00:00 Hemoglobin A1c jordan surement (procedure) [code = 21851739] [facility] Future Scheduled Test 2016-09-12 00:00:00 MEDICARE ANNUAL WE LLNESS (YEAR 2 or FIRST YEAR if no IPPE) [code = MEDICARE ANNUAL WELLNESS (YEAR 2 or FIRST YEAR if no IPPE)] [facility] Future Scheduled Test 2012 00:00:00 PNEUMOCOCCAL 65+ H IGH/HIGHEST RISK (1 of 2 - PCV13) [code = PNEUMOCOCCAL 65+ HIGH/HIGHEST RISK (1 of 2 - PCV13)] [facility] Future Scheduled Test 1957 00:00:00 DIABETIC EYE EXAM [code = DIABETIC EYE EXAM] [facility] Future Scheduled Test 1957 00:00:00 Diabetic foot exam ination (regime/therapy) [code = 290185034] [facility] Future Scheduled Test 1957 00:00:00 Urine screening fo r protein (procedure) [code = 464832634] [facility] Future Scheduled Test 1947 00:00:00 Screening for iban gnant neoplasm of colon (procedure) [code = 114864364] [facility] Medication 2020-07-11 00:00:00 BD Ultra-Fine Pen Ne edle Angie [id number] [code = UNK] [facility] Medication 2020-07-11 00:00:00 One Touch Verio Gold Test Strips [ code = UNK] [facility] Medication 2020-07-11 00:00:00 Atorvastatin Calcium [code = 40455 009405] [facility] Encounters Start Date/Time End Date/Time Encounter Type Admission Type [facility] Care Department Encounter ID Source 2020-04-13 11:15:00 2020-04-13 11:15:00 Outpatient Landry Egan M.D[facility] P.[facility]. [facility]ry Egan M.D[facility] P.[facility]. [id number] [employer] 2020-01-29 12:16:00 2020-01-29 13:18:00 Departed Emergency Room [facility] [id number] [facility] 2020-01-13 11:00:00 2020-01-13 11:00:00 Outpatient Landry Egan M.D., P.A. Landry Egan M.D[facility] P.[facility]. [id number] [employer] 2019-12-12 14:22:00 2019-12-12 14:22:00 Outpatient Landry Egan M.D., P.A. Landry Egan M.D[facility] P.[facility]. [id number] [employer] 2019-10-14 10:30:00 2019-10-14 10:30:00 Outpatient Landry Egan M.D., P.A. Landry Egan M.D., P.A. [id number] [employer] 2019-07-19 15:57:00 2019-07-19 15:57:00 Outpatient Landry Egan M.D., P.A. Landry Egan M.D., P.A. [id number] [employer] 2019-07-19 10:47:00 2019-07-19 10:47:00 Outpatient Landry Egan M.D., P.A. Landry Egan M.D., P.A. [id number] [employer] 2019-06-13 10:30:00 2019-06-13 10:30:00 Outpatient Landry Egan M.D., P.A. Landry Egan M.D[facility] P.A. [id number] [employer] 2019-04-30 14:24:00 2019-04-30 14:24:00 Outpatient Landry Egan M.D., P.A. Landry Egan M.D., P.A. [id number] [employer] 2018-12-06 16:15:00 2018-12-06 16:15:00 Outpatient Landry Egan M.D., P.A. Landry Egan M.D., P.A. [id number] [employer] 2018-09-14 15:41:00 2018-09-14 15:41:00 Outpatient Landry Egan M.D., P.A. Landry Egan M.D., P.A. [id number] [employer] 2018-08-22 11:50:00 2018-08-22 14:07:00 Departed Emergency Room 1 JORY BRAND [facility] [id number] [facility] 2018-08-13 10:15:00 2018-08-13 10:15:00 Outpatient Landry Egan M.D., P.A. [facility]. [id number] [facility] [employer] 2018-05-11 13:00:00 2018-05-11 13:00:00 Outpatient Landry Egan M.D., P.A. Landry Egan M.D., P.A. [id number] [employer] 2018-05-09 11:04:00 2018-05-09 11:04:00 Outpatient Landry Egan M.D., P.A. Landry Egan M.D., P.A. [id number] [employer] 2018-04-26 16:09:00 2018-04-27 09:33:00 Departed Emergency Room 1 CARMINA WEAVER [facility] [id number] [facility] 2018-03-05 14:41:00 2018-03-05 14:41:00 Outpatient Landry Egan M.D., P.A. Landry Egan M.D., P.A. [id number] [employer] 2018-02-28 10:30:00 2018-02-28 10:30:00 Outpatient Landry Egan M.D., P.A. Landry Egan M.D., P.A. [id number] [employer] 2018-02-13 17:00:00 2018-02-13 17:00:00 Outpatient Landry Egan M.D., P.A. Landry Egan M.D., P.A. [id number] [employer] 2018-02-08 10:08:00 2018-02-08 10:08:00 Outpatient Landry Egan M.D., P.A. Landry Egan M.D., P.A. [id number] [employer] 2018-02-01 10:36:00 2018-02-01 10:36:00 Outpatient Landry Egan M.D., P.A. Landry Egan M.D., P.A. [id number] [employer] 2017-12-29 09:58:00 2017-12-29 09:58:00 Outpatient Landry Egan M.D., P.A. Landry Egan M.D., P.A. [id number] [employer] 2017-11-29 10:30:00 2017-11-29 10:30:00 Outpatient Landry Egan M.D., P.A. Landry Egan M.D., P.A. [id number] [employer] [employer] 2017-11-22 11:06:00 2017-11-22 11:06:00 Outpatient Landry Egan M.D., P.A. Landry Egan M.D., P.A. [id number] [employer] 2017-10-26 16:57:00 2017-10-26 16:57:00 Outpatient Landry Egan M.D., P.A. Landry Egan M.D., P.A. [id number] [employer] 2017-10-11 14:44:00 2017-10-11 14:44:00 Outpatient Landry Egan M.D., P.A. Landry Egan M.D., P.A. [id number] [employer] 2017-09-30 07:34:00 2017-09-30 07:34:00 Outpatient Landry Egan M.D., P.A. Landry Egan M.D., P.A. [id number] [employer] 2017-09-29 11:37:00 2017-09-29 11:37:00 Outpatient Landry Egan M.D., P.A. Landry Egan M.D., P.A. [id number] [employer] [employer] 2017-09-29 09:30:00 2017-09-29 09:30:00 Outpatient Landry Egan M.D., P.A. Landry Egan M.D., P.A. [id number] [employer] 2017-05-12 09:43:00 2017-05-12 09:43:00 Outpatient Landry Egan M.D., P.A. Landry Egan M.D., P.A. [id number] [employer] 2017-05-11 10:56:00 2017-05-11 10:56:00 Outpatient Landry Egan M.D., P.A. Landry Egan M.D., P.A. [id number] [employer] 2017-04-11 11:30:00 2017-04-11 11:30:00 Outpatient Landry Egan M.D., P.A. Landry Egan M.D., P.A. [id number] [employer] 2017-04-04 14:21:00 2017-04-04 14:21:00 Outpatient Landry Egan M.D., P.A. Landry Egan M.D., P.A. [id number] [employer] 2017-02-20 11:17:00 2017-02-20 11:17:00 Outpatient Landry Egan M.D., P.A. Landry Egan M.D., P.A. [id number] [employer] 2017-02-17 11:30:00 2017-02-17 11:30:00 Outpatient Landry Egan M.D., P.A. Landry Egan M.D., P.A. [id number] [employer] 2017-01-03 11:15:00 2017-01-03 11:15:00 Outpatient Landry Egan M.D., P.A. Landry Egan M.D., P.A. [id number] [employer] [employer] 2016-11-23 12:56:00 2016-11-23 12:56:00 Outpatient Landry Egan M.D., P.A. Landry Egan M.D., P.A. [id number] [employer] [employer] 2016-10-03 13:30:00 2016-10-03 13:30:00 Outpatient Landry Egan MD, Jose MD [id number] [employer] 2016-08-22 13:00:00 2016-08-22 13:00:00 Outpatient Landry Egan MD, Jose MD [id number] [employer] 2016-08-01 15:00:00 2016-08-01 15:00:00 Outpatient Landry Egan MD, Jose MD [id number] [employer] 2016-07-25 14:15:00 2016-07-25 14:15:00 Outpatient JigneshLandry dillard MD, Jose MD [id number] [employer] Results Test Description Test Time Test Comments Results Result Comments Source CHEST SINGLE (PORTABLE) 2020-06-06 18:45:00 [place] [address] Patient Name: DILLAN MELCHOR MR #: [id number] : 1945 Age/Sex: 74/M Req #: [id number] Adm Physician: Ordered by: DANNA ANDERS DO Report #: [id number] Location: ER Room/Bed: Procedure: [id number] DX/CHEST SINGLE (PORTABLE) Exam Date: 06/06/20 Exam [...] 338 mg/dL 74-106 H Performed by certified hydraulic press in operator at [facility] [id number] 07:53:00* Test Item Value Reference Range Interpretation Comments GLUBED (test code = GLUBED) 219 mg/dL 74-106 H Performed by certified hydraulic press in operator at [facility] BASIC METABOLIC [id number] 05:41:00* Test Item Value Reference Range Interpretation [...] CA) 8.4 mg/dL 8.5-10.1 L BASIC METABOLIC [id number] 05:37:00* Test Item Value Reference Range Interpretation [...] code = CA) mg/dL 8.5-10.1 CBC W/AUTO [id number] 05:29:00* Test Item Value Reference Range Interpretation [...] DIFF REQUIRED (test code = MDIFF) NO [id number] 00:39:00* Test Item Value Reference Range Interpretation Comments GLUBED (test code = GLUBED) 287 mg/dL 74-106 H Performed by certified hydraulic press in operator at [facility] AG HEPAT B [id number] 18:22:00* Test Item Value Reference Range Interpretation Comments AG HEPAT B SURF (test code = HBSAG) Nonreactive Index Nonreactive BASIC METABOLIC [id number] 15:43:00* Test Item Value Reference Range Interpretation [...] CA) 8.5 mg/dL 8.5-10.1 N HEPATIC FUNCTION [id number] 15:43:00* Test Item Value Reference Range Interpretation [...] due to change in reagent. BASIC METABOLIC [id number] 15:36:00* Test Item Value Reference Range Interpretation [...] code = CA) mg/dL 8.5-10.1 HEPATIC FUNCTION [id number] 15:36:00* Test Item Value Reference Range Interpretation [...] code = ALKP) IUnit/L 45-117 CBC W/O [id number] 15:32:00* Test Item Value Reference Range Interpretation [...] fL 6.7-11.0 H - CT ABD PELVIS W/[id number] 14:43:00 Name: DILLAN MELCHOR [facility] : 1945 Age/S: 74 / M [address] [facility] Unit #: [id number] Loc: [place] [address] Phys: Tiera Wilder MD Acct: [id number] Dis Date: Status: REG ER PHONE #: [phone] Exam Date: 01/09/2020 0232 FAX #: [phone] Reason: abd pain, diarrhea EXAMS: CPT CODE: [id number] CT ABD PELVIS W/CONT 41800 REASON FOR EXAM: abd pain, diarrhea EXAM [...] 1 Signed Report (CONTINUED) Name: DILLAN MELCHOR [facility] : 1945 Age/S: 74 / M [address] [facility] Unit #: [id number] Loc: [place] [address] Phys: Tiera Wilder MD Acct: [id number] Dis Date: Status: REG ER PHONE #: [phone] Exam Date: 01/09/2020 1402 FAX #: [phone] Reason: abd pain, diarrhea EXAMS: CPT CODE: [id number] ABD PELVIS W/CONT 79467 <Continued > Musculoskeletal structures and abdominal wall: Degenerative changes are present throughout the spine and are also seen in the bilateral hips . Postsurgical changes of sternotomy IMPRESSION: No acut e intra-abdominal process. Colonic diverticulosis without diverticulitis . Cholelithiasis without CT findings to suggest cholecystitis. Location: [facility] Electronically Signed by Shon Jo MD on at 1443 Reported and signed by: Shon Jo MD CC: Tiera Wilder MD; Abhi Dubon MD Technologist:Claudia Davis,RT(R),CT CTDI: DLP: Trnscb Date/Time: 01/09/2020 (1443) t.SDR.RR31 Orig Print D/T: S: 01/09/2020 144) PAGE 2 Signed Report AB HEPATITIS B [id number] 10:25:00* Test Item Value Reference Range Interpretation Comments AB HEPATITIS B SURFACE (test code = HBSAB) QUANT NOT SUFFICIENT () Quantity was not sufficient for analysis. Non Reactive: Inconsistent with immunity, less than 10 mIU/mL Reactive: Consistent with immunity, greater than 9.9 mIU/mLNotified Devora Ragsdale. 09/27/2019-BaylessPerformed At: [facility] [address] [id number] Narinder Ayala MD Ph:[phone] REDRAW PER [facility] NOT [facility].LAB.ASS 09/27/19 [id number] 16:01:00 RUN DATE: 10/02/19 [facility] PAGE 1 RUN TIME: 1601 Specimen Inqui ry RUN USER: INTERFACE PATIENT: DILLAN MELCHOR ACCT #: [id number] LOC: [facility] U #: [id number] AGE/SX: 74/M ROOM: 2040 RE09/24/19REG DR: Brian Daniels MD : [birth year] BED: A DIS: 10/01/19 STATUS: DIS IN TLOC: SPEC #: [id number] RECD: 10/01/19 STATUS: JENNIFER WHITMAN #: [id number] NAYAN: 09/30/19- SUBM DR: Huey Corcoran MD ENTERED: 10/01/19 SP TYPE: STOMACH OTHR DR: Abhi Dubon MD, David S MD Khan, Salman A MDORDERED: GROSS COPIES TO: Abhi Dubon MD [address] [facility] [address] [place] [address] Huey Corcoran MD [address] [place] [address] Bao Kumar MD [address] [place], [place] [address] Des Cornell MD [address] [facility], [address] [place] [address] PROCEDURES: GROSS (10/02/19-102 5) TISSUES: 1. ANTRAL BIOPSY - H-PYLORI 2. 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 GROSS PERFORMED AT [facility] [address] [place] [address] ( [phone] MICROSCOPIC All of the stains, including any control s performed, stain appropriately. MICROSCOPIC PERFORMED AT [facility] [address] [facility], [place] [address] [phone] PERFORMING SITE Diagnosis performed at: [facility] [address] [place] [address] CONTINUED ON NEXT PAGE RUN DATE: 10/02 [place] [facility] PAGE 3 RUN TIME: 160 Specimen Inquiry RUN U SER: INTERFACE ------- -----SPEC #: [id number] PATIENT: DILLAN MELCHOR #[id number] (Continued) Signed SIGNATURE ON FILE Gabriella Perez MD 10/02/19 160 END OF REPORT HEPATITIS B CORE ANTIBODY,[id number] 05:09:00* Test Item Value Reference Range Interpretation Comments HEPATITIS B CORE ANTIBODY,TOT (test code = HBCAB) Negative Nega tive Performed At: [facility] [address] [id number] Ayala MD Ph:[phone] PATIENT NOT IN ROOMAB HEPATITIS B [id number] 05:09:00* Test Item Value Reference Range Interpretation Comments AB HEPATITIS B SURFACE (test code = HBSAB) Reactive () Non Reactive: Inconsistent with immunity, less than 10 mIU/mL Reactive: Consistent with immunity, greater than 9.9 mIU/mLPerformed At: [facility] [address] [id number] Ayala MD Ph:[phone] PATIENT NOT IN [id number] 17:05:00* Test Item Value Reference Range Interpretation Comments GLUBED (test code = GLUBED) 220 mg/dL 74-106 H Performed by certified hydraulic press in operator at [facility] CBC W/AUTO [id number] 07:55:00* Test Item Value Reference Range Interpretation [...] (test code = MDIFF) NO BASIC METABOLIC [id number] 07:52:00* Test Item Value Reference Range Interpretation [...] CA) 8.1 mg/dL 8.5-10.1 L BASIC METABOLIC [id number] 07:48:00* Test Item Value Reference Range Interpretation [...] CALCIUM (test code = CA) mg/dL 8.5-10.1 [id number] 20:34:00* Test Item Value Reference Range Interpretation Comments GLUBED (test code = GLUBED) 215 mg/dL 74-106 H Performed by certified hydraulic press in operator at [facility] [id number] 13:00:00* Test Item Value Reference Range Interpretation Comments GLUBED (test code = GLUBED) 180 mg/dL 74-106 H Performed by certified hydraulic press in operator at [facility] PROTHROMBIN [id number] 08:06:00* Test Item Value Reference Range Interpretation [...] (2.5-3.5) IS PATIENT ON ANTICOAGULANTS? NBASIC METABOLIC [id number] 07:33:00* Test Item Value Reference Range Interpretation [...] CA) 8.0 mg/dL 8.5-10.1 L BASIC METABOLIC [id number] 07:09:00* Test Item Value Reference Range Interpretation [...] code = CA) mg/dL 8.5-10.1 CBC W/AUTO [id number] 06:50:00* Test Item Value Reference Range Interpretation [...] DIFF REQUIRED (test code = MDIFF) NO [id number] 05:44:00* Test Item Value Reference Range Interpretation Comments GLUBED (test code = GLUBED) 305 mg/dL 74-106 H Performed by certified hydraulic press in operator at [facility] [id number] 21:45:00* Test Item Value Reference Range Interpretation Comments GLUBED (test code = GLUBED) 307 mg/dL 74-106 H Performed by certified hydraulic press in operator at [facility] [id number] 17:42:00* Test Item Value Reference Range Interpretation Comments GLUBED (test code = GLUBED) 200 mg/dL 74-106 H Performed by certified hydraulic press in operator at [facility] [id number] 12:15:00* Test Item Value Reference Range Interpretation Comments GLUBED (test code = GLUBED) 314 mg/dL 74-106 H Performed by certified hydraulic press in operator at [facility] [id number] 09:55:00* Test Item Value Reference Range Interpretation Comments GLUBED (test code = GLUBED) 396 mg/dL 74-106 H Performed by certified hydraulic press in operator at [facility] [id number] 06:14:00* Test Item Value Reference Range Interpretation Comments GLUBED (test code = GLUBED) 184 mg/dL 74-106 H Performed by certified hydraulic press in operator at [facility] BASIC METABOLIC [id number] 21:53:00* Test Item Value Reference Range Interpretation [...] CA) 7.9 mg/dL 8.5-10.1 L BASIC METABOLIC [id number] 21:44:00* Test Item Value Reference Range Interpretation [...] code = CA) 7.9 mg/dL 8.5-10.1 L [id number] 21:07:00* Test Item Value Reference Range Interpretation Comments GLUBED (test code = GLUBED) 354 mg/dL 74-106 H Performed by certified hydraulic press in operator at [facility] [id number] 16:44:00* Test Item Value Reference Range Interpretation Comments GLUBED (test code = GLUBED) 279 mg/dL 74-106 H Performed by certified hydraulic press in operator at [facility] BASIC METABOLIC [id number] 11:48:00* Test Item Value Reference Range Interpretation [...] CA) 8.1 mg/dL 8.5-10.1 L BASIC METABOLIC [id number] 11:41:00* Test Item Value Reference Range Interpretation [...] code = CA) mg/dL 8.5-10.1 CBC W/O [id number] 11:28:00* Test Item Value Reference Range Interpretation [...] code = MPV) 10.8 fL 6.7-11.0 N [id number] 06:02:00* Test Item Value Reference Range Interpretation Comments GLUBED (test code = GLUBED) 221 mg/dL 74-106 H Performed by certified hydraulic press in operator at [facility] [id number] 20:38:00* Test Item Value Reference Range Interpretation Comments GLUBED (test code = GLUBED) 289 mg/dL 74-106 H Performed by certified hydraulic press in operator at [facility] [id number] 19:20:00* Test Item Value Reference Range Interpretation Comments GLUBED (test code = GLUBED) 301 mg/dL 74-106 H Performed by certified hydraulic press in operator at [facility] [id number] 19:20:00* Test Item Value Reference Range Interpretation Comments GLUBED (test code = GLUBED) 300 mg/dL 74-106 H Performed by certified hydraulic press in operator at [facility] BASIC METABOLIC [id number] 08:39:00* Test Item Value Reference Range Interpretation [...] CA) 7.9 mg/dL 8.5-10.1 L CBC W/AUTO [id number] 08:08:00* Test Item Value Reference Range Interpretation [...] DIFF REQUIRED (test code = MDIFF) NO [id number] 06:24:00* Test Item Value Reference Range Interpretation Comments GLUBED (test code = GLUBED) 201 mg/dL 74-106 H Performed by certified hydraulic press in operator at [facility] [id number] 21:43:00* Test Item Value Reference Range Interpretation Comments GLUBED (test code = GLUBED) 344 mg/dL 74-106 H Performed by certified hydraulic press in operator at [facility] [id number] 17:41:00* Test Item Value Reference Range Interpretation Comments GLUBED (test code = GLUBED) 215 mg/dL 74-106 H Performed by certified hydraulic press in operator at [facility] AG HEPAT B [id number] 12:02:00* Test Item Value Reference Range Interpretation Comments AG HEPAT B SURF (test code = HBSAG) Nonreactive Index Nonreactive [id number] 06:35:00* Test Item Value Reference Range Interpretation Comments GLUBED (test code = GLUBED) 174 mg/dL 74-106 H Performed by certified hydraulic press in operator at [facility] COMPREHENSIVE METABOLIC [id number] 05:10:00* Test Item Value Reference Range Interpretation [...] due to change in reagent. COMPREHENSIVE METABOLIC [id number] 05:03:00* Test Item Value Reference Range Interpretation [...] code = ALKP) IUnit/L 45-117 CBC W/AUTO [id number] 04:15:00* Test Item Value Reference Range Interpretation [...] code = NRBC#) 0.00 K/mm3 0.0-0.1 N [id number] 21:14:00* Test Item Value Reference Range Interpretation Comments GLUBED (test code = GLUBED) 391 mg/dL 74-106 H Performed by certified hydraulic press in operator at [facility] [id number] 16:23:00* Test Item Value Reference Range Interpretation Comments GLUBED (test code = GLUBED) 248 mg/dL 74-106 H Performed by certified hydraulic press in operator at [facility] [id number] 16:23:00* Test Item Value Reference Range Interpretation Comments GLUBED (test code = GLUBED) 184 mg/dL 74-106 H Performed by certified hydraulic press in operator at [facility] [id number] 06:36:00* Test Item Value Reference Range Interpretation Comments GLUBED (test code = GLUBED) 128 mg/dL 74-106 H Performed by certified hydraulic press in operator at [facility] HGB [id number] 06:26:00* Test Item Value Reference Range Interpretation Comments HEMOGLOBIN (test code = HGB) 8.5 gram/dL 13.0-17.5 L HEMATOCRIT (test code = HCT) 25.8 % 42.0-52.0 L [id number] 02:22:00* Test Item Value Reference Range Interpretation Comments TROPONIN-I (test code = TROPI) 18.400 ng/mL 0-0.045 COMMENTS TO SPECIALIST ICU: COLLECT 3 HOURS AFTER PREVIOUS SAMPLEHGB [id number] 01:36:00* Test Item Value Reference Range Interpretation Comments HEMOGLOBIN (test code = HGB) 8.0 gram/dL 13.0-17.5 L HEMATOCRIT (test code = HCT) 24.3 % 42.0-52.0 L [id number] 23:11:00* Test Item Value Reference Range Interpretation Comments TROPONIN-I (test code = TROPI) 19.200 ng/mL 0-0.045 09/24/19 1856COMMENTS TO SPECIALIST ICU: COLLECT 3 HOURS AFTER PREVIOUS [id number] 21:30:00* Test Item Value Reference Range Interpretation Comments GLUBED (test code = GLUBED) 132 mg/dL 74-106 H Performed by certified hydraulic press in operator at [facility] [id number] 16:38:00* Test Item Value Reference Range Interpretation [...] result is a direct measurement.========= B-TYPE NATRIURETIC [id number] 14:17:00* Test Item Value Reference Range Interpretation Comments B-TYPE NATRIURETIC PEPTIDE (test code = BNP) 432.64 pgram/mL 0-100 H [id number] 13:30:00* Test Item Value Reference Range Interpretation Comments GLUBED (test code = GLUBED) 167 mg/dL 74-106 H Performed by certified hydraulic press in operator at [facility] BASIC METABOLIC [id number] 13:15:00* Test Item Value Reference Range Interpretation [...] code = CA) 8.6 mg/dL 8.5-10.1 N [id number] 13:15:00* Test Item Value Reference Range Interpretation Comments TROPONIN-I (test code = TROPI) 14.600 ng/mL 0-0.[address] LOPEZ by [facility]. 09/24/19 1315Critical results verified and read back by Nurse? Y BASIC METABOLIC [id number] 12:52:00* Test Item Value Reference Range Interpretation [...] CALCIUM (test code = CA) mg/dL 8.5-10.1 [id number] 12:52:00* Test Item Value Reference Range Interpretation Comments TROPONIN-I (test code = TROPI) ng/mL 0-0.045 PROTHROMBIN [id number] 12:28:00* Test Item Value Reference Range Interpretation [...] (2.5-3.5) IS PATIENT ON ANTICOAGULANTS? NTHROMBOPLASTIN TIME [id number] 12:28:00* Test Item Value Reference Range Interpretation Comments THROMBOPLASTIN TIME PARTIAL (test code = PTT) 30.6 seconds 25.0-36. 5 N IS PATIENT ON ANTICOAGULANTS? NCBC W/O [id number] 12:18:00* Test Item Value Reference Range Interpretation [...] code = MPV) 10.8 fL 6.7-11.0 N [id number] 12:16:00* Test Item Value Reference Range Interpretation Comments MAGNESIUM (test code = MAG) 2.0 mg/dL 1.8-2.4 N - XR CHEST 1 [id number] 12:12:00 FAX: Abhi Richardson MD [phone] [place]: St: [facility] FAX: Errol Lopez MD Name: DILLAN MELCHOR [facility] : 1945 Age/S: 74/M [address] [facility] Unit #: [id number] Loc: [place] [address] Phys: Errol Lopez MD Acct: [id number] Dis Date: Status: REG ER PHONE #: [phone] Exam Date: 09/24/2019 1155 FAX #: [phone] Reason: CHEST PAIN EXAMS: CPT CODE: [id number] XR CHEST 1 V 60221 HISTORY: Chest pain. COMPARISON: November 24, 2015. Location: [facility]. No acute infiltrates, effusion or congestion is noted. Right costophrenic angle is not included slightly limiting evaluation. Left ICD is unchanged. Cardiomegaly. IMPRESSION: No acute infiltrates, effusion or congestion. at 1212 Reported and signed by: Ugo Jorge M.D. CC: Abhi Dubon MD; Errol Lopez MD Technologist: Hawa Becerril(R); Vania Griffines RT(R) Trnscrd Date/Time/By: 09/24/2019 (0119) : By: MariellaTH4 Orig Print D/T: S: 09/24/2019 (1261) PAGE 1 Signed Report GLUBED 2019-09-17 15:01:00* Test Item Value Reference Range Interpretation Comments GLUBED (test code = GLUBED) 137 mg/dL 74-106 H Performed by certified hydraulic press in operator at [facility] AG HEPAT B [id number] 08:59:00* Test Item Value Reference Range Interpretation Comments AG HEPAT B SURF (test code = HBSAG) Nonreactive Index Nonreactive BASIC METABOLIC [id number] 08:35:00* Test Item Value Reference Range Interpretation [...] CA) 8.2 mg/dL 8.5-10.1 L BASIC METABOLIC [id number] 08:33:00* Test Item Value Reference Range Interpretation [...] code = CA) mg/dL 8.5-10.1 CBC W/AUTO [id number] 08:23:00* Test Item Value Reference Range Interpretation [...] DIFF REQUIRED (test code = MDIFF) NO [id number] 05:57:00* Test Item Value Reference Range Interpretation Comments GLUBED (test code = GLUBED) 161 mg/dL 74-106 H Performed by certified hydraulic press in operator at [facility] [id number] 20:40:00* Test Item Value Reference Range Interpretation Comments GLUBED (test code = GLUBED) 100 mg/dL 74-106 N Performed by certified hydraulic press in operator at [facility] [id number] 16:25:00* Test Item Value Reference Range Interpretation Comments GLUBED (test code = GLUBED) 196 mg/dL 74-106 H Performed by certified hydraulic press in operator at [facility] [id number] 07:05:00* Test Item Value Reference Range Interpretation Comments GLUBED (test code = GLUBED) 125 mg/dL 74-106 H Performed by certified hydraulic press in operator at [facility] BASIC METABOLIC [id number] 13:05:00* Test Item Value Reference Range Interpretation [...] result is a direct measurement.========= BASIC METABOLIC [id number] 12:59:00* Test Item Value Reference Range Interpretation [...] (test code = LDL) mg/dL 100-129 PROTHROMBIN [id number] 12:45:00* Test Item Value Reference Range Interpretation [...] Mechanical prosthetic heart valves (2.5-3.5) THROMBOPLASTIN TIME [id number] 12:45:00* Test Item Value Reference Range Interpretation Comments THROMBOPLASTIN TIME PARTIAL (test code = PTT) 30.9 seconds 25.0-36. 5 N CBC W/AUTO [id number] 12:32:00* Test Item Value Reference Range Interpretation [...] (test code = MDIFF) NO B-Type Natriuretic Jotxtuo6103-75-59 12:54:00* Test Item Value Reference Range Interpretation Comments B-Type Natriuretic Peptide (test code = 68566-5) 73.1 0-100 [facility]-1VIEW (KUB)2018-08-22 12:53:00 [place] [address] Patient Name: DILLAN MELCHOR MR #: [id number] : 1945 Age/Sex: 72/M Req #: [id number] Adm Physician: Ordered by: JORY BRAND MD Report #: [id number] Location: ER Room/Bed: Procedure: [id number] DX/ABDOMEN-1VIEW (KUB) Exam Date: 08/22/18 Exam Time [...] PM Dictated By: CHEKO PEREZ DO [facility] Signed By: CHEKO PEREZ DO on 08/22/18 125 Transcribed By: MEAGHAN on 08/22/181255 COPY TO: JORY BRAND MD Troponin [id number] 12:49:00* Test Item Value Reference Range Interpretation Comments Troponin I (test code = INH7079) 0.015 0-0.300 [facility] 2 [id number] 12:47:00 [facility] [address] [place] [address] Patient Name: DILLAN MELCHOR MR #: [id number] : 1945 Age/Sex: 72/M Req #: [id number] Adm Physician: Ordered by: JORY BRAND MD Report #: [id number] Location: ER Room/Bed: Procedure: [id number] DX/CHEST 2 VIEWS Exam Date: 08/22/18 Exam [...] 08/22/18 1253 COPY TO: JORY BRAND Sodium Cmamr1148-08-25 12:39:00* Test Item Value Reference Range Interpretation Comments Sodium Level (test code = 2951-2) 133 136-145 L [facility] HospitalPotassium Mchsw5492-88-11 12:39:00* Test Item Value Reference Range Interpretation Comments Potassium Level (test code = 2823-3) 5.1 3.5-5.1 [facility] HospitalChloride Rkpiz9038-65-53 12:39:00* Test Item Value Reference Range Interpretation Comments Chloride Level (test code = 2075-0) 93 98-107 L [facility] HospitalCarbon Dioxide Bftbt8997-15-34 12:39:00* Test Item Value Reference Range Interpretation Comments Carbon Dioxide Level (test code = 2028-9) 26 22-29 [facility] HospitalAnion Ogd4394-31-02 12:39:00* Test Item Value Reference Range Interpretation Comments Anion Gap (test code = 33843-0) 19.1 8-16 H [facility] HospitalBlood Urea Vgjdvajy3665-17-66 12:39:00* Test Item Value Reference Range Interpretation Comments Blood Urea Nitrogen (test code = 3094-0) 48 7-26 H [facility] HospitalCreatinine2018-12-12 12:39:00* Test Item Value Reference Range Interpretation Comments Creatinine (test code = 2160-0) 5.16 0.72-1.25 H [facility] HospitalBUN/Creatinine Mpglg2894-16-62 12:39:00* Test Item Value Reference Range Interpretation Comments BUN/Creatinine Ratio (test code = 3097-3) 9 6-25 [facility] HospitalEstimat Glomerular Filtration Rate 2018-08-22 12:39:00* Test Item Value Reference Range Interpretation Comments Estimat Glomerular Filtration Rate (test code = 544666976) 11 >60 L Ranges were taken from the National Kidney Disease Education Program and the [facility] Kidney Foundation literature.Reference ranges:60 or greater: Ablnhn96-78 ( for 3 consecutive months): Chronic kidney disease 15 or less: Kidney failureMedical Center HospitalGlucose Ffgot0737-08-39 12:39:00* Test Item Value Reference Range Interpretation Comments Glucose Level (test code = WUY5232) 261 74-118 H [facility] HospitalCalcium Ghllt4002-91-65 12:39:00* Test Item Value Reference Range Interpretation Comments Calcium Level (test code = 32371-9) 8.9 8.4-10.2 [facility] HospitalPhosphorus Bjsug6752-76-89 12:39:00* Test Item Value Reference Range Interpretation Comments Phosphorus Level (test code = LMJ5867) 5.3 2.3-4.7 H [facility] HospitalMagnesium Eouqm0458-40-25 12:39:00* Test Item Value Reference Range Interpretation Comments Magnesium Level (test code = 30861-3) 2.4 1.3-2.1 H [facility] HospitalTotal Wyerpwhll6054-47-27 12:39:00* Test Item Value Reference Range Interpretation Comments Total Bilirubin (test code = 1975-2) 0.4 0.2-1.2 Medical Center HospitalAspartate Amino Transf (AST/SGOT) 2018-08-22 12:39:00* Test Item Value Reference Range Interpretation Comments Aspartate Amino Transf (AST/SGOT) (test code = Aspartate Amino Transf (AST/SGOT)) 34 5-34 [facility] HospitalAlanine Aminotransferase (ALT/SGPT) 2018-08-22 12:39:00* Test Item Value Reference Range Interpretation Comments Alanine Aminotransferase (ALT/SGPT) (test code = 1742-6) 41 0-55 [facility] HospitalTotal Xqogeip4824-73-24 12:39:00* Test Item Value Reference Range Interpretation Comments Total Protein (test code = 2885-2) 8.3 6.5-8.1 [facility] HospitalAlbumin2018-12-12 12:39:00* Test Item Value Reference Range Interpretation Comments Albumin (test code = 1751-7) 3.7 3.5-5.0 [facility] HospitalGlobulin2018-12-12 12:39:00* Test Item Value Reference Range Interpretation Comments Globulin (test code = 69157-4) 4.6 2.3-3.5 H [facility] HospitalAlbumin/Globulin Joupd5391-20-22 12:39:00 * Test Item Value Reference Range Interpretation Comments Albumin/Globulin Ratio (test code = 1759-0) 0.8 0.8-2.0 [facility] HospitalAlkaline Utsaljmposv0836-30-05 12:39:00* Test Item Value Reference Range Interpretation Comments Alkaline Phosphatase (test code = 6768-6) 110 40-150 [facility] HospitalWhite Blood Aodzd9184-71-86 12:17:00* Test Item Value Reference Range Interpretation Comments White Blood Count (test code = 6690-2) 7.84 4.8-10.8 [facility] HospitalRed Blood Nnqra8869-46-02 12:17:00* Test Item Value Reference Range Interpretation Comments Red Blood Count (test code = 789-8) 3.63 4.3-5.7 L [facility] HospitalHemoglobin2018-12-12 12:17:00* Test Item Value Reference Range Interpretation Comments Hemoglobin (test code = 47424-1) 11.3 14.0-18.0 L [facility] HospitalHematocrit2018-12-12 12:17:00* Test Item Value Reference Range Interpretation Comments Hematocrit (test code = 4544-3) 34.9 38.2-49.6 L [facility] HospitalMean Corpuscular Vmuagt7029-03-45 12:17:00* Test Item Value Reference Range Interpretation Comments Mean Corpuscular Volume (test code = 787-2) 96.1 81-99 [facility] HospitalMean Corpuscular Xvakszokoo5778-51-37 12:17:00* Test Item Value Reference Range Interpretation Comments Mean Corpuscular Hemoglobin (test code = 785-6) 31.1 28-32 [facility] HospitalMean Corpuscular Hemoglobin Concent 2018-08-22 12:17:00* Test Item Value Reference Range Interpretation Comments Mean Corpuscular Hemoglobin Concent (test code = 786-4) 32.4 31-35 [facility] HospitalRed Cell Distribution Tbxww1713-90-13 12:17:00* Test Item Value Reference Range Interpretation Comments Red Cell Distribution Width (test code = 62672-0) 14.2 11.7 -14.4 [facility] HospitalPlatelet Ouwdb0797-72-41 12:17:00* Test Item Value Reference Range Interpretation Comments Platelet Count (test code = 777-3) 190 140-360 [facility] HospitalNeutrophils (%) (Auto)2018-08-22 12:17:00 * Test Item Value Reference Range Interpretation Comments Neutrophils (%) (Auto) (test code = 10913-3) 59.2 38.7-80.0 [facility] HospitalLymphocytes (%) (Auto)2018-08-22 12:17:00 * Test Item Value Reference Range Interpretation Comments Lymphocytes (%) (Auto) (test code = 736-9) 29.3 18.0-39.1 [facility] HospitalMonocytes (%) (Auto)2018-08-22 12:17:00* Test Item Value Reference Range Interpretation Comments Monocytes (%) (Auto) (test code = 5905-5) 7.8 4.4-11.3 [facility] HospitalEosinophils (%) (Auto)2018-08-22 12:17:00 * Test Item Value Reference Range Interpretation Comments Eosinophils (%) (Auto) (test code = 713-8) 2.4 0.0-6.0 [facility] HospitalBasophils (%) (Auto)2018-08-22 12:17:00* Test Item Value Reference Range Interpretation Comments Basophils (%) (Auto) (test code = 706-2) 0.9 0.0-1.0 [facility] HospitalIM GRANULOCYTES %2018-08-22 12:17:00* Test Item Value Reference Range Interpretation Comments IM GRANULOCYTES % (test code = IM GRANULOCYTES %) 0.4 0.0- 1.0 [facility] HospitalNeutrophils # (Auto)2018-08-22 12:17:00* Test Item Value Reference Range Interpretation Comments Neutrophils # (Auto) (test code = 751-8) 4.6 2.1-6.9 [facility] HospitalLymphocytes # (Auto)2018-08-22 12:17:00* Test Item Value Reference Range Interpretation Comments Lymphocytes # (Auto) (test code = 88528-4) 2.3 1.0-3.2 [facility] HospitalMonocytes # (Auto)2018-08-22 12:17:00* Test Item Value Reference Range Interpretation Comments Monocytes # (Auto) (test code = 742-7) 0.6 0.2-0.8 [facility] HospitalEosinophils # (Auto)2018-08-22 12:17:00* Test Item Value Reference Range Interpretation Comments Eosinophils # (Auto) (test code = 711-2) 0.2 0.0-0.4 [facility] HospitalBasophils # (Auto)2018-08-22 12:17:00* Test Item Value Reference Range Interpretation Comments Basophils # (Auto) (test code = 704-7) 0.1 0.0-0.1 [facility] HospitalAbsolute Immature Granulocyte (auto 2018-08-22 12:17:00* Test Item Value Reference Range Interpretation Comments Absolute Immature Granulocyte (auto (yas t code = Absolute Immature Granulocyte (auto) 0.03 0-0.1 [facility]odium Pyemm9510-65-45 07:42:00* Test Item Value Reference Range Interpretation Comments Sodium Level (test code = 2951-2) 136 136-145 [facility] HospitalPotassium Cqlsm7459-23-43 07:42:00* Test Item Value Reference Range Interpretation Comments Potassium Level (test code = 2823-3) 5.1 3.5-5.1 [facility] HospitalChloride Yzseq4650-55-44 07:42:00* Test Item Value Reference Range Interpretation Comments Chloride Level (test code = 2075-0) 99 98-107 [facility] HospitalCarbon Dioxide Ifkpd0470-63-84 07:42:00* Test Item Value Reference Range Interpretation Comments Carbon Dioxide Level (test code = 2028-9) 24 22-29 [facility] HospitalAnion Bjl1905-37-74 07:42:00* Test Item Value Reference Range Interpretation Comments Anion Gap (test code = 92558-5) 18.1 8-16 H [facility] HospitalBlood Urea Gwfzkyvk0962-32-19 07:42:00* Test Item Value Reference Range Interpretation Comments Blood Urea Nitrogen (test code = 3094-0) 38 7-26 H [facility] HospitalCreatinine2018-08-17 07:42:00* Test Item Value Reference Range Interpretation Comments Creatinine (test code = 2160-0) 3.62 0.72-1.25 H [facility] HospitalBUN/Creatinine Jzphr7571-99-01 07:42:00* Test Item Value Reference Range Interpretation Comments BUN/Creatinine Ratio (test code = 3097-3) 10 6-25 [facility] HospitalEstimat Glomerular Filtration Rate 2018-04-27 07:42:00* Test Item Value Reference Range Interpretation Comments Estimat Glomerular Filtration Rate (test code = 54616-0) 17 >60 L Ranges were taken from the National Kidney Disease Education Program and the [employer] literature.Reference ranges:60 or greater: Rwebnd50-98 ( for 3 consecutive months): Chronic kidney disease 15 or less: Kidney failureMedical Center HospitalGlucose Mygox5569-14-28 07:42:00* Test Item Value Reference Range Interpretation Comments Glucose Level (test code = RZH4856) 160 74-118 H [facility] HospitalCalcium Fqwst8943-55-18 07:42:00* Test Item Value Reference Range Interpretation Comments Calcium Level (test code = 72867-5) 8.8 8.4-10.2 [facility] HospitalCreatine Kinase XS9180-29-66 06:18:00* Test Item Value Reference Range Interpretation Comments Creatine Kinase MB (test code = 13838-1) 1.30 0-5.0 [facility] HospitalTroponin K4826-32-69 06:18:00* Test Item Value Reference Range Interpretation Comments Troponin I (test code = GGS3321) 0.024 0-0.300 [facility] HospitalCreatine Kinase LD5192-20-77 06:18:00* Test Item Value Reference Range Interpretation Comments Creatine Kinase MB (test code = 29183-2) 1.30 0-5.0 [facility] HospitalCreatine Xjzncb4139-21-33 06:10:00* Test Item Value Reference Range Interpretation Comments Creatine Kinase (test code = 2157-6) 54 30-200 [facility] HospitalCreatine Umtbmz0065-48-91 06:10:00* Test Item Value Reference Range Interpretation Comments Creatine Kinase (test code = 2157-6) 54 30-200 [facility] HospitalTriglycerides Jmald5909-18-41 05:54:00* Test Item Value Reference Range Interpretation Comments Triglycerides Level (test code = 2571-8) 211 0-149 H [facility] HospitalCholesterol Xcixb6833-06-55 05:54:00* Test Item Value Reference Range Interpretation Comments Cholesterol Level (test code = 2093-3) 196 0-199 Less than 200 mg/dL Low Oedz863 - 239 mg/dL Borderline Bzqc831 m g/dl and greater High Risk [facility] HospitalLDL Cgdlvenkixi7420-51-78 05:54:00* Test Item Value Reference Range Interpretation Comments LDL Cholesterol (test code = 2089-1) 111 60-130 [facility] HospitalHDL Cihfhfnrusu9885-42-52 05:54:00* Test Item Value Reference Range Interpretation Comments HDL Cholesterol (test code = 2085-9) 43 40-60 [facility] HospitalCholesterol/HDL Oxhbr2874-72-40 05:54:00 * Test Item Value Reference Range Interpretation Comments Cholesterol/HDL Ratio (test code = 9830-1) 4.6 3.9-4.7 [facility] HospitalTriglycerides Vnicn5964-82-28 05:54:00* Test Item Value Reference Range Interpretation Comments Triglycerides Level (test code = 2571-8) 211 0-149 H [facility] HospitalCholesterol Xdknj5275-30-18 05:54:00* Test Item Value Reference Range Interpretation Comments Cholesterol Level (test code = 2093-3) 196 0-199 Less than 200 mg/dL Low Uund776 - 239 mg/dL Borderline Bnxy837 m g/dl and greater [facility] HospitalLDL Yvqwgaiphir7175-42-90 05:54:00* Test Item Value Reference Range Interpretation Comments LDL Cholesterol (test code = 2089-1) 111 60-130 [facility] Bgfwifjjssk9001-05-94 05:54:00* Test Item Value Reference Range Interpretation Comments HDL Cholesterol (test code = 2085-9) 43 40-60 [facility] HospitalCholesterol/HDL Vwhgh9334-10-89 05:54:00 * Test Item Value Reference Range Interpretation Comments Cholesterol/HDL Ratio (test code = 9830-1) 4.6 3.9-4.7 [facility] HospitalUrine YPS8952-97-89 22:29:00* Test Item Value Reference Range Interpretation Comments Urine WBC (test code = 5821-4) 6-10 0-5 H [facility] HospitalUrine SWJ3413-04-14 22:29:00* Test Item Value Reference Range Interpretation Comments Urine RBC (test code = 02141-1) 0-5 0-5 [facility] HospitalUrine Idnkchoq8553-13-88 22:29:00* Test Item Value Reference Range Interpretation Comments Urine Bacteria (test code = 11381-9) NONE NONE [facility] HospitalUrine Epithelial Irdsq3151-87-57 22:29:00 * Test Item Value Reference Range Interpretation Comments Urine Epithelial Cells (test code = 54537-6) MODERATE NONE [facility] HospitalUrine Transitional Epithelial Cells 2018-04-26 22:29:00* Test Item Value Reference Range Interpretation Comments Urine Transitional Epithelial Cells (test code = 8249-5) MODERATE NONE [facility] Hyaline Pffkl7610-30-21 22:29:00* Test Item Value Reference Range Interpretation Comments Urine Hyaline Casts (test code = 23863-7) 15- 0-1 H [facility] UXQ3807-33-05 22:29:00* Test Item Value Reference Range Interpretation Comments Urine WBC (test code = 5821-4) 6-10 0-5 H [facility] EGA0608-29-62 22:29:00* Test Item Value Reference Range Interpretation Comments Urine RBC (test code = 99085-3) 0-5 0-5 [facility] Kpchescs6550-08-11 22:29:00* Test Item Value Reference Range Interpretation Comments Urine Bacteria (test code = 06035-2) NONE NONE [facility] HospitalUrine Epithelial Xiaqm0428-02-57 22:29:00 * Test Item Value Reference Range Interpretation Comments Urine Epithelial Cells (test code = 19714-1) MODERATE NONE [facility] Transitional Epithelial Cells 2018-04-26 22:29:00* Test Item Value Reference Range Interpretation Comments Urine Transitional Epithelial Cells (test code = 8249-5) MODERATE NONE [facility] Hyaline Jlloc4764-10-95 22:29:00* Test Item Value Reference Range Interpretation Comments Urine Hyaline Casts (test code = 74344-7) >15 0-1 H [facility] Nmtxu1050-67-83 21:59:00* Test Item Value Reference Range Interpretation Comments Urine Color (test code = 5778-6) YELLOW YELLOW [facility] Ijfhbux1451-97-85 21:59:00* Test Item Value Reference Range Interpretation Comments Urine Clarity (test code = 24593-5) CLEAR CLEAR [facility] HospitalUrine Specific Kgiyfho0471-49-14 21:59:00 * Test Item Value Reference Range Interpretation Comments Urine Specific [place] (test code = 5811-5) 1.030 1.010-1.02 5 H [facility] HospitalUrine gH2243-80-02 21:59:00* Test Item Value Reference Range Interpretation Comments Urine pH (test code = 59723-5) 6 5-7 [facility] HospitalUrine Leukocyte Wkomoifr9902-72-86 21:59:00* Test Item Value Reference Range Interpretation Comments Urine Leukocyte Esterase (test code = 5799-2) NEGATIVE NEGATIVE [facility] HospitalUrine Chqmkac8670-42-11 21:59:00* Test Item Value Reference Range Interpretation Comments Urine Nitrite (test code = 15283-1) NEGATIVE NEGATIVE [facility] HospitalUrine Syrbhqp5807-05-26 21:59:00* Test Item Value Reference Range Interpretation Comments Urine Protein (test code = 5804-0) 3+ NEGATIVE H [facility] HospitalUrine Glucose (UA)2018-04-26 21:59:00* Test Item Value Reference Range Interpretation Comments Urine Glucose (UA) (test code = 2349-9) 2+ NEGATIVE H [facility] HospitalUrine Zotarzh2250-22-94 21:59:00* Test Item Value Reference Range Interpretation Comments Urine Ketones (test code = 86515-7) TRACE NEGATIVE H [facility] HospitalUrine Eskiqpqvfilk8220-32-79 21:59:00* Test Item Value Reference Range Interpretation Comments Urine Urobilinogen (test code = 64193-5) 1 0.2-1 [facility] HospitalUrine Qtmuzmwio6237-70-12 21:59:00* Test Item Value Reference Range Interpretation Comments Urine Bilirubin (test code = 1978-6) NEGATIVE NEGATIVE [facility] HospitalUrine Vsnhi7020-02-04 21:59:00* Test Item Value Reference Range Interpretation Comments Urine Blood (test code = 31732-9) NEGATIVE NEGATIVE [facility] HospitalUrine Ovcya4825-66-25 21:59:00* Test Item Value Reference Range Interpretation Comments Urine Color (test code = 5778-6) YELLOW YELLOW [facility] HospitalUrine Nkuzsgb4764-75-67 21:59:00* Test Item Value Reference Range Interpretation Comments Urine Clarity (test code = 44381-6) CLEAR CLEAR [facility] Specific Vhymooi5016-72-82 21:59:00 * Test Item Value Reference Range Interpretation Comments Urine Specific [place] (test code = 5811-5) 1.030 1.010-1.02 5 H [facility] HospitalUrine cD5950-43-26 21:59:00* Test Item Value Reference Range Interpretation Comments Urine pH (test code = 70901-9) 6 5-7 [facility] HospitalUrine Leukocyte Wqnbupkn5929-08-68 21:59:00* Test Item Value Reference Range Interpretation Comments Urine Leukocyte Esterase (test code = 5799-2) NEGATIVE NEGATIVE [facility] HospitalUrine Wuerpom2829-35-22 21:59:00* Test Item Value Reference Range Interpretation Comments Urine Nitrite (test code = 15018-7) NEGATIVE NEGATIVE [facility] HospitalUrine Zfqyqff9159-90-38 21:59:00* Test Item Value Reference Range Interpretation Comments Urine Protein (test code = 5804-0) 3+ NEGATIVE H [facility] Glucose (UA)2018-04-26 21:59:00* Test Item Value Reference Range Interpretation Comments Urine Glucose (UA) (test code = 2349-9) 2+ NEGATIVE H [facility] HospitalUrine Nvbamrl8177-32-24 21:59:00* Test Item Value Reference Range Interpretation Comments Urine Ketones (test code = 27692-9) TRACE NEGATIVE H [facility] HospitalUrine Qyorvyaascdh4976-84-07 21:59:00* Test Item Value Reference Range Interpretation Comments Urine Urobilinogen (test code = 32175-7) 1 0.2-1 [facility] HospitalUrine Skoovbtkz1232-59-77 21:59:00* Test Item Value Reference Range Interpretation Comments Urine Bilirubin (test code = 1978-6) NEGATIVE NEGATIVE [facility] HospitalUrine Fcmkn5820-85-08 21:59:00* Test Item Value Reference Range Interpretation Comments Urine Blood (test code = 30932-7) NEGATIVE NEGATIVE [facility] Xjzyrql1234-11-20 21:30:00* Test Item Value Reference Range Interpretation Comments Bedside Glucose (test code = 47185-6) 265 70-120 H Meter ID: [id number] [facility] Glucose 2018-04-26 21:30:00* Test Item Value Reference Range Interpretation Comments Bedside Glucose (test code = 29449-2) 265 70-120 H Meter ID: [id number] [facility]2018-04-26 18:55:00 [facility] [address] [place] [address] Patient Name: DILLAN MELCHOR MR #: [id number] : 1945 Age/Sex: 72/M Req #: [id number] Adm Physician: Ordered by: CARMINA WEAVER MD Report #: [id number] Location: ER Room/Bed: Procedure: [id number] DX/CHEST SINGLE (NOT PORTABLE ) Exam Date: [...] 04/26/181854 COPY TO: CARMINA WEAVER MD Total Jrynvqims3696-11-67 18:33:00* Test Item Value Reference Range Interpretation Comments Total Bilirubin (test code = 1975-2) 0.4 0.2-1.2 [facility] HospitalAspartate Amino Transf (AST/SGOT) 2018-04-26 18:33:00* Test Item Value Reference Range Interpretation Comments Aspartate Amino Transf (AST/SGOT) (test code = Aspartate Amino Transf (AST/SGOT)) 13 5-34 [facility] HospitalAlanine Aminotransferase (ALT/SGPT) 2018-04-26 18:33:00* Test Item Value Reference Range Interpretation Comments Alanine Aminotransferase (ALT/SGPT) (test code = 1742-6) 18 0-55 [facility] HospitalTotal Uhfzlzt5303-70-09 18:33:00* Test Item Value Reference Range Interpretation Comments Total Protein (test code = 2885-2) 8.7 6.5-8.1 H [facility] HospitalAlbumin2018-08-16 18:33:00* Test Item Value Reference Range Interpretation Comments Albumin (test code = 1751-7) 3.8 3.5-5.0 [facility] HospitalGlobulin2018-08-16 18:33:00* Test Item Value Reference Range Interpretation Comments Globulin (test code = 16680-6) 4.9 2.3-3.5 H [facility] HospitalAlbumin/Globulin Cjcrr2143-14-21 18:33:00 * Test Item Value Reference Range Interpretation Comments Albumin/Globulin Ratio (test code = 1759-0) 0.8 0.8-2.0 [facility] HospitalAlkaline Mgnywwacbfx6623-32-15 18:33:00* Test Item Value Reference Range Interpretation Comments Alkaline Phosphatase (test code = 6768-6) 93 40-150 [facility] HospitalB-Type Natriuretic Rvbjdlw1048-56-72 18:33:00* Test Item Value Reference Range Interpretation Comments B-Type Natriuretic Peptide (test code = 26222-7) 54.8 0-100 [facility] HospitalProthrombin Bpkh4113-43-01 18:17:00* Test Item Value Reference Range Interpretation Comments Prothrombin Time (test code = 5902-2) 13.0 11.9-14.5 [facility] HospitalProthromb Time International Ratio 2018-04-26 18:17:00* Test Item Value Reference Range Interpretation Comments Prothromb Time International Ratio (test code = 6301-6) 1.06 Oral Anticoagulant Therapy INR Values:1. Low Intensity Therapy 1.5 - 2.02 . Moderate Intensity Therapy 2.0 - 3.03. High Intensity Therapy(1) 2.5 - 3. 54. High Intensity Therapy(2) 3.0 - 4.05. Panic Value INR > 5.0 [facility] HospitalActivated Partial Thromboplast Time 2018-04-26 18:17:00* Test Item Value Reference Range Interpretation Comments Activated Partial Thromboplast Time (test code = 86017-5) 29.7 23.8-35.5 [facility] HospitalProthrombin Dgei2057-44-45 18:17:00* Test Item Value Reference Range Interpretation Comments Prothrombin Time (test code = 5902-2) 13.0 11.9-14.5 [facility] HospitalProthromb Time International Ratio 2018-04-26 18:17:00* Test Item Value Reference Range Interpretation Comments Prothromb Time International Ratio (test code = 6301-6) 1.06 Oral Anticoagulant Therapy INR Values:1. Low Intensity Therapy 1.5 - 2.02 . Moderate Intensity Therapy 2.0 - 3.03. High Intensity Therapy(1) 2.5 - 3. 54. High Intensity Therapy(2) 3.0 - 4.05. Panic Value INR > 5.0 [facility] HospitalActivated Partial Thromboplast Time 2018-04-26 18:17:00* Test Item Value Reference Range Interpretation Comments Activated Partial Thromboplast Time (test code = 66371-0) 29.7 23.8-35.5 [facility] HospitalWhite Blood Bexzu1348-66-60 18:07:00* Test Item Value Reference Range Interpretation Comments White Blood Count (test code = 6690-2) 6.23 4.8-10.8 [facility] HospitalRed Blood Zicjs7618-74-06 18:07:00* Test Item Value Reference Range Interpretation Comments Red Blood Count (test code = 789-8) 4.14 4.3-5.7 L [facility] HospitalHemoglobin2018-08-16 18:07:00* Test Item Value Reference Range Interpretation Comments Hemoglobin (test code = 72543-0) 13.0 14.0-18.0 L [facility] HospitalHematocrit2018-08-16 18:07:00* Test Item Value Reference Range Interpretation Comments Hematocrit (test code = 4544-3) 39.7 38.2-49.6 [facility] HospitalMean Corpuscular Sibgll3557-92-37 18:07:00* Test Item Value Reference Range Interpretation Comments Mean Corpuscular Volume (test code = 787-2) 95.9 81-99 [facility] HospitalMean Corpuscular Vpioxsxryr9159-83-35 18:07:00* Test Item Value Reference Range Interpretation Comments Mean Corpuscular Hemoglobin (test code = 785-6) 31.4 28-32 [facility] HospitalMean Corpuscular Hemoglobin Concent 2018-04-26 18:07:00* Test Item Value Reference Range Interpretation Comments Mean Corpuscular Hemoglobin Concent (test code = 786-4) 32.7 31-35 [facility] HospitalRed Cell Distribution Obwuh4962-12-17 18:07:00* Test Item Value Reference Range Interpretation Comments Red Cell Distribution Width (test code = 48252-8) 15.4 11.7 -14.4 H [facility] HospitalPlatelet Rqvkx3240-03-03 18:07:00* Test Item Value Reference Range Interpretation Comments Platelet Count (test code = 777-3) 241 140-360 [facility] HospitalNeutrophils (%) (Auto)2018-04-26 18:07:00 * Test Item Value Reference Range Interpretation Comments Neutrophils (%) (Auto) (test code = 99532-3) 59.4 38.7-80.0 [facility] HospitalLymphocytes (%) (Auto)2018-04-26 18:07:00 * Test Item Value Reference Range Interpretation Comments Lymphocytes (%) (Auto) (test code = 736-9) 29.4 18.0-39.1 [facility] HospitalMonocytes (%) (Auto)2018-04-26 18:07:00* Test Item Value Reference Range Interpretation Comments Monocytes (%) (Auto) (test code = 5905-5) 7.4 4.4-11.3 [facility] HospitalEosinophils (%) (Auto)2018-04-26 18:07:00 * Test Item Value Reference Range Interpretation Comments Eosinophils (%) (Auto) (test code = 713-8) 2.7 0.0-6.0 [facility] HospitalBasophils (%) (Auto)2018-04-26 18:07:00* Test Item Value Reference Range Interpretation Comments Basophils (%) (Auto) (test code = 706-2) 0.8 0.0-1.0 [facility] HospitalIM GRANULOCYTES %2018-04-26 18:07:00* Test Item Value Reference Range Interpretation Comments IM GRANULOCYTES % (test code = IM GRANULOCYTES %) 0.3 0.0- 1.0 [facility] HospitalNeutrophils # (Auto)2018-04-26 18:07:00* Test Item Value Reference Range Interpretation Comments Neutrophils # (Auto) (test code = 751-8) 3.7 2.1-6.9 [facility] HospitalLymphocytes # (Auto)2018-04-26 18:07:00* Test Item Value Reference Range Interpretation Comments Lymphocytes # (Auto) (test code = 50856-8) 1.8 1.0-3.2 [facility] HospitalMonocytes # (Auto)2018-04-26 18:07:00* Test Item Value Reference Range Interpretation Comments Monocytes # (Auto) (test code = 742-7) 0.5 0.2-0.8 [facility] HospitalEosinophils # (Auto)2018-04-26 18:07:00* Test Item Value Reference Range Interpretation Comments Eosinophils # (Auto) (test code = 711-2) 0.2 0.0-0.4 [facility] HospitalBasophils # (Auto)2018-04-26 18:07:00* Test Item Value Reference Range Interpretation Comments Basophils # (Auto) (test code = 704-7) 0.1 0.0-0.1 [facility] HospitalAbsolute Immature Granulocyte (auto 2018-04-26 18:07:00* Test Item Value Reference Range Interpretation Comments Absolute Immature Granulocyte (auto (yas t code = Absolute Immature Granulocyte (auto) 0.02 0-0.1 [facility]PE[facility]EDURE IN PRECISION AGRONOMIST [place] [address] Patient Name: DILLAN MELCHOR MR #: [id number] : 1 10/28/1944 Age/Sex: 71/M Req #: [id number] [facility] [place] [facility] Physician: BRIAN DANIELS MD Ordered by: BRIAN DANIELS MD Report #: [id number] Location: ED/SURG3 Room/Bed: [facility] Procedure: [id number] IR/SPEC IAL PROCEDURE IN PRECISION AGRONOMIST Exam Date: Exam Time: REPORT STATUS: Signed Tunneled Dialysis Catheter Placement June 20 Pre-Procedure Diagnosis: End-Stage Renal Disease Post-procedure Diagno sis:End-Stage Renal Disease Seo Strategist: Beverly Matos Pediatric Medical Assistant: None Sed ation: Moderate sedation was provided with intravenous fentanyl and Versed. H eart rate, rhythm and oxygen saturation were monitored and real-time [facility] interventional radiology nurse under my direct supervision. Blood press ure was monitored in 5 minute increments. 1% lidocaine was used for local ane sthesia. Total sedation time: 30 minutes Radiation Dose:60.6 cGycm2 (Dose A albaro Product) Fluoroscopy time:0.4 minutes Estimate blood loss: 10 mL Bloo d administered: None Complications: None Implants/Grafts: 16 Swedish 23 cm cu ffed tunneled dialysis catheter [...] was generated with voice-recognition technology. Errors in angiography nurse can occur. Please interpret accordingly an d contact a radiologist if there are any questions regarding the report. Signed by: Dr. Jania Matos M.D. on 06/22/2017 7:03 AM Dictated By: MARIANNA MATOS MD 1124 T ranscribed By: MEAGHAN on 06/27/17 2659 COPY TO: BRIAN DANIELS MD IR CONSULT [address], [place] [address] Patient Name: DILLAN MELCHOR MR #: [id number] : 1945 Age/Sex: 71[id number] Req #: [id number] [facility] [place] Physician: BRIAN DANIELS MD Ordered by: DES CORNELL MD, MD Report #: [id number] Location: [facility] Room/Bed: [facility] Procedure: [id number] DX/I R CONSULT Exam Date: Exam Time: REPORT STATU S: Signed Tunneled Dialysis Catheter Placement June 20, 2017 Pre-Proc edure Diagnosis: End-Stage Renal Disease Post-procedure Diagnosis:End-Stage Re nal Disease Seo Strategist: Beverly Matos Pediatric Medical Assistant: None Sedation: Moderate sedation was provided with [...] Blood administered: None Complications: None Implants/Grafts: 16 Swedish 23 cm cuffed tunneled di alysis catheter [...] generated with voice-recognition technology. Erro rs in angiography nurse can occur. Please interpret accordingly and contact a radi ologist if there are any questions regarding the report. Signed by: Dr. Sidra Matos M.D. on 06/22/2017 7:03 AM Dictated By: JANIA MATOS MD 1124 Transcribed By: Issac CANALES on 06/27/17 1124 COPY TO: DES CORNELL CT FOOT LEFT WO [place] [address] Patient Name: DILLAN MELCHOR MR #: [id number] : 1 10/28/1944 Age/Sex: 71/M Req #: [id number] Adm Physician: BRIAN DANIELS MD Ordered by: EMMIE MONREAL DPLeoncio Report #: [id number] Locatio n: MED/SURG3 Room/Bed: [facility] Procedure: [id number] CT/ CT FOOT LEFT WO Exam Date: [...] COPY TO: EMMIE MONREAL DPM IR CONSULT [place] [address] Patient Name: DILLAN MELCHOR MR #: [id number] : 1 10/28/1944 Age/Sex: 71/M Req #: [id number] Adm Physician: BRIAN DANIELS MD Ordered by: ANTWAN MENSAH, DES MENSAH Report #: [id number] Location : MED/SURG3 Room/Bed: [facility] Procedure: [id number] DX/I R CONSULT Exam Date: Exam Time: REPORT STATU S: Signed PROCEDURE: NON-TUNNELLED CVC CATH PLACMNT COMPARISON: Chest r adiograph 06/04/2017. INDICATIONS: End-stage renal disease Seo Strategist: Luis Felipe Duarte M.D. Total fluoroscopy time: 0.7 minutes Air Kerma: 19.2 mGy Cont rast used: Zero Blood products administered: None Specimens: None Implants /grafts: 13 Swedish 15 cm triple-lumen high flow central venous [...] was dilated. Then, a 15 cm, 13 Swedish triple lumen central venous catheter was advanced [...] CONCLUSION: Suc cessful placement of a 13 Swedish, 15 cm triple-lumen high flow central venous catheter (Trialysis catheter) by a right internal jugular approach under son ographic and fluoroscopic guidance. Dictated by: Bao Duarte M.D. on 017 at 13:31 Electronically approved by: Bao Duarte M.D. on 06/14/2017 at 13:31 Dictated By: BAO DUARTE MD 1331 Transcribed By: IVETT on 06/14/17 1331 COPY TO: DES CORNELL NON-TUNNELLED CVC CATH PLACMNT [place] [address] Patient Name: DILLAN MELCHOR MR #: [id number] : 1945 Age/Sex: 71/M Req #: [id number] Adm Physician: BRIAN DANIELS MD Ordered by: ANTWAN MENSAH, DES MENSAH Report #: [id number] Location : MED/SURG3 Room/Bed: [facility] Procedure: [id number] IR/N ON-TUNNELLED CVC CATH PLACMNT Exam Date: 06/14/17 Ex am Time: 1245 REPORT STATUS: Signed PROCEDURE: NON-TUNNELLED CVC CATH PLACMNT COMPARISON: Chest radiograph 06/04/2017. INDICATIONS: End-stage re nal disease Seo Strategist: Bao Duaret M.D. Total fluoroscopy time: 0.7 pablo yas Air Kerma: 19.2 mGy Contrast used: Zero Blood products administered: N one Specimens: None Implants/grafts: 13 Swedish 15 cm triple-lumen high flow central venous [...] was dilated. Then, a 15 cm, 13 Swedish triple lumen central venous catheter was advanced [...] . CONCLUSION: Successful placement of a 13 Swedish, 15 cm triple-l umen high flow central venous catheter (Trialysis catheter) by a right financial internship al jugular approach under sonographic and fluoroscopic guidance. Dictated by: Bao Duarte M.D. on 06/14/2017 at 13:31 Electronically approved by: Bao Duarte M.D. on 06/14/2017 at 13:31 Dictated By: BAO GRAF MD 1331 Transcribed By: IVETT on 06/14/17 1331 COPY TO: DES CORNELL FLUORO GUIDANCE [address]/REM [place] [address] Patient Name: DILLAN MELCHOR MR #: [id number] : 1945 Age/Sex: 71/M Req #: [id number] Adm Physician: BRIAN DANIELS MD Ordered by: DES CORNELL MD, MD Report #: [id number] Location: MED/SURG3 Room/Bed: [facility] Procedure: [id number] DX/F LUORO GUIDANCE [address]/REM Exam Date: 06/14/17 Ex am Time: 1245 REPORT STATUS: Signed PROCEDURE: NON-TUNNELLED CVC CATH PLACMNT COMPARISON: Chest radiograph 06/04/2017. INDICATIONS: End-stage re nal disease Seo Strategist: Bao Duarte M.D. Total fluoroscopy time: 0.7 pablo yas Air Kerma: 19.2 mGy Contrast used: Zero Blood products administered: N one Specimens: None Implants/grafts: 13 Swedish 15 cm triple-lumen high flow central venous [...] was dilated. Then, a 15 cm, 13 Swedish triple lumen central venous catheter was advanced [...] . CONCLUSION: Successful placement of a 13 Swedish, 15 cm triple-l en high flow central venous catheter (Trialysis catheter) by a right financial internship al jugular approach under sonographic and fluoroscopic guidance. Dictated by: Bao Duarte M.D. on 06/14/2017 at 13:31 Electronically approved by: Bao Duarte M.D. on 06/14/2017 at 13:31 Dictated By: BAO GRAF MD 1331 Transcribed By: IVETT on 06/14/171330 COPY TO: DES CORNELL GUIDANCE FOR VASCULAR ACCES [place] [address] Patient Name: DILLAN MELCHOR MR #: [id number] : 1945 Age/Sex: 71/M Req #: [id number] Adm Physician: BRIAN DANIELS MD Ordered by: DES CORNELL MD, MD Report #: [id number] Location: MED/SURG3 Room/Bed: [facility] Procedure: [id number] US/U S GUIDANCE FOR VASCULAR ACCES Exam [...] COPY TO: DES CORNELL RENAL RETROPERITONEAL COMP [place] [address] Patient Name: DILLAN MELCHOR MR #: [id number] : 1945 Age/Sex: 71/M Req #: [id number] [facility] [place] Physician: BRIAN DANIELS MD Ordered by: BRIAN DANIELS MD Report #: [id number] Location: MED/SURG3 Room/Bed: [facility] Procedure: [id number] US/US R ENAL RETROPERITONEAL COMP Exam Date: [...] 44 COPY TO: BRIAN DANIELS MD CHEST [facility] (PORTABLE) [place] [address] Patient Name: DILLAN MELCHOR MR #: [id number] : 1945 Age/Sex: 71/M Req #: [id number] [facility] [place] Physician: Ordered by: RUTHY LOGAN MD Report #: [id number] Location: ER Room/Bed: Procedure: [id number] DX/CHEST SINGLE (PORTABLE) E xam Date: 06/04/17 [...]
--- NOTE | 2020-06-07 18:02 | NUR ---
troponin 2.92 reported to the cardiologists dr Torres. order is to continue monitoring . call MD if pt symptomatic.
--- NOTE | 2020-06-07 18:42 | NUR ---
Patient was admitted at [facility] back on 06/2017 for left leg cellulitis and fever requiring IV antibiotics. The wound was positive for ESBL E. coli and streptococcal infection in the left foot. We went ahead and gave him earlier gentamycin x 1 dose and vancomycin, have proceeded to request ID consultation with Dr. Rockwell Full progress noted dictated
--- NOTE | 2020-06-07 20:35 | NUR ---
Admission order received to transfer pt to [facility]. Dr. Rothman paged for order clarification. Awaiting call back.
--- NOTE | 2020-06-07 20:39 | Progress Note ---
DATE: 06/07/2020 SUBJECTIVE: Events noted. From last evening basically, the patient had a temperature of 103 and became hypotensive, systolic was in the 90s. At that point in time, I requested a stat consultation with Dr. Boateng, concern about ongoing sepsis and orders given to request a lactic acid along with a procalcitonin level. The patient had to be admitted with chest pain. The patient reportedly had been somewhat confused. OBJECTIVE: VITAL SIGNS: At this time, much stable. Blood pressure 110/53, respirations 18, pulse 81, and temperature of 99.3. HEENT: Head is normocephalic and atraumatic. LUNGS: Good air entry. HEART: Regular rate and rhythm. ABDOMEN: Soft and nontender. EXTREMITIES: No edema. NEURO: Nonfocal. LABORATORY DATA: Noted. CBC revealed hemoglobin 9.1, white blood cell count 8.54, and platelet count 186,000. Lactic acid was elevated 2.4. Sodium 137, potassium 4.1, chloride 96, CO2 26, BUN 30, and creatinine 4.78. Chest x-rays done on admission did reveal no acute toxic abnormalities. ASSESSMENT: 1. Fever, etiology undetermined. We have proceeded to request blood cultures . 2. Chest pain, atypical. 3. Hypertension. 4. Diabetes mellitus. 5. Hyperlipidemia. 6. Mild anemia. 7. History of left arm fistula. PLAN OF CARE: Continue present care as advised. List of medications noted. Empirically placed on antibiotic treatment. MD TALA Trejo/CLEVE /[id number]
--- NOTE | 2020-06-07 21:27 | NUR ---
No call back. Answering service attempted to call MD. No answer received. Dr. Rothman paged for order clarification.
--- NOTE | 2020-06-07 22:40 | NUR ---
Pt transferred to [facility]. Pt alert, awake, and stable at time of transfer. Report given to SHANTAL Tang. Care transferred.
--- NOTE | 2020-06-07 22:45 | NUR ---
Received pt. from Med surg via bed accompanied by nurse. Alert and oriented. Skin is warm and dry to touch. Respirations are even and unlabored. AV graft to L arm. Noted 20 gauge saline lock to his R upper arm, patent and intact. No c/o pain or discomfort .
[2020-06-08] VITALS (9 sets, daily range): BP systolic 102–135; BP diastolic 45–82
[2020-06-08 00:02] LABS: CREATINE KINASE MB 2.9 ng/mL (0-5.0)
--- NOTE | 2020-06-08 05:01 | Consultation ---
DATE OF CONSULTATION: 06/07/2020 The patient admitted for Dr. Rothman on June 06 and seen in consultation on June 07. HISTORY OF PRESENT ILLNESS: This 74-year-old patient was kindly referred for cardiovascular evaluation. The patient was admitted because of chest pain radiating to his arms and neck and now showing progressive elevation of the troponin level as well as the creatinine kinase levels. At the moment, the patient denies any further chest pain. He also stated that he was having some blurry vision and at one time he was found to be with severe hypotension. However, all this has been resolved and the patient is denying any further vision disturbances. The patient also had initially a temperature of 99.3, which did rise to 103.7 At the moment his temperature is 101.4. The patient denies any cough or sputum production. He denies any shortness of breath and his initial oxygen saturation was 100% on room air. The patient does have end-stage renal disease and having dialysis on Monday, , and Saturdays without any difficulties. The patient's IV fistula is in his left arm. PAST HISTORY: Reveals that he has insulin-dependent diabetes mellitus, history of hypertension, also had previous aortocoronary bypass procedure and permanent AV sequential pacemaker implanted. The patient also is complaining of some peptic dyspepsia. SOCIAL HISTORY: The patient according to the records, stopped smoking and drinking in his 40s. FAMILY HISTORY: Noncontributory. ALLERGIES: NONE KNOWN. REVIEW OF SYSTEMS: The systems reviewed. The patient denies any headache or sore throat. The patient denies any cough, nausea, vomiting, diarrhea, constipation. The patient denies any leg edema, and he has no further chest pain. PHYSICAL EXAMINATION: VITAL SIGNS: Reveals a blood pressure 145/61, temperature being 101.4, oxygen saturation 98%. Carotid pulses are present. CHEST: Clear to auscultation. CARDIOVASCULAR: Normal apical impulse. The rhythm is regular. First and second are normal. There is no S3. There is no rub. ABDOMEN: Soft. There is no tenderness. No organomegaly. EXTREMITIES: Pedal pulses could not be palpated. There is no peripheral edema. NEUROLOGIC: Does not reveal any motor defect. LABORATORY DATA: The patient's chest x-ray shows cardiomegaly with AV sequential pacemaker in place and status postop median sternotomy, postop. aortocoronary bypass procedure. The patient EKG shows first degree AV block, right bundle branch block and nonspecific ST-T wave changes. The patient's Echocardiogram shows left ventricular hypertrophy and ejection fraction of 50%. IMPRESSION: 1. Non STEMI myocardial infarction. 2. End-stage renal disease, on hemodialysis. 3. Insulin-dependent diabetes mellitus. 4. Status post aortocoronary bypass procedure. 5. Status post permanent pacemaker implantation. 6. Peripheral arterial vascular disease. 7. Hypertensive cardiovascular disease. 8. Sepsis. 9. Anemia. The patient appears to be stable and not complaining of any cardiopulmonary symptoms, and I agree with the present medication. I would recommend to continue follow up cardiac enzymes and a followup electrocardiogram. The patient also may need further cardiovascular investigation with stress testing and possible cardiac catheterization. However, at the moment, the important issue is to continue the patient's treatment for sepsis with the antibiotic regimen as outlined in the patient's medical records. Thank you very much for letting me see this very nice patient. MD CHENG SamH/MODL /[id number] BRANDI
[2020-06-08 07:05] LABS: CREATINE KINASE MB 2.1 ng/mL (0-5.0)
[2020-06-08] MEDS: PIPERACILLIN/TAZO 2.25 GM 50 ML IV SCH ×2 (09:10→21:40)
[2020-06-08] MEDS: ASPIRIN 81 MG CHEW TAB PO SCH (09:10)
[2020-06-08] MEDS: HEPARIN SOD (PORCINE) 5,000 UNIT/ML VIAL SC SCH ×2 (09:14→20:44)
--- NOTE | 2020-06-08 10:45 | NUR ---
2.[address] Melendez through office staff.
--- NOTE | 2020-06-08 15:08 | Consultation ---
DATE OF CONSULTATION: 06/08/2020 SUBJECTIVE: This is a 74-year-old gentleman, known to our Nephrology Service, underlying history of end-stage renal disease, follows up with Dr. Aparicio at [facility], dialysis on Tuesdays, , and Saturdays. Has been admitted this time with chest pain. Renal has been consulted for management of kidney failure. The patient is lying supine, in no apparent distress. Denies shortness of breath, nausea, or vomiting. Prior history of type 2 diabetes, diabetic kidney disease, retinopathy, neuropathy, atherosclerotic cardiovascular disease. ALLERGIES: NO APPARENT DRUG ALLERGIES. SOCIAL HISTORY: Does not smoke or drink. FAMILY HISTORY: Significant for hypertension and diabetes. CURRENT MEDICATIONS: Aspirin, Tylenol, piperacillin/tazobactam. PHYSICAL EXAMINATION: GENERAL: Awake, alert, oriented x3, lying supine, in no apparent distress. VITAL SIGNS: Blood pressure is 103/62, pulse is 77, afebrile. HEAD AND NECK: Cornea clear. Oral mucosa moist. LUNGS: Occasional rales at bases. HEART: S1 and S2 audible. ABDOMEN: Soft and nontender. EXTREMITIES: Lower extremity, no edema. IMPRESSION AND PLAN: Underlying end-stage renal disease, admitted with chest pains, underlying hypertension, mild fluid overload, anemia. Labs noted. Potassium 4.1, bicarbonate 26, and creatinine 4.7. Hemoglobin 9.1 and white count 8.5. Orders written. Please see orders. MD BUZZ Levy/CLEVE /[id number]
--- NOTE | 2020-06-08 15:39 | NUR ---
INFECTIOUS DISEASE CONSULT NOTE DR. JOCELINE POWER CC: chest pain and fever HPI: This is a 74 year old male with a PMH of ESRD on HD who admitted through the ED with chest pain. The patient had pain radiating fro his chest down his arm. He had progressive elevated troponins and CK levels. The pt was found to be febrile upon admission with TMAX to 103.7. The pt denies SOB. He has a AV fistula to the Left arm for access. PMH: insulin-dependent diabetes mellitus, history of hypertension, also had previous aortocoronary bypass procedure and permanent AV sequential pacemaker implanted. The patient also is complaining of some peptic dyspepsia. PAST SURGICAL HX: AV fistula Left Arm SOCIAL HX: denies smoking drinking ROS: +chest pain, +fatigue, +weakness +fever ALL 14 POINT ROS NEG UNLESS OTHERWISE NOTED PHYSICAL EXAM: GENERAL: awake alert HEENT: normocephalic atraumatic CV: s1, s2, no s3, s4 CHEST: rhonchi, symmetrical expansion ABD: soft, non-tender, no distension EXT: moves all, no joint swelling NEURO: intact ,no motor deficit LABS: reviewed RADIOLOGY: reviewed The patient EKG shows first degree AV block, right bundle branch block and nonspecific ST-T wave changes. The patient's Echocardiogram shows left ventricular hypertrophy and ejection fraction of 50%. IMPRESSION: 1. NSTEMI 2. End-stage renal disease, on hemodialysis. 3. Insulin-dependent diabetes mellitus. 4. Status post aortocoronary bypass procedure. 5. Status post permanent pacemaker implantation. 6. Peripheral arterial vascular disease. 7. Hypertensive cardiovascular disease. 8. Sepsis present on admission to ED 9. Anemia. PLAN: blood cultures pending, neg at this time continue zosyn, some improvement repeat labs today and AM urine culture if able, (if not aurnic) Annette Velarde MSN, DIE REPAIRER STAMPING, [facility]- Joceline Power M.D.
--- NOTE | 2020-06-08 15:55 | NUR ---
PT IS TRANSFERRED FROM [facility] .RESPIRATIONS ARE EVEN AND UNLABORED .TELE 1 SR .ORDERED TO PUT CENTRAL LINE NOTIFIED IR DR TO PUT CENTRAL DID NOT COME TO PUT CENTRAL LINE ,NOTIFIED DUST COLLECTOR ORE CRUSHING PHYSICIAN .ER NURSE IV ON LEFT HAND 20G .PT DENIES CHEST PAIN ,CALL LIGHT WITH IN REACH ,CONTINUE TO MONITOR Addendum: 06/09/20 at 1938 by Dennis Delgado RN WRONG INFORMATION
[2020-06-08 17:40] LABS: BASOPHILS % 0.6 % (0.0-1.0); EOSINOPHILS % 0.2 % (0.0-6.0); HEMATOCRIT 26.4 % (38.2-49.6); HEMOGLOBIN 8.1 g/dL (14.0-18.0); LYMPHOCYTES # (AUTO) 1.3 (1.0-3.2); LYMPHOCYTES % 20.6 % (18.0-39.1); MEAN CORPUSCULAR HEMOGLOBIN 31.9 pg (28-32); MEAN CORPUSCULAR HGB CONC 30.7 g/dL (31-35); MEAN CORPUSCULAR VOLUME 103.9 fL (81-99); MONOCYTES # (AUTO) 0.6 (0.2-0.8); MONOCYTES % 9.1 % (4.4-11.3); NEUTROPHILS # (AUTO) 4.5 (2.1-6.9); NEUTROPHILS % 69.2 % (38.7-80.0); PLATELET COUNT 158 x10e3/uL (140-360); RED BLOOD COUNT 2.54 x10e6/uL (4.3-5.7); RED CELL DISTRIBUTION WIDTH 15.4 % (11.7-14.4)
[2020-06-08 17:54] LABS: ALBUMIN 3.5 g/dL (3.5-5.0); ALBUMIN/GLOBULIN RATIO 1.1 (0.8-2.0); ANION GAP 20.8 mmol/L (8-16); CALCIUM 8.1 mg/dL (8.4-10.2); CREATININE, SERUM 6.54 mg/dL (0.72-1.25); POTASSIUM 3.8 mmol/L (3.5-5.1)
--- NOTE | 2020-06-08 19:54 | Progress Note ---
DATE: 06/08/2020 SUBJECTIVE: The patient is doing fine at this time. Denies having chest pain. No shortness of breath. No fever. No chills. No abdominal pain. No nausea. No vomiting. No urinary symptoms. OBJECTIVE: GENERAL: The patient is alert, oriented to person, time and place. The patient is in no distress. VITAL SIGNS: Blood pressure 135/60, respirations 16, pulse 71, and temperature 98.9. HEENT: Head is atraumatic. NECK: Supple. No JVD. Thyroid was not enlarged. LUNGS: Clear to auscultation. HEART: Regular rate and rhythm. ABDOMEN: Soft, nontender. No organomegaly. EXTREMITIES: No edema. NEURO: Nonfocal. IMAGING DATA: A chest x-rays as of June 06, 2020. No acute thoracic abnormality. LABORATORY DATA: Chem profile on admission revealed sodium 136, potassium 4.0, chloride 93, CO2 of 30, anion gap 17.0, BUN 20, creatinine 3.56, and estimated GFR 17. Troponin I 0.201. Follow cardiac enzymes revealed elevation of cardiac enzymes were 1.793 up to 2.318. A CBC revealed on admission, hemoglobin 9.4, white blood cell count 6.93, platelet count 184,000. Hemoglobin was done today which is June 08, 2020 revealed a value of 8.1. ASSESSMENT: 1. Altered mental status, which was the presentation upon admission, which has now resolved. 2. Hypotension, resolved. The patient was noted to have an elevated lactic acid. Sepsis has been a consideration on patient's clinical presentation and empirically placed on antibiotics. 3. End-stage renal disease and presently the patient is on hemodialysis and Renal has been consulted. 4. Abnormal cardiac enzymes suggestive of non ST-segment elevation myocardial infarction and this could be related to myocardium and Cardiology has been consulted and at the present time with recommendations to address the patient's problem with that of possible sepsis, source could be UTI, which he will need to follow up test. Cardiology evaluation noted and the patient may need investigations with stress testing, possible cardiac catheterization once the patient's condition improved with any sepsis and treatment. 5. Diabetes mellitus. 6. Status post permanent pacemaker implantation. 7. Hypertensive cardiovascular disease. 8. Peripheral arterial and vascular disease. PLAN OF CARE: 1. Continue antibiotics as advised. Follow up cultures. 2. Cardiac consultation is requested. An echo was ordered. 3. Renal has been consulted. Continue hemodialysis. 4. DVT prophylaxis. Reconcile home medications. Further recommendations depending on patient's ER course, we have consulted ID as well. MD TALA Trejo/CLEVE /[id number]
--- NOTE | 2020-06-08 22:00 | NUR ---
DR BHATIA ORDERED CENTRAL LINE FOR PT SINCE DIALYSIS CAN'T HAVE PICC OR MIDLINE, UNABLE TO GET PIV WITH ULTRASOUND OR WITH OTHER NURSES AND PT DUE FOR MEDS AND HEART PROCEDURE DUE TO NONSTEMI. ORDER PLACED AND NOTIFIED IR.
--- NOTE | 2020-06-08 23:45 | NUR ---
PT IS TRANSFERRED FROM [facility] AOX[facility] .RESPIRATIONS ARE EVEN AND UNLABORED .TELE 1 SR .ORDERED TO PUT CENTRAL LINE NOTIFIED IR DR TO PUT CENTRAL DID NOT COME TO PUT CENTRAL LINE ,NOTIFIED FRONT ATTENDANT PHYSICIAN .ER NURSE PUT IV ON RIGHT FA 20G .PT DENIES CHEST PAIN ,CALL LIGHT WITH IN REACH ,CONTINUE TO MONITOR
[2020-06-09] VITALS (7 sets, daily range): BP systolic 127–143; BP diastolic 49–68
--- NOTE | 2020-06-09 05:30 | NUR ---
PT RESTED DURING THE NIGHT ,DENIES THE CHEST PAIN CALL LIGHT WITH IN REACH CONTINUE TO MONITOR
[2020-06-09 06:19] LABS: ALBUMIN 3.7 g/dL (3.5-5.0); ALBUMIN/GLOBULIN RATIO 1.1 (0.8-2.0); CALCIUM 8.3 mg/dL (8.4-10.2); CREATININE, SERUM 7.37 mg/dL (0.72-1.25)
[2020-06-09 06:26] LABS: INR 1.02; PROTHROMBIN TIME 13.9 seconds (11.9-14.5)
[2020-06-09 06:27] LABS: PARTIAL THROMBOPLASTIN TIME 37.7 seconds (23.8-35.5)
--- NOTE | 2020-06-09 07:37 | NUR ---
BEDSIDE REPORT GIVEN TO THE ONCOMING NURSE
[2020-06-09] MEDS ORDERED: SODIUM CHLORIDE 0.9% 1000ML 2,000 ML ONE (08:51)
[2020-06-09] MEDS: ASPIRIN 81 MG CHEW TAB PO SCH (09:00)
[2020-06-09] MEDS: PIPERACILLIN/TAZO 2.25 GM 50 ML IV SCH ×2 (09:09→21:18)
--- NOTE | 2020-06-09 11:09 | NUR ---
consent fo hemodialysis, done.
--- NOTE | 2020-06-09 11:11 | NUR ---
INFECTIOUS DISEASE CONSULT NOTE DR. JOCELINE POWER CC: chest pain and fever HPI: This is a 74 year old male with a PMH of ESRD on HD who admitted through the ED with chest pain. The patient had pain radiating fro his chest down his arm. He had progressive elevated troponins and CK levels. The pt was found to be febrile upon admission with TMAX to 103.7. The pt denies SOB. He has a AV fistula to the Left arm for access. PMH: insulin-dependent diabetes mellitus, history of hypertension, also had previous aortocoronary bypass procedure and permanent AV sequential pacemaker implanted. The patient also is complaining of some peptic dyspepsia. ROS: +chest pain, +fatigue, +weakness +fever ALL 14 POINT ROS NEG UNLESS OTHERWISE NOTED PHYSICAL EXAM: GENERAL: awake alert HEENT: normocephalic atraumatic CV: s1, s2, no s3, s4 CHEST: rhonchi, symmetrical expansion ABD: soft, non-tender, no distension EXT: moves all, no joint swelling NEURO: intact ,no motor deficit LABS: reviewed RADIOLOGY: reviewed The patient EKG shows first degree AV block, right bundle branch block and nonspecific ST-T wave changes. The patient's Echocardiogram shows left ventricular hypertrophy and ejection fraction of 50%. IMPRESSION: 1. NSTEMI 2. End-stage renal disease, on hemodialysis. 3. Insulin-dependent diabetes mellitus. 4. Status post aortocoronary bypass procedure. 5. Status post permanent pacemaker implantation. 6. Peripheral arterial vascular disease. 7. Hypertensive cardiovascular disease. 8. Sepsis present on admission to ED 9. Anemia. PLAN: blood cultures pending, neg at this time continue zosyn, some improvement repeat labs today and AM From ID standpoint, can be discharged home without ABT when cleared by others Annette Velarde MSN, AIRCRAFT WORKER, [employer]- Joceline Power M.D.
[2020-06-09] MEDS: HEPARIN SOD (PORCINE) 5,000 UNIT/ML VIAL SC SCH ×2 (13:50→23:49)
--- NOTE | 2020-06-09 15:31 | Progress Note ---
DATE: 06/09/2020 SUBJECTIVE: The patient was seen and evaluated on June 09, 2020. Basically, he is being evaluated pertaining the following problems: 1. Altered mental status, resolved. 2. Hypotension, resolved. 3. Suspected sepsis. 4. End-stage renal disease. 5. Abnormal cardiac enzymes suggestive of non ST-segment elevation myocardial infarction. 6. Diabetes mellitus, type 2. 7. Status post permanent pacemaker implantation. 8. Hypertensive cardiovascular disease. 9. Peripheral arterial and vascular disease. The patient has been doing fine. No reported new events. No chest pain. No shortness of breath. No abdominal pain. No nausea, no vomiting. No fever or chills. OBJECTIVE: GENERAL: The patient has been alert, oriented to person, time, and place. VITAL SIGNS: Blood pressure 134/68, respirations 16, pulse 73, and temperature 97.6. Physical examination is essentially unchanged. HEENT: Head is atraumatic. NECK: Supple. No JVD. LUNGS: Clear to auscultation. HEART: Regular rate and rhythm. ABDOMEN: Soft. EXTREMITIES: No edema. NEURO: Nonfocal. LABORATORY DATA: Hemoglobin as of 06/08/2020 was 8.1, WBC 6.46, and platelet count 158,000. Sodium 136, potassium 4.0, chloride 96, CO2 of 23, BUN 64, and creatinine 7.37. PLAN OF CARE: Continue antibiotics empirically. So far cultures have been negative. ID started following the patient. A central line was ordered. The patient can have a PICC line midline. List of medications reviewed. Continue to follow up the patient closely. MD TALA Trejo/CLEVE /[id number]
--- NOTE | 2020-06-09 17:16 | Progress Note ---
DATE: 06/09/2020 PULMONARY CRITICAL CARE PROGRESS NOTE: SUBJECTIVE: The patient feels better. He has less congestion. He has less confusion. He is concerned about the comments from the electrician helper [employer]'s earlier today. Apparently, his bypass may be blocked and he needs repeat catheterization. PHYSICAL EXAMINATION: VITAL SIGNS: Stable. HEENT: Shows no facial swelling or erythema. CARDIAC: Reveals regular rate and rhythm with normal S1 and S2. LUNGS: Auscultation of lungs reveals clear breath sounds bilaterally. There is no wheezing. ABDOMEN: Soft and nontender. There is no rebound or guarding. EXTREMITIES: Show no leg edema or calf tenderness. IMPRESSION: 1. Possible sepsis, present on admission. 2. End-stage renal disease. 3. Coronary artery disease with abnormal cardiac enzymes. 4. End-stage renal disease. 5. Status post pacemaker. PLAN: 1. Continue current antibiotics. 2. Arrange for cardiac catheterization either as inpatient or as outpatient. 3. Continue dialysis as needed. Seun Kumar MD [facility] /[id number]
--- NOTE | 2020-06-09 19:18 | NUR ---
report given to oncoming nurse, resp evn and unlabored at this time no distress noted, walking rounds complete.
[2020-06-09] MEDS ORDERED: DEXTROSE 50% SYRINGE 50 ML IV PRN (20:45)
--- NOTE | 2020-06-09 20:54 | NUR ---
RECEIVED PT IN BED AOX3 ,DENIES CHEST PAIN .PT HAD DIALYSIS AND TAKEN 3L .PT RESTING .CONTINUE TO MONITOR
[2020-06-09] MEDS: INSULIN REGULAR, HUMAN 100 UNIT/1 ML 3ML VIAL SQ SCH (21:00)
[2020-06-10] VITALS: BP 143/63
[2020-06-10 04:00] VITALS: BP 110/59
--- NOTE | 2020-06-10 05:57 | NUR ---
PT RESTED DURING THE NIGHT ,DENIES THE CHEST PAIN CALL LIGHT WITH IN REACH CONTINUE TO MONITOR
--- NOTE | 2020-06-10 07:10 | NUR ---
BEDSIDE REPORT GIVEN TO THE ONCOMING NURSE
[2020-06-10] MEDS: INSULIN REGULAR, HUMAN 100 UNIT/1 ML 3ML VIAL SQ SCH ×3 (07:30→17:54)
[2020-06-10 08:00] VITALS: BP 111/57
[2020-06-10 08:22] VITALS: BP 111/57
[2020-06-10] MEDS: ASPIRIN 81 MG CHEW TAB PO SCH (09:28)
[2020-06-10] MEDS: HEPARIN SOD (PORCINE) 5,000 UNIT/ML VIAL SC SCH (09:28)
[2020-06-10] MEDS: PIPERACILLIN/TAZO 2.25 GM 50 ML IV SCH (09:28)
[2020-06-10 11:27] VITALS: BP 137/75
--- NOTE | 2020-06-10 15:42 | Progress Note ---
DATE: 06/10/2020 SUBJECTIVE: The patient is doing fine. No double vision. No fever. No chills. No chest pain or shortness of breath. No abdominal pain. No nausea or vomiting. OBJECTIVE: GENERAL: The patient alert, oriented to person, time, place, stable. VITAL SIGNS: Blood pressure 137/75, respirations 20, pulse 73, temperature 97.5. Physical examination basically unchanged. HEENT: Head is atraumatic. NECK: Supple. No JVD. LUNGS: Clear to auscultation. HEART: Regular rate and rhythm. ABDOMEN: Soft. EXTREMITIES: No edema. ASSESSMENT: 1. Altered mental status, resolved. 2. Hypotension, resolved. 3. Suspected sepsis. 4. End-stage renal disease. 5. Abnormal cardiac enzymes suggestive of non-ST elevation [place]. 6. Diabetes mellitus type 2. 7. Status post permanent pacemaker implantation. 8. Hypertensive cardiovascular disease. 9. Peripheral arterial disease. PLAN OF CARE: Continue present care . Continue antibiotics per ID. As far as labs are concerned, lab data on June 08, 2020, hemoglobin 8.1, platelet count 158,000. WBC count 6.46 . MD TALA Trejo/CLEVE /[id number] MTDD
[2020-06-10 16:00] VITALS: BP 135/64
--- NOTE | 2020-06-10 18:10 | NUR ---
PER ID, PT DOES NOT NEED TO BE DISCHARGED ON ANTIBIOTICS
--- NOTE | 2020-06-10 18:11 | NUR ---
INFECTIOUS DISEASE CONSULT NOTE DR. JOCELINE POWER CC: chest pain and fever HPI: This is a 74 year old male with a PMH of ESRD on HD who admitted through the ED with chest pain. The patient had pain radiating fro his chest down his arm. He had progressive elevated troponins and CK levels. The pt was found to be febrile upon admission with TMAX to 103.7. The pt denies SOB. He has a AV fistula to the Left arm for access. PMH: insulin-dependent diabetes mellitus, history of hypertension, also had previous aortocoronary bypass procedure and permanent AV sequential pacemaker implanted. The patient also is complaining of some peptic dyspepsia. ROS: +chest pain, +fatigue, +weakness +fever ALL 14 POINT ROS NEG UNLESS OTHERWISE NOTED PHYSICAL EXAM: GENERAL: awake alert HEENT: normocephalic atraumatic CV: s1, s2, no s3, s4 CHEST: rhonchi, symmetrical expansion ABD: soft, non-tender, no distension EXT: moves all, no joint swelling NEURO: intact ,no motor deficit LABS: reviewed RADIOLOGY: reviewed The patient EKG shows first degree AV block, right bundle branch block and nonspecific ST-T wave changes. The patient's Echocardiogram shows left ventricular hypertrophy and ejection fraction of 50%. IMPRESSION: 1. NSTEMI 2. End-stage renal disease, on hemodialysis. 3. Insulin-dependent diabetes mellitus. 4. Status post aortocoronary bypass procedure. 5. Status post permanent pacemaker implantation. 6. Peripheral arterial vascular disease. 7. Hypertensive cardiovascular disease. 8. Sepsis present on admission to ED 9. Anemia. PLAN: blood cultures negative workup for infection has been negative could be reactive will d/c without antibiotics From ID standpoint, can be discharged home without ABT when cleared by others Annette Velarde MSN, [employer], AGACNP- Joceline Power M.D.
--- NOTE | 2020-06-10 19:30 | NUR ---
pt discharged to home per private car, down in w/c, vs wnl, all belongings with pt, discharge papers and prescriptions
--- NOTE | 2020-07-23 10:35 | NUR ---
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
== END 2020-06-10 19:26 | disposition home or self-care (01) | DRG 871 ==
LOC: ER 18:44 → ERHOLD 19:51 → MED/SURG3 23:35 → IMCU 06-07 22:50 → OBSVTOIN 06-08 08:53 → MED/SURG3 06-08 22:11
PROVIDERS: ADMIT Internal Medicine; ATTEND Internal Medicine
DX: A41.9 Sepsis, unspecified organism (principal); N18.6 End stage renal disease; I21.4 Non-ST elevation (NSTEMI) myocardial infarction; G93.41 Metabolic encephalopathy; R65.21 Severe sepsis with septic shock; I12.0 Hypertensive chronic kidney disease with stage 5 chronic kidney disease or end stage renal disease; L03.116 Cellulitis of left lower limb; Z16.12 Extended spectrum beta lactamase (ESBL) resistance; E11.22 Type 2 diabetes mellitus with diabetic chronic kidney disease; Z99.2 Dependence on renal dialysis; I25.2 Old myocardial infarction; E78.00 Pure hypercholesterolemia, unspecified; E66.9 Obesity, unspecified; Z68.30 Body mass index [BMI] 30.0-30.9, adult; Z95.0 Presence of cardiac pacemaker; D64.9 Anemia, unspecified; B96.20 Unspecified Escherichia coli [E. coli] as the cause of diseases classified elsewhere; B95.8 Unspecified staphylococcus as the cause of diseases classified elsewhere; R07.89 Other chest pain; Z95.1 Presence of aortocoronary bypass graft; E11.51 Type 2 diabetes mellitus with diabetic peripheral angiopathy without gangrene; E11.319 Type 2 diabetes mellitus with unspecified diabetic retinopathy without macular edema; E11.42 Type 2 diabetes mellitus with diabetic polyneuropathy; Z83.3 Family history of diabetes mellitus; Z82.49 Family history of ischemic heart disease and other diseases of the circulatory system; Z79.4 Long term (current) use of insulin
CPT/HCPCS: 36415; 71045; 80048; 80053; 82550; 82553; 82948; 83605; 83690; 84484; 85025; 85610; 85730; 86705; 86706; 86707; 87040; 87340; 87350; 90962; 93005; 93306; 99284; G0378; J1580; J1644; J1817; J2270; J2405; J2543; J3370; J7030; J7040